=== PATIENT | male | born 1940 | race Caucasian/White ===

== ENCOUNTER 2020-03-23 06:03 | Outpatient (REF) | payer MEDICARE, OTHER, SELFPAY ==
[2020-03-23 07:45] LABS: MANUAL DIFF FLAG NO
[2020-03-23 07:52] LABS: Basophils Percent Auto 0.8 % (0-2); Eosinophils Absolute Auto 0.5 X10*3/uL (0.0-0.4); Eosinophils Percent Auto 9.5 % (0-4); Hematocrit 48.4 % (42-52); Hemoglobin 15.9 g/dl (14.0-18.0); Imm Gran Abs Auto 0.02 X10*3/uL (0.00-0.03); Imm Gran Pct Auto 0.4 % (0.0-0.4); Lymphocytes Absolute Auto 0.8 X10*3/uL (1.2-4.9); Lymphocytes Percent Auto 15.9 % (20-40); Mean Corpuscular HGB Conc 32.9 g/dl (31.0-36.0); Mean Corpuscular Hemoglobin 30.5 pg (27.0-33.0); Mean Corpuscular Volume 92.9 fL (80-98); Mean Platelet Volume 9.8 fL (9.4-12.4); Monocytes Absolute Auto 0.6 X10*3/uL (0.1-1.2); Monocytes Percent Auto 11.4 % (2-11); Platelet Count 207 X10*3/uL (160-400); Red Blood Count 5.21 X10*6/uL (4.60-5.80); White Blood Count 4.8 X10*3/uL (4.8-10.8)
[2020-03-23 08:05] LABS: Estimated Average Glucose 128 mg/dL; Hemoglobin A1c % 6.1 %
[2020-03-23 08:24] LABS: Alanine Aminotransferase 13 U/L (0-40); Albumin Level 4.2 g/dL (3.5-5.0); Alkaline Phosphatase 69 U/L (39-117); Anion Gap 13 (12-20); Aspartate Amino Transferase 16 U/L (5-37); Bilirubin Total 0.7 mg/dL (0.0-1.0); Blood Urea Nitrogen 19 mg/dL (9-16); Calcium 8.7 mg/dL (8.4-10.2); Carbon Dioxide 28 mmol/L (22-29); Chloride 100 mmol/L (96-108); Cholesterol 171 mg/dL; Estimated Glomerular Filt Rate > 60; Glucose Fasting 98 mg/dL (60-99); HDL Cholesterol 53 mg/dL; LDL Cholesterol Calculated 101 mg/dl; Potassium 4.6 mmol/l (3.3-5.1); Sodium 136 mmol/L (135-145); Triglycerides 89 mg/dL
[2020-03-23 10:09] LABS: Creatinine Urine 77.47 mg/dL; Microalbumin Urine < 5.0 mg/L
== END 2020-03-23 06:04 | disposition home or self-care (01) ==
LOC: HO.LAB 06:03
PROVIDERS: Visit Provider Internal Medicine Medical Oncology
DX: E11.22 Type 2 diabetes mellitus with diabetic chronic kidney disease (principal); I12.9 Hypertensive chronic kidney disease with stage 1 through stage 4 chronic kidney disease, or unspecified chronic kidney disease; N18.9 Chronic kidney disease, unspecified; E78.2 Mixed hyperlipidemia
CPT/HCPCS: 36415; 80053; 80061; 82043; 83036; 85025

== ENCOUNTER 2020-06-19 05:59 | Outpatient (REF) | payer MEDICARE, OTHER, SELFPAY ==
[2020-06-19 07:13] LABS: MANUAL DIFF FLAG NO
[2020-06-19 07:19] LABS: Basophils Percent Auto 0.5 % (0-2); Eosinophils Absolute Auto 0.3 X10*3/uL (0.0-0.4); Eosinophils Percent Auto 4.9 % (0-4); Hematocrit 49.3 % (42-52); Hemoglobin 16.6 g/dl (14.0-18.0); Imm Gran Abs Auto 0.02 X10*3/uL (0.00-0.03); Imm Gran Pct Auto 0.3 % (0.0-0.4); Lymphocytes Absolute Auto 0.9 X10*3/uL (1.2-4.9); Lymphocytes Percent Auto 14.9 % (20-40); Mean Corpuscular HGB Conc 33.7 g/dl (31.0-36.0); Mean Corpuscular Hemoglobin 31.4 pg (27.0-33.0); Mean Corpuscular Volume 93.4 fL (80-98); Mean Platelet Volume 9.8 fL (9.4-12.4); Monocytes Absolute Auto 0.6 X10*3/uL (0.1-1.2); Monocytes Percent Auto 10.9 % (2-11); Neutrophils Absolute Auto 3.9 X10*3/uL (2.0-8.3); Neutrophils Percent Auto 68.5 % (45-73); Platelet Count 221 X10*3/uL (160-400); Red Blood Count 5.28 X10*6/uL (4.60-5.80); Red Cell Distribution Width 12.1 % (11.0-16.0); White Blood Count 5.8 X10*3/uL (4.8-10.8)
[2020-06-19 07:24] LABS: Estimated Average Glucose 131 mg/dL; Hemoglobin A1c % 6.2 %
[2020-06-19 07:41] LABS: Alanine Aminotransferase 15 U/L (0-40); Albumin Level 4.4 g/dL (3.5-5.0); Alkaline Phosphatase 68 U/L (39-117); Anion Gap 11 (12-20); Aspartate Amino Transferase 17 U/L (5-37); Bilirubin Total 0.8 mg/dL (0.0-1.0); Blood Urea Nitrogen 19 mg/dL (9-16); Calcium 8.9 mg/dL (8.4-10.2); Carbon Dioxide 31 mmol/L (22-29); Chloride 102 mmol/L (96-108); Cholesterol 179 mg/dL; Estimated Glomerular Filt Rate > 60; Glucose Fasting 116 mg/dL (60-99); HDL Cholesterol 56 mg/dL; LDL Cholesterol Calculated 106 mg/dl; Potassium 4.6 mmol/L (3.3-5.1); Sodium 139 mmol/L (135-145); Total Protein 7.3 g/dL (6.5-8.0); Triglycerides 85 mg/dL
== END 2020-06-19 06:00 | disposition home or self-care (01) ==
LOC: HO.LAB 05:59
PROVIDERS: PCP Internal Medicine Medical Oncology; Visit Provider Internal Medicine Medical Oncology
DX: I12.9 Hypertensive chronic kidney disease with stage 1 through stage 4 chronic kidney disease, or unspecified chronic kidney disease (principal); E11.22 Type 2 diabetes mellitus with diabetic chronic kidney disease; E78.2 Mixed hyperlipidemia; N18.2 Chronic kidney disease, stage 2 (mild)
CPT/HCPCS: 36415; 80053; 80061; 83036; 85025

== ENCOUNTER → 2020-08-06 12:47 | Outpatient (REF) | payer MEDICARE, OTHER, SELFPAY ==
--- NOTE | 2020-08-06 13:00 | CA_ITS ---
Transthoracic Echocardiogram Patient (Last, First, Middle): Kwan Padilla, Gender: Male Date of : 1940 Age: 80 Procedure Date: 08/06/2020 Procedure Type: Transthoracic Echocardiogram Location: OP Height: 180.34 cm Weight: 76.2 kg BSA: 1.96 m2 Heart Rate: bpm BP: 126 / 80 mmHg Police Patrol Officer: ALEX Max MD: Andi Johnson MD Machinist Mate: Sin Cobb MD Symptoms: I48.19 PERSIS AFIB, I35.0 NONRHEUMATIC Study Quality: Fair ECG Rhythm: Sinus Conclusions: - 1. Low normal LV systolic function with LVEF of 50-55% 2. Mildly dilated left atrium 3. Gvat-cu-gyeooseq aortic stenosis 4. Normal calculated RV systolic pressure 5. No pericardial effusion Findings Left Ventricle Normal left ventricular cavity size. There is normal left ventricular wall thickness. The left ventricular systolic function is low normal. The visually estimated ejection fraction is between 50-55%. Diastolic function is indeterminate on the basis of available data. Right Ventricle The right ventricle was not well visualized. Atria The left atrium is mildly dilated. Interatrial shunt cannot be excluded. The right atrium was not well visualized. Aortic Valve There is moderate calcification of the aortic valve. There is moderate thickening of the aortic valve. There is mild to moderate aortic valve stenosis. The mean gradient is 13 mmHg. The aortic valve area is 1.46 cm2. There is no aortic valve regurgitation. Mitral Valve There is mild anterior mitral leaflet thickening. There is moderate mitral annular calcification. There is trace mitral valve regurgitation. There is no mitral valve stenosis. Pulmonic Valve The pulmonic valve was not well visualized. Tricuspid Valve The tricuspid valve was not well visualized. There is trace tricuspid valve regurgitation. The right ventricular systolic pressure is normal. The right ventricular systolic pressure is 28 mmHg. There is no evidence of pulmonary hypertension. Great Vessels All visible segments of the aorta are normal in size. The pulmonary artery was not well visualized. Venous The inferior vena cava is normal in size and collapses greater than 50% with inspiration. Pericardium/Pleural There is no evidence of pericardial effusion. Prior Study Comparison Changes noted compared to prior study dated: 01/22/2019. LV systolic function appears to be low normal in this study Measurements 2D Linear Measurements IVSd: 1.03 0.6-0.9/0.6-1.0 cm LVIDd: 3.80 3.9-5.3/4.2-5.9 cm LVIDd Index: 1.94 2.4-3.2/2.2-3.1 cm/m2 LVIDs: 2.68 2.0-3.6 cm LVPWd: 1.03 0.7-1.1 cm Ao Root: 3.40 2.1-3.5 cm LA Diam: 3.40 2.7-3.8/3.0-4.0 cm LAIDs Index: 1.73 1.5-2.3 cm/m2 LV Mass: 152.21 67-162/88-224 g LV Mass Index: 77.66 43-95/49-115 g/m2 LVOT Diam: 2.00 3.0+(-)1.3 cm 2D Systolic Function EF 4C: 49.40 >55% EF 2C: 55.90 >55% EF BiP: 52.60 >55% Aortic Valve AoV Pk Marco Antonio: 2.40 AoV Mn Marco Antonio: 1.69 AoV VTI: 0.45 AoV Pk Grad: 23.00 Aov Mn Grad: 13.00 EDDIE Cont.VTI: 1.46 LVOT LVOT Pk Marco Antonio: 0.99 LVOT Mn Marco Antonio: 0.64 LVOT VTI: 0.21 LVOT Pk Grad: 4.00 LVOT Mn Grad: 2.00 LVOT Diam: 2.00 LVOT Area: 3.14 Tricuspid Valve TR Pk Marco Antonio: 2.52 TR Pk Grad: 25.00 RA Press: 3.00 RVSP: 28.00 Great Vessels Aorta Ao Root-2D: 3.40 2.0-3.7 cm Ao Asc: 3.30 2.1-3.4 cm Ao Arch: 3.20 Updated in Other Vendor System with Status of Final Sin Cobb MD electronically signed on 08/07/2020 12:12:52 PM with status of Final
== END ==
LOC: HO.CARD 12:47
PROVIDERS: Visit Provider Internal Medicine
DX: I48.19 Other persistent atrial fibrillation (principal); I35.0 Nonrheumatic aortic (valve) stenosis
CPT/HCPCS: 93306

== ENCOUNTER → 2020-08-26 12:57 | Outpatient (BNVA) | payer MEDICARE, OTHER, SELFPAY | PROVIDERS: PCP Internal Medicine Medical Oncology; Visit Provider Internal Medicine | DX: I48.19 Other persistent atrial fibrillation (principal); I35.0 Nonrheumatic aortic (valve) stenosis; I10 Essential (primary) hypertension; E11.8 Type 2 diabetes mellitus with unspecified complications | CPT/HCPCS: Q3014 ==

== ENCOUNTER 2020-09-18 05:56 | Outpatient (REF) | payer MEDICARE, OTHER, SELFPAY ==
[2020-09-18 07:04] LABS: MANUAL DIFF FLAG NO
[2020-09-18 07:07] LABS: Basophils Percent Auto 0.7 % (0-2); Eosinophils Absolute Auto 0.3 X10*3/uL (0.0-0.4); Eosinophils Percent Auto 5.9 % (0-4); Hematocrit 47.8 % (42-52); Hemoglobin 15.9 g/dl (14.0-18.0); Imm Gran Abs Auto 0.02 X10*3/uL (0.00-0.03); Imm Gran Pct Auto 0.5 % (0.0-0.4); Lymphocytes Absolute Auto 0.8 X10*3/uL (1.2-4.9); Lymphocytes Percent Auto 17.6 % (20-40); Mean Corpuscular HGB Conc 33.3 g/dl (31.0-36.0); Mean Corpuscular Hemoglobin 30.9 pg (27.0-33.0); Mean Corpuscular Volume 92.8 fL (80-98); Mean Platelet Volume 9.6 fL (9.4-12.4); Monocytes Absolute Auto 0.5 X10*3/uL (0.1-1.2); Monocytes Percent Auto 10.6 % (2-11); Neutrophils Absolute Auto 2.9 X10*3/uL (2.0-8.3); Neutrophils Percent Auto 64.7 % (45-73); Platelet Count 220 X10*3/uL (160-400); Red Blood Count 5.15 X10*6/uL (4.60-5.80); Red Cell Distribution Width 12.2 % (11.0-16.0); White Blood Count 4.4 X10*3/uL (4.8-10.8)
[2020-09-18 07:16] LABS: Estimated Average Glucose 131 mg/dL; Hemoglobin A1c % 6.2 %
[2020-09-18 07:31] LABS: Alanine Aminotransferase 14 U/L (0-40); Albumin Level 4.2 g/dL (3.5-5.0); Alkaline Phosphatase 70 U/L (39-117); Anion Gap 12 (12-20); Aspartate Amino Transferase 15 U/L (5-37); Bilirubin Total 0.7 mg/dL (0.0-1.0); Blood Urea Nitrogen 18 mg/dL (9-16); Calcium 9.3 mg/dL (8.4-10.2); Carbon Dioxide 30 mmol/L (22-29); Chloride 102 mmol/L (96-108); Cholesterol 183 mg/dL; Estimated Glomerular Filt Rate > 60; Glucose Fasting 105 mg/dL (60-99); HDL Cholesterol 56 mg/dL; LDL Cholesterol Calculated 108 mg/dl; Potassium 4.6 mmol/L (3.3-5.1); Sodium 139 mmol/L (135-145); Triglycerides 96 mg/dL
== END 2020-09-18 05:57 | disposition home or self-care (01) ==
LOC: HO.LAB 05:56
PROVIDERS: PCP Internal Medicine Medical Oncology; Visit Provider Internal Medicine Medical Oncology
DX: I12.9 Hypertensive chronic kidney disease with stage 1 through stage 4 chronic kidney disease, or unspecified chronic kidney disease (principal); E11.22 Type 2 diabetes mellitus with diabetic chronic kidney disease; N18.9 Chronic kidney disease, unspecified; E78.2 Mixed hyperlipidemia
CPT/HCPCS: 36415; 80053; 80061; 83036; 85025

== ENCOUNTER 2021-01-25 05:58 | Outpatient (REF) | payer MEDICARE, OTHER, SELFPAY ==
[2021-01-25 07:10] LABS: MANUAL DIFF FLAG NO
[2021-01-25 07:12] LABS: Basophils Percent Auto 0.4 % (0-2); Eosinophils Absolute Auto 0.3 X10*3/uL (0.0-0.4); Eosinophils Percent Auto 5.4 % (0-4); Hematocrit 46.3 % (42-52); Hemoglobin 15.6 g/dl (14.0-18.0); Imm Gran Abs Auto 0.02 X10*3/uL (0.00-0.03); Imm Gran Pct Auto 0.4 % (0.0-0.4); Lymphocytes Absolute Auto 0.8 X10*3/uL (1.2-4.9); Lymphocytes Percent Auto 15.4 % (20-40); Mean Corpuscular HGB Conc 33.7 g/dl (31.0-36.0); Mean Corpuscular Hemoglobin 31.4 pg (27.0-33.0); Mean Corpuscular Volume 93.2 fL (80-98); Mean Platelet Volume 9.8 fL (9.4-12.4); Monocytes Absolute Auto 0.6 X10*3/uL (0.1-1.2); Monocytes Percent Auto 11.1 % (2-11); Neutrophils Absolute Auto 3.6 X10*3/uL (2.0-8.3); Neutrophils Percent Auto 67.3 % (45-73); Platelet Count 212 X10*3/uL (160-400); Red Blood Count 4.97 X10*6/uL (4.60-5.80); Red Cell Distribution Width 12.7 % (11.0-16.0); White Blood Count 5.3 X10*3/uL (4.8-10.8)
[2021-01-25 07:39] LABS: Estimated Average Glucose 128 mg/dL; Hemoglobin A1c % 6.1 %
[2021-01-25 07:51] LABS: Alanine Aminotransferase 12 U/L (0-40); Albumin Level 4.3 g/dL (3.5-5.0); Alkaline Phosphatase 63 U/L (39-117); Anion Gap 13 (12-20); Aspartate Amino Transferase 17 U/L (5-37); Bilirubin Total 0.9 mg/dL (0.0-1.0); Blood Urea Nitrogen 15 mg/dL (9-16); Calcium 9.4 mg/dL (8.4-10.2); Carbon Dioxide 28 mmol/L (22-29); Chloride 103 mmol/L (96-108); Cholesterol 171 mg/dL; Estimated Glomerular Filt Rate > 60; Glucose Random 108 mg/dL (60-115); HDL Cholesterol 59 mg/dL; LDL Cholesterol Calculated 94 mg/dl; Potassium 4.3 mmol/L (3.3-5.1); Sodium 140 mmol/L (135-145); Total Protein 6.9 g/dL (6.5-8.0); Triglycerides 92 mg/dL
[2021-01-25 08:29] LABS: Prostate Specific Antigen 0.61 ng/mL (<0.05-4.0)
== END 2021-01-25 05:59 | disposition home or self-care (01) ==
LOC: HO.LAB 05:58
PROVIDERS: PCP Internal Medicine Medical Oncology; Visit Provider Internal Medicine Medical Oncology
DX: E78.2 Mixed hyperlipidemia (principal); E11.22 Type 2 diabetes mellitus with diabetic chronic kidney disease; I12.9 Hypertensive chronic kidney disease with stage 1 through stage 4 chronic kidney disease, or unspecified chronic kidney disease; N18.2 Chronic kidney disease, stage 2 (mild); I48.20 Chronic atrial fibrillation, unspecified; N40.0 Benign prostatic hyperplasia without lower urinary tract symptoms; Z12.5 Encounter for screening for malignant neoplasm of prostate
CPT/HCPCS: 36415; 80053; 80061; 83036; 84153; 84550; 85025

== ENCOUNTER → 2021-03-02 14:32 | Outpatient (BNVA) | payer MEDICARE, OTHER, SELFPAY | PROVIDERS: PCP Internal Medicine Medical Oncology; Visit Provider Internal Medicine | DX: I48.19 Other persistent atrial fibrillation (principal); I49.3 Ventricular premature depolarization; I35.0 Nonrheumatic aortic (valve) stenosis; I10 Essential (primary) hypertension; E11.9 Type 2 diabetes mellitus without complications; Z88.0 Allergy status to penicillin; Z88.2 Allergy status to sulfonamides; Z91.02 Food additives allergy status; Z79.4 Long term (current) use of insulin; Z79.899 Other long term (current) drug therapy | CPT/HCPCS: 93005; 99212 ==

== ENCOUNTER 2021-04-23 05:54 | Outpatient (REF) | payer MEDICARE, OTHER, SELFPAY ==
[2021-04-23 06:17] LABS: MANUAL DIFF FLAG NO
[2021-04-23 07:12] LABS: Basophils Percent Auto 0.7 % (0-2); Eosinophils Absolute Auto 0.3 X10*3/uL (0.0-0.4); Eosinophils Percent Auto 7.2 % (0-4); Hematocrit 48.6 % (42.0-52.0); Hemoglobin 16.4 g/dl (14.0-18.0); Imm Gran Abs Auto 0.01 X10*3/uL (0.00-0.03); Imm Gran Pct Auto 0.2 % (0.0-0.4); Lymphocytes Absolute Auto 0.7 X10*3/uL (1.2-4.9); Lymphocytes Percent Auto 15.6 % (20-40); Mean Corpuscular HGB Conc 33.7 g/dl (31.0-36.0); Mean Corpuscular Hemoglobin 31.5 pg (27.0-33.0); Mean Corpuscular Volume 93.3 fL (80.0-98.0); Mean Platelet Volume 9.8 fL (9.4-12.4); Monocytes Absolute Auto 0.5 X10*3/uL (0.1-1.2); Monocytes Percent Auto 10.9 % (2-11); Neutrophils Absolute Auto 2.8 x10*3/uL (2.0-8.3); Neutrophils Percent Auto 65.4 % (45-73); Platelet Count 202 X10*3/uL (160-400); Red Blood Count 5.21 X10*6/uL (4.60-5.80); Red Cell Distribution Width 12.2 % (11.0-16.0); White Blood Count 4.3 X10*3/uL (4.8-10.8)
[2021-04-23 07:33] LABS: Estimated Average Glucose 131 mg/dL; Hemoglobin A1c % 6.2 %
[2021-04-23 07:42] LABS: Alanine Aminotransferase 15 U/L (0-40); Albumin Level 4.2 g/dL (3.5-5.0); Alkaline Phosphatase 61 U/L (39-117); Anion Gap 13 (12-20); Aspartate Amino Transferase 18 U/L (5-37); Bilirubin Total 0.9 mg/dL (0.0-1.0); Blood Urea Nitrogen 15 mg/dL (9-16); Calcium 9.3 mg/dL (8.4-10.2); Carbon Dioxide 28 mmol/L (22-29); Chloride 104 mmol/L (96-108); Cholesterol 173 mg/dL; Estimated Glomerular Filt Rate > 60; Glucose Fasting 107 mg/dL (60-99); HDL Cholesterol 49 mg/dL; LDL Cholesterol Calculated 106 mg/dl; Potassium 4.6 mmol/L (3.3-5.1); Sodium 140 mmol/L (135-145); Total Protein 7.1 g/dL (6.5-8.0); Triglycerides 90 mg/dL
[2021-04-23 08:04] LABS: PSA,Total (Free>4and<10) 0.59 ng/mL (0.00-4.00)
== END 2021-04-23 05:55 | disposition home or self-care (01) ==
LOC: HO.LAB 05:54
PROVIDERS: PCP Internal Medicine Medical Oncology; Visit Provider Internal Medicine Medical Oncology
DX: Z12.5 Encounter for screening for malignant neoplasm of prostate (principal); E78.2 Mixed hyperlipidemia; E11.22 Type 2 diabetes mellitus with diabetic chronic kidney disease; N18.9 Chronic kidney disease, unspecified
CPT/HCPCS: 36415; 80053; 80061; 83036; 84153; 85025

== ENCOUNTER 2021-07-16 06:01 | Outpatient (REF) | payer MEDICARE, OTHER, SELFPAY ==
[2021-07-16 06:15] LABS: MANUAL DIFF FLAG NO
[2021-07-16 07:37] LABS: Basophils Percent Auto 0.6 % (0-2); Eosinophils Absolute Auto 0.3 X10*3/uL (0.0-0.4); Eosinophils Percent Auto 4.9 % (0-4); Hematocrit 49.4 % (42.0-52.0); Imm Gran Abs Auto 0.02 X10*3/uL (0.00-0.03); Imm Gran Pct Auto 0.4 % (0.0-0.4); Lymphocytes Absolute Auto 0.8 X10*3/uL (1.2-4.9); Mean Corpuscular HGB Conc 32.4 g/dl (31.0-36.0); Mean Corpuscular Hemoglobin 30.4 pg (27.0-33.0); Mean Corpuscular Volume 93.9 fL (80.0-98.0); Mean Platelet Volume 9.9 fL (9.4-12.4); Monocytes Absolute Auto 0.6 X10*3/uL (0.1-1.2); Monocytes Percent Auto 11.5 % (2-11); Neutrophils Absolute Auto 3.4 x10*3/uL (2.0-8.3); Neutrophils Percent Auto 66.6 % (45-73); Platelet Count 224 X10*3/uL (160-400); Red Blood Count 5.26 X10*6/uL (4.60-5.80); White Blood Count 5.1 X10*3/uL (4.8-10.8)
[2021-07-16 07:45] LABS: Estimated Average Glucose 131 mg/dL; Hemoglobin A1c % 6.2 %
[2021-07-16 07:53] LABS: Microalbumin Urine < 5.0 mg/L
[2021-07-16 08:03] LABS: Alanine Aminotransferase 14 U/L (0-40); Albumin Level 4.3 g/dL (3.5-5.0); Alkaline Phosphatase 68 U/L (39-117); Anion Gap 12 (12-20); Aspartate Amino Transferase 18 U/L (5-37); Blood Urea Nitrogen 18 mg/dL (9-16); Calcium 9.6 mg/dL (8.4-10.2); Carbon Dioxide 29 mmol/L (22-29); Chloride 101 mmol/L (96-108); Cholesterol 170 mg/dL; Estimated Glomerular Filt Rate > 60; Glucose Fasting 113 mg/dL (60-99); HDL Cholesterol 51 mg/dL; LDL Cholesterol Calculated 100 mg/dl; Potassium 4.9 mmol/L (3.3-5.1); Sodium 137 mmol/L (135-145); Total Protein 7.2 g/dL (6.5-8.0); Triglycerides 96 mg/dL
== END 2021-07-16 06:02 | disposition home or self-care (01) ==
LOC: HO.LAB 06:01
PROVIDERS: PCP Internal Medicine Medical Oncology; Visit Provider Internal Medicine Medical Oncology
DX: E78.2 Mixed hyperlipidemia (principal); E11.22 Type 2 diabetes mellitus with diabetic chronic kidney disease; I12.9 Hypertensive chronic kidney disease with stage 1 through stage 4 chronic kidney disease, or unspecified chronic kidney disease; N18.9 Chronic kidney disease, unspecified
CPT/HCPCS: 36415; 80053; 80061; 82043; 83036; 85025

== ENCOUNTER → 2021-08-25 12:37 | Outpatient (BNVA) | payer MEDICARE, OTHER, SELFPAY | PROVIDERS: PCP Internal Medicine Medical Oncology; Referring Provider Internal Medicine Medical Oncology; Visit Provider Internal Medicine | DX: I48.19 Other persistent atrial fibrillation (principal); I35.0 Nonrheumatic aortic (valve) stenosis; I10 Essential (primary) hypertension; E11.8 Type 2 diabetes mellitus with unspecified complications | CPT/HCPCS: 99212 ==

== ENCOUNTER 2021-11-05 05:57 | Outpatient (REF) | payer MEDICARE, OTHER, SELFPAY ==
[2021-11-05 06:03] LABS: MANUAL DIFF FLAG NO
[2021-11-05 07:41] LABS: Basophils Percent Auto 0.7 % (0-2); Eosinophils Absolute Auto 0.3 X10*3/uL (0.0-0.4); Eosinophils Percent Auto 5.6 % (0-4); Hematocrit 46.8 % (42.0-52.0); Hemoglobin 15.8 g/dl (14.0-18.0); Imm Gran Abs Auto 0.03 X10*3/uL (0.00-0.03); Imm Gran Pct Auto 0.5 % (0.0-0.4); Lymphocytes Absolute Auto 0.9 X10*3/uL (1.2-4.9); Lymphocytes Percent Auto 15.4 % (20-40); Mean Corpuscular HGB Conc 33.8 g/dl (31.0-36.0); Mean Corpuscular Hemoglobin 31.2 pg (27.0-33.0); Mean Corpuscular Volume 92.3 fL (80.0-98.0); Mean Platelet Volume 9.9 fL (9.4-12.4); Monocytes Absolute Auto 0.6 X10*3/uL (0.1-1.2); Monocytes Percent Auto 10.5 % (2-11); Neutrophils Absolute Auto 3.7 x10*3/uL (2.0-8.3); Neutrophils Percent Auto 67.3 % (45-73); Platelet Count 207 X10*3/uL (160-400); Red Blood Count 5.07 X10*6/uL (4.60-5.80); Red Cell Distribution Width 12.4 % (11.0-16.0); White Blood Count 5.5 X10*3/uL (4.8-10.8)
[2021-11-05 07:54] LABS: Alanine Aminotransferase 14 U/L (0-40); Albumin Level 4.3 g/dL (3.5-5.0); Alkaline Phosphatase 64 U/L (39-117); Anion Gap 11 (12-20); Aspartate Amino Transferase 17 U/L (5-37); Bilirubin Total 0.7 mg/dL (0.0-1.0); Blood Urea Nitrogen 17 mg/dL (9-16); Calcium 9.3 mg/dL (8.4-10.2); Carbon Dioxide 28 mmol/L (22-29); Chloride 103 mmol/L (96-108); Estimated Glomerular Filt Rate > 60; Glucose Random 113 mg/dL (60-115); Sodium 137 mmol/L (135-145)
[2021-11-05 08:12] LABS: Estimated Average Glucose 131 mg/dL; Hemoglobin A1c % 6.2 %
[2021-11-05 08:17] LABS: Prostate Specific Antigen 0.55 ng/mL (<0.05-4.0)
== END 2021-11-05 05:58 | disposition home or self-care (01) ==
LOC: HO.LAB 05:57
PROVIDERS: PCP Internal Medicine Medical Oncology; Visit Provider Internal Medicine Medical Oncology
DX: Z12.5 Encounter for screening for malignant neoplasm of prostate (principal); E78.2 Mixed hyperlipidemia; E11.22 Type 2 diabetes mellitus with diabetic chronic kidney disease; N18.9 Chronic kidney disease, unspecified; N40.0 Benign prostatic hyperplasia without lower urinary tract symptoms
CPT/HCPCS: 36415; 80053; 83036; 84153; 85025

== ENCOUNTER 2022-03-11 05:59 | Outpatient (REF) | payer MEDICARE, OTHER, SELFPAY ==
[2022-03-11 06:05] LABS: MANUAL DIFF FLAG NO
[2022-03-11 07:37] LABS: Basophils Percent Auto 0.5 % (0-2); Eosinophils Absolute Auto 0.4 X10*3/uL (0.0-0.4); Eosinophils Percent Auto 6.2 % (0-4); Hematocrit 46.2 % (42.0-52.0); Hemoglobin 15.1 g/dl (14.0-18.0); Imm Gran Abs Auto 0.02 X10*3/uL (0.00-0.03); Imm Gran Pct Auto 0.4 % (0.0-0.4); Lymphocytes Absolute Auto 0.8 X10*3/uL (1.2-4.9); Lymphocytes Percent Auto 13.9 % (20-40); Mean Corpuscular HGB Conc 32.7 g/dl (31.0-36.0); Mean Corpuscular Hemoglobin 30.7 pg (27.0-33.0); Mean Corpuscular Volume 93.9 fL (80.0-98.0); Mean Platelet Volume 9.9 fL (9.4-12.4); Monocytes Absolute Auto 0.6 X10*3/uL (0.1-1.2); Monocytes Percent Auto 10.7 % (2-11); Neutrophils Absolute Auto 3.9 x10*3/uL (2.0-8.3); Neutrophils Percent Auto 68.3 % (45-73); Platelet Count 215 X10*3/uL (160-400); Red Blood Count 4.92 X10*6/uL (4.60-5.80); Red Cell Distribution Width 12.6 % (11.0-16.0); White Blood Count 5.7 X10*3/uL (4.8-10.8)
[2022-03-11 07:50] LABS: Estimated Average Glucose 131 mg/dL; Hemoglobin A1c % 6.2 %
[2022-03-11 08:06] LABS: Alanine Aminotransferase 15 U/L (0-40); Albumin Level 4.2 g/dL (3.5-5.0); Alkaline Phosphatase 65 U/L (39-117); Anion Gap 17 (12-20); Aspartate Amino Transferase 16 U/L (5-37); Bilirubin Total 0.9 mg/dL (0.0-1.0); Blood Urea Nitrogen 17 mg/dL (9-16); Calcium 9.2 mg/dL (8.4-10.2); Carbon Dioxide 26 mmol/L (22-29); Chloride 103 mmol/L (96-108); Cholesterol 161 mg/dL; Estimated Glomerular Filt Rate > 60; Glucose Fasting 113 mg/dL (60-99); HDL Cholesterol 51 mg/dL; LDL Cholesterol Calculated 93 mg/dl; Sodium 141 mmol/L (135-145); Total Protein 6.9 g/dL (6.5-8.0); Triglycerides 85 mg/dL
== END 2022-03-11 06:00 | disposition home or self-care (01) ==
LOC: HO.LAB 05:59
PROVIDERS: PCP Internal Medicine Medical Oncology; Visit Provider Internal Medicine Medical Oncology
DX: E78.2 Mixed hyperlipidemia (principal); E11.22 Type 2 diabetes mellitus with diabetic chronic kidney disease; N18.9 Chronic kidney disease, unspecified
CPT/HCPCS: 36415; 80053; 80061; 83036; 85025

== ENCOUNTER → 2022-03-30 13:26 | Outpatient (BNVA) | payer MEDICARE, OTHER, SELFPAY | PROVIDERS: PCP Internal Medicine Medical Oncology; Referring Provider Internal Medicine Medical Oncology; Visit Provider Internal Medicine | DX: I48.19 Other persistent atrial fibrillation (principal); I35.0 Nonrheumatic aortic (valve) stenosis; I10 Essential (primary) hypertension; E11.8 Type 2 diabetes mellitus with unspecified complications | CPT/HCPCS: 93005; 99212 ==

== ENCOUNTER 2022-07-22 06:03 | Outpatient (REF) | payer MEDICARE, OTHER, SELFPAY ==
[2022-07-22 06:12] LABS: MANUAL DIFF FLAG NO
[2022-07-22 07:42] LABS: Basophils Percent Auto 0.7 % (0-2); Eosinophils Absolute Auto 0.3 X10*3/uL (0.0-0.4); Eosinophils Percent Auto 6.1 % (0-4); Hematocrit 46.3 % (42.0-52.0); Hemoglobin 15.3 g/dl (14.0-18.0); Imm Gran Abs Auto 0.03 X10*3/uL (0.00-0.03); Imm Gran Pct Auto 0.6 % (0.0-0.4); Lymphocytes Absolute Auto 0.9 X10*3/uL (1.2-4.9); Lymphocytes Percent Auto 16.5 % (20-40); Mean Corpuscular Volume 93.7 fL (80.0-98.0); Mean Platelet Volume 9.9 fL (9.4-12.4); Monocytes Absolute Auto 0.6 X10*3/uL (0.1-1.2); Monocytes Percent Auto 11.7 % (2-11); Neutrophils Absolute Auto 3.5 x10*3/uL (2.0-8.3); Neutrophils Percent Auto 64.4 % (45-73); Platelet Count 225 X10*3/uL (160-400); Red Blood Count 4.94 X10*6/uL (4.60-5.80); Red Cell Distribution Width 12.3 % (11.0-16.0); White Blood Count 5.4 X10*3/uL (4.8-10.8)
[2022-07-22 08:21] LABS: Alanine Aminotransferase 13 U/L (0-40); Alkaline Phosphatase 66 U/L (39-117); Anion Gap 16 (12-20); Aspartate Amino Transferase 18 U/L (5-37); Bilirubin Total 1.1 mg/dL (0.0-1.0); Blood Urea Nitrogen 16 mg/dL (9-16); Calcium 9.2 mg/dL (8.4-10.2); Carbon Dioxide 26 mmol/L (22-29); Chloride 103 mmol/L (96-108); Cholesterol 173 mg/dL; Estimated Glomerular Filt Rate > 60; Glucose Fasting 109 mg/dL (60-99); HDL Cholesterol 56 mg/dL; LDL Cholesterol Calculated 98 mg/dl; Potassium 4.5 mmol/L (3.3-5.1); Sodium 140 mmol/L (135-145); Total Protein 6.7 g/dL (6.5-8.0); Triglycerides 97 mg/dL
[2022-07-22 08:28] LABS: Prostate Specific Antigen 0.69 ng/mL (<0.05-4.0)
== END 2022-07-22 06:04 | disposition home or self-care (01) ==
LOC: HO.LAB 06:03
PROVIDERS: PCP Internal Medicine Medical Oncology; Visit Provider Internal Medicine Medical Oncology
DX: Z12.5 Encounter for screening for malignant neoplasm of prostate (principal); E78.2 Mixed hyperlipidemia; E11.22 Type 2 diabetes mellitus with diabetic chronic kidney disease; N18.9 Chronic kidney disease, unspecified; N40.0 Benign prostatic hyperplasia without lower urinary tract symptoms
CPT/HCPCS: 36415; 80053; 80061; 84153; 85025

== ENCOUNTER 2022-11-04 06:00 | Outpatient (REF) | payer MEDICARE, OTHER, SELFPAY ==
[2022-11-04 06:15] LABS: MANUAL DIFF FLAG NO
[2022-11-04 07:32] LABS: Basophils Percent Auto 0.5 % (0-2); Eosinophils Absolute Auto 0.4 X10*3/uL (0.0-0.4); Eosinophils Percent Auto 6.1 % (0-4); Hemoglobin 15.4 g/dl (14.0-18.0); Imm Gran Abs Auto 0.02 X10*3/uL (0.00-0.03); Imm Gran Pct Auto 0.4 % (0.0-0.4); Lymphocytes Absolute Auto 0.8 X10*3/uL (1.2-4.9); Lymphocytes Percent Auto 13.5 % (20-40); Mean Corpuscular HGB Conc 33.5 g/dl (31.0-36.0); Mean Corpuscular Volume 92.7 fL (80.0-98.0); Mean Platelet Volume 9.5 fL (9.4-12.4); Monocytes Absolute Auto 0.6 X10*3/uL (0.1-1.2); Monocytes Percent Auto 10.4 % (2-11); Neutrophils Absolute Auto 3.9 x10*3/uL (2.0-8.3); Neutrophils Percent Auto 69.1 % (45-73); Platelet Count 207 X10*3/uL (160-400); Red Blood Count 4.96 X10*6/uL (4.60-5.80); Red Cell Distribution Width 12.2 % (11.0-16.0); White Blood Count 5.7 X10*3/uL (4.8-10.8)
[2022-11-04 07:41] LABS: Estimated Average Glucose 126 mg/dL
[2022-11-04 09:17] LABS: Alanine Aminotransferase 13 U/L (0-40); Alkaline Phosphatase 62 U/L (39-117); Anion Gap 14 (12-20); Aspartate Amino Transferase 17 U/L (5-37); Bilirubin Total 0.6 mg/dL (0.0-1.0); Blood Urea Nitrogen 15 mg/dL (9-16); Calcium 9.8 mg/dL (8.4-10.2); Carbon Dioxide 26 mmol/L (22-29); Chloride 104 mmol/L (96-108); Estimated Glomerular Filt Rate > 60; Glucose Random 109 mg/dL (60-115); Potassium 5.3 mmol/L (3.3-5.1); Sodium 139 mmol/L (135-145)
[2022-11-04 09:32] LABS: Creatinine Urine 106.65 mg/dL; Microalbumin Urine < 5.0 mg/L
== END 2022-11-04 06:01 | disposition home or self-care (01) ==
LOC: HO.LAB 06:00
PROVIDERS: PCP Internal Medicine Medical Oncology; Visit Provider Internal Medicine Medical Oncology
DX: Z00.00 Encounter for general adult medical examination without abnormal findings (principal); E78.2 Mixed hyperlipidemia; I12.9 Hypertensive chronic kidney disease with stage 1 through stage 4 chronic kidney disease, or unspecified chronic kidney disease; E11.22 Type 2 diabetes mellitus with diabetic chronic kidney disease; N18.9 Chronic kidney disease, unspecified
CPT/HCPCS: 36415; 80053; 82043; 83036; 85025

== ENCOUNTER 2022-11-04 07:30 | Outpatient (REF) | payer MEDICARE, OTHER, SELFPAY | END 2022-11-04 07:31 | disposition home or self-care (01) | LOC: HO.LNP 07:30 | PROVIDERS: Visit Provider Internal Medicine Medical Oncology | DX: Z13.89 Encounter for screening for other disorder (principal) ==

== ENCOUNTER 2023-01-20 05:49 | Outpatient (REF) | payer MEDICARE, OTHER, SELFPAY ==
[2023-01-20 06:13] LABS: MANUAL DIFF FLAG NO
[2023-01-20 08:10] LABS: Basophils Percent Auto 0.8 % (0-2); Eosinophils Absolute Auto 0.3 X10*3/uL (0.0-0.4); Eosinophils Percent Auto 4.9 % (0-4); Hematocrit 46.6 % (42.0-52.0); Hemoglobin 15.6 g/dl (14.0-18.0); Imm Gran Abs Auto 0.02 X10*3/uL (0.00-0.03); Imm Gran Pct Auto 0.4 % (0.0-0.4); Lymphocytes Absolute Auto 0.7 X10*3/uL (1.2-4.9); Mean Corpuscular HGB Conc 33.5 g/dl (31.0-36.0); Mean Corpuscular Hemoglobin 31.1 pg (27.0-33.0); Mean Corpuscular Volume 92.8 fL (80.0-98.0); Mean Platelet Volume 9.9 fL (9.4-12.4); Monocytes Absolute Auto 0.6 X10*3/uL (0.1-1.2); Monocytes Percent Auto 11.1 % (2-11); Neutrophils Absolute Auto 3.5 x10*3/uL (2.0-8.3); Neutrophils Percent Auto 68.8 % (45-73); Platelet Count 206 X10*3/uL (160-400); Red Blood Count 5.02 X10*6/uL (4.60-5.80); Red Cell Distribution Width 12.5 % (11.0-16.0); White Blood Count 5.1 X10*3/uL (4.8-10.8)
[2023-01-20 08:19] LABS: Estimated Average Glucose 126 mg/dL
[2023-01-20 08:39] LABS: Alanine Aminotransferase 12 U/L (0-40); Albumin Level 4.2 g/dL (3.5-5.0); Alkaline Phosphatase 58 U/L (39-117); Anion Gap 15 (12-20); Aspartate Amino Transferase 16 U/L (5-37); Bilirubin Total 0.7 mg/dL (0.0-1.0); Blood Urea Nitrogen 15 mg/dL (9-16); Calcium 9.5 mg/dL (8.4-10.2); Carbon Dioxide 26 mmol/L (22-29); Chloride 104 mmol/L (96-108); Cholesterol 169 mg/dL (<200); Estimated Glomerular Filt Rate > 60; Glucose Fasting 113 mg/dL (60-99); HDL Cholesterol 55 mg/dL (>40); LDL Cholesterol Calculated 98 mg/dL (<100); Potassium 4.6 mmol/L (3.3-5.1); Sodium 140 mmol/L (135-145); Total Protein 7.1 g/dL (6.5-8.0); Triglycerides 84 mg/dL (<150)
[2023-01-20 10:38] LABS: Creatinine Urine 70.88 mg/dL; Microalbumin Urine < 5.0 mg/L
== END 2023-01-20 05:50 | disposition home or self-care (01) ==
LOC: HO.LAB 05:49
PROVIDERS: PCP Internal Medicine Medical Oncology; Visit Provider Internal Medicine Medical Oncology
DX: I12.9 Hypertensive chronic kidney disease with stage 1 through stage 4 chronic kidney disease, or unspecified chronic kidney disease (principal); E11.22 Type 2 diabetes mellitus with diabetic chronic kidney disease; N18.2 Chronic kidney disease, stage 2 (mild); E78.2 Mixed hyperlipidemia
CPT/HCPCS: 36415; 80053; 80061; 82043; 82570; 83036; 85025

== ENCOUNTER → 2023-03-14 12:37 | Outpatient (REF) | payer MEDICARE, OTHER, SELFPAY ==
--- NOTE | 2023-03-14 12:40 | HM_ITS ---
Conclusion: 1. Patient was monitored for total period of 2 days and 21 hours 2. Baseline was atrial fibrillation with average heart rate of 74 beats per minute with good rate control 3. No significant pauses greater than 3 seconds noted 4. Frequent PVCs noted with total burden of 5.25% with 11 3 beat salvos which could represent aberrant conduction 5. No patient reported events MTDD
--- NOTE | 2023-03-14 12:40 | CA_ITS ---
Transthoracic Echocardiogram Patient (Last, First, Middle): Kwan Padilla, Gender: Male Date of : 1940 Age: 82 Procedure Date: 03/14/2023 Procedure Type: Transthoracic Echocardiogram Location: OP Height: 180.34 cm Weight: 78.93 kg BSA: 1.99 m2 Heart Rate: bpm BP: 130 / 82 mmHg Nurse Reviewer: TO Referring MD: Andi Johnson MD Video Production Specialist: Sin Cobb MD Symptoms: I35.0 - Nonrheumatic aortic (valve) stenosis Study Quality: Fair ECG Rhythm: Atrial Fibrillation Conclusions: - 1. Normal LV ejection fraction 55-60% 2. Moderate paradoxical low-flow aortic stenosis 3. Normal RV systolic pressure 4. No gross pericardial effusion Findings Left Ventricle Normal left ventricular size, thickness, and systolic function. The visually estimated ejection fraction is between 55-60%. Diastolic function is indeterminate on the basis of available data. Right Ventricle Normal right ventricular cavity size. There is low normal right ventricular systolic function. Atria The left atrium is likely dilated. There is no evidence of interatrial shunt. The right atrium is likely dilated. Aortic Valve There is moderate calcification of the aortic valve. There is mild thickening of the aortic valve. There is moderate aortic valve stenosis. The peak aortic gradient is 19 mmHg.The mean gradient is 11 mmHg. The aortic valve area is 1.22 cm2. There is no aortic valve regurgitation. paradoxical low-flow aortic stenosis Mitral Valve There is mild anterior and moderate posterior mitral leaflet thickening. There is moderate mitral annular calcification. There is mild mitral valve regurgitation. There is no mitral valve stenosis. Pulmonic Valve The pulmonic valve is likely normal. Tricuspid Valve Normal tricuspid valve structure. There is trace tricuspid valve regurgitation. The right ventricular systolic pressure is normal. The right ventricular systolic pressure is 20 mmHg. Normal right atrial pressure. Great Vessels All visible segments of the aorta are normal in size. The pulmonary artery was not well visualized. Venous The inferior vena cava is normal in size and collapses greater than 50% with inspiration. Pericardium/Pleural There is no evidence of pericardial effusion. Measurements 2D Linear Measurements IVSd: 1.10 0.6-0.9/0.6-1.0 cm LVIDd: 4.10 3.9-5.3/4.2-5.9 cm LVIDd Index: 2.06 2.4-3.2/2.2-3.1 cm/m2 LVIDs: 2.96 2.0-3.6 cm LVPWd: 0.85 0.7-1.1 cm LA Diam: 4.10 2.7-3.8/3.0-4.0 cm LAIDs Index: 2.06 1.5-2.3 cm/m2 LV Mass: 159.08 67-162/88-224 g LV Mass Index: 79.94 43-95/49-115 g/m2 LVOT Diam: 2.20 3.0+(-)1.3 cm Mitral Valve MV Pk E: 0.78 MV Decel Time: 193.00 E'Lateral: 10.00 E'Medial: 7.51 E/E' Med: 10.40 E/E' Lat: 7.80 PHT: 57.00 MVA PHT: 3.86 Decel Mckinley: 4.18 Aortic Valve AoV Pk Marco Antonio: 2.17 AoV Mn Marco Antonio: 1.59 AoV VTI: 0.42 AoV Pk Grad: 19.00 Aov Mn Grad: 11.00 EDDIE Cont.VTI: 1.22 LVOT LVOT Pk Marco Antonio: 0.69 LVOT Mn Marco Antonio: 0.44 LVOT VTI: 0.14 LVOT Pk Grad: 2.00 LVOT Mn Grad: 1.00 LVOT Diam: 2.20 LVOT Area: 3.80 Diastolic Function MV Pk E: 0.78 E'Medial: 7.51 E/E' Med: 10.40 E' Laterial: 10.00 E/E' Lat: 7.80 Right Ventricle TAPSE (mm): 17.50 TVS' Marco Antonio: 9.81 Tricuspid Valve TR Pk Marco Antonio: 2.07 TR Pk Grad: 17.00 RA Press: 3.00 RVSP: 20.00 Great Vessels Aorta Sinus of Valsalva: 3.37 2.0-3.5 cm Ao Asc: 3.30 2.1-3.4 cm Updated in Other Vendor System with Status of Final Sin Cobb MD electronically signed on 03/15/2023 3:36:35 PM with status of Final
== END ==
LOC: HO.CARD 12:37
PROVIDERS: PCP Internal Medicine Medical Oncology; Visit Provider Internal Medicine
DX: I48.19 Other persistent atrial fibrillation (principal); I35.0 Nonrheumatic aortic (valve) stenosis
CPT/HCPCS: 93242; 93306

== ENCOUNTER → 2023-03-14 12:40 | Outpatient (BNV) | payer MEDICARE, OTHER, SELFPAY | PROVIDERS: PCP Internal Medicine Medical Oncology; Visit Provider Internal Medicine Cardiovascular Disease | DX: I48.19 Other persistent atrial fibrillation (principal) | CPT/HCPCS: 93244; 93306 ==

== ENCOUNTER 2023-04-05 13:27 | Outpatient (AMB) | payer MEDICARE, OTHER, SELFPAY ==
--- NOTE | 2023-04-05 13:44 | A.OFFVIS_ITS ---
Intake Vital Signs 04/05/23 13:46 Height 5 ft 11 in Weight 180 lb 12.465 oz BMI 25.2 BP 130/70 Blood Pressure Location Lt brachial Position Sitting Pulse 90 Intake Visit Reasons: 1 year follow up, after testing Intake Note: 1 year follow up after testing [employer] Required: No Accompanied by: Self / Same As Patient Allergies Penicillins [PENICILLINS] Adverse Reaction (Unknown, Verified 04/05/23 13:49) DIARRHEA Sulfa (Sulfonamide Antibiotics) [SULFA (SULFONAMIDE ANTIBIOTICS)] Adverse Reaction (Unknown, Verified 04/05/23 13:49) DIARRHEA FOOD WITH ACID Allergy (Intermediate, Uncoded 04/05/23 13:49) RASH Medication List - Last Reconciled 04/05/23 by Andi Johnson MD apixaban 5 mg PO BID diltiazem HCl ER 120 mg PO DAILY lisinopril 5 mg PO DAILY 90 days metformin 500 mg PO BID HPI HPI Comments History of Present Illness Details Kwan returns for follow-up regarding atrial fibrillation, aortic stenosis and other issues. He is doing fine. Denies any cardiac complaints. [facility] Medical History (Updated 08/26/20 @ 13:17 by Andi Johnson MD) Type 2 diabetes mellitus with unspecified complications Essential hypertension Non-rheumatic aortic stenosis Persistent atrial fibrillation Surgical History No significant past surgical history Family History Father Lung cancer Heart attack Mother No problems noted. Social History Alcohol intake: never Patient Tobacco Use Status: Never used Tobacco Review of Systems Const Denies weakness ENT Denies dizziness Card Denies chest pain, Denies chest pain with activity, Denies syncope, Denies rapid heart rate, Denies pedal edema, Denies edema, Denies leg edema, Denies lightheadedness, Denies palpitations, Denies dyspnea, Denies dyspnea on exertion and Denies orthopnea Resp Denies cough, Denies dyspnea and Denies dyspnea on exertion GI Denies hematochezia and Denies change in stool character Musc Denies abnormal gait, Denies muscle cramps, Denies muscle weakness, Denies numbness, Denies radiating pain into limb and Denies tingling Neuro Denies abnormal gait, Denies dizziness, Denies syncope, Denies numbness, Denies tingling and Denies weakness Endo Denies palpitations Physical Exam Vital Signs: Last Vital Signs Pulse 90 04/05/23 13:46 BP 130/70 04/05/23 13:46 BMI result Body Mass Index 25.2 Const General: comfortable and no acute distress Orientation/consciousness: patient oriented x3 HEENT Other: Unremarkable Head: Yes normal to inspection Neck Neck: Yes normal visual inspection Chest Chest palpation & inspection: normal inspection of the chest Resp Auscultation: clear to auscultation bilaterally Cardio Palpation: normal PMI Heart sounds: S1 normal heart sound present, S2 normal heart sound present, no gallops, Murmur heart sound present systolic II/ and at the right sternal border and no rubs GI Palpation (GI): Soft to palpation Back/Spine/Pelvis Other: unremarkable Skin General skin exam: no rashes or lesions noted Neuro General: patient oriented x3 Extrem General: Yes normal to inspection Psych Mental Status: mental status grossly normal Office Procedures EKG Details: EKG with atrial fibrillation at a rate of 90/Min; leftward axis; nonspecific ST- T changes. [id number], Complete Assessment & Plan Assessment & Plan (1) Persistent atrial fibrillation: Code(s): I48.19 - Other persistent atrial fibrillation Plan: Most recent Holter shows atrial fibrillation with an average rate of 74/Min. Adequate rate control. Continue diltiazem/Eliquis. Myocardial perfusion imaging in the past shows normal perfusion. (2) Non-rheumatic aortic stenosis: Code(s): I35.0 - Nonrheumatic aortic (valve) stenosis Plan: Most recent echocardiogram described to have moderate aortic valve stenosis. Paradoxically low gradients. No specific management at this time. Follow-up another echo in 1 year. Discussed. (3) Essential hypertension: Code(s): I10 - Essential (primary) hypertension Plan: Stable. Home blood pressure diary reviewed. (4) Type 2 diabetes mellitus with unspecified complications: Code(s): E11.8 - Type 2 diabetes mellitus with unspecified complications Plan: On Metformin. Last hemoglobin A1c 6%. Orders: Orders CA echo transthoracic complete 51 Weeks I35.0 - Nonrheumatic aortic (valve) stenosis Coding Level of Care Code Est Pt Level 4 (28405) Diagnoses Persistent atrial fibrillation I48.19 Non-rheumatic aortic stenosis I35.0 Essential hypertension I10 Type 2 diabetes mellitus with unspecified complications E11.8 CPT Codes EKG - CPT: 34257-[id number], Complete ([id number])
[2023-04-05 13:46] VITALS: BP 130/70; PULSE 90; BMI 25.2
== END 2023-04-05 14:11 | disposition home or self-care (01) ==
PROVIDERS: Visit Provider Internal Medicine
DX: I48.19 Other persistent atrial fibrillation (principal); I35.0 Nonrheumatic aortic (valve) stenosis; I10 Essential (primary) hypertension; E11.8 Type 2 diabetes mellitus with unspecified complications
CPT/HCPCS: 93010; 99214

== ENCOUNTER → 2023-04-05 13:27 | Outpatient (BNVA) | payer MEDICARE, OTHER, SELFPAY | PROVIDERS: Visit Provider Internal Medicine | DX: I48.19 Other persistent atrial fibrillation (principal); I35.0 Nonrheumatic aortic (valve) stenosis; I10 Essential (primary) hypertension; E11.8 Type 2 diabetes mellitus with unspecified complications | CPT/HCPCS: 93005; 99212 ==

== ENCOUNTER 2023-06-16 06:49 | Inpatient (IN) | payer MEDICARE, OTHER, SELFPAY ==
[2023-06-16] VITALS (10 sets, daily range): BP systolic 112–154; BP diastolic 67–96; PULSE 71–105; RESP 16–21; TEMP 36.7–37.1; O2SAT 95–99; BMI 24.8
--- NOTE | 2023-06-16 | ECG_ITS ---
Test Reason : CP Blood Pressure : / mmHG Vent. Rate : 112 BPM Atrial Rate : 000 BPM P-R Int : 000 ms QRS Dur : 106 ms QT Int : 340 ms P-R-T Axes : 000 -61 098 degrees QTc Int : 464 ms Atrial fibrillation with rapid ventricular response Left anterior fascicular block ST depression, consider subendocardial injury Abnormal ECG When compared with ECG of 24-OCT-2017 11:06, ST more depressed Lateral leads Referred By: Generic ED Physician Electronically Signed By:COLBY LAUREANO
--- NOTE | ~2023-06-16 | US_ITS ---
EXAMINATION: US ABDOMEN LIMITED CLINICAL INFORMATION: Right upper quadrant pain.. COMPARISON: None available. TECHNIQUE: Real-time imaging of the right upper quadrant with attention to gallbladder and liver was performed.. FINDINGS: LIVER: The liver is normal in size. The liver contour is normal. Parenchymal echogenicity is mildly increased. No focal hepatic lesion. There is no intrahepatic biliary duct dilatation seen. GALLBLADDER: Gallbladder wall thickness is 0.2 cm. The gallbladder is physiologically distended without evidence of stones, sludge, polyps, wall thickening or pericholecystic fluid. COMMON BILE DUCT: Normal in caliber measuring 0.7 cm in diameter. US/US abdomen limited IMPRESSION: 1. Mild increased liver echogenicity. No focal lesion seen. 2. Visualized gallbladder and CBD is unremarkable.
--- NOTE | ~2023-06-16 | XR_ITS ---
EXAMINATION: XR CHEST CLINICAL INFORMATION: Chest pain COMPARISON: None available. TECHNIQUE: Frontal view of the chest was obtained. FINDINGS: No significant abnormality is noted involving the heart, lungs, mediastinum, bony thorax or soft tissues. XR/XR chest 1V IMPRESSION: No active cardiopulmonary disease and no interval change.
--- NOTE | 2023-06-16 07:00 | CA_ITS ---
Transthoracic Echocardiogram Patient (Last, First, Middle): Kwan Padilla, Gender: Male Date of : 1940 Age: 82 Procedure Date: 06/16/2023 Procedure Type: Transthoracic Echocardiogram Location: ER Height: 180.34 cm Weight: 78.02 kg BSA: 1.98 m2 Heart Rate: 96 bpm BP: 142 / 81 mmHg [place] [employer] Crewman: Referring MD: Andi Johnson MD Symptoms: NSTEMI Study Quality: Adequate w contrast ECG Rhythm: Atrial Fibrillation with rapid rate Conclusions: - The left ventricular systolic function is normal. The calculated ejection fraction is 64% by biplane method. - There is moderate aortic valve stenosis. Findings Procedure Information Contrast agent, definity, is being given per protocol without apparent complications. Left Ventricle Normal left ventricular cavity size. There is mildly increased left ventricular wall thickness. The left ventricular systolic function is normal. The calculated ejection fraction is 64% by biplane method. Diastolic function is indeterminate on the basis of available data. No overt wall motion abnormality but somewhat difficult to assess. Right Ventricle Normal right ventricular cavity size and systolic function. Atria The left atrium is mildly dilated. The right atrium is normal in size. Aortic Valve There is moderate calcification of the aortic valve. There is moderate aortic valve stenosis. The peak aortic velocity is 2.27 m/s with a calculated peak gradient of 21 mmHg. The mean gradient is 11 mmHg. The aortic valve area is 1.39 cm2. There is no aortic valve regurgitation. Stroke volume index 28 mL/m2. Dimensionless index 0.36. Mitral Valve The mitral valve appears normal. There is no mitral valve regurgitation. There is no mitral valve stenosis. Pulmonic Valve The pulmonic valve is likely normal. Tricuspid Valve There is trace tricuspid valve regurgitation. There is no evidence of pulmonary hypertension. Great Vessels The asc aorta is normal in size. Venous The inferior vena cava is normal in size and collapses greater than 50% with inspiration. Pericardium/Pleural There is no evidence of pericardial effusion. Prior Study Comparison No significant change compared to prior study dated: 03/14/2023. Measurements 2D Linear Measurements IVSd: 1.25 0.6-0.9/0.6-1.0 cm LVIDd: 3.97 3.9-5.3/4.2-5.9 cm LVIDd Index: 2.01 2.4-3.2/2.2-3.1 cm/m2 LVIDs: 2.29 2.0-3.6 cm LVPWd: 1.25 0.7-1.1 cm LA Diam: 3.00 2.7-3.8/3.0-4.0 cm LAIDs Index: 1.52 1.5-2.3 cm/m2 LV Mass: 216.60 67-162/88-224 g LV Mass Index: 109.39 43-95/49-115 g/m2 LVOT Diam: 2.10 3.0+(-)1.3 cm 2D Systolic Function EF 4C: 67.80 >55% EF 2C: 60.10 >55% EF BiP: 63.90 >55% Mitral Valve MV Pk E: 0.98 MV Decel Time: 142.00 E'Lateral: 13.30 E'Medial: 11.00 E/E' Med: 8.90 E/E' Lat: 7.40 PHT: 42.00 MVA PHT: 5.24 Decel Trimble: 6.92 Aortic Valve AoV Pk Marco Antonio: 2.27 AoV Mn Marco Antonio: 1.52 AoV VTI: 0.40 AoV Pk Grad: 21.00 Aov Mn Grad: 11.00 EDDIE Cont.VTI: 1.39 LVOT LVOT Pk Marco Antonio: 0.82 LVOT Mn Marco Antonio: 0.57 LVOT VTI: 0.16 LVOT Pk Grad: 3.00 LVOT Mn Grad: 2.00 LVOT Diam: 2.10 LVOT Area: 3.46 Diastolic Function MV Pk E: 0.98 E'Medial: 11.00 E/E' Med: 8.90 E' Laterial: 13.30 E/E' Lat: 7.40 Right Ventricle TAPSE (mm): 23.50 TVS' Marco Antonio: 12.40 Tricuspid Valve TR Pk Marco Antonio: 2.28 TR Pk Grad: 21.00 RA Press: 8.00 RVSP: 29.00 Great Vessels Aorta Sinus of Valsalva: 3.10 2.0-3.5 cm Ao Asc: 3.40 2.1-3.4 cm Pulmonary Valve PV Pk Marco Antonio: 1.32 Peak PV Grad: 7.00 Updated in Other Vendor System with Status of Final Andi Johnson MD electronically signed on 06/16/2023 12:00:30 PM with status of Final
--- NOTE | 2023-06-16 07:24 | ED.CHESTPAIN ---
HPI - Chest Pain General Chief Complaint: Chest Pain Stated Complaint: CP Time Seen by Provider: 06/16/23 07:03 Source: patient and old records reviewed Mode of arrival: EMS Limitations: no limitations History of Present Illness HPI narrative: 82 yo male from home with PMH of DM, HTN, aortic stenosis, PAF on diltiazem and eliquis, has no known heart disease, he notes he ate chicken and mashed potatoes/gravy from a restaurant last night sometimes this bothers him. He woke up ususal 515 took all of his medications including eliquis then around 530 he developed chest pain going across sternum into LUQ. No dyspnea or nausea. He tried TUMs no relief. He notes he has had this before with certain foods. He has no fevers, diarrhea. The pain does not spread anywhere. No recent URI, no falls. The pain is described as feeling full like you have something stuck. complaint: chest pain Onset (ago): hour(s) (530am) Timing of current episode: constant Prior episodes: Yes Onset: during rest Pain location: substernal and epigastric Pain radiation: none Severity: moderate Quality: dull Relieving factors: nothing Exacerbating factors: nothing Context: other (hx of similar episodes) Treatment prior to arrival: other (tums) Related Data Home Medications Medication Instructions Recorded Confirmed apixaban 5 mg tablet 5 mg PO BID 08/26/20 04/05/23 diltiazem HCl 120 mg capsule,24 120 mg PO DAILY 08/26/20 04/05/23 hr,extended release metformin 500 mg tablet 500 mg PO BID 08/26/20 04/05/23 Previous Rx's Medication Instructions Recorded lisinopril 5 mg tablet 5 mg PO DAILY #90 tabs 05/22/23 Allergies Allergy/AdvReac Type Severity Reaction Status Date / Time Penicillins [PENICILLINS] AdvReac Unknown DIARRHEA Verified 06/16/23 08:26 Sulfa (Sulfonamide AdvReac Unknown DIARRHEA Verified 06/16/23 08:26 Antibiotics) [SULFA (SULFONAMIDE ANTIBIOTICS)] FOOD WITH ACID Allergy Intermediate RASH Uncoded 04/05/23 13:49 Review of Systems Review of Systems: Constitutional : No Weight loss, No Fever, No Chills ENT/Mouth : No sore throat, No Rhinorrhea Eyes: No Eye Pain, No Swelling Cardiovascular : pos Chest Pain, no SOB, no Dyspnea on Exertion, No Orthopnea, No Edema, No Palpitations Respiratory : No Cough, No Sputum Gastrointestinal : no Nausea, No Vomiting, No Diarrhea, No abdominal Pain, No Hematochezia, No Melena Genitourinary : No Dysuria, No Urinary Frequency Musculoskeletal : No joint pain, No Myalgias, No Joint Swelling Skin : No Skin Lesions, No rash Neuro : No Weakness, No Numbness, No Dizziness, No Headache Psych : No Anxiety/Panic, No Depression All other systems reviewed and are negative [facility] Past Medical History Attestation statement: The following information was validated with the patient. Source: old records reviewed Medical History Type 2 diabetes mellitus with unspecified complications Essential hypertension Non-rheumatic aortic stenosis Persistent atrial fibrillation Surgical History No significant past surgical history Family History Family History Father Lung cancer Heart attack Mother No problems noted. Social History Social History Alcohol intake: never Patient Tobacco Use Status: Never used Tobacco Advance Directives: No Advance Directives Information Provided: No Physical Exam Vital Signs: Vital Signs: Last Vital Signs Temp 98.7 F 06/16/23 07:15 Pulse 104 H 06/16/23 08:15 Resp 21 H 06/16/23 08:15 BP 143/81 H 06/16/23 08:15 Pulse Ox 97 06/16/23 08:15 O2 Del Method Room Air 06/16/23 08:15 BMI result Body Mass Index 24.8 Appearance: Alert. Oriented X3. No acute distress. Eyes: Pupils equal, round and reactive to light. ENT: Pharynx normal. Neck: Normal inspection. Neck supple. CVS: tachycardic irregular heart rate and rhythm. Pulses normal. Respiratory: No respiratory distress. Breath sounds normal. Abdomen: Soft and non-tender. Skin: Skin warm and dry. Normal skin color. Normal skin turgor. Extremities: No lower extremity edema. Neuro: Oriented X 3. No motor deficit. No sensory deficit. Course Course Course Narrative: pain resolved no need for morphine at this time Reevaluation(s) Reevaluation #1: repeat trop bumped call to Cardiology Dr. Johnson 740am. Medications Administered Discontinued Medications Generic Name Dose Route Start Last Admin Trade Name Carroll PRN Reason Stop Dose Admin Diltiazem HCl 5 mg 06/16/23 07:14 06/16/23 08:16 Diltiazem Hcl 50 Mg/10 Ml Vial IVPUSH 06/16/23 07:15 5 mg ONCE ONE Administration Famotidine 20 mg 06/16/23 07:14 06/16/23 08:16 Famotidine/Pf 20 Mg/2 Ml Vial IVPUSH 06/16/23 07:15 20 mg ONCE ONE Administration Morphine Sulfate 2 mg 06/16/23 07:14 06/16/23 08:16 Morphine Sulfate 2 Mg/Ml Cartridge IVPUSH 06/16/23 07:15 Not Given ONCE ONE Protocol Medical Decision Making Medical Decision Making MDM Narrative: 82 yo male from home with PMH of DM, HTN, aortic stenosis, PAF on diltiazem and eliquis, has no known heart disease here with chest fullness and LUQ pain after eating a larger meal last night his EKG does have changes but this could be rate related - will obtain labs, give IV dilt to slow him down he is up to 130s at times, US of gallbladder, troponin x 2 could be ACS, liver, lipase and CXR. Start on low dose morphine and IV pepcid. He notes this is not the first time he has had this eating. He has no known heart disease. Doubt VTE given eliquis use. Differential Diagnosis Differential Diagnoses: The differential diagnosis associated with the presentation includes gastritis, biliary colic, ACS, doubt VTE given eliquis use, hiatal hernia, GERD Admission/Observation Consideration of admission/observation: Escalation of care including admission/observation considered will admit for NSTEMI Consult Healthcare Provider Management of the patient was discussed with: Hospitalist (will admit) and Site Identification Specialist (admit per cardiology patinet already took eliquis this AM held aspirin in setting of bleeding risks) Lab Data [facility] Lab Attestation statement: I reviewed the patient's lab results. 06/16/23 07:35 06/16/23 08:56 Labs: Lab Results 06/16/23 06/16/23 Range/Units 07:35 08:56 WBC 8.2 (4.8-10.8) X10*3/uL RBC 5.06 (4.60-5.80) X10*6/uL Hgb 15.9 (14.0-18.0) g/dl Hct 46.2 (42.0-52.0) % MCV 91.3 (80.0-98.0) fL MCH 31.4 (27.0-33.0) pg MCHC 34.4 (31.0-36.0) g/dl RDW 12.2 (11.0-16.0) % Plt Count 157 L (160-400) X10*3/uL MPV 9.8 (9.4-12.4) fL Immature Gran % (Auto) 0.2 (0.0-0.4) % Neut % (Auto) 84.5 H (45-73) % Lymph % (Auto) 5.2 L (20-40) % [place] % (Auto) 8.0 (2-11) % Eos % (Auto) 1.9 (0-4) % Baso % (Auto) 0.2 (0-2) % Lymph # (Auto) 0.4 L (1.2-4.9) X10*3/uL [place] # (Auto) 0.7 (0.1-1.2) X10*3/uL Eos # (Auto) 0.2 (0.0-0.4) X10*3/uL Baso # (Auto) 0.0 (0.0-0.2) X10*3/uL Abs Immat Gran (auto) 0.02 (0.00-0.03) X10*3/uL Absolute Neuts (auto) 6.9 (2.0-8.3) x10*3/uL Absolute Nucleated RBC 0.000 (0.0-0.012) X10*3/uL Nucleated RBC % (auto) 0.0 (0.0-0.2) /100WBC Sodium 136 (135-145) mmol/L Potassium 4.5 (3.3-5.1) mmol/L Chloride 104 (96-108) mmol/L Carbon Dioxide 23 (22-29) mmol/L Anion Gap 14 (12-20) BUN 17 H (9-16) mg/dL Creatinine 1.01 (0.5-1.4) mg/dL Estim Creat Clear Calc 62.1 Estimated GFR > 60 Random Glucose 112 (60-115) mg/dL Calcium 9.9 (8.4-10.2) mg/dL Magnesium 2.2 (1.6-2.6) mg/dL Total Bilirubin 0.6 (0.0-1.0) mg/dL Direct Bilirubin 0.2 (0.0-0.5) mg/dL AST 16 (5-37) U/L ALT 11 (0-40) U/L Alkaline Phosphatase 71 (39-117) U/L Troponin I High Sens 2.9 100.8 H* D (<3.5-35.0) ng/L Total Protein 7.2 (6.5-8.0) g/dL Albumin 4.1 (3.5-5.0) g/dL Lipase 20 (8-78) U/L COVID-19 ([facility]) Negative (Negative) COVID-19 Clin Com See Note Independent Interpretation I performed an independent interpretation of an: EKG, Plain X-Ray (normal ) and Ultrasound (normal ) Interpretation: Rate: 112 Rhythm: afib [place]: left Normal QRS complex. ST T wave : no ABIGAIL, inverted t waves I and aVL, ST depression V4 - V6. qTC: 464 prior studies: no ST depressions lateral leads The study has been interpreted contemporaneously by me. . EKG #2 Rate: 91 Rhythm: afib [place]: left Normal QRS complex. ST T wave : no ABIGAIL, nonspecific I and aVL, ST depressions improved lateral leads qTC: 442 prior studies: ST depressions improved after better rate control The study has been interpreted contemporaneously by me. . Radiology Impression Discussion of test interpretation with radiology: I have reviewed the radiologist's reading. Independent Historian Clinical information obtained from an independent historian. History obtained from or confirmed by: Friend [facility] EMS External Record Review External record reviewed: Inpatient record Critical Care Time Critical Care Time Critical Care Time: Yes Total Critical Care Time: 40 Attestation: repeat EKG, repeat troponin, IV dilt for rapid afib, NSTEMI admit I attest to this time spent taking care of the patient Discharge Plan Discharge Clinical Impression: Non-ST elevation OR (NSTEMI), Atrial fibrillation with RVR Patient Disposition: Admitted As Inpatient
[2023-06-16 07:40] LABS: MANUAL DIFF FLAG NO
[2023-06-16 07:41] LABS: Basophils Percent Auto 0.2 % (0-2); Eosinophils Absolute Auto 0.2 X10*3/uL (0.0-0.4); Eosinophils Percent Auto 1.9 % (0-4); Hematocrit 46.2 % (42.0-52.0); Hemoglobin 15.9 g/dl (14.0-18.0); Imm Gran Abs Auto 0.02 X10*3/uL (0.00-0.03); Imm Gran Pct Auto 0.2 % (0.0-0.4); Lymphocytes Absolute Auto 0.4 X10*3/uL (1.2-4.9); Lymphocytes Percent Auto 5.2 % (20-40); Mean Corpuscular HGB Conc 34.4 g/dl (31.0-36.0); Mean Corpuscular Hemoglobin 31.4 pg (27.0-33.0); Mean Corpuscular Volume 91.3 fL (80.0-98.0); Mean Platelet Volume 9.8 fL (9.4-12.4); Monocytes Absolute Auto 0.7 X10*3/uL (0.1-1.2); Neutrophils Absolute Auto 6.9 x10*3/uL (2.0-8.3); Neutrophils Percent Auto 84.5 % (45-73); Platelet Count 157 X10*3/uL (160-400); Red Blood Count 5.06 X10*6/uL (4.60-5.80); Red Cell Distribution Width 12.2 % (11.0-16.0); White Blood Count 8.2 X10*3/uL (4.8-10.8)
[2023-06-16 08:03] LABS: Troponin-I High Sensitivity 2.9 ng/L (<3.5-35.0)
--- NOTE | 2023-06-16 08:03 | PC.NURSE ---
US at bedside.
[2023-06-16] MEDS: Famotidine/PF 20 MG/2 ML VIAL IVPUSH (08:16)
[2023-06-16] MEDS: dilTIAZem HCL 50 MG/10 ML VIAL IVPUSH (08:16)
--- NOTE | 2023-06-16 08:29 | ECG_ITS ---
Test Reason : repeat ekg Blood Pressure : / mmHG Vent. Rate : 091 BPM Atrial Rate : 000 BPM P-R Int : 000 ms QRS Dur : 104 ms QT Int : 360 ms P-R-T Axes : 000 -55 068 degrees QTc Int : 442 ms Atrial fibrillation with premature ventricular or aberrantly conducted complexes Left anterior fascicular block Nonspecific ST abnormality Abnormal ECG When compared with ECG of 16-JUN-2023 06:55, ST no longer depressed in Anterior leads Referred By: Valencia Gu Electronically Signed By:COLBY LAUREANO
[2023-06-16 09:21] LABS: Alanine Aminotransferase 11 U/L (0-40); Albumin Level 4.1 g/dL (3.5-5.0); Alkaline Phosphatase 71 U/L (39-117); Anion Gap 14 (12-20); Aspartate Amino Transferase 16 U/L (5-37); Bilirubin Direct 0.2 mg/dL (0.0-0.5); Bilirubin Total 0.6 mg/dL (0.0-1.0); Blood Urea Nitrogen 17 mg/dL (9-16); Calcium 9.9 mg/dL (8.4-10.2); Carbon Dioxide 23 mmol/L (22-29); Chloride 104 mmol/L (96-108); Creatinine Clr Calc Pharmacy 62.1; Estimated Glomerular Filt Rate > 60; Glucose Random 112 mg/dL (60-115); Lipase 20 U/L (8-78); Magnesium 2.2 mg/dL (1.6-2.6); Potassium 4.5 mmol/L (3.3-5.1); Sodium 136 mmol/L (135-145); Total Protein 7.2 g/dL (6.5-8.0)
[2023-06-16 09:23] LABS: COVID-19 Test Negative (Negative); IDNOW Serial# 152EDE1D
[2023-06-16 09:30] LABS: Troponin-I High Sensitivity 100.8 ng/L (<3.5-35.0)
--- NOTE | 2023-06-16 10:06 | PHA.MEDREC ---
Pharmacy Consult ? Medication Reconciliation Pharmacy has completed the medication reconciliation.Confirmed medications with patient.
--- NOTE | 2023-06-16 11:18 | PM.IMHP ---
History of Present Illness Date of Service: 06/16/23 Attending physician on admission: Lizett Mascorro Chief Complaint: Chest pain Pt is an 82-year-old male with a PMH significant for?paroxysmal AFib on Eliquis and diltiazem, HTN, non insulin-dependent diabetes type 2, and aortic stenosis who presents to the ED with?chest pain since this morning. Pt reports waking up per usual at 04:00. Around 530 patient states he began having chest pain that radiated to his lower left quadrant. Is unable to characterize it very well, but denies that it is sharp or stabbing, burning, or like a pressure. Patient keeps stating that it felt like ?gas pain?. Patient says he often gets ?gas pain? if he eats anything spicy or acidic. This morning patient took Tums with no relief and so called EMS to be brought to the ED for further evaluation. Pain was constant and lasted for a few hours, the patient notes he has no longer in any pain or discomfort. 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 Patient denies diaphoresis, nausea, vomiting. No shortness of breath. No palpitations. Patient denies any history of smoking, alcohol use, or illicit substances. In the ED pt was tachycardic up into the 110s, tachypneic up to 21, and hypertensive up to 154/78. Labs were significant for increase in troponin from 2.9 to 100.8. Labs otherwise grossly unremarkable with no electrolyte abnormalities. CXR showed no active cardiopulmonary disease and no interval change. Ultrasound of abdomen found mild increased liver echogenicity but no focal lesions seen otherwise unremarkable. Initial EKG demonstrated AFib with RVR of [address] depressions in lateral leads. Repeat EKG showed AFib with PVCs and ST no longer depressed in lateral leads. Pt was treated with famotidine and diltiazem 5 mg IV push. Pt will be admitted to the hospital under observation for treatment and further evaluation of atypical chest pain and elevated troponins in the setting of AFib with RVR. Review of Systems Review of Systems: Chest pain radiating to lower left quadrant, constant and not alleviated with time Denies chest pressure, palpitations Denies diaphoresis No nausea, vomiting Denies shortness of breath No headache PMFSH Medical History Type 2 diabetes mellitus with unspecified complications Essential hypertension Non-rheumatic aortic stenosis Persistent atrial fibrillation Family History Father Lung cancer Heart attack Mother No problems noted. Surgical History No significant past surgical history Social History Alcohol intake: never Patient Tobacco Use Status: Never used Tobacco Use of substances other than those prescribed or required for medical reasons: No Advance Directives: No Advance Directives Information Provided: No Meds Allergies Allergy/AdvReac Type Severity Reaction Status Date / Time Penicillins [PENICILLINS] AdvReac Unknown DIARRHEA Verified 06/16/23 08:26 Sulfa (Sulfonamide AdvReac Unknown DIARRHEA Verified 06/16/23 08:26 Antibiotics) [SULFA (SULFONAMIDE ANTIBIOTICS)] FOOD WITH ACID Allergy Intermediate RASH Uncoded 04/05/23 13:49 Home Medications Medication Instructions Recorded Confirmed Last Taken Type apixaban 5 mg tablet 5 mg PO BID 08/26/20 06/16/23 06/16/23 History diltiazem HCl 120 mg capsule,24 120 mg PO DAILY 08/26/20 06/16/23 Unknown History hr,extended release metformin 500 mg tablet 500 mg PO BID 08/26/20 06/16/23 06/16/23 History Physical Exam Vital Signs and Narrative: Vital Signs: Last Vital Signs Temp 98.7 F 06/16/23 07:15 Pulse 98 06/16/23 10:32 Resp 16 06/16/23 10:32 BP 134/80 06/16/23 10:32 Pulse Ox 95 06/16/23 10:32 O2 Del Method Room Air 06/16/23 10:32 BMI result Body Mass Index 24.8 Constitutional: Alert, in no acute distress. Mental Status: Oriented to person, place and time. Eyes: Pupils are equal, round, and reactive to light. Ear, Nose, and Throat: Oropharynx clear, mucous membranes moist. Ears and nose without deformities. Trachea midline. Respiratory: Clear to auscultation bilaterally. No wheezing, rales, or rhonchi. Cardiovascular: Irregularly irregular rhythm, fast. 2/6 murmur heard at right sternal border. Gastrointestinal: Abdomen soft, non-tender, non-distended. Normal bowel sounds. Neurologic: Cranial nerves II-XII are grossly intact bilaterally. No focal neurological deficits. Moves all extremities spontaneously. Skin: Warm, dry. Musculoskeletal: No cyanosis or clubbing. Extremities: No edema. Psychiatric: Normal mood and affect. Results Labs 06/16/23 07:35 06/16/23 08:56 Labs: Laboratory Results - last 24 hr 06/16/23 06/16/23 07:35 08:56 MCV 91.3 MCH 31.4 MCHC 34.4 RDW 12.2 Plt Count 157 L MPV 9.8 Immature Gran % (Auto) 0.2 Neut % (Auto) 84.5 H Lymph % (Auto) 5.2 L [place] % (Auto) 8.0 Eos % (Auto) 1.9 Baso % (Auto) 0.2 Lymph # (Auto) 0.4 L [place] # (Auto) 0.7 Eos # (Auto) 0.2 Baso # (Auto) 0.0 Abs Immat Gran (auto) 0.02 Absolute Neuts (auto) 6.9 Absolute Nucleated RBC 0.000 Nucleated RBC % (auto) 0.0 Anion Gap 14 Estim Creat Clear Calc 62.1 Estimated GFR > 60 Random Glucose 112 Calcium 9.9 Magnesium 2.2 Total Bilirubin 0.6 Direct Bilirubin 0.2 AST 16 ALT 11 Alkaline Phosphatase 71 Total Protein 7.2 Albumin 4.1 Lipase 20 COVID-19 ([facility]) Negative COVID-19 Clin Com See Note Imaging Radiologist's Impressions: Impressions Abdomen Ultrasound 06/16/23 08:04 IMPRESSION: 1. Mild increased liver echogenicity. No focal lesion seen. 2. Visualized gallbladder and CBD is unremarkable. Chest X-Ray 06/16/23 08:17 IMPRESSION: No active cardiopulmonary disease and no interval change. Assessment and Plan (1) Atrial fibrillation with RVR: Status: Acute (2) Elevated troponin: Status: Acute Plan Pt is an 82-year-old male with a PMH significant for?paroxysmal AFib on Eliquis and diltiazem, HTN, non insulin-dependent diabetes type 2, and aortic stenosis who presents to the ED with?chest pain since this morning. Pt will be admitted to the hospital under observation for treatment and further evaluation of atypical chest pain and elevated troponins in the setting of AFib with RVR. Atypical chest pain with EKG changes and elevated troponins Pt with chest pain radiating to left lower abdomen since this morning Denies chest pressure Says pain similar to gas pain ; similar episodes in past alleviated with TUMS Pt currently asymptomatic Initial EKG with ST depressions in lateral leads, which resolved and subsequent EKG Initial troponin 2.9 with repeat 100.8 Echocardiogram Will get additional troponin Cardiology consult If chest pain returns will get another health promotion educator on telemetry AFib with RVR Patient with elevated heart rate in the 110s Patient given diltiazem 5 mg IV in ED Continue Eliquis, home diltiazem Monitor on telemetry [id number] diabetes type [address] sliding scale insulin Hold metformin Diabetic diet DNR/DNI Attending:?Dr. Mascorro DVT Prophylaxis: On Eliquis Patient will be admitted to the hospital under observation for treatment and further evaluation of atypical chest pain in the setting of elevated troponins and AFib with RVR. Quality Stroke Does the patient have a stroke diagnosis?: No VTE Prior VTE?: No VTE Risk Level:: Medical - moderate - high VTE Device Contraindication: Treatment Not Indicated VTE Drug Contraindication: N/A - Med Ordered
--- NOTE | 2023-06-16 11:33 | PC.NURSE ---
Admitting team at bedside at this time.
--- NOTE | 2023-06-16 13:36 | PM.CNCAR ---
History of Present Illness History of Present Illness Date of Service: 06/16/23 Chief complaint: elevated troponins Narrative: This is a cardiology consultation regarding NSTEMI. Patient has a history of persistent atrial fibrillation, aortic stenosis, hypertension as well as diabetes. He does not have any documented coronary disease. 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 Then all of a sudden developed a substernal discomfort which was across the front of the chest and he also noticed that somewhat in the upper abdomen. He thought it was from GI distress but not entirely clear. 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 Hence he came to the hospital and it seems that he had some rapid rates from his atrial fibrillation but he also had elevated troponins. Subsequently admitted. Currently, he states he is feeling okay. Review of Systems Review of Systems: Yes all other systems are reviewed and are negative Constitutional: Constitutional: Reports as per HPI and Reports no additional constitutional complaints Eyes: Eyes: Reports as per HPI and Denies no additional eye complaints ENT: Denies system reviewed and no additional complaints, except as documented and Reports as per HPI Cardiovascular: Cardiovascular: Reports as per HPI, Reports no additional cardiovascular complaints, Denies acrocyanosis, Denies cool extremities, Denies chest pain, Denies leg edema, Denies lightheadedness, Denies palpitations and Denies dyspnea Respiratory: Respiratory: Reports as per HPI, Denies no additional respiratory complaints and Denies dyspnea Gastrointestinal: Gastrointestinal: Reports as per HPI and Denies no additional gastrointestinal complaints Genitourinary: Genitourinary: Reports no additional male genitourinary complaints and Reports as per HPI Musculoskeletal: Musculoskeletal: Reports no additional musculoskeletal complaints and Reports as per HPI Integumentary/Breasts: Skin/Breast: Reports system reviewed and no additional complaints, except as docu Neurologic: Reports system reviewed and no additional complaints, except as documented and Reports as per HPI Psychiatric: Psychiatric: Reports no additional psychiatric complaints and Reports as per HPI Endocrine: Endocrine: Reports no additional endocrine complaints, Reports as per HPI and Denies palpitations Hematologic/Lymphatic: Hematologic/Lymphatic: Reports no additional hematologic/lymphatic complaints and Reports as per HPI Allergic/Immunologic: Allergic/Immunologic: Reports no additional allergic/immunologic complaints and Reports as per HPI [facility] Past Medical History Medical History Type 2 diabetes mellitus with unspecified complications Essential hypertension Non-rheumatic aortic stenosis Persistent atrial fibrillation Family History Family History Father Lung cancer Heart attack Mother No problems noted. Surgical History Surgical History No significant past surgical history Social History Social History Alcohol intake: never Patient Tobacco Use Status: Never used Tobacco Use of substances other than those prescribed or required for medical reasons: No Advance Directives: No Advance Directives Information Provided: No Meds Allergies Allergy/AdvReac Type Severity Reaction Status Date / Time Penicillins [PENICILLINS] AdvReac Unknown DIARRHEA Verified 06/16/23 08:26 Sulfa (Sulfonamide AdvReac Unknown DIARRHEA Verified 06/16/23 08:26 Antibiotics) [SULFA (SULFONAMIDE ANTIBIOTICS)] FOOD WITH ACID Allergy Intermediate RASH Uncoded 04/05/23 13:49 Active Medications: Current Medications Acetaminophen (Acetaminophen 325 Mg Tablet) 650 mg PO Q6H PRN PRN Reason: Pain, Mild (Pain Scale 1-3) Apixaban (Apixaban 5 Mg Tablet) 5 mg PO BID SCOTT Benzonatate (Benzonatate 100 Mg Capsule) 100 mg PO TID PRN PRN Reason: Cough Dextrose (Dextrose 50 % 25 Gm/50 Ml Syringe) 25 gm IVPUSH Q15M PRN; Protocol PRN Reason: per Hypoglycemia Standing Ord. Diltiazem HCl (Diltiazem Hcl Cd 120 Mg Cap.Er.Deg) 120 mg PO DAILY SCOTT; Protocol Docusate Sodium (Docusate Sodium 100 Mg Capsule) 100 mg PO DAILY PRN PRN Reason: Constipation Glucose (Glucose Gel 15 Gm Gel..Gram.) 15 gm PO Q15M PRN; Protocol PRN Reason: per Hypoglycemia Standing Ord. Insulin Human Lispro (Insulin Lispro 100 Unit/Ml 3 Ml Vial) 0 unit SUBCUT QIDACHS SCOTT; Protocol Lisinopril (Lisinopril 5 Mg Tablet) 5 mg PO DAILY SCOTT; Protocol Melatonin (Melatonin 3 Mg Tablet) 6 mg PO BEDTIME PRN PRN Reason: Insomnia Ondansetron HCl (Ondansetron Hcl 4 Mg/2 Ml Vial) 4 mg IVPUSH Q8H PRN PRN Reason: Nausea and Vomiting Sodium Chloride (0.9 % Sodium Chloride Flush 3 Ml Syringe) 3 ml IVFLUSH QSHIFT [facility] Home Medications Medication Instructions Recorded Confirmed Last Taken Type apixaban 5 mg tablet 5 mg PO BID 08/26/20 06/16/23 06/16/23 History diltiazem HCl 120 mg capsule,24 120 mg PO DAILY 08/26/20 06/16/23 Unknown History hr,extended release metformin 500 mg tablet 500 mg PO BID 08/26/20 06/16/23 06/16/23 History Physical Exam Vital Signs: Vital Signs: Last Vital Signs Temp 98.7 F 06/16/23 07:15 Pulse 100 06/16/23 13:11 Resp 17 06/16/23 13:11 BP 145/96 H 06/16/23 13:11 Pulse Ox 97 06/16/23 13:11 O2 Del Method Room Air 06/16/23 13:11 BMI result Body Mass Index 24.8 Const: General: comfortable and no acute distress Orientation/consciousness: patient oriented x3 HEENT: Other: Unremarkable Head: Yes normal to inspection Neck: Neck: Yes normal visual inspection Chest: Chest palpation & inspection: normal inspection of the chest Resp: Auscultation: clear to auscultation bilaterally Cardio: Palpation: normal PMI Heart sounds: S1 normal heart sound present, S2 normal heart sound present, no gallops, no murmurs and no rubs GI: Palpation (GI): Soft to palpation Back/Spine/Pelvis: Other: unremarkable Skin: General skin exam: no rashes or lesions noted Neuro: General: patient oriented x3 Extrem: General: Yes normal to inspection Psych: Mental Status: mental status grossly normal Objective Labs and Meds 06/16/23 07:35 06/16/23 08:56 Lab results: Laboratory Results - last 24 hr 06/16/23 06/16/23 07:35 08:56 WBC 8.2 RBC 5.06 Hgb 15.9 Hct 46.2 MCV 91.3 MCH 31.4 MCHC 34.4 RDW 12.2 Plt Count 157 L MPV 9.8 Immature Gran % (Auto) 0.2 Neut % (Auto) 84.5 H Lymph % (Auto) 5.2 L [place] % (Auto) 8.0 Eos % (Auto) 1.9 Baso % (Auto) 0.2 Lymph # (Auto) 0.4 L [place] # (Auto) 0.7 Eos # (Auto) 0.2 Baso # (Auto) 0.0 Abs Immat Gran (auto) 0.02 Absolute Neuts (auto) 6.9 Absolute Nucleated RBC 0.000 Nucleated RBC % (auto) 0.0 Sodium 136 Potassium 4.5 Chloride 104 Carbon Dioxide 23 Anion Gap 14 BUN 17 H Creatinine 1.01 Estim Creat Clear Calc 62.1 Estimated GFR > 60 Random Glucose 112 Calcium 9.9 Magnesium 2.2 Total Bilirubin 0.6 Direct Bilirubin 0.2 AST 16 ALT 11 Alkaline Phosphatase 71 Troponin I High Sens 2.9 100.8 H* D Total Protein 7.2 Albumin 4.1 Lipase 20 COVID-19 ([facility]) Negative COVID-19 Clin Com See Note ECG Interpretation: EKG with atrial fibrillation rate of 112/Min; leftward axis; left anterior fascicular block; anterolateral ST depression. In the repeat EKG, the ST depression looks better. PVCs versus aberrant conduction. Imaging Radiologist's impression: Impressions Abdomen Ultrasound 06/16/23 08:04 IMPRESSION: 1. Mild increased liver echogenicity. No focal lesion seen. 2. Visualized gallbladder and CBD is unremarkable. Chest X-Ray 06/16/23 08:17 IMPRESSION: No active cardiopulmonary disease and no interval change. Assessment and Plan (1) Atrial fibrillation with RVR: Status: Acute We can go up on the dose of diltiazem. He normally takes diltiazem CD 120 mg daily. We can make it 240 mg daily. (2) Non-ST elevation [place] (NSTEMI): Status: Acute Initial troponin was 2.9. Second troponin is 100. Third troponin is pending. His symptoms as well as elevated troponins suggestive of NSTEMI. Difficult to say if it is primary NSTEMI or secondary to rapid atrial fibrillation but he has never had uncontrolled rates in the past. He needs a diagnostic cardiac catheterization. We will also check an echocardiogram for wall motion abnormalities. Plan We can start holding Eliquis from tomorrow night. Switch over to IV heparin. Then we will transfer him to [facility] this weekend. Patient agreeable. Procedures Date of Service Date of Service: 06/16/23
[2023-06-16 14:10] LABS: Troponin-I High Sensitivity 1482.5 ng/L (<3.5-35.0)
[2023-06-16] MEDS: Aspirin Enteric Coated 325 MG TABLET.DR PO (14:41)
[2023-06-16] MEDS: Isosorbide Mononitrate 30 MG TAB.ER.24H PO (14:41)
[2023-06-16] MEDS: Atorvastatin Calcium 80 MG TABLET PO (14:41)
[2023-06-16] MEDS: dilTIAZem HCL CD 120 MG CAP.ER.DEG PO (14:41)
--- NOTE | 2023-06-16 14:56 | PC.NURSE ---
Clarified with Jennifer Caal - heparin to be initiated at 2100 (at his next due eliquis dose).
--- NOTE | 2023-06-16 17:10 | PC.NURSE ---
Addendum entered by Doris Hillman 06/16/23 17:15: not in SR. pt is controlled A fib with PVCs Original Note: resting queitly in bed. skin pwd. denies CP at this time. nephew is present. awaiting admission to [facility]. states he came for abd ominal gas pain . no longer has any pain. Sinus rythm iwth infreuent pVC's onmonitor.
[2023-06-16 19:13] LABS: Glucose, Whole Blood 135 mg/dL (60-115)
--- NOTE | 2023-06-16 19:58 | PC.NURSE ---
pt has been up ambulating to br. no distress. no cp no sob.
[2023-06-16 20:07] LABS: INTERNATIONAL NORM RATIO 1.3 (0.9-1.1); Prothrombin Time 16.4 SEC (11.1-13.3)
[2023-06-16 20:10] LABS: PTT Heparin Drip 34.8 SEC (53-77.9)
[2023-06-16 21:42] LABS: Glucose, Whole Blood 138 mg/dL (60-115)
[2023-06-16] MEDS: Heparin Sodium,Porcine/1/2NS 25,000 UNIT/250 ML IV.SOLN 9.1 UNIT IVCONT (21:44)
[2023-06-17 03:07] VITALS: BP 119/69; PULSE 80; RESP 20; TEMP 36.7; O2SAT 93
[2023-06-17 04:10] LABS: PTT Heparin Drip 63.8 SEC (53-77.9)
[2023-06-17 06:31] LABS: Hematocrit 42.9 % (42.0-52.0); Hemoglobin 14.7 g/dl (14.0-18.0); Mean Corpuscular HGB Conc 34.3 g/dl (31.0-36.0); Mean Corpuscular Hemoglobin 31.6 pg (27.0-33.0); Mean Corpuscular Volume 92.3 fL (80.0-98.0); Mean Platelet Volume 10.1 fL (9.4-12.4); Platelet Count 157 X10*3/uL (160-400); Red Blood Count 4.65 X10*6/uL (4.60-5.80); Red Cell Distribution Width 12.6 % (11.0-16.0); White Blood Count 6.9 X10*3/uL (4.8-10.8)
[2023-06-17 06:45] LABS: Anion Gap 14 (12-20); Blood Urea Nitrogen 18 mg/dL (9-16); Calcium 9.3 mg/dL (8.4-10.2); Carbon Dioxide 23 mmol/L (22-29); Chloride 104 mmol/L (96-108); Creatinine Clr Calc Pharmacy 69.7; Estimated Glomerular Filt Rate > 60; Glucose Random 120 mg/dL (60-115); Potassium 3.9 mmol/L (3.3-5.1); Sodium 137 mmol/L (135-145)
[2023-06-17 06:55] LABS: INTERNATIONAL NORM RATIO 1.2 (0.9-1.1); Prothrombin Time 15.1 SEC (11.1-13.3)
[2023-06-17 07:05] VITALS: BP 127/75; PULSE 65; RESP 20; TEMP 36.9; O2SAT 95
[2023-06-17 07:07] LABS: Troponin-I High Sensitivity 1103.1 ng/L (<3.5-35.0)
[2023-06-17 07:26] LABS: Glucose, Whole Blood 143 mg/dL (60-115)
[2023-06-17] MEDS: 0.9 % Sodium Chloride Flush 3 ML SYRINGE IVFLUSH (08:06)
[2023-06-17] MEDS: Atorvastatin Calcium 80 MG TABLET PO (08:07)
[2023-06-17] MEDS: Isosorbide Mononitrate 30 MG TAB.ER.24H PO (08:07)
[2023-06-17] MEDS: Aspirin Enteric Coated 81 MG TABLET.DR PO (08:07)
[2023-06-17] MEDS: lisinopriL 5 MG TABLET PO (08:07)
[2023-06-17] MEDS: dilTIAZem HCL CD 240 MG CAP.ER.DEG PO (08:07)
[2023-06-17 10:11] LABS: PTT Heparin Drip 44.5 SEC (53-77.9)
[2023-06-17] MEDS: Heparin Sodium,Porcine 5,000 UNIT/ML VIAL 3000 UNIT IVPUSH (10:29)
[2023-06-17 11:11] LABS: Glucose, Whole Blood 139 mg/dL (60-115)
--- NOTE | 2023-06-17 11:36 | P.PNCA_ITS ---
Subjective Subjective Date of Service: 06/17/23 Interval history: Feels fine. No further chest pain. Review of Systems Review of Systems Yes all other systems are reviewed and are negative Constitutional: Reports as per HPI and Reports no additional constitutional complaints Eyes: Reports as per HPI and Denies no additional eye complaints Denies system reviewed and no additional complaints, except as documented and Reports as per HPI Cardiovascular: Reports as per HPI, Reports no additional cardiovascular complaints, Denies acrocyanosis, Denies cool extremities, Denies chest pain, Denies leg edema, Denies lightheadedness, Denies palpitations and Denies dyspnea Respiratory: Reports as per HPI, Denies no additional respiratory complaints and Denies dyspnea Gastrointestinal: Reports as per HPI and Denies no additional gastrointestinal complaints Genitourinary: Reports no additional male genitourinary complaints and Reports as per HPI Musculoskeletal: Reports no additional musculoskeletal complaints and Reports as per HPI Skin/Breast: Reports system reviewed and no additional complaints, except as docu Reports system reviewed and no additional complaints, except as documented and Reports as per HPI Psychiatric: Reports no additional psychiatric complaints and Reports as per HPI Endocrine: Reports no additional endocrine complaints, Reports as per HPI and Denies palpitations Hematologic/Lymphatic: Reports no additional hematologic/lymphatic complaints and Reports as per HPI Allergic/Immunologic: Reports no additional allergic/immunologic complaints and Reports as per HPI Physical Exam Vital Signs: Last Vital Signs Temp 98.4 F 06/17/23 07:05 Pulse 65 06/17/23 07:05 Resp 20 06/17/23 07:05 BP 127/75 06/17/23 07:05 Pulse Ox 95 06/17/23 07:05 O2 Del Method Room Air 06/17/23 07:05 BMI result Body Mass Index 24.8 Const General: comfortable and no acute distress Orientation/consciousness: patient oriented x3 HEENT Other: Unremarkable Head: Yes normal to inspection Neck Neck: Yes normal visual inspection Chest Chest palpation & inspection: normal inspection of the chest Resp Auscultation: clear to auscultation bilaterally Cardio Palpation: normal PMI Heart sounds: S1 normal heart sound present, S2 normal heart sound present, no gallops, no murmurs and no rubs GI Palpation (GI): Soft to palpation Back/Spine/Pelvis Other: unremarkable Skin General skin exam: no rashes or lesions noted Neuro General: patient oriented x3 Extrem General: Yes normal to inspection Psych Mental Status: mental status grossly normal Objective Labs and Meds 06/17/23 05:31 06/17/23 05:31 Lab results: Laboratory Results - last 24 hr 06/16/23 06/16/23 06/16/23 13:20 18:12 19:47 WBC RBC Hgb Hct MCV MCH MCHC RDW Plt Count MPV Absolute Nucleated RBC Nucleated RBC % (auto) PT 16.4 H INR 1.3 H aPTT Heparin Protocol 34.8 L Sodium Potassium Chloride Carbon Dioxide Anion Gap BUN Creatinine Estim Creat Clear Calc Estimated GFR POC Glucose 135 H Random Glucose Calcium Troponin I High Sens 1482.5 H* D 2194.2 H* 06/16/23 06/17/23 06/17/23 21:37 03:55 05:31 WBC 6.9 RBC 4.65 Hgb 14.7 Hct 42.9 MCV 92.3 MCH 31.6 MCHC 34.3 RDW 12.6 Plt Count 157 L MPV 10.1 Absolute Nucleated RBC 0.000 Nucleated RBC % (auto) 0.0 PT 15.1 H INR 1.2 H aPTT Heparin Protocol 63.8 D Sodium 137 Potassium 3.9 Chloride 104 Carbon Dioxide 23 Anion Gap 14 BUN 18 H Creatinine 0.90 Estim Creat Clear Calc 69.7 Estimated GFR > 60 POC Glucose 138 H Random Glucose 120 H Calcium 9.3 D Troponin I High Sens 1103.1 H* 06/17/23 06/17/23 06/17/23 07:06 09:43 11:00 WBC RBC Hgb Hct MCV MCH MCHC RDW Plt Count MPV Absolute Nucleated RBC Nucleated RBC % (auto) PT INR aPTT Heparin Protocol 44.5 L D Sodium Potassium Chloride Carbon Dioxide Anion Gap BUN Creatinine Estim Creat Clear Calc Estimated GFR POC Glucose 143 H 139 H Random Glucose Calcium Troponin I High Sens Progress Note: A&P Assessment and plan (1) Non-ST elevation [place] (NSTEMI): Status: Acute Assessment and Plan: Troponin elevation clearly diagnostic of non ST elevation myocardial infarction. Peak around 2100. Clinically has no chest pain now. Continue IV heparin drip, aspirin, beta-blockers, long-acting nitrates, high- dose statins. Plan for diagnostic catheterization Monday. (2) Atrial fibrillation with RVR: Status: Acute Assessment and Plan: His ventricular rate is still on the faster side. His diltiazem dose has already been increased. We can add metoprolol. Eventually back to home Eliquis. This will be after cardiac catheterization. Plan Discussed with Dr. Mascorro. Time Spent With Patient Time: Total time managing care of this patient today ____ minutes. Progress Note: Quality Stroke Does the patient have a stroke diagnosis?: No Procedures Date of Service Date of Service: 06/17/23
[2023-06-17] MEDS: Metoprolol Tartrate 25 MG TABLET PO (11:42)
--- NOTE | 2023-06-17 12:11 | P.DS_ITS ---
DS: Providers Provider Date of Service: 06/17/23 Date of admission: 06/17/23 09:34 Date of discharge: 06/17/23 Primary care physician: Mitchell Justin MD Consults: 06/16/23 09:38 Consult to Cardiology Stat Consulting Provider: [facility] Reason for consultation: elevated troponin Has provider been notified: Yes Attending physician on discharge: Lizett Mascorro Discharging clinician: Lizett Mascorro DS: Diagnosis Discharge Diagnosis (1) Non-ST elevation AR (NSTEMI): Status: Acute (2) Atrial fibrillation with RVR: Status: Acute DS: Summary Hospital Course Hospital Course: 82-year-old male with a PMH significant for?paroxysmal AFib on Eliquis and diltiazem, HTN, non insulin-dependent diabetes type 2, and aortic stenosis who presents to the ED with?chest pain since this morning. Pt reports waking up per usual at 04:00. Around 530 patient states he began having chest pain that radiated to his lower left quadrant. Is unable to characterize it very well, but denies that it is sharp or stabbing, burning, or like a pressure. Patient keeps stating that it felt like ?gas pain?. Patient says he often gets ?gas pain? if he eats anything spicy or acidic. This morning patient took Tums with no relief and so called EMS to be brought to the ED for further evaluation. Pain was constant and lasted for a few hours, the patient notes he has no longer in any pain or discomfort. 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 Patient denies diaphoresis, nausea, vomiting. No shortness of breath. No palpitations. Patient denies any history of smoking, alcohol use, or illicit substances. In the ED pt was tachycardic up into the 110s, tachypneic up to 21, and hypertensive up to 154/78. Labs were significant for increase in troponin from 2.9 to 100.8. Labs otherwise grossly unremarkable with no electrolyte abnormalities. CXR showed no active cardiopulmonary disease and no interval change. Ultrasound of abdomen found mild increased liver echogenicity but no focal lesions seen otherwise unremarkable. Initial EKG demonstrated AFib with RVR of [address] depressions in lateral leads. Repeat EKG showed AFib with PVCs and ST no longer depressed in lateral leads. Pt was treated with famotidine and diltiazem 5 mg IV push. Pt will be admitted to the hospital under observation for treatment and further evaluation of atypical chest pain and elevated troponins in the setting of AFib with RVR. Hospital course: Patient was admitted to the hospital because of chest tightness: Came to the hospital found to have AFib with RVR, and elevated troponin: Subsequently was seen by Cardiology: Patient was started on aspirin, statin, IV heparin(monitor PT and PTT as per protocol) for possible NSTEMI-patient will be going to [facility] for further cardiac workup and management for that. AFib with RVR: Patient was initially given IV Cardizem and then subsequently put on p.o. Cardizem 240 mg daily, heart rate is still elevated so added p.o. metoprolol 25 mg b.i.d. Eliquis is on hold since patient is on IV heparin for NSTEMI. Hold metformin until cardiac catheterization and then can be started back. Above management discussed with the patient and his son in detail length they both understand and in agreement with the above plan, time spent 50 minute. Time Attestation Discharge coordination time: Greater than 30 minutes Quality: Safe Use of Opioids Does Pt have an Active Cancer Diagnosis on the Problem List?: No Quality: Stroke Does the patient have a stroke diagnosis?: No Physical Exam Vital Signs: Vital Signs: Last Vital Signs Temp 98.4 F 06/17/23 07:05 Pulse 65 06/17/23 07:05 Resp 20 06/17/23 07:05 BP 127/75 06/17/23 07:05 Pulse Ox 95 06/17/23 07:05 O2 Del Method Room Air 06/17/23 07:05 BMI result Body Mass Index 24.8 Appearance: Alert.? Oriented X3.? not in distress.? cvs: rrr, [id number]. res: clear to auscultation ,no rhonchii or wheezing abd: no rebound or guarding ,nt, bs present. ext pulses present , no cyanosis . neuro: axo3 , nonfocal. DS: Data Data Completed and Pending Labs on day of discharge: Laboratory Results - last 24 hr 06/16/23 06/16/23 06/16/23 13:20 18:12 19:47 WBC RBC Hgb Hct MCV MCH MCHC RDW Plt Count MPV Absolute Nucleated RBC Nucleated RBC % (auto) PT 16.4 H INR 1.3 H aPTT Heparin Protocol 34.8 L Sodium Potassium Chloride Carbon Dioxide Anion Gap BUN Creatinine Estim Creat Clear Calc Estimated GFR POC Glucose 135 H Random Glucose Calcium Troponin I High Sens 1482.5 H* D 2194.2 H* 06/16/23 06/17/23 06/17/23 21:37 03:55 05:31 WBC 6.9 RBC 4.65 Hgb 14.7 Hct 42.9 MCV 92.3 MCH 31.6 MCHC 34.3 RDW 12.6 Plt Count 157 L MPV 10.1 Absolute Nucleated RBC 0.000 Nucleated RBC % (auto) 0.0 PT 15.1 H INR 1.2 H aPTT Heparin Protocol 63.8 D Sodium 137 Potassium 3.9 Chloride 104 Carbon Dioxide 23 Anion Gap 14 BUN 18 H Creatinine 0.90 Estim Creat Clear Calc 69.7 Estimated GFR > 60 POC Glucose 138 H Random Glucose 120 H Calcium 9.3 D Troponin I High Sens 1103.1 H* 06/17/23 06/17/23 06/17/23 07:06 09:43 11:00 WBC RBC Hgb Hct MCV MCH MCHC RDW Plt Count MPV Absolute Nucleated RBC Nucleated RBC % (auto) PT INR aPTT Heparin Protocol 44.5 L D Sodium Potassium Chloride Carbon Dioxide Anion Gap BUN Creatinine Estim Creat Clear Calc Estimated GFR POC Glucose 143 H 139 H Random Glucose Calcium Troponin I High Sens Imaging Chest x-ray: Radiologist's impression: ITS Impressions Abdomen Ultrasound 06/16/23 08:04 IMPRESSION: 1. Mild increased liver echogenicity. No focal lesion seen. 2. Visualized gallbladder and CBD is unremarkable. Chest X-Ray 06/16/23 08:17 IMPRESSION: No active cardiopulmonary disease and no interval change. echo: Conclusions: - The left ventricular systolic function is normal. The calculated ejection fraction is 64% by biplane method. - There is moderate aortic valve stenosis. Findings Procedure Information Contrast agent, definity, is being given per protocol without apparent complications. Left Ventricle Normal left ventricular cavity size. There is mildly increased left ventricular wall thickness. The left ventricular systolic function is normal. The calculated ejection fraction is 64% by biplane method. Diastolic function is indeterminate on the basis of available data. No overt wall motion abnormality but somewhat difficult to assess. Right Ventricle Normal right ventricular cavity size and systolic function. Atria The left atrium is mildly dilated. The right atrium is normal in size. Aortic Valve There is moderate calcification of the aortic valve. There is moderate aortic valve stenosis. The peak aortic velocity is 2.27 m/s with a calculated peak gradient of 21 mmHg. The mean gradient is 11 mmHg. The aortic valve area is 1.39 cm2. There is no aortic valve regurgitation. Stroke volume index 28 mL/m2. Dimensionless index 0.36. Mitral Valve The mitral valve appears normal. There is no mitral valve regurgitation. There is no mitral valve stenosis. Pulmonic Valve The pulmonic valve is likely normal. Tricuspid Valve There is trace tricuspid valve regurgitation. There is no evidence of pulmonary hypertension. Great Vessels The asc aorta is normal in size. Venous The inferior vena cava is normal in size and collapses greater than 50% with inspiration. Pericardium/Pleural There is no evidence of pericardial effusion. Prior Study Comparison No significant change compared to prior study dated: 03/14/2023. Discharge Plan Discharge Anticipated Discharge Date/Time: 06/17/23 11:53 Patient Disposition: Home, Self-Care Discharge Diagnosis: nstemi,AFIB RVR Referrals: Mitchell Justin MD [Primary Care Provider] - 1 Week Discharge Medications: New isosorbide mononitrate 30 mg Tablet Extended Release 24 Hr 30 mg PO DAILY Qty: 1 0RF Protocol: Hold for SBP< HOLD for SBP < : 90 docusate sodium 100 mg Capsule 100 mg PO DAILY PRN (Reason: Constipation) Qty: 30 0RF insulin lispro [Admelog U-100 Insulin lispro] 100 unit/mL Solution See Protocol subcut QIDACHS Qty: 1 0RF Protocol: Insulin Correction Scale Less than or equal to 110 ---- Give (units): 0 111 to 150 Give (units): 0 151 to 200 Give (units): 2 201 to 250 Give (units): 4 251 to 300 Give (units): 6 301 to 350 Give (units): 8 Greater than 350 Give (units): 10 Call MD if Blood Glucose > : 350 metoprolol tartrate 25 mg Tablet 25 mg PO BID Qty: 30 0RF Protocol: Hold for SBP/HR < HOLD for SBP < : 90 HOLD for HR < : 60 heparin(porcine) in 0.45% NaCl 25,000 unit/250 mL Parenteral Solution 25,000 unit continuous IV infusion .Q0M Qty: 1 0RF atorvastatin 80 mg Tablet 80 mg PO DAILY Qty: 1 0RF aspirin 81 mg Tablet,Delayed Release (Dr/Ec) 81 mg PO DAILY Qty: 1 0RF Continued lisinopril 5 mg tablet 5 mg PO DAILY Qty: 90 3RF Changed diltiazem HCl 120 mg capsule,extended release 24 hr 240 mg PO DAILY Qty: 1 0RF Held apixaban 5 mg tablet 5 mg PO BID Hold Instructions: Resume on 06/27/23. hold until on heparin metformin 500 mg tablet 500 mg PO BID Hold Instructions: Resume on 06/19/23. Discharge Orders: Discharge Order (Routine); Ordered 06/17/23 Ordered By: Lizett Mascorro Diet: Advance to usual diet Activity on Discharge: As tolerated Stand Alone Forms: Patient Portal Discharge page Care Plan Goals: Patient was admitted to the hospital because of chest tightness: Came to the hospital found to have AFib with RVR, and elevated troponin: Subsequently was seen by Cardiology: Patient was started on aspirin, statin, IV heparin(monitor PT and PTT as per protocol) for possible NSTEMI-patient will be going to [facility] for further cardiac workup and management for that. AFib with RVR: Patient was initially given IV Cardizem and then subsequently put on p.o. Cardizem 240 mg daily, heart rate is still elevated so added p.o. metoprolol 25 mg b.i.d. Eliquis is on hold since patient is on IV heparin for NSTEMI. Hold metformin until cardiac catheterization and then can be started back. Health Concerns: As above. Plan of Treatment: As above. Assessment: As above. Patient Instructions: Heart Attack (DC)
--- NOTE | 2023-06-17 15:09 | MHC.CM.PN ---
IMM 06/17. Pt lives at home alone, self-care. Pts nephew will transport him home at D/C. Pt states he has a HCP, states Dr. Demarco office should have a copy. PCP: Dr. Mitchell Justin
== END 2023-06-17 16:05 | disposition home or self-care (01) | DRG 282 ==
LOC: HO.ED 10:38 → HO.EDOVER 12:43 → HO.IMC 19:48
PROVIDERS: Internal Medicine; Admitting Provider Student in an Organized Health Care Education/Training Program; Emergency Provider Emergency Medicine; PCP Internal Medicine Medical Oncology; Visit Provider Internal Medicine
DX: I21.4 Non-ST elevation (NSTEMI) myocardial infarction (principal); I48.0 Paroxysmal atrial fibrillation; I10 Essential (primary) hypertension; Z66 Do not resuscitate; E11.9 Type 2 diabetes mellitus without complications; I35.0 Nonrheumatic aortic (valve) stenosis; Z20.822 Contact with and (suspected) exposure to COVID-19; Z79.01 Long term (current) use of anticoagulants; Z79.84 Long term (current) use of oral hypoglycemic drugs; Z79.899 Other long term (current) drug therapy
CPT/HCPCS: 36415; 71045; 76705; 80048; 80076; 82947; 83690; 83735; 84484; 85025; 85027; 85610; 85730; 87635; 93005; 93306; 99222; 99285; J1644; Q9957

== ENCOUNTER → 2023-06-16 06:55 | Outpatient (BNV) | payer MEDICARE, OTHER, SELFPAY | PROVIDERS: Emergency Provider Emergency Medicine; PCP Internal Medicine Medical Oncology; Visit Provider Internal Medicine | DX: R94.31 Abnormal electrocardiogram [ECG] [EKG] (principal) | CPT/HCPCS: 93010; 93306 ==

== ENCOUNTER → 2023-06-16 12:11 | Outpatient (BNV) | payer MEDICARE, OTHER, SELFPAY | PROVIDERS: Admitting Provider Student in an Organized Health Care Education/Training Program; Emergency Provider Emergency Medicine; PCP Internal Medicine Medical Oncology; Visit Provider Student in an Organized Health Care Education/Training Program | DX: I21.4 Non-ST elevation (NSTEMI) myocardial infarction (principal); I48.91 Unspecified atrial fibrillation | CPT/HCPCS: 99222; 99239 ==

== ENCOUNTER → 2023-06-16 12:11 | Outpatient (BNV) | payer MEDICARE, OTHER, SELFPAY | PROVIDERS: Admitting Provider Student in an Organized Health Care Education/Training Program; Emergency Provider Emergency Medicine; PCP Internal Medicine Medical Oncology; Visit Provider Internal Medicine | DX: I48.91 Unspecified atrial fibrillation (principal); I21.4 Non-ST elevation (NSTEMI) myocardial infarction | CPT/HCPCS: 99223; 99233 ==

== ENCOUNTER → 2023-06-19 23:59 | Outpatient (BNV) | payer MEDICARE, OTHER, SELFPAY | PROVIDERS: PCP Internal Medicine Medical Oncology; Visit Provider Internal Medicine Cardiovascular Disease | DX: I21.4 Non-ST elevation (NSTEMI) myocardial infarction (principal) | CPT/HCPCS: 93458; 99152 ==

== ENCOUNTER 2023-07-13 13:20 | Outpatient (AMB) | payer MEDICARE, OTHER, SELFPAY ==
--- NOTE | 2023-07-13 13:21 | A.OFFVIS_ITS ---
Intake Vital Signs 07/13/23 13:23 Height 5 ft 11 in Weight 173 lb 11.588 oz BMI 24.2 BP 120/68 Blood Pressure Location Lt brachial Position Sitting Pulse 125 H Intake Visit Reasons: 2 week fu HS Intake Note: 2 week follow up [place] Required: No Accompanied by: Nephew or Niece Allergies Penicillins [PENICILLINS] Adverse Reaction (Unknown, Verified 07/13/23 13:24) DIARRHEA Sulfa (Sulfonamide Antibiotics) [SULFA (SULFONAMIDE ANTIBIOTICS)] Adverse Reaction (Unknown, Verified 07/13/23 13:24) DIARRHEA FOOD WITH ACID Allergy (Intermediate, Uncoded 07/13/23 13:24) RASH Medication List - Last Reconciled 07/13/23 by Andi Johnson MD amiodarone 200 mg PO BID apixaban 5 mg PO BID aspirin 81 mg PO DAILY atorvastatin 80 mg PO DAILY clopidogrel (Plavix) 75 mg PO DAILY docusate sodium 100 mg PO DAILY PRN metformin 500 mg PO BID metoprolol tartrate 25 mg See Protocol PO BID HPI HPI Comments History of Present Illness Details Kwan returns for follow-up regarding atrial fibrillation, aortic stenosis and other issues. He is doing fine. Denies any cardiac complaints. 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 Social History Household Members: None Housing: House Do you presently have visiting nurse or other home services: No Alcohol intake: never Patient Tobacco Use Status: Never used Tobacco service: No Review of Systems Const Denies weakness ENT Denies dizziness Card Denies chest pain, Denies chest pain with activity, Denies syncope, Denies rapid heart rate, Denies pedal edema, Denies edema, Denies leg edema, Denies lightheadedness, Denies palpitations, Denies dyspnea, Denies dyspnea on exertion and Denies orthopnea Resp Denies cough, Denies dyspnea and Denies dyspnea on exertion GI Denies hematochezia and Denies change in stool character Musc Denies abnormal gait, Denies muscle cramps, Denies muscle weakness, Denies numbness, Denies radiating pain into limb and Denies tingling Neuro Denies abnormal gait, Denies dizziness, Denies syncope, Denies numbness, Denies tingling and Denies weakness Endo Denies palpitations Physical Exam Vital Signs: Last Vital Signs Pulse 125 H 07/13/23 13:23 BP 120/68 07/13/23 13:23 BMI result Body Mass Index 24.2 Const General: comfortable and no acute distress Orientation/consciousness: patient oriented x3 HEENT Other: Unremarkable Head: Yes normal to inspection Neck Neck: Yes normal visual inspection Chest Chest palpation & inspection: normal inspection of the chest Resp Auscultation: clear to auscultation bilaterally Cardio Palpation: normal PMI Heart sounds: S1 normal heart sound present, S2 normal heart sound present, no gallops, no murmurs and no rubs GI Palpation (GI): Soft to palpation Back/Spine/Pelvis Other: unremarkable Skin General skin exam: no rashes or lesions noted Neuro General: patient oriented x3 Extrem General: Yes normal to inspection Psych Mental Status: mental status grossly normal Office Procedures EKG Details: EKG with atrial flutter at a rate of 125/Min. Nonspecific intraventricular conduction defect. [id number], Complete Assessment & Plan Assessment & Plan (1) Atherosclerotic cardiovascular disease: Code(s): I25.10 - Atherosclerotic heart disease of [place] coronary artery without angina pectoris Plan: NSTEMI, status post CABGx2; 06/2023. Clinically doing well. Continue aspirin, statins. Stop Plavix. Does not need triple therapy. Cardiac rehabilitation. (2) Status post aortic valve replacement with bioprosthetic valve: Code(s): Z95.3 - Presence of xenogenic heart valve Plan: s/p #25 AVR; he had moderate aortic stenosis preop. Infective endocarditis prophylaxis before any dental procedures. Get echocardiogram. (3) Persistent atrial fibrillation: Code(s): I48.19 - Other persistent atrial fibrillation Plan: s/p LA MAZE; s/p atricip TYLER occluder. In the past, he had well controlled atrial fibrillation on diltiazem ER 120 mg daily. Now postop, he has been put on metoprolol ER 20 mg daily. We can increase the dose to tartrate, 50 mg b.i.d.. Advised him to check vitals at home and let us know. We will also get Holter. Continue anticoagulation. (4) Essential hypertension: Code(s): I10 - Essential (primary) hypertension Plan: Stable. Home blood pressure diary reviewed. Plan Discussed with nephew who came. Orders: Orders ECG 3 day holter monitor Today I48.91 - Unspecified atrial fibrillation Medications: New metoprolol tartrate 50 mg PO BID 180 tabs 3RF 90 days Coding Level of Care Code Est Pt Level 4 (12354) Diagnoses Atherosclerotic cardiovascular disease I25.10 Status post aortic valve replacement with bioprosthetic valve Z95.3 Persistent atrial fibrillation I48.19 Essential hypertension I10 CPT Codes EKG - CPT: [id number], Complete ([id number])
[2023-07-13 13:23] VITALS: BP 120/68; PULSE 125; BMI 24.2
== END 2023-07-13 14:06 | disposition home or self-care (01) ==
PROVIDERS: PCP Internal Medicine Medical Oncology; Visit Provider Internal Medicine
DX: I25.10 Atherosclerotic heart disease of native coronary artery without angina pectoris (principal); Z95.3 Presence of xenogenic heart valve; I48.19 Other persistent atrial fibrillation; I10 Essential (primary) hypertension
CPT/HCPCS: 93010; 99214

== ENCOUNTER → 2023-07-13 13:20 | Outpatient (BNVA) | payer MEDICARE, OTHER, SELFPAY | PROVIDERS: PCP Internal Medicine Medical Oncology; Visit Provider Internal Medicine | DX: I25.10 Atherosclerotic heart disease of native coronary artery without angina pectoris (principal); I48.19 Other persistent atrial fibrillation; I10 Essential (primary) hypertension; Z95.3 Presence of xenogenic heart valve | CPT/HCPCS: 93005; 99212 ==

== ENCOUNTER → 2023-07-19 11:26 | Outpatient (REF) | payer MEDICARE, OTHER, SELFPAY ==
--- NOTE | 2023-07-19 11:29 | HM_ITS ---
Conclusion: 1. Patient was monitored for total period of 2 days and 23 hours 2. Baseline was atrial fibrillation with average heart of 83 beats per minute good rate control 3. No significant pauses noted. 4. Occasional PVCs noted 5. No patient reported events MTDD
== END ==
LOC: HO.CARD 11:26
PROVIDERS: PCP Internal Medicine Medical Oncology; Visit Provider Internal Medicine
DX: I48.91 Unspecified atrial fibrillation (principal)
CPT/HCPCS: 93242

== ENCOUNTER → 2023-07-19 11:29 | Outpatient (BNV) | payer MEDICARE, OTHER, SELFPAY | PROVIDERS: PCP Internal Medicine Medical Oncology; Visit Provider Internal Medicine Cardiovascular Disease | DX: I48.91 Unspecified atrial fibrillation (principal) | CPT/HCPCS: 93244 ==

== ENCOUNTER 2023-07-28 05:57 | Outpatient (REF) | payer MEDICARE, OTHER, SELFPAY ==
[2023-07-28 06:10] LABS: MANUAL DIFF FLAG NO
[2023-07-28 08:15] LABS: Basophils Percent Auto 0.5 % (0-2); Eosinophils Absolute Auto 0.5 X10*3/uL (0.0-0.4); Eosinophils Percent Auto 8.2 % (0-4); Hemoglobin 12.8 g/dl (14.0-18.0); Imm Gran Abs Auto 0.03 X10*3/uL (0.00-0.03); Imm Gran Pct Auto 0.5 % (0.0-0.4); Lymphocytes Absolute Auto 0.5 X10*3/uL (1.2-4.9); Lymphocytes Percent Auto 8.4 % (20-40); Mean Corpuscular Volume 93.9 fL (80.0-98.0); Mean Platelet Volume 9.5 fL (9.4-12.4); Monocytes Absolute Auto 0.7 X10*3/uL (0.1-1.2); Monocytes Percent Auto 11.2 % (2-11); Neutrophils Absolute Auto 4.3 x10*3/uL (2.0-8.3); Neutrophils Percent Auto 71.2 % (45-73); Platelet Count 211 X10*3/uL (160-400); Red Blood Count 4.26 X10*6/uL (4.60-5.80); Red Cell Distribution Width 13.8 % (11.0-16.0); White Blood Count 6.1 X10*3/uL (4.8-10.8)
[2023-07-28 08:45] LABS: Alanine Aminotransferase 33 U/L (0-40); Alkaline Phosphatase 86 U/L (39-117); Anion Gap 13 (12-20); Aspartate Amino Transferase 20 U/L (5-37); Bilirubin Total 0.9 mg/dL (0.0-1.0); Blood Urea Nitrogen 17 mg/dL (9-16); Calcium 9.4 mg/dL (8.4-10.2); Carbon Dioxide 25 mmol/L (22-29); Chloride 105 mmol/L (96-108); Cholesterol 107 mg/dL (<200); Estimated Glomerular Filt Rate > 60; Glucose Fasting 101 mg/dL (60-99); HDL Cholesterol 56 mg/dL (>40); LDL Cholesterol Calculated 37 mg/dL (<100); Potassium 4.1 mmol/L (3.3-5.1); Sodium 139 mmol/L (135-145); Total Protein 7.3 g/dL (6.5-8.0); Triglycerides 71 mg/dL (<150)
[2023-07-28 08:54] LABS: Prostate Specific Antigen 0.67 ng/mL (<0.05-4.0)
== END 2023-07-28 05:58 | disposition home or self-care (01) ==
LOC: HO.LAB 05:57
PROVIDERS: PCP Internal Medicine Medical Oncology; Visit Provider Internal Medicine Medical Oncology
DX: Z12.5 Encounter for screening for malignant neoplasm of prostate (principal); I10 Essential (primary) hypertension; E78.2 Mixed hyperlipidemia; N40.0 Benign prostatic hyperplasia without lower urinary tract symptoms
CPT/HCPCS: 36415; 80053; 80061; 84153; 85025

== ENCOUNTER 2023-09-18 12:19 | Outpatient (AMB) | payer MEDICARE, OTHER, SELFPAY ==
[2023-09-18 12:36] VITALS: BP 148/68; PULSE 78; O2SAT 96; BMI 25.2
--- NOTE | 2023-09-18 12:36 | MHC.OFFVIS ---
Vital Signs 09/18/23 12:36 Height 5 ft 11 in Weight 180 lb 12.465 oz BMI 25.2 BP 148/68 H Blood Pressure Location Lt brachial Position Sitting Pulse 78 Pulse Source Pulse Oximeter Pulse Oximetry (%) 96 Oxygen Delivery Method Room Air Intake Visit Reasons: 2 mth fu echo holter Allergies Penicillins [PENICILLINS] Adverse Reaction (Unknown, Verified 07/13/23 13:24) DIARRHEA Sulfa (Sulfonamide Antibiotics) [SULFA (SULFONAMIDE ANTIBIOTICS)] Adverse Reaction (Unknown, Verified 07/13/23 13:24) DIARRHEA FOOD WITH ACID Allergy (Intermediate, Uncoded 07/13/23 13:24) RASH Medication List - Last Reconciled 09/18/23 by Andi Johnson MD apixaban 5 mg PO BID aspirin 81 mg PO DAILY metformin 500 mg PO BID metoprolol tartrate 50 mg PO BID 90 days HPI Comments Details: Kwan returns for follow-up. He has a history of atrial fibrillation, aortic stenosis, hypertension diabetes. He came for substernal chest discomfort and then diagnosed with NSTEMI. Subsequently, underwent cardiac catheterization followed by bypass surgery as well as AVR. Overall, he states he is feeling quite good. No complaints. He has not been taking statins as he ran out of it. [facility] Medical History (Updated 07/13/23 @ 13:30 by Andi Johnson MD) Atherosclerotic cardiovascular disease Type 2 diabetes mellitus with unspecified complications Essential hypertension Non-rheumatic aortic stenosis Persistent atrial fibrillation Surgical History (Updated 07/13/23 @ 13:30 by Andi Johnson MD) Status post aortic valve replacement with bioprosthetic valve Hx of CABG Family History Father Lung cancer Heart attack Mother No problems noted. Social History Household Members: None Housing: House Do you presently have visiting nurse or other home services: No Alcohol intake: never Patient Tobacco Use Status: Never used Tobacco service: No Review of Systems Const Denies weakness ENT Denies dizziness Card Denies chest pain, Denies chest pain with activity, Denies syncope, Denies rapid heart rate, Denies pedal edema, Denies edema, Denies leg edema, Denies lightheadedness, Denies palpitations, Denies dyspnea, Denies dyspnea on exertion and Denies orthopnea Resp Denies cough, Denies dyspnea and Denies dyspnea on exertion GI Denies hematochezia and Denies change in stool character Musc Denies abnormal gait, Denies muscle cramps, Denies muscle weakness, Denies numbness, Denies radiating pain into limb and Denies tingling Neuro Denies abnormal gait, Denies dizziness, Denies syncope, Denies numbness, Denies tingling and Denies weakness Endo Denies palpitations Physical Exam Vital Signs: Last Vital Signs Pulse 78 09/18/23 12:36 BP 148/68 H 09/18/23 12:36 Pulse Ox 96 09/18/23 12:36 Oxygen Delivery Method Room Air 09/18/23 12:36 BMI result Body Mass Index 25.2 Const General: comfortable and no acute distress Orientation/consciousness: patient oriented x3 HEENT Other: Unremarkable Head: Yes normal to inspection Neck Neck: Yes normal visual inspection Chest Chest palpation & inspection: normal inspection of the chest Resp Auscultation: clear to auscultation bilaterally Cardio Palpation: normal PMI Heart sounds: S1 normal heart sound present, S2 normal heart sound present, no gallops, Murmur heart sound present systolic II/ and at the right sternal border and no rubs GI Palpation (GI): Soft to palpation Back/Spine/Pelvis Other: unremarkable Skin General skin exam: no rashes or lesions noted Neuro General: patient oriented x3 Extrem General: Yes normal to inspection Psych Mental Status: mental status grossly normal Assessment & Plan Assessment & Plan (1) Atherosclerotic cardiovascular disease: Code(s): I25.10 - Atherosclerotic heart disease of [place] coronary artery without angina pectoris Category: Medical Plan: NSTEMI, status post CABGx2; 06/2023. No angina. Continue aspirin. Resume statins. Cardiac rehabilitation. (2) Status post aortic valve replacement with bioprosthetic valve: Code(s): Z95.3 - Presence of xenogenic heart valve Category: Surgical Plan: s/p #25 AVR; he had moderate aortic stenosis preop. Infective endocarditis prophylaxis before any dental procedures. Echocardiogram not completed. May be performed before his follow-up. (3) Persistent atrial fibrillation: Code(s): I48.19 - Other persistent atrial fibrillation Category: Medical Plan: s/p LA MAZE; s/p atricip TYLER occluder. Continue beta-blockers and anticoagulation. (4) Essential hypertension: Code(s): I10 - Essential (primary) hypertension Category: Medical Plan: Blood pressure on the higher side today. Last time, it was normal. Will need to be followed. Orders: Orders CA echo transthoracic complete 6 Months Z95.3 - Presence of xenogenic heart valve Medications: New atorvastatin 80 mg PO QPM 90 tabs 3RF Coding Level of Care Code Est Pt Level 4 (15671) Diagnoses Atherosclerotic cardiovascular disease I25.10 Status post aortic valve replacement with bioprosthetic valve Z95.3 Persistent atrial fibrillation I48.19 Essential hypertension I10
== END 2023-09-18 13:03 | disposition home or self-care (01) ==
PROVIDERS: PCP Internal Medicine Medical Oncology; Visit Provider Internal Medicine
DX: I25.10 Atherosclerotic heart disease of native coronary artery without angina pectoris (principal); Z95.3 Presence of xenogenic heart valve; I48.19 Other persistent atrial fibrillation; I10 Essential (primary) hypertension
CPT/HCPCS: 99214

== ENCOUNTER → 2023-09-18 12:19 | Outpatient (BNVA) | payer MEDICARE, OTHER, SELFPAY | PROVIDERS: PCP Internal Medicine Medical Oncology; Visit Provider Internal Medicine | DX: I25.10 Atherosclerotic heart disease of native coronary artery without angina pectoris (principal); Z95.3 Presence of xenogenic heart valve; I48.19 Other persistent atrial fibrillation; I10 Essential (primary) hypertension | CPT/HCPCS: 99212 ==

== ENCOUNTER 2023-10-13 05:59 | Outpatient (REF) | payer MEDICARE, OTHER, SELFPAY ==
[2023-10-13 06:10] LABS: MANUAL DIFF FLAG NO
[2023-10-13 07:11] LABS: Basophils Percent Auto 0.7 % (0-2); Eosinophils Absolute Auto 0.7 X10*3/uL (0.0-0.4); Eosinophils Percent Auto 11.3 % (0-4); Hemoglobin 13.8 g/dl (14.0-18.0); Imm Gran Abs Auto 0.02 X10*3/uL (0.00-0.03); Imm Gran Pct Auto 0.3 % (0.0-0.4); Lymphocytes Absolute Auto 0.9 X10*3/uL (1.2-4.9); Lymphocytes Percent Auto 14.6 % (20-40); Mean Corpuscular HGB Conc 32.1 g/dl (31.0-36.0); Mean Corpuscular Hemoglobin 29.5 pg (27.0-33.0); Mean Corpuscular Volume 91.9 fL (80.0-98.0); Mean Platelet Volume 9.7 fL (9.4-12.4); Monocytes Absolute Auto 0.7 X10*3/uL (0.1-1.2); Monocytes Percent Auto 11.1 % (2-11); Neutrophils Absolute Auto 3.7 x10*3/uL (2.0-8.3); Platelet Count 207 X10*3/uL (160-400); Red Blood Count 4.68 X10*6/uL (4.60-5.80); Red Cell Distribution Width 13.8 % (11.0-16.0); White Blood Count 5.9 X10*3/uL (4.8-10.8)
[2023-10-13 07:27] LABS: Alanine Aminotransferase 26 U/L (0-40); Albumin Level 4.1 g/dL (3.5-5.0); Alkaline Phosphatase 84 U/L (39-117); Anion Gap 12 (12-20); Aspartate Amino Transferase 23 U/L (5-37); Bilirubin Total 0.6 mg/dL (0.0-1.0); Blood Urea Nitrogen 20 mg/dL (9-16); Calcium 9.7 mg/dL (8.4-10.2); Carbon Dioxide 28 mmol/L (22-29); Chloride 107 mmol/L (96-108); Cholesterol 110 mg/dL (<200); Estimated Glomerular Filt Rate > 60; Glucose Fasting 118 mg/dL (60-99); HDL Cholesterol 54 mg/dL (>40); LDL Cholesterol Calculated 44 mg/dL (<100); Potassium 4.3 mmol/L (3.3-5.1); Sodium 143 mmol/L (135-145); Total Protein 7.3 g/dL (6.5-8.0); Triglycerides 63 mg/dL (<150)
[2023-10-13 07:39] LABS: Prostate Specific Antigen 0.59 ng/mL (<0.05-4.0)
== END 2023-10-13 06:00 | disposition home or self-care (01) ==
LOC: HO.LAB 05:59
PROVIDERS: PCP Internal Medicine Medical Oncology; Visit Provider Internal Medicine Medical Oncology
DX: Z00.00 Encounter for general adult medical examination without abnormal findings (principal); E78.2 Mixed hyperlipidemia; E11.22 Type 2 diabetes mellitus with diabetic chronic kidney disease; N40.0 Benign prostatic hyperplasia without lower urinary tract symptoms; E66.3 Overweight; N18.9 Chronic kidney disease, unspecified; Z12.5 Encounter for screening for malignant neoplasm of prostate
CPT/HCPCS: 36415; 80053; 80061; 84153; 85025

== ENCOUNTER → 2024-03-12 12:32 | Outpatient (REF) | payer MEDICARE, OTHER, SELFPAY ==
--- NOTE | 2024-03-12 12:38 | CA_ITS ---
Transthoracic Echocardiogram Patient (Last, First, Middle): Kwan Padilla, Gender: Male Date of : 1940 Age: 83 Procedure Date: 03/12/2024 Procedure Type: Transthoracic Echocardiogram Location: OP Height: 175.26 cm Weight: 81.65 kg BSA: 1.98 m2 Heart Rate: bpm BP: 120 / 66 mmHg Kinesiotherapist: Referring MD: Andi Johnson MD Culturist: Sin Cobb MD Symptoms: Z95.3 - Presence of xenogenic heart valve Study Quality: Adequate ECG Rhythm: Sinus Conclusions: - 1. Normal LV ejection fraction of 55-60% with grade 1 diastolic dysfunction 2. Normally functioning bioprosthetic aortic valve Findings Left Ventricle Normal left ventricular size, thickness, and systolic function. The visually estimated ejection fraction is between 55-60%. Spectral Doppler is indicative of an impaired relaxation filling pattern. E/E prime ratio is <8, consistent with normal filling pressures. Evidence suggests grade I (mild) diastolic dysfunction. Right Ventricle The right ventricle was not well visualized. There is mildly decreased right ventricular systolic function. Atria The left atrium is mildly dilated. Interatrial shunt cannot be excluded. The right atrium was not well visualized. Aortic Valve A bioprosthetic aortic valve is present. The prosthetic aortic valve appears to be functioning normally. The mean gradient is 4 mmHg. Mitral Valve There is mild anterior mitral leaflet thickening. There is mild mitral annular calcification. There is trace mitral valve regurgitation. There is no mitral valve stenosis. Pulmonic Valve The pulmonic valve was not well visualized. Tricuspid Valve The tricuspid valve was not well visualized. Great Vessels The aorta was not well visualized. The pulmonary artery was not well visualized. Venous The inferior vena cava is normal in size. Pericardium/Pleural The pericardium was not well visualized. Measurements 2D Linear Measurements IVSd: 0.82 0.6-0.9/0.6-1.0 cm LVIDd: 4.23 3.9-5.3/4.2-5.9 cm LVIDd Index: 2.14 2.4-3.2/2.2-3.1 cm/m2 LVIDs: 2.78 2.0-3.6 cm LVPWd: 0.97 0.7-1.1 cm Ao Root: 2.70 2.1-3.5 cm LA Diam: 4.80 2.7-3.8/3.0-4.0 cm LAIDs Index: 2.42 1.5-2.3 cm/m2 LV Mass: 148.07 67-162/88-224 g LV Mass Index: 74.78 43-95/49-115 g/m2 LVOT Diam: 2.00 3.0+(-)1.3 cm Mitral Valve MV Pk E: 0.92 MV PK A: 0.72 MV Decel Time: 190.00 E/A: 1.30 E'Lateral: 13.20 E'Medial: 8.16 E/E' Med: 11.30 E/E' Lat: 7.00 PHT: 56.00 MVA PHT: 3.93 Decel [place]: 4.82 Aortic Valve AoV Pk [place]: 1.44 AoV Mn Marco Antonio: 0.85 AoV VTI: 0.31 AoV Pk Grad: 8.00 Aov Mn Grad: 4.00 EDDIE Cont.VTI: 2.04 LVOT LVOT Pk [place]: 0.94 LVOT Mn Marco Antonio: 0.60 LVOT VTI: 0.20 LVOT Pk Grad: 4.00 LVOT Mn Grad: 2.00 LVOT Diam: 2.00 LVOT Area: 3.14 Diastolic Function MV Pk E: 0.92 MV Pk A: 0.72 E/A: 1.30 E'Medial: 8.16 E/E' Med: 11.30 E' Laterial: 13.20 E/E' Lat: 7.00 Right Ventricle TAPSE (mm): 16.00 TVS' Marco Antonio: 9.00 Tricuspid Valve TR Pk Marco Antonio: 2.40 TR Pk Grad: 23.00 RA Press: 3.00 RVSP: 3.00 Great Vessels Aorta Ao Root-2D: 2.70 2.0-3.7 cm Ao Asc: 3.10 2.1-3.4 cm Pulmonary Valve PV Pk Marco Antonio: 0.75 Peak PV Grad: 2.00 Updated in Other Vendor System with Status of Final Sin Cobb MD electronically signed on 03/13/2024 12:08:50 PM with status of Final
== END ==
LOC: HO.CARD 12:32
PROVIDERS: PCP Internal Medicine Medical Oncology; Visit Provider Internal Medicine
DX: Z95.3 Presence of xenogenic heart valve (principal)
CPT/HCPCS: 93306

== ENCOUNTER → 2024-03-12 12:38 | Outpatient (BNV) | payer MEDICARE, OTHER, SELFPAY | PROVIDERS: PCP Internal Medicine Medical Oncology; Visit Provider Internal Medicine Cardiovascular Disease | DX: I34.81 Nonrheumatic mitral (valve) annulus calcification (principal); Z95.3 Presence of xenogenic heart valve; I51.89 Other ill-defined heart diseases | CPT/HCPCS: 93306 ==

== ENCOUNTER 2024-03-21 12:26 | Outpatient (AMB) | payer MEDICARE, OTHER, SELFPAY ==
[2024-03-21 12:42] VITALS: BP 140/72; PULSE 73; BMI 25.7
--- NOTE | 2024-03-21 12:42 | A.OFFVIS_ITS ---
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 Accompanied by: Self / Same As Patient Allergies Penicillins [PENICILLINS] Adverse Reaction (Unknown, Verified 07/13/23 13:24) DIARRHEA Sulfa (Sulfonamide Antibiotics) [SULFA (SULFONAMIDE ANTIBIOTICS)] Adverse Reaction (Unknown, Verified 07/13/23 13:24) DIARRHEA FOOD WITH ACID Allergy (Intermediate, Uncoded 07/13/23 13:24) RASH Medication List - Last Reconciled 03/21/24 by Andi Johnson MD apixaban 5 mg PO BID aspirin 81 mg PO DAILY atorvastatin 80 mg PO QPM metformin 500 mg PO BID metoprolol tartrate 50 mg PO BID 90 days HPI Comments Details: Kwan returns for follow-up regarding various cardiac issues. He has chronic atrial fibrillation, coronary disease, bypass surgery, diabetes, hypertension. Overall, he states he feels fine. No symptoms from cardiac. [facility] Medical History (Updated 07/13/23 @ 13:30 by Andi Johnson MD) Atherosclerotic cardiovascular disease Type 2 diabetes mellitus with unspecified complications Essential hypertension Non-rheumatic aortic stenosis Persistent atrial fibrillation Surgical History Status post aortic valve replacement with bioprosthetic valve Hx of CABG Family History Father Lung cancer Heart attack Mother No problems noted. Social History Household Members: None Housing: House Do you presently have visiting nurse or other home services: No Alcohol intake: never Patient Tobacco Use Status: Never used Tobacco service: No Review of Systems Const Denies chills, Denies fatigue, Denies fever(s), Denies frequent falls, Denies weakness, Denies weight gain and Denies weight loss ENT Denies dizziness Card Denies chest pain, Denies leg edema, Denies lightheadedness, Denies palpitations, Denies dyspnea and Denies dyspnea on exertion Resp Denies cough, Denies dyspnea and Denies dyspnea on exertion GI Denies hematochezia Musc Denies abnormal gait, Denies muscle weakness, Denies numbness, Denies radiating pain into limb and Denies tingling Neuro Denies abnormal gait, Denies dizziness, Denies frequent falls, Denies numbness, Denies tingling and Denies weakness Endo Denies fatigue and Denies palpitations Physical Exam Vital Signs: Last Vital Signs Pulse 73 03/21/24 12:42 BP 140/72 H 03/21/24 12:42 BMI result Body Mass Index 25.7 Const General: comfortable and no acute distress Orientation/consciousness: patient oriented x3 HEENT Other: Unremarkable Head: Yes normal to inspection Neck Neck: Yes normal visual inspection Chest Chest palpation & inspection: normal inspection of the chest Resp Auscultation: clear to auscultation bilaterally Cardio Palpation: normal PMI Heart sounds: S1 normal heart sound present, S2 normal heart sound present, no gallops, Murmur heart sound present systolic II/ and at the right sternal border and no rubs GI Palpation (GI): Soft to palpation Back/Spine/Pelvis Other: unremarkable Skin General skin exam: no rashes or lesions noted Neuro General: patient oriented x3 Extrem General: Yes normal to inspection Psych Mental Status: mental status grossly normal Assessment & Plan Assessment & Plan (1) Atherosclerotic cardiovascular disease: Code(s): I25.10 - Atherosclerotic heart disease of [place] coronary artery without angina pectoris Category: Medical Plan: NSTEMI, status post CABGx2; 06/2023. Stable. Continue aspirin and statins. (2) Status post aortic valve replacement with bioprosthetic valve: Code(s): Z95.3 - Presence of xenogenic heart valve Category: Surgical Plan: s/p #25 AVR. In the echocardiogram, normally functioning bioprosthetic aortic valve. Infective endocarditis prophylaxis before any dental procedures. (3) Persistent atrial fibrillation: Code(s): I48.19 - Other persistent atrial fibrillation Category: Medical Plan: s/p LA MAZE; s/p atricip TYLER occluder. In the Holter from 07/2023, underlying atrial fibrillation with an average rate of 83/Min. Continue beta-blockers. Continue anticoagulation. (4) Essential hypertension: Code(s): I10 - Essential (primary) hypertension Category: Medical Plan: Clinic blood pressures are slightly high but he states that the home blood pressures are only the 120s. Diary reviewed. No changes required. Coding Level of Care Code Est Pt Level 4 (18572) Diagnoses Atherosclerotic cardiovascular disease I25.10 Status post aortic valve replacement with bioprosthetic valve Z95.3 Persistent atrial fibrillation I48.19 Essential hypertension I10
== END 2024-03-21 12:57 | disposition home or self-care (01) ==
PROVIDERS: PCP Internal Medicine Medical Oncology; Visit Provider Internal Medicine
DX: I25.10 Atherosclerotic heart disease of native coronary artery without angina pectoris (principal); Z95.3 Presence of xenogenic heart valve; I48.19 Other persistent atrial fibrillation; I10 Essential (primary) hypertension
CPT/HCPCS: 99214

== ENCOUNTER → 2024-03-21 12:26 | Outpatient (BNVA) | payer MEDICARE, OTHER, SELFPAY | PROVIDERS: PCP Internal Medicine Medical Oncology; Visit Provider Internal Medicine | DX: I48.19 Other persistent atrial fibrillation (principal); I25.10 Atherosclerotic heart disease of native coronary artery without angina pectoris; I10 Essential (primary) hypertension; I35.0 Nonrheumatic aortic (valve) stenosis; Z95.3 Presence of xenogenic heart valve | CPT/HCPCS: 99212 ==

== ENCOUNTER 2024-03-22 06:00 | Outpatient (REF) | payer MEDICARE, OTHER, SELFPAY ==
[2024-03-22 06:12] LABS: MANUAL DIFF FLAG NO
[2024-03-22 07:26] LABS: Basophils Percent Auto 0.5 % (0-2); Eosinophils Absolute Auto 0.4 X10*3/uL (0.0-0.4); Hemoglobin 14.4 g/dl (14.0-18.0); Imm Gran Abs Auto 0.03 X10*3/uL (0.00-0.03); Imm Gran Pct Auto 0.5 % (0.0-0.4); Lymphocytes Absolute Auto 0.8 X10*3/uL (1.2-4.9); Lymphocytes Percent Auto 13.1 % (20-40); Mean Corpuscular HGB Conc 32.7 g/dl (31.0-36.0); Mean Corpuscular Hemoglobin 30.1 pg (27.0-33.0); Mean Corpuscular Volume 92.1 fL (80.0-98.0); Mean Platelet Volume 9.7 fL (9.4-12.4); Monocytes Absolute Auto 0.7 X10*3/uL (0.1-1.2); Monocytes Percent Auto 11.4 % (2-11); Neutrophils Absolute Auto 4.2 x10*3/uL (2.0-8.3); Neutrophils Percent Auto 67.5 % (45-73); Platelet Count 223 X10*3/uL (160-400); Red Blood Count 4.78 X10*6/uL (4.60-5.80); Red Cell Distribution Width 12.9 % (11.0-16.0); White Blood Count 6.2 X10*3/uL (4.8-10.8)
[2024-03-22 07:56] LABS: Alanine Aminotransferase 39 U/L (0-40); Alkaline Phosphatase 89 U/L (39-117); Anion Gap 10 (12-20); Aspartate Amino Transferase 34 U/L (5-37); Bilirubin Total 0.6 mg/dL (0.0-1.0); Blood Urea Nitrogen 14 mg/dL (9-16); Carbon Dioxide 28 mmol/L (22-29); Chloride 104 mmol/L (96-108); Cholesterol 106 mg/dL (<200); Estimated Glomerular Filt Rate > 60; Glucose Fasting 127 mg/dL (60-99); HDL Cholesterol 49 mg/dL (>40); LDL Cholesterol Calculated 43 mg/dL (<100); Potassium 4.2 mmol/L (3.3-5.1); Sodium 138 mmol/L (135-145); Total Protein 7.1 g/dL (6.5-8.0); Triglycerides 74 mg/dL (<150)
== END 2024-03-22 06:01 | disposition home or self-care (01) ==
LOC: HO.LAB 06:00
PROVIDERS: PCP Internal Medicine Medical Oncology; Visit Provider Internal Medicine Medical Oncology
DX: I10 Essential (primary) hypertension (principal); E78.2 Mixed hyperlipidemia; E66.3 Overweight
CPT/HCPCS: 36415; 80053; 80061; 85025

== ENCOUNTER 2024-08-22 05:59 | Outpatient (REF) | payer MEDICARE, OTHER, SELFPAY ==
--- OUTSIDE RECORDS SUMMARY | 2024-08-22 06:03 | XMS_ITS | Patient Health Record ---
Author Organization Mitchell Justin III, MD Address [address] [place] [address] Care Team Providers Care Environmental Control Administrator Name Role Phone Mitchell Justin Primary Care Provider [phone] Allergies Allergen (clinical drug ingredient) Drug/Non Drug Allergy documented on EMR Reaction Allergy Type Onset Date Status Penicillin Unknown Drug Allergy Active acid content foods (uncoded) Unknown Allergy Active Results Component Value Reference Range Notes URINE DIP STICK Reviewed date:08/23/2023 02:30:01 PM Interpretation: Performing Lab: Notes/Report: SG 1.015 1.005 - 1.025 pH 5.0 5.0 - 9.0 JUAN J neg Negative - NIT neg Negative - PRO trace Negative - Trace GLU neg Negative - KET neg Negative - UBG 0.2 0.1 - 1.8 LETICIA neg 0.2 - 1.3 BLD neg Negative - Menstrating N/A Complete Blood Count Auto Di ff Reviewed date:10/15/2023 07:15:44 PM Interpretation: Performing Lab:[facility], [address] [place] [phone] Notes/Report: White Blood Count 5.9 4.8-10.8 X10*3/uL Red Blood Count 4.68 4.60-5.80 X10*6/uL Hemoglobin 13.8 14.0-18.0 g/dl Hematocrit 43.0 42.0-52.0 % Mean Corpuscular Volume 91.9 80.0-98.0 fL Mean Corpuscular Hemoglobin 29.5 27.0-33.0 pg Mean Corpuscular HGB Conc 32.1 31.0-36.0 g/dl Red Cell Distribution Width 13.8 11.0-16.0 % Platelet Count 207 160-400 X10*3/uL Mean Platelet Volume 9.7 9.4-12.4 fL Neutrophils Percent Auto 62.0 45-73 % Imm Gran Pct Auto 0.3 0.0-0.4 % Lymphocytes Percent Auto 14.6 20-40 % Monocytes Percent Auto 11.1 2-11 % Eosinophils Percent Auto 11.3 0-4 % Basophils Percent Auto 0.7 0-2 % NRBC Pct Auto 0.0 0.0-0.2 /100WBC Neutrophils Absolute Auto 3.7 2.0-8.3 x10*3/u L Imm Gran Abs Auto 0.02 0.00-0.03 X10*3/uL Lymphocytes Absolute Auto 0.9 1.2-4.9 X10*3/u L Monocytes Absolute Auto 0.7 0.1-1.2 X10*3/uL Eosinophils Absolute Auto 0.7 0.0-0.4 X10*3/u L Basophils Absolute Auto 0.0 0.0-0.2 X10*3/uL NRBC Abs Auto 0.000 0.0-0.012 X10*3/uL Comprehensive [place]. Panel Fa st Reviewed date:10/15/2023 07:15:44 PM Interpretation: Performing Lab:[facility], [address] [place] [phone] Notes/Report: Sodium 143 135-145 mmol/L Potassium 4.3 3.3-5.1 mmol/L Chloride 107 96-108 mmol/L Carbon Dioxide 28 22-29 mmol/L Anion Gap 12 12-20 Blood Urea Nitrogen 20 9-16 mg/dL Creatinine 0.97 0.5-1.4 mg/dL Estimated Glomerular Filt Rate > 60 NOTE: For -[place] individuals, multiply the result by 1.210. Chronic Kidney Disease: Estimated GFR < 60 mL/min/1.73m2 Severe Kidney Disease: Estimated GFR < 15 mL/min/1.73m2 Glucose Fasting 118 60-99 mg/dL A fasting glucose from 100-125 mg/dl is considered impaired (pre-diabetes). Calcium 9.7 8.4-10.2 mg/dL Bilirubin Total 0.6 0.0-1.0 mg/dL Aspartate Amino Transferase 23 5-37 U/L Alanine Aminotransferase 26 0-40 U/L Total Protein 7.3 6.5-8.0 g/dL Albumin Level 4.1 3.5-5.0 g/dL Alkaline Phosphatase 84 39-117 U/L Lipid Panel Reviewed date:10/15/2023 07:15:44 PM Interpretation: Performing Lab:[address] [phone] Notes/Report: Triglycerides 63 <150 mg/dL Desirable Triglyceride: less than 150 mg/dL Borderline High Triglyceride 150-199 mg/dL High Triglyceride: 200-499 mg/dL Very High Triglyceride: greater than or equal to 5OO mg/dL Cholesterol 110 <200 mg/dL Desirable Cholesterol: less than 200 mg/dL Borderline High Cholesterol: 200-239 mg/dL High Cholesterol: greater than 239 mg/dL LDL Cholesterol Calculated 44 <100 mg/dL Desirable LDL: less than 100 mg/dL Near Optimal/Above Optimal LDL: 110-129 mg/dL Borderline High LDL: 130-159 mg/dL High LDL: 160-189 mg/dL Very High LDL: greater than or equal to 190 mg/dL HDL Cholesterol 54 >40 mg/dL Desirable HDL: greater than 40 mg/dL Note: This HDL assay may give artificially low results in patients with liver disease. Prostate Specific Antigen Reviewed date:10/15/2023 07:15:44 PM Interpretation: Performing Lab:[address] [phone] Notes/Report: Prostate Specific Antigen 0.59 <0.05-4.0 ng/mL PSA methodology: Rubio Alinity i Chemiluminescent Microparticle Immunoassay (CMIA) Complete Blood Count Auto Di ff Reviewed date:03/22/2024 01:48:14 PM Interpretation: Performing Lab:[address] [phone] Notes/Report: White Blood Count 6.2 4.8-10.8 X10*3/uL Red Blood Count 4.78 4.60-5.80 X10*6/uL Hemoglobin 14.4 14.0-18.0 g/dl Hematocrit 44.0 42.0-52.0 % Mean Corpuscular Volume 92.1 80.0-98.0 fL Mean Corpuscular Hemoglobin 30.1 27.0-33.0 pg Mean Corpuscular HGB Conc 32.7 31.0-36.0 g/dl Red Cell Distribution Width 12.9 11.0-16.0 % Platelet Count 223 160-400 X10*3/uL Mean Platelet Volume 9.7 9.4-12.4 fL Neutrophils Percent Auto 67.5 45-73 % Imm Gran Pct Auto 0.5 0.0-0.4 % Lymphocytes Percent Auto 13.1 20-40 % Monocytes Percent Auto 11.4 2-11 % Eosinophils Percent Auto 7.0 0-4 % Basophils Percent Auto 0.5 0-2 % NRBC Pct Auto 0.0 0.0-0.2 /100WBC Neutrophils Absolute Auto 4.2 2.0-8.3 x10*3/u L Imm Gran Abs Auto 0.03 0.00-0.03 X10*3/uL Lymphocytes Absolute Auto 0.8 1.2-4.9 X10*3/u L Monocytes Absolute Auto 0.7 0.1-1.2 X10*3/uL Eosinophils Absolute Auto 0.4 0.0-0.4 X10*3/u L Basophils Absolute Auto 0.0 0.0-0.2 X10*3/uL NRBC Abs Auto 0.000 0.0-0.012 X10*3/uL Comprehensive [place]. Panel Fa st Reviewed date:03/22/2024 01:48:14 PM Interpretation: Performing Lab:[facility], [address] [place] [phone] Notes/Report: Sodium 138 135-145 mmol/L Potassium 4.2 3.3-5.1 mmol/L Chloride 104 96-108 mmol/L Carbon Dioxide 28 22-29 mmol/L Anion Gap 10 12-20 Blood Urea Nitrogen 14 9-16 mg/dL Creatinine 0.89 0.5-1.4 mg/dL Estimated Glomerular Filt Rate > 60 Chronic Kidney Disease: Estimated GFR < 60 mL/min/1.73m2 Severe Kidney Disease: Estimated GFR < 15 mL/min/1.73m2 Glucose Fasting 127 60-99 mg/dL A fasting glucose of 126 mg/dl or greater on more than one occasion is considered diagnostic of diabetes. Calcium 9.0 8.4-10.2 mg/dL Bilirubin Total 0.6 0.0-1.0 mg/dL Aspartate Amino Transferase 34 5-37 U/L Alanine Aminotransferase 39 0-40 U/L Total Protein 7.1 6.5-8.0 g/dL Albumin Level 4.0 3.5-5.0 g/dL Alkaline Phosphatase 89 39-117 U/L Lipid Panel Reviewed date:03/22/2024 01:48:14 PM Interpretation: Performing Lab:[facility], [address] [place] [phone] Notes/Report: Triglycerides 74 <150 mg/dL Desirable Triglyceride: less than 150 mg/dL Borderline High Triglyceride 150-199 mg/dL High Triglyceride: 200-499 mg/dL Very High Triglyceride: greater than or equal to 5OO mg/dL Cholesterol 106 <200 mg/dL Desirable Cholesterol: less than 200 mg/dL Borderline High Cholesterol: 200-239 mg/dL High Cholesterol: greater than 239 mg/dL LDL Cholesterol Calculated 43 <100 mg/dL Desirable LDL: less than 100 mg/dL Near Optimal/Above Optimal LDL: 110-129 mg/dL Borderline High LDL: 130-159 mg/dL High LDL: 160-189 mg/dL Very High LDL: greater than or equal to 190 mg/dL HDL Cholesterol 49 >40 mg/dL Desirable HDL: greater than 40 mg/dL Note: This HDL assay may give artificially low results in patients with liver disease. Reason For Referral No Information Medications Medication SIG (Take, Route, Frequency, Duration) Notes Start Date End Date Status Lancets 30G - as directed Check bl ood sugar once a day Active Metoprolol Tartrate 50 MG 1 tablet with food Orally Twice a day Active Lisinopril 5 MG 1 tablet Orally Once a day Active Multivitamin Active dilTIAZem HCl ER Coated Beads 120 MG TAKE 1 CAPSULE BY MOUTH EVERY DAY PT DOSENT LIKE BEADS Active One Touch Delica Lancets - once a day for 90 days Active metFORMIN HCl 500 MG 1 tablet with a mickey l Orally twice a day for 90 days Active OneTouch Verio - as directed In Vitro test blood sugar once a day Active Eliquis 5 MG TAKE 1 TABLET BY JOSE M TH EVERY 12 HOURS Active dilTIAZem HCl 120 MG as directed Orally once a day Active Baby Aspirin Active Immunizations Vaccine Route Administration Date Status Comme nts COVID- 19 Vaccine Unknown 08/01/2020 Administered COVID- 19 Vaccine Unknown 08/29/2020 Administered Influenza, quad IM Intramuscular 02/17/2021 Administered Social History Tobacco Use: Social History Observation [...] ast year? No Points 0 Interpretation Negative Problems Problem Type SNOMED Code ICD Code Onset Dates Problem Status W/U Status Risk Notes Problem 297795886 Overweight (E66.3) Active confirmed He has very slightly overweight. I recommended he stabilize his weight at this level and continue to consume a healthy Mediterranean low-sodium diet. Problem 27263235 Type 2 diabetes mellitus with diabetic chronic kidney disease (E11.22) Active confirmed He has been compliant with taking his medication. His fasting glucose is 127. A hemoglobin A1c has been ordered. No changes in his regimen were made. Problem 793419110 Mixed hyperlipidemia (E78.2) Active confirmed The current fasting lipid profile shows good control of his lipids. He is tolerating his medication without side effects. No changes were needed. Problem 779660473 Chronic atrial fibrillation (I48.2) Active confirmed He was in a regular rhythm today. He has had no symptoms of ischemia. He is not short of breath. Problem 204152185 Anticoagulated (Z79.01) Active confirmed No bleeding has occurred. He is compliant with his medication. Problem 73153865 Essential hypertension (I10) Active confirmed His blood pressure today is 131/70. We discussed his sodium intake. We advised aggressive sodium restriction. We advised regular exercise on a routine follow-up in their future. Problem 66209107 Nephrolithiasis (N20.0) Active confirmed He has had no episodes of renal colic or hematuria recently. Problem Benign prostatic hypertrophy without outflow obstruction (476790720) Benign prostatic hyperplasia, unspecified whether lower urinary tract symptoms present (N40.0) Active confirmed He reports rising from sleep twice a night to urinate. We have discussed lifestyle modification as he could make to reduce nocturia. Problem 721325866 Chronic kidney disease, stage II (mild) (N18.2) Active confirmed His renal function is stable. No change in his regimen was Problem 557949934 Aortic stenosis, moderate (I35.0) Active confirmed His aortic valve was successfully replaced during the coronary artery bypass procedure. He is doing well at this time. Problem Chronic atrial fibrillation (649477256) Chronic atrial fibrillation (I48.20) Active confirmed He was in a slow well controlled atrial fibrillation rhythm today which was asymptomatic. He remains anticoagulated without bleeding. No change in his regimen was needed. Problem 26136748 Arteriosclerotic coronary artery disease (I25.10) Active confirmed He underwen t coronary artery bypass surgery in June 2023 with excellent results. He has been free of angina. Vital Signs Heart Rate 80 /min 03/29/2024 Temperature 97.2 degrees Fahrenheit 03/29/2024 Blood pressure diastolic 80 mm Hg 03/29/2024 Height 71 in 03/29/2024 Blood pressure systolic 134 mm Hg 03/29/2024 Weight 185 lbs 03/29/2024 BMI 25.8 kg/m2 03/29/2024 Encounters Encounter Location Date Provider Diagnosis Mitchell Justin III, MD [address] [place] [address] [place] [phone] 08/23/2023 Mitchell Justin Essential hypertensi on I10 ; Mixed hyperlipidemia E78.2 ; Type 2 diabetes mellitus with diabetic chronic kidney disease E11.22 ; Benign prostatic hyperplasia, unspecified whether lower urinary tract symptoms present N40.0 ; Chronic kidney disease, stage II (mild) N18.2 ; Anticoagulated Z79.01 ; Chronic coronary artery disease I25.10 and Aortic stenosis, moderate I35.0 Mitchell Justin III, MD [address] [place] [address] [place] [address] 10/18/2023 Mitchell Justin Essential hypertensi on I10 [...] coronary artery disease I25.10 and Overweight E66.3 Mitchell Justin III, MD [address] [place] [address] [place] [phone] 12/18/2023 Mitchell Justin Essential hypertensi on I10 ; Mixed hyperlipidemia E78.2 ; Overweight E66.3 ; Chronic kidney disease, stage II (mild) N18.2 ; Anticoagulated Z79.01 ; Type 2 diabetes mellitus with diabetic chronic kidney disease E11.22 ; Benign prostatic hyperplasia, unspecified whether lower urinary tract symptoms present N40.0 ; Chronic atrial fibrillation I48.2 and Aortic stenosis, moderate I35.0 Mitchell Justin III, MD [address] [place] [address] DR [place], [place] [phone] 03/29/2024 Mitchell Justin Essential hypertensi on I10 [...] Notes T reatment Notes Treatment Clinical Notes 08/23/2023 Mixed hyperlipidemia (ICD-10 - E78.2) His lipids are in near target range and stable. No change in his regimen was necessary. 08/23/2023 Essential hypertensi on (ICD-10 - I10) His blood pressure today is 138/80.. We discussed his sodium intake. We advised aggressive sodium restriction. We advised regular exercise on a routine follow-up in their future. 10/18/2023 Chronic atrial fibrillation (ICD-10 - I48.2) He was in a regular rhythm today. He has had no symptoms of ischemia. He is not short of breath. 10/18/2023 Essential hypertensi on (ICD-10 - I10) His blood pressure today is 138/74. We discussed his sodium intake. We advised aggressive sodium restriction. We advised regular exercise on a routine follow-up in their future. 12/18/2023 Mixed hyperlipidemia (ICD-10 - E78.2) His lipids are currently in near target range and he has been compliant with his medications 12/18/2023 Essential hypertensi on (ICD-10 - I10) His blood pressure today is 131/70. We discussed his sodium intake. We advised aggressive sodium restriction. We advised regular exercise on a routine follow-up in their future. 03/29/2024 Chronic atrial fibrillation (ICD-10 - I48.2) He was in a regular rhythm today. He has had no symptoms of ischemia. He is not short of breath. 03/29/2024 Essential hypertensi on (ICD-10 - I10) His blood pressure today is 131/70. We discussed his sodium intake. We advised aggressive sodium restriction. We advised regular exercise on a routine follow-up in their future. 08/23/2023 Type 2 diabetes mellitus with diabetic chronic kidney disease (ICD-10 - E11.22) His diabetes will be monitored to keep the A1c 7.0 or lower. He is compliant with all of his medications. 10/18/2023 Anticoagulated (ICD- 10 - Z79.01) No bleeding has occurred. He is compliant with his medication. 12/18/2023 Overweight (ICD-10 - E66.3) He has very slightly overweight. I recommended he stabilize his weight at this level and continue to consume a healthy Mediterranean low-sodium diet. 03/29/2024 Type 2 diabetes mellitus with diabetic chronic kidney disease (ICD-10 - E11.22) He has been compliant with taking his medication. His fasting glucose is 127. A hemoglobin A1c has been ordered. No changes in his regimen were made. 08/23/2023 Benign prostatic hyperplasia, unspecified whether lower urinary tract symptoms present (ICD-10 - N40.0) We have discussed lifestyle modification as a way of reducing nocturia. 10/18/2023 Nephrolithiasis (ICD-10 - N20.0) He has had no episodes of renal colic or hematuria recently. 12/18/2023 Chronic kidney disease, stage II (mild) (ICD-10 - N18.2) His renal function is stable. No change in his regimen was 03/29/2024 Mixed hyperlipidemia (ICD-10 - E78.2) The current fasting lipid profile shows good control of his lipids. He is tolerating his medication without side effects. No changes were needed. 08/23/2023 Chronic kidney disease, stage II (mild) (ICD-10 - N18.2) His renal function is stable. No change in his regimen was 10/18/2023 Mixed hyperlipidemia (ICD-10 - E78.2) His lipids are in near target range and stable. No change in his regimen was necessary. 12/18/2023 Anticoagulated (ICD- 10 - Z79.01) No bleeding has occurred. He is compliant with his medication. 03/29/2024 Benign prostatic hyperplasia, unspecified whether lower urinary tract symptoms present (ICD-10 - N40.0) He reports rising from sleep twice a night to urinate. We have discussed lifestyle modification as he could make to reduce nocturia. 08/23/2023 Anticoagulated (ICD- 10 - Z79.01) No bleeding has occurred. He is compliant with his medication. 10/18/2023 Benign prostatic hyperplasia, unspecified whether lower urinary tract symptoms present (ICD-10 - N40.0) We have discussed lifestyle modification as a way of reducing nocturia. 12/18/2023 Type 2 diabetes mellitus with diabetic chronic kidney disease (ICD-10 - E11.22) His diabetes will be monitored to keep the A1c 7.0 or lower. He is compliant with all of his medications. 03/29/2024 Arteriosclerotic coronary artery disease (ICD-10 - I25.10) He underwent coronary artery bypass surgery in June 2023 with excellent results. He has been free of angina. 08/23/2023 Chronic coronary artery disease (ICD-10 - I25.10) He has been free of exertional angina since the bypass graft surgery done recently at [facility]. 10/18/2023 Chronic kidney disease, stage II (mild) (ICD-10 - N18.2) His renal function is stable. No change in his regimen was 12/18/2023 Benign prostatic hyperplasia, unspecified whether lower urinary tract symptoms present (ICD-10 - N40.0) We have discussed lifestyle modification as a way of reducing nocturia. 03/29/2024 Aortic stenosis, moderate (ICD-10 - I35.0) His aortic valve was successfully replaced during the coronary artery bypass procedure. He is doing well at this time. 08/23/2023 Aortic stenosis, moderate (ICD-10 - I35.0) His valve was recently repaired at [facility]. He denies any dyspnea at this time. He was encouraged to follow-up with cardiology. 10/18/2023 Type 2 diabetes mellitus with diabetic chronic kidney disease (ICD-10 - E11.22) His diabetes will be monitored to keep the A1c 7.0 or lower. He is compliant with all of his medications. 12/18/2023 Chronic atrial fibrillation (ICD-10 - I48.2) He was in a regular rhythm today. He has had no symptoms of ischemia. He is not short of breath. 03/29/2024 Overweight (ICD-10 - E66.3) He has very slightly overweight. I recommended he stabilize his weight at this level and continue to consume a healthy Mediterranean low-sodium diet. 10/18/2023 Aortic stenosis, moderate (ICD-10 - I35.0) His aortic valve was successfully replaced during the coronary artery bypass procedure. He is doing well at this time. 12/18/2023 Aortic stenosis, moderate (ICD-10 - I35.0) His aortic valve was successfully replaced during the coronary artery bypass procedure. He is doing well at this time. 03/29/2024 Chronic atrial fibrillation (ICD-10 - I48.20) He was in a slow well controlled atrial fibrillation rhythm today which was asymptomatic. He remains anticoagulated without bleeding. No change in his regimen was needed. 10/18/2023 Arteriosclerotic coronary artery disease (ICD-10 - I25.10) He underwent coronary artery bypass surgery in June 2023 with excellent results. He has been free of angina. 03/29/2024 Anticoagulated (ICD- 10 - Z79.01) No bleeding has occurred. He is compliant with his medication. 10/18/2023 Overweight (ICD-10 - E66.3) He is slightly overweight with a body mass index of 25.1. We have reviewed his weight loss strategy. Plan Of Treatment Pending Test Test Name Order Date PROFILE, FASTING (COMPREHENSIVE METABOLI C) 12/30/2019 PROFILE, FASTING (COMPREHENSIVE METABOLI C) 11/11/2022 PROFILE, FASTING (COMPREHENSIVE METABOLI C) 11/20/2017 PROFILE, FASTING (COMPREHENSIVE METABOLI C) 12/18/2023 PROFILE, FASTING (COMPREHENSIVE METABOLI C) 03/06/2019 PROFILE, FASTING (COMPREHENSIVE METABOLI C) 05/04/2021 PROFILE, FASTING (COMPREHENSIVE METABOLI C) 08/23/2023 PROFILE, FASTING (COMPREHENSIVE METABOLI C) 02/01/2021 PROFILE, FASTING (COMPREHENSIVE METABOLI C) 03/22/2022 PROFILE, FASTING (COMPREHENSIVE METABOLI C) 12/04/2018 PROFILE, FASTING (COMPREHENSIVE METABOLI C) 08/31/2018 PROFILE, FASTING (COMPREHENSIVE METABOLI C) 07/01/2020 PROFILE, FASTING (COMPREHENSIVE METABOLI C) 04/21/2023 PROFILE, FASTING (COMPREHENSIVE METABOLI C) 03/29/2024 PROFILE, FASTING (COMPREHENSIVE METABOLI C) 04/24/2018 PROFILE, FASTING (COMPREHENSIVE METABOLI C) 01/22/2018 PROFILE, RANDOM (COMPREHENSIVE METABOLIC ) 07/02/2019 PROFILE, RANDOM (COMPREHENSIVE METABOLIC ) 07/29/2022 PROFILE, RANDOM (COMPREHENSIVE METABOLIC ) 07/27/2021 PROFILE, RANDOM (COMPREHENSIVE METABOLIC ) 09/28/2020 PROFILE, RANDOM (COMPREHENSIVE METABOLIC ) 03/31/2020 HEMOGLOBIN A1C (GLYCOHEMOGLOBIN) 018 HEMOGLOBIN A1C (GLYCOHEMOGLOBIN) 018 HEMOGLOBIN A1C (GLYCOHEMOGLOBIN) 020 HEMOGLOBIN A1C (GLYCOHEMOGLOBIN) 022 HEMOGLOBIN A1C (GLYCOHEMOGLOBIN) 020 HEMOGLOBIN A1C (GLYCOHEMOGLOBIN) 023 HEMOGLOBIN A1C (GLYCOHEMOGLOBIN) 020 HEMOGLOBIN A1C (GLYCOHEMOGLOBIN) 023 HEMOGLOBIN A1C (GLYCOHEMOGLOBIN) 019 HEMOGLOBIN A1C (GLYCOHEMOGLOBIN) 022 HEMOGLOBIN A1C (GLYCOHEMOGLOBIN) 021 HEMOGLOBIN A1C (GLYCOHEMOGLOBIN) 021 HEMOGLOBIN A1C (GLYCOHEMOGLOBIN) 021 HEMOGLOBIN A1C (GLYCOHEMOGLOBIN) 019 HEMOGLOBIN A1C (GLYCOHEMOGLOBIN) 019 HEMOGLOBIN A1C (GLYCOHEMOGLOBIN) 021 URIC ACID 09/28/2020 LIPID PANEL 09/28/2020 LIPID PANEL 08/31/2018 LIPID PANEL 07/01/2020 LIPID PANEL 04/24/2018 LIPID PANEL 01/22/2018 LIPID PANEL 03/31/2020 LIPID PANEL 11/20/2017 LIPID PANEL 12/30/2019 LIPID PANEL 11/11/2022 LIPID PANEL 07/02/2019 LIPID PANEL 03/06/2019 LIPID PANEL 03/22/2022 LIPID PANEL 05/04/2021 LIPID PANEL 02/01/2021 LIPID PANEL 12/04/2018 PSA, TOTAL 04/21/2023 PSA, TOTAL 03/29/2024 PSA, TOTAL 09/28/2020 PSA, TOTAL 11/20/2017 PSA, TOTAL 08/23/2023 PSA, TOTAL 07/27/2021 PSA, TOTAL 03/22/2022 PSA, TOTAL+FREE 02/01/2021 MICROALBUMIN, RANDOM 05/04/2021 MICROALBUMIN, RANDOM 08/31/2018 MICROALBUMIN, RANDOM 01/22/2018 MICROALBUMIN, RANDOM 12/30/2019 MICROALBUMIN, RANDOM 11/11/2022 MICROALBUMIN, RANDOM 03/06/2019 CBC w DIFF 07/27/2021 CBC w DIFF 03/06/2019 CBC w DIFF 03/22/2022 CBC w DIFF 12/04/2018 CBC w DIFF 04/21/2023 CBC w DIFF 05/04/2021 CBC w DIFF 07/01/2020 CBC w DIFF 02/01/2021 CBC w DIFF 09/28/2020 CBC w DIFF 11/16/2021 CBC w DIFF 08/31/2018 CBC w DIFF 04/24/2018 CBC w DIFF 03/31/2020 CBC w DIFF 01/22/2018 CBC w DIFF 07/29/2022 CBC w DIFF 11/20/2017 CBC w DIFF 12/30/2019 CBC w DIFF 11/11/2022 CBC w DIFF 07/02/2019 CBC WITH AUTO DIFF 03/29/2024 CBC WITH AUTO DIFF 12/18/2023 CBC WITH AUTO DIFF 08/23/2023 Lipid Panel 08/23/2023 Lipid Panel 04/21/2023 Lipid Panel 03/29/2024 Lipid Panel 12/18/2023 Microalbumin, Random 07/29/2022 Next Appt Details Provider Name:Mitchell Justin, 08/27/2024 03:00:00 PM, [address] [place] [address] DR ABIGAIL Angel, [place], [phone], Insurance Providers Payer Name Payer Address Payer Phone Subscriber Number Group Number Insured Name Patient Relationship to Insured Coverage Start Date Coverage End Date MEDICARE NGS [address] [place] [phone] [id number] Kwan Talavera i Self - patient is the insured [facility] Insurance ([facility]) [address] [place] [address] [phone] [id number] Kwan Talavera i Self - patient is the insured Medical (General) History Medical History History ICD Code Hypertension, unspecified type I10 Hyperlipidemia, unspecified hyperlipidem ia type E78.5 Aortic valve stenosis, etiology of cardi ac valve disease unspecified I35.0 Atrial fibrillation, unspecified type I4 8.91 ureterolithiasis adult-onset diabetes mellitus overweight He declines statin medication repeatedly Bypass two viens and heart valve replace ment 2023 Atrial fibrillation - treated in [facility] Diabetes - under control Surgical History Surgery Date(Month/Year) No history two bypass and heart valve replacement 0 2023 none Hospitalization History Reason Date(Month/Year) No history heart valve replacement and [place] 06[place] [facility] [place], afib with RVR 8
--- OUTSIDE RECORDS SUMMARY | 2024-08-22 06:03 | XMS_ITS ---
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 Role Phone Mitchell Justin Primary Care Provider Allergies Allergen (clinical drug [...] Problem Status W/U Status Risk Notes Problem [id number] Arteriosclerotic coronary artery disease (I25.10) Active confirmed [...] 10/18/2023 Encounters Encounter Location Date Provider Diagnosis Mitchell Justin III, MD [address] [place] [address] [place] [address] 10/18/2023 Mitchell Justin Essential hypertensi on I10 [...] Up: 2 Months, Reason: OV Provider Name:Mitchell Justin, 08/27/2024 03:00:00 PM, [address] [place] [address] [address], [place], [address], Progress Notes * OSCAR StufayhDOB:1940 (83 yo M)Acc No.[id number]:10/18/2023 Progress Notes Patient:?Kwan Padilla Provider:?Mitchell Justin MD :1940???Age:83 Y???Sex:Male Rambo e:10/18/2023 Address:[address] [place] [address] [id number] Subjective: * Chief Complaints: * ???Atrial fibrillationAntico agulatedHypertensionHyperlipidemiaDiabetesChronic kidney diseaseBenign prostatic hypertrophyAortic stenosis * HPI: ???COVID-19 Screening:?Questions?Have you experienced fever, chills, cough, sore throat, shortness of breath, difficulty breathing, muscle aches, loss of taste or smell??No ?Have you been exposed to the virus within the last 10 days??No ?Have you travelled internationally in the last 10 days??No ?Have you been exposed to COVID-19 in the past??No ? He returns for a scheduled visit to manage his numerous medical issues. He recently had an aortic valve replacement during a coronary artery bypass procedure at [facility] 2023. He then recovered at [facility]. He has returned to normal life and feels well. He denies any shortness of breath with exertion or chest pain. He is sleeping well and his appetite is good. He has been compliant with all of his medications. He rises from sleep twice a night to urinate. His blood pressure is well controlled. He was in a regular rhythm today. * ROS:?General/Constitutional:?pain?only normal aches and pains.?Chills?denies.?Fatigue?admits.?Fever?denies.?ENT:?Decreased hearing?in both ears.?Respiratory:?Cough?denies.?Cardiovascular:?Chest pain with exertion?denies.?Dyspnea on exertion?denies.?Shortness of breath?denies.?Gastrointestinal:?Constipation?occasional.?Decreased appetite?denies.?Diarrhea?denies.?Heartburn?denies.?Nausea?denies.?Rectal bleeding?denies.?Vomiting?denies.?Hematology:?bruising?denies.?petechiae?denies.?Swollen glands?none have been noted.?Genitourinary:?Frequent urination?twice a night.?Musculoskeletal:?Muscle aches?denies.?Painful joints?denies.?Sciatica?denies.?Weakness?denies.?Skin:?Itching?denies.?Rash?denies.?Skin lesion(s)?denies.?Neurologic:?Difficulty speaking?denies.?Dizziness?denies.?Headache?denies.?Low back pain?denies.?Psychiatric:?Depressed mood?denies.? * Medical History:? * Surgical History:?none two b ypass and heart valve replacement 2023 * Hospitalization/Major Diagno stic Procedure:?[facility] kidney stone, afib with RVR 10/24/2017heart valve replacement and bypass 2023 * Family History:?Father: dece ased 85 yrs, lung cancer, Heart problems, diagnosed with CVD, Cancer.?Mother: 86 yrs.?Siblings: , Parkinsons.?2 brother(s) - healthy. .? Oldest brother had bone cancer. * Social History:?Tobacco Use:?Tobacco Use/Smoking?Patient is a?nonsmoker ?Additional Findings: Tobacco Non-User?Aggressive non-smoker ???He does not smoke or drink. He is retired. He lives alone and [place], [place]. He is independent cares for himself. * Medications:?TakingdilTIAZem HCl ER Coated Beads 120 MG Capsule [...] reviewed and reconciled with the patient * Allergies:?acid content food sPenicillinno[Allergies Verified] Objective: * Vitals:?Ht: 71, Wt:183, BMI: 25.52, BP:138/74, HR:75, Temp:98.1, Wt-k.01. * ???Past Orders: Lab:Prostate Specific Antige n * Order [...] mg/dL) 55 (Ref Range: >40 mg/dL) * Lab:[facility] * Order Date 10/13/2023 07/28/2023 [...] 15 (Ref Range: 12-20) Blood Urea Nitrogen 20?H (Ref Range: 9-16 mg/dL) 17?H (Ref Range: 9-16 mg/dL) 15 (Ref Range: 9-16 mg/dL) Creatinine 0.97 (Ref Range: 0.5-1.4 mg/dL) 0.87 (Ref Range: 0.5-1.4 mg/dL) 0.99 (Ref Range: 0.5-1.4 mg/dL) Estimated Glomerular Filt Rate > 60 > 60 > 60 Glucose Fasting 118?H (Ref Range: 60-99 mg/dL) 101?H (Ref Range: 60-99 mg/dL) 113?H (Ref Range: 60-99 mg/dL) Calcium 9.7 (Ref Range: 8.4-10.2 mg/dL) 9.4 (Ref Range: 8.4-10.2 mg/dL) 9.5 (Ref Range: 8.4-10.2 mg/dL) * Lab:Complete Blood Count Aut o Diff * Order Date 10/13/2023 07/28/2023 01/20/2023 White Blood Count 5.9 (Ref Range: 4.8-10.8 X10*3/uL) 6.1 (Ref Range: 4.8-10.8 X10*3/uL) 5.1 (Ref Range: 4.8-10.8 X10*3/uL) Red Blood Count 4.68 (Ref Range: 4.60-5.80 X10*6/uL) 4.26?L (Ref Range: 4.60-5.80 X10*6/uL) 5.02 (Ref Range: 4.60-5.80 X10*6/uL) Hemoglobin 13.8?L (Ref Range: 14.0-18.0 g/dl) 12.8?L (Ref Range: 14.0-18.0 g/dl) 15.6 (Ref Range: 14.0-18.0 g/dl) Hematocrit 43.0 (Ref Range: 42.0-52.0 %) 40.0?L (Ref Range: 42.0-52.0 %) 46.6 (Ref Range: [...] Pct Auto 0.3 (Ref Range: 0.0-0.4 %) 0.5?H (Ref Range: 0.0-0.4 %) 0.4 (Ref Range: 0.0-0.4 %) Lymphocytes Percent Auto 14.6?L (Ref Range: 20-40 %) 8.4?L (Ref Range: 20-40 %) 14.0?L (Ref Range: 20-40 %) Monocytes Percent Auto 11.1?H (Ref Range: 2-11 %) 11.2?H (Ref Range: 2-11 %) 11.1?H (Ref Range: 2-11 %) Eosinophils Percent Auto 11.3?H (Ref Range: 0-4 %) 8.2?H (Ref Range: 0-4 %) 4.9?H (Ref Range: 0-4 %) Basophils Percent Auto [...] (Ref Range: 0.00-0.03 X10*3/uL) Lymphocytes Absolute Auto 0.9?L (Ref Range: 1.2-4.9 X10*3/uL) 0.5?L (Ref Range: 1.2-4.9 X10*3/uL) 0.7?L (Ref Range: 1.2-4.9 X10*3/uL) Monocytes Absolute Auto 0.7 (Ref Range: 0.1-1.2 X10*3/uL) 0.7 (Ref Range: 0.1-1.2 X10*3/uL) 0.6 (Ref Range: 0.1-1.2 X10*3/uL) Eosinophils Absolute Auto 0.7?H (Ref Range: 0.0-0.4 X10*3/uL) 0.5?H (Ref Range: 0.0-0.4 X10*3/uL) 0.3 (Ref Range: [...] neg Menstrating N/A N/A n/a * Examination: ???General Examination: ?GENERAL APPEARANCE:?pleasant, well nourished, well developed, in no acute distress, calm and relaxed , overweight , elderly man.?HEAD:?atraumatic, normocephalic.?EYES:?eomi, perrla, anicteric, conjugate.?EARS:?normal.?NOSE:?septum intact.?ORAL CAVITY:?normal, unremarkable.?NECK/THYROID:?no jugular venous distention, no carotid bruit, thyroid normal.?LYMPH NODES:?no enlarged lymph nodes,spleen normal.?SKIN:?no suspicious lesions, anicteric.?HEART:?no clicks, gallops, murmurs, or rubs, regular rhythm, S1, S2 normal, no s3, or vascular bruits, Recent medians sternotomy incision which is well- healed.?LUNGS:?clear to auscultation .?BREASTS:??no masses palpable bilaterally.?ABDOMEN:?bowel sounds normal, no ascites, no organomegaly, no mass , overweight.?RECTAL EXAM:?not examined.?MUSCULOSKELETAL:?extremities unremarkable, no clubbing, cyanosis or edema.?PERIPHERAL PULSES:?normal.?NEUROLOGIC:?alert and oriented, cranial nerves 2-12 grossly intact, deep tendon reflexes 2+ symmetrical, motor strength normal upper and lower extremities, sensory exam intact.?PSYCH:?alert, oriented.? Assessment: * Assessment: 1.?Essential hypertension - I10 (Primary), His blood pressure today is 138/74. We discussed his sodium intake. We advised aggressive sodium restriction. We advised regular exercise on a routine follow-up in their future.?2.?Chronic atrial fibrillation - I48.2, He was in a regular rhythm today. He has had no symptoms of ischemia. He is not short of breath.?3.?Anticoagulated - Z79.01, No bleeding has occurred. He is compliant with his medication.?4.?Nephrolithiasis - N20.0, He has had no episodes of renal colic or hematuria recently.?5.?Mixed hyperlipidemia - E78.2, His lipids are in near target range and stable. 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 He is compliant with all of his medications. 9.?Aortic stenosis, moderate - I35.0, His aortic valve was successfully replaced during the coronary artery bypass procedure. 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 He has been free of angina.?11.?Overweight - E66.3, He is slightly overweight with a body mass index of 25.1. We have reviewed his weight loss strategy.? Plan: * Treatment: 2.?Others? Continue Eliquis Tablet, 5 MG, TAKE 1 TABLET BY MOUTH EVERY 12 HOURS;?Continue metFORMIN HCl Tablet, 500 MG, TAKE 1 TABLET BY MOUTH TWICE A DAY;?Continue dilTIAZem HCl ER Coated Beads Capsule Extended Release 24 Hour, 120 MG, TAKE 1 CAPSULE BY MOUTH EVERY DAY PT DOSENT LIKE BEADS;?Continue OneTouch Verio Strip, -, as directed, In Vitro, Oce a day, Notes: E11.22 Type 2 Diabetes.?? * Procedure Codes:? * Preventive Medicine:? ??Counseling:?Care goal follow-up plan:?Counseling for abnormal BMI given?Yes ?Above Normal BMI Follow-up?Dietary management education, guidance, and counseling, Dietary needs education, Exercise promotion: strength training, Exercise promotion: stretching, Feeding regime, Giving encouragement to exercise, Lifestyle education regarding diet, Nutrition / feeding management, Nutrition therapy, Prescribed activity/exercise education, Prescribed diet education, Prescribed dietary intake, Special diet education, Weight monitoring , Intervention, Order not done: Medical or Other reason not done * Follow Up:?2 Months (Reason: OV) * Images: * Sign off status: Completed true * Provider:?Mitchell Justin MD Date:?10/06 Generated for Savita de la vega/Raimundo/eTransmitting on:?08/22/2024 06:02 AM EDT History and Physical Notes * HPI [...]
--- OUTSIDE RECORDS SUMMARY | 2024-08-22 06:03 | XMS_ITS ---
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 Role Phone Mitchell Justin Primary Care [...] Date Provider Diagnosis Mitchell Justin III, MD [address] [place] [address] [address] [place], [place] [address] 12/18/2023 Mitchell Justin Essential hypertensi on I10 [...] Up: 3 Months, Reason: OV Provider Name:Mitchell Justin, 08/27/2024 03:00:00 PM, [address] [place] [address] [address] [place] [address], [place], [address], Progress Notes * Beverly MOOREhDOB:1940 (83 yo M)Acc No.[id number]:12/18/2023 Progress Notes Patient:?Kwan Moore Provider:?Mitchell Justin MD :1940???Age:83 Y???Sex:Male Rambo e:12/18/2023 Address:[address] [place], [place] [id number] Subjective: * Chief Complaints: * ???DiabetesAtrial fibrillati onCoagulationBenign prostatic hypertrophyHyperlipidemiaHypertensionCoronary artery diseaseRepaired Aortic stenosis * HPI: ???COVID-19 Screening:? In June 2023 he presented to [facility] emergency room with chest pain and rapid atrial fibrillation. He was transferred to [facility] where he underwent aortic valve replacement for [...] was in a regular sinus rhythm today. ?Questions?Have you experienced fever, chills, cough, sore throat, shortness of breath, difficulty breathing, muscle aches, loss of taste or smell??No ?Have you been exposed to the virus within the last 10 days??No ?Have you travelled internationally in the last 10 days??No ?Have you been exposed to COVID-19 in the past??No * ROS:?General/Constitutional:?pain?only normal aches and pains.?Chills?denies.?Fatigue?admits.?Fever?denies.?ENT:?Decreased hearing?mild.?Respiratory:?Cough?denies.?Cardiovascular:?Chest pain with exertion?denies.?Dyspnea on exertion?denies.?Shortness of breath?denies.?Gastrointestinal:?Constipation?occasional.?Decreased appetite?denies.?Diarrhea?denies.?Heartburn?denies.?Nausea?denies.?Rectal bleeding?denies.?Vomiting?denies.?Hematology:?bruising?denies.?petechiae?denies.?Swollen glands?none have been noted.?Genitourinary:?Frequent urination?twice a night.?Musculoskeletal:?Muscle aches?denies.?Painful joints?denies.?Sciatica?denies.?Weakness?denies.?Skin:?Itching?denies.?Rash?denies.?Skin lesion(s)?denies.?Neurologic:?Difficulty speaking?denies.?Dizziness?denies.?Headache?denies.?Low back pain?denies.?Psychiatric:?Depressed mood?denies.? * Medical History:? * Surgical History:?none two b ypass and heart valve replacement 2023 * Hospitalization/Major Diagno stic Procedure:?[facility] [place] kidney stone, afib with RVR 10/24/2017heart valve replacement and bypass 2023 * Family History:?Father: dece ased 85 yrs, lung cancer, Heart problems, diagnosed with Cancer, CVD.?Mother: 86 yrs.?Siblings: , Parkinsons.?2 brother(s) - healthy. .? Oldest brother had bone cancer. * Social History:?Tobacco Use:?Tobacco Use/Smoking?Patient is a?nonsmoker ?Additional Findings: Tobacco Non-User?Aggressive non-smoker ???He does not smoke or drink. He is retired. He lives alone and [place], [place]. He is independent cares for himself. * Medications:?TakingdilTIAZem HCl 120 MG Tablet as directed Orally [...] food sPenicillinno[Allergies Verified] Objective: * Vitals:?Ht: 71, Wt:185, BMI: 25.80, BP:131/70, HR:69, Temp:97.1. * ???Past Orders: Lab:Lipid Panel * Order Date 10/13/2023 [...] 55 (Ref Range: >40 mg/dL) * Lab:[facility] [place]. [place] [facility] Fast * Order Date 10/13/2023 [...] 0.69 (Ref Range: <0.05-4.0 ng/mL) * Examination: ???General Examination: ?GENERAL APPEARANCE:?pleasant, well nourished, well developed, in no acute distress, calm and relaxed , overweight, elderly man.?HEAD:?atraumatic, normocephalic.?EYES:?eomi, perrla, anicteric, conjugate.?EARS:?normal.?NOSE:?septum intact.?ORAL CAVITY:?normal, unremarkable, Edentulous maxilla.?NECK/THYROID:?no jugular venous distention, no carotid bruit, thyroid normal.?LYMPH NODES:?no enlarged lymph nodes,spleen normal.?SKIN:?no suspicious lesions, anicteric.?HEART:?no clicks, gallops, murmurs, or rubs, regular rhythm, S1, S2 normal, no s3, or vascular bruits.?LUNGS:?clear to auscultation .?BREASTS:??no masses palpable bilaterally.?ABDOMEN:?bowel sounds normal, no ascites, no organomegaly, no mass , overweight.?RECTAL EXAM:?not examined.?MUSCULOSKELETAL:?extremities unremarkable, no clubbing, cyanosis or edema.?PERIPHERAL PULSES:?normal.?NEUROLOGIC:?alert and oriented, cranial nerves 2-12 grossly intact, deep tendon reflexes 2+ symmetrical, motor strength normal upper and lower extremities, sensory exam intact.?PSYCH:?alert, oriented , thought process logical, goal directed , speech clear , cognitive function intact.? Assessment: * Assessment: 1.?Essential hypertension - I10 (Primary), His blood pressure today is 131/70. We discussed his sodium intake. We advised aggressive sodium restriction. We advised regular exercise on a routine follow-up in their future.?2.?Mixed hyperlipidemia - E78.2, His lipids are currently in near target range and he has been compliant with his medications?3.?Overweight - E66.3, He has very slightly overweight. I recommended he stabilize his weight at this level and continue to consume a healthy Mediterranean low-sodium diet.?4.?Chronic kidney disease, stage II (mild) - N18.2, His renal function is stable. No change in his regimen was?5.?Anticoagulated - Z79.01, No bleeding has occurred. 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 He is compliant with all of his medications.?7.?Benign prostatic hyperplasia, unspecified whether lower urinary tract symptoms present - N40.0, We have discussed lifestyle modification as a way of reducing nocturia.?8.?Chronic atrial fibrillation - I48.2, He was in a regular rhythm today. He has had no symptoms of ischemia. He is not short of breath.?9.?Aortic stenosis, moderate - I35.0, His aortic valve was successfully replaced during the coronary artery bypass procedure. He is doing well at this time.? Plan: * Treatment: 2.?Mixed hyperlipidemia?LAB: PROFILE, FASTING (COMPREHENSIVE METABOLIC) ?LAB: CBC WITH AUTO DIFF ?LAB: Lipid Panel 3.?Overweight?LAB: PROFILE, FASTING (COMPREHENSIVE METABOLIC) ?LAB: CBC WITH AUTO DIFF ?LAB: Lipid Panel 4.?Others? Continue OneTouch Verio Strip, -, as directed, In Vitro, test blood sugar once a day;?Continue Eliquis Tablet, 5 MG, TAKE 1 TABLET BY MOUTH EVERY 12 HOURS;?Continue metFORMIN HCl Tablet, 500 MG, TAKE 1 TABLET BY MOUTH TWICE A DAY;?Continue dilTIAZem HCl ER Coated Beads Capsule Extended Release 24 Hour, 120 MG, TAKE 1 CAPSULE BY MOUTH EVERY DAY PT DOSENT LIKE BEADS.?? * Procedure Codes:? * Preventive Medicine:? ??Counseling:?Care goal follow-up plan:?Counseling for abnormal BMI given?Yes ?Above Normal BMI Follow-up?Dietary management education, guidance, and counseling ??DM Care Plan:?Patient Lifestyle Goals?Patient wants to be able to manage diabetes without too much effort.?Treatment Goals?Blood Sugars less than < 115, HbA1C < 7.0.?Barriers?no barriers.?Self-Managment Goals?Work on weight loss, with a goal of losing 1 lb per week, Increase exercise to 3 times a week for 30 mins, Stop drinking juice and/or soda, replace with more water.? * Follow Up:?3 Months (Reason: OV) * Images: * Sign off status: Completed true * Provider:?Mitchell Justin MD Date:?12/06 Generated for Savita de la vega/Raimundo/eTransmitting on:?08/22/2024 [...] days?: No Have you travelled internationally [facility] last [facility] days?: No Have [...] EXAM: not examined PSYCH: alert, oriented , th ought process logical, goal directed , speech clear , cognitive function intact ORAL CAVITY: normal, unremarkable , Edentulous maxilla
--- OUTSIDE RECORDS SUMMARY | 2024-08-22 06:03 | XMS_ITS ---
Author Organization Mitchell Justin III, MD Address [address] [place] [address] Care Team Providers Care Merchandise Flow Team Leader Name Role Phone Mitchell Justin Primary Care [...] Date Provider Diagnosis Mitchell Justin III, MD [address] [place] [address] [place] [place] [address] 03/29/2024 Mitchell Justin Essential hypertensi on I10 [...] Appt Details Follow Up: As Scheduled, [facility] visit in August, Reason: OV, Annual Checkup Provider Name:Mitchell Justin, 08/27/2024 03:00:00 PM, [address] [place] [address] DR ABIGAIL Angel, [place], [address], Progress Notes * OSCARBeverlyhDOB:1940 (83 yo M)Acc No.[id number]:03/29/2024 Progress Notes Patient:?Kwan MOORE Provider:?Mitchell Justin MD :1940???Age:83 Y???Sex:Male Rambo e:03/29/2024 Address:[address] [place], [place] [address], [facility] Subjective: * Chief Complaints: * ???Eczema left legChronic at rial fibrillationAnticoagulatedHypertensionDiabetesBenign prostatic hypertrophyChronic kidney disease * HPI: ???COVID-19 Screening:?Questions?Have you experienced fever, chills, cough, sore throat, shortness of breath, difficulty breathing, muscle aches, loss of taste or smell??No ?Have you been exposed to the virus within the last 10 days??No ?Have you travelled internationally in the last 10 days??No ?Have you been exposed to COVID-19 in the past??No ???:? The patient, an 83-year-old male, visited the overlock collar setter on March 21 and underwent a test to check his arteries on March 12. The patient reported that the overlock collar setter said everything was good. The doctor noted that the patient's pulse was regular and he was not in atrial fibrillation. The patient is currently on blood thinners, Eliquis, metformin, diltiazem, lisinopril, and metoprolol. The patient's aspirin was stopped by the overlock collar setter. The patient's diabetes is reportedly under control. The patient reported that his breathing has been good and he has been active, doing yard work. The patient reported getting up two or three times a night to go to the bathroom. The patient has a rash on his leg, which he has been treating with [id number] eczema medication. Blood Sugar Level is 127. * ROS:?General/Constitutional:?pain?only normal aches and pains.?Chills?denies.?Fatigue?admits.?Fever?denies.?ENT:?Decreased hearing?mild.?Respiratory:?Cough?denies.?Cardiovascular:?Chest pain with exertion?denies.?Dyspnea on exertion?denies.?Shortness of breath?denies.?Gastrointestinal:?Constipation?occasional.?Decreased appetite?denies.?Diarrhea?denies.?Heartburn?denies.?Nausea?denies.?Rectal bleeding?denies.?Vomiting?denies.?Hematology:?bruising?denies.?petechiae?denies.?Swollen glands?none have been noted.?Genitourinary:?Frequent urination?twice a night.?Musculoskeletal:?Muscle aches?denies.?Painful joints?denies.?Sciatica?denies.?Weakness?denies.?Skin:?Itching?denies.?Rash?Lateral lower left leg.?Skin lesion(s)?denies.?Neurologic:?Difficulty speaking?denies.?Dizziness?denies.?Headache?denies.?Low back pain?denies.?Psychiatric:?Depressed mood?denies.? * Medical History:? * Surgical History:?none two b ypass and heart valve replacement 2023No history * Hospitalization/Major Diagno stic Procedure:?C kidney stone, afib with RVR 10/24/2017heart valve replacement and bypass 2023No history * Family History:?Father: dece ased 85 yrs, lung cancer, Heart problems, diagnosed with Cancer, CVD.?Mother: 86 yrs.?Siblings: , Parkinsons.?2 brother(s) - healthy. .? Oldest brother had bone cancer. * Social History:?Tobacco Use:?Tobacco Use/Smoking?Patient is a?nonsmoker ?Additional Findings: Tobacco Non-User?Aggressive non-smoker ???Drugs/Alcohol:?Drugs?Have you used drugs other than those for medical reasons in the past 12 months??No ?Alcohol Screen?Did you have a drink containing alcohol in the past year??No ?Points?0 ?Interpretation?Negative ???He does not smoke or drink. He is retired. He lives alone and [place], [place]. He is independent cares for himself. Yard work: I'm working outside doing my yard work now. Spiritism activities: I'm up early and and doing stuff at the [employer] again. * Medications:?TakingOneTouch Verio - Strip as directed In Vitro [...] Verified] Objective: * Vitals:?Ht: 71, Wt:185, BMI: 25.8, BP:134/80, HR:80, Temp:97.2, Wt-k.91. * ???Past Orders: Lab:Complete Blood Count Aut o Diff * Collection Date 03/22/2024 10/13/2023 07/28/2023 Collection Time 06:11 AM 06:08 AM 06:08 AM Order Date 03/22/2024 10/13/2023 07/28/2023 White Blood Count 6.2 (Ref Range: 4.8-10.8 X10*3/uL) 5.9 (Ref Range: 4.8-10.8 X10*3/uL) 6.1 (Ref Range: 4.8-10.8 X10*3/uL) Red Blood Count 4.78 (Ref Range: 4.60-5.80 X10*6/uL) 4.68 (Ref Range: 4.60-5.80 X10*6/uL) 4.26?L (Ref Range: 4.60-5.80 X10*6/uL) Hemoglobin 14.4 (Ref Range: 14.0-18.0 g/dl) 13.8?L (Ref Range: 14.0-18.0 g/dl) 12.8?L (Ref Range: 14.0-18.0 g/dl) Hematocrit 44.0 (Ref Range: 42.0-52.0 %) 43.0 (Ref Range: 42.0-52.0 %) 40.0?L (Ref Range: 42.0-52.0 %) Mean Corpuscular Volume [...] Range: 45-73 %) Imm Gran Pct Auto 0.5?H (Ref Range: 0.0-0.4 %) 0.3 (Ref Range: 0.0-0.4 %) 0.5?H (Ref Range: 0.0-0.4 %) Lymphocytes Percent Auto 13.1?L (Ref Range: 20-40 %) 14.6?L (Ref Range: 20-40 %) 8.4?L (Ref Range: 20-40 %) Monocytes Percent Auto 11.4?H (Ref Range: 2-11 %) 11.1?H (Ref Range: 2-11 %) 11.2?H (Ref Range: 2-11 %) Eosinophils Percent Auto 7.0?H (Ref Range: 0-4 %) 11.3?H (Ref Range: 0-4 %) 8.2?H (Ref Range: 0-4 %) Basophils Percent Auto [...] (Ref Range: 0.00-0.03 X10*3/uL) Lymphocytes Absolute Auto 0.8?L (Ref Range: 1.2-4.9 X10*3/uL) 0.9?L (Ref Range: 1.2-4.9 X10*3/uL) 0.5?L (Ref Range: 1.2-4.9 X10*3/uL) Monocytes Absolute Auto 0.7 (Ref Range: 0.1-1.2 X10*3/uL) 0.7 (Ref Range: 0.1-1.2 X10*3/uL) 0.7 (Ref Range: 0.1-1.2 X10*3/uL) Eosinophils Absolute Auto 0.4 (Ref Range: 0.0-0.4 X10*3/uL) 0.7?H (Ref Range: 0.0-0.4 X10*3/uL) 0.5?H (Ref Range: 0.0-0.4 X10*3/uL) Basophils Absolute Auto 0.0 (Ref Range: 0.0-0.2 X10*3/uL) 0.0 (Ref Range: 0.0-0.2 X10*3/uL) 0.0 (Ref Range: 0.0-0.2 X10*3/uL) NRBC Abs Auto 0.000 (Ref Range: 0.0-0.012 X10*3/uL) 0.000 (Ref Range: 0.0-0.012 X10*3/uL) 0.000 (Ref Range: 0.0-0.012 X10*3/uL) * Lab:Comprehensive Lacy. Brad l Fast * Collection Date 03/22/2024 10/13/2023 [...] 25 (Ref Range: 22-29 mmol/L) Anion Gap 10?L (Ref Range: 12-20) 12 (Ref Range: 12-20) 13 (Ref Range: 12-20) Blood Urea Nitrogen 14 (Ref Range: 9-16 mg/dL) 20?H (Ref Range: 9-16 mg/dL) 17?H (Ref Range: 9-16 mg/dL) Creatinine 0.89 (Ref Range: 0.5-1.4 mg/dL) 0.97 (Ref Range: 0.5-1.4 mg/dL) 0.87 (Ref Range: 0.5-1.4 mg/dL) Estimated Glomerular Filt Rate > 60 > 60 > 60 Glucose Fasting 127?H (Ref Range: 60-99 mg/dL) 118?H (Ref Range: 60-99 mg/dL) 101?H (Ref Range: 60-99 mg/dL) Calcium 9.0 (Ref [...] 56 (Ref Range: >40 mg/dL) * Examination: ???General Examination: ?GENERAL APPEARANCE:?pleasant, well nourished, well developed, in no acute distress, calm and relaxed, overweight, elderly man.?HEAD:?atraumatic, normocephalic.?EYES:?eomi, perrla, anicteric, conjugate.?EARS:?normal.?NOSE:?septum intact.?ORAL CAVITY:?normal, unremarkable.?NECK/THYROID:?no jugular venous distention, no carotid bruit, thyroid normal.?LYMPH NODES:?no enlarged lymph nodes,spleen normal.?SKIN:?no suspicious lesions, anicteric, Occasional purpura.?HEART:?no clicks, gallops, murmurs, or rubs, irregular rhythm, S1, S2 normal, no s3, or vascular bruits.?LUNGS:?clear to auscultation .?BREASTS:??no masses palpable bilaterally.?ABDOMEN:?bowel sounds normal, no ascites, no organomegaly, no mass.?RECTAL EXAM:?not examined.?MUSCULOSKELETAL:?extremities unremarkable, no clubbing, cyanosis or edema.?PERIPHERAL PULSES:?normal.?NEUROLOGIC:?alert and oriented, cranial nerves 2-12 grossly intact, deep tendon reflexes 2+ symmetrical, motor strength normal upper and lower extremities, sensory exam intact.?PSYCH:?alert, oriented.? Assessment: * Assessment: 1.?Chronic atrial fibrillati on - I48.2 (Primary)???Notes :He was in a regular rhythm today. He has had no symptoms of ischemia. He is not short of breath.???2.?Essential hypertension - I10???Notes :His blood pressure today is 131/70. We discussed his sodium intake. We advised aggressive sodium restriction. 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 His fasting glucose is 127.? A hemoglobin A1c has been ordered.? No changes in his regimen were made.???4.?Mixed hyperlipidemia - E78.2???Notes :The current fasting lipid profile shows good control of his lipids.? He is tolerating his medication without side effects.? No changes were needed.???5.?Benign prostatic hyperplasia, unspecified whether lower urinary tract symptoms present - N40.0???Notes :He reports rising from sleep twice a night to urinate.? We have discussed lifestyle modification as he could make to reduce nocturia.???6.?Arteriosclerotic coronary artery disease - I25.10???Notes :He underwent coronary artery bypass surgery in June 2023 with excellent results. He has been free of angina.???7.?Aortic stenosis, moderate - I35.0???Notes :His aortic valve was successfully replaced during the coronary artery bypass procedure. He is doing well at this time.???8.?Overweight - E66.3???Notes :He has very slightly overweight. I recommended he stabilize his weight at this level and continue to consume a healthy Mediterranean low-sodium diet.???9.?Chronic atrial fibrillation - I48.20???Notes :He was in a slow well controlled atrial fibrillation rhythm today which was asymptomatic.? He remains anticoagulated without bleeding.? No change in his regimen was needed.???10.?Anticoagulated - Z79.01???Notes :No bleeding has occurred. He is compliant with his medication.??? Plan: * Treatment: 2.?Type 2 diabetes mellitus with diabetic chronic kidney disease?LAB: PROFILE, FASTING (COMPREHENSIVE METABOLIC) ?LAB: PSA, TOTAL ?LAB: CBC WITH AUTO DIFF ?LAB: Lipid Panel 3.?Mixed hyperlipidemia?LAB: PROFILE, FASTING (COMPREHENSIVE METABOLIC) ?LAB: PSA, TOTAL ?LAB: CBC WITH AUTO DIFF ?LAB: Lipid Panel 4.?Benign prostatic hyperpla long, unspecified whether lower urinary tract symptoms present?LAB: PROFILE, FASTING (COMPREHENSIVE METABOLIC) ?LAB: PSA, TOTAL ?LAB: CBC WITH AUTO DIFF ?LAB: Lipid Panel 5.?Others? Continue OneTouch Verio Strip, -, as directed, [...] a goal of losing 1 lb per week.? * Follow Up:?As Scheduled, [facility] in August (Reason: OV, Annual Checkup) * Images: * Sign off status: Completed true * Provider:?Mitchell Justin MD Date:?03/09 Generated for Savita de la vega/Raimundo/Macho on:?08/22/2024 06:03 AM EDT History and Physical Notes * HPI (History of Present Illness) Category Sub-Category Detail Notes COVID-19 Screening Questions Have you had any new onset fever, chills, cough, congestion, sore throat, shortness of breath, muscle aches?: No Have you been exposed to the virus withi n the last 10 days?: No Have you travelled internationally in [facility] last 10 days?: No Have [...]
[2024-08-22 06:24] LABS: MANUAL DIFF FLAG NO
[2024-08-22 07:56] LABS: Basophils Percent Auto 0.6 % (0-2); Eosinophils Absolute Auto 0.5 X10*3/uL (0.0-0.4); Eosinophils Percent Auto 8.1 % (0-4); Hematocrit 44.3 % (42.0-52.0); Hemoglobin 14.5 g/dl (14.0-18.0); Imm Gran Abs Auto 0.04 X10*3/uL (0.00-0.03); Imm Gran Pct Auto 0.6 % (0.0-0.4); Lymphocytes Absolute Auto 0.8 X10*3/uL (1.2-4.9); Lymphocytes Percent Auto 12.6 % (20-40); Mean Corpuscular HGB Conc 32.7 g/dl (31.0-36.0); Mean Corpuscular Hemoglobin 30.5 pg (27.0-33.0); Mean Corpuscular Volume 93.1 fL (80.0-98.0); Monocytes Absolute Auto 0.7 X10*3/uL (0.1-1.2); Monocytes Percent Auto 10.2 % (2-11); Neutrophils Absolute Auto 4.4 x10*3/uL (2.0-8.3); Neutrophils Percent Auto 67.9 % (45-73); Platelet Count 186 X10*3/uL (160-400); Red Blood Count 4.76 X10*6/uL (4.60-5.80); Red Cell Distribution Width 12.8 % (11.0-16.0); White Blood Count 6.4 X10*3/uL (4.8-10.8)
[2024-08-22 08:28] LABS: Prostate Specific Antigen 0.65 ng/mL (<0.05-4.0)
[2024-08-22 09:08] LABS: Alanine Aminotransferase 35 U/L (0-40); Albumin Level 4.1 g/dL (3.5-5.0); Alkaline Phosphatase 88 U/L (39-117); Anion Gap 12 (12-20); Aspartate Amino Transferase 33 U/L (5-37); Bilirubin Total 0.8 mg/dL (0.0-1.0); Blood Urea Nitrogen 15 mg/dL (9-16); Calcium 9.3 mg/dL (8.4-10.2); Carbon Dioxide 28 mmol/L (22-29); Chloride 106 mmol/L (96-108); Cholesterol 121 mg/dL (<200); Estimated Glomerular Filt Rate > 60; Glucose Fasting 125 mg/dL (60-99); HDL Cholesterol 52 mg/dL (>40); LDL Cholesterol Calculated 48 mg/dL (<100); Potassium 4.8 mmol/L (3.3-5.1); Sodium 141 mmol/L (135-145); Triglycerides 106 mg/dL (<150)
== END 2024-08-22 06:00 | disposition home or self-care (01) ==
LOC: HO.LAB 05:59
PROVIDERS: PCP Internal Medicine Medical Oncology; Visit Provider Internal Medicine Medical Oncology
DX: Z12.5 Encounter for screening for malignant neoplasm of prostate (principal); I12.9 Hypertensive chronic kidney disease with stage 1 through stage 4 chronic kidney disease, or unspecified chronic kidney disease; E11.22 Type 2 diabetes mellitus with diabetic chronic kidney disease; N18.9 Chronic kidney disease, unspecified; E78.2 Mixed hyperlipidemia; N40.0 Benign prostatic hyperplasia without lower urinary tract symptoms
CPT/HCPCS: 36415; 80053; 80061; 84153; 85025

== ENCOUNTER 2024-09-25 12:29 | Outpatient (AMB) | payer MEDICARE, OTHER, SELFPAY ==
--- NOTE | 2024-09-25 12:43 | MHC.OFFVIS ---
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 He has chronic atrial fibrillation, coronary disease, bypass surgery, diabetes, hypertension. He states that he feels quite well. He does not have any chest pain or in fact any cardiac symptoms at all. He states he is quite active and in the lawn including mowing extra without any issues. [facility] Medical History (Updated 07/13/23 @ 13:30 by Andi Johnson MD) Atherosclerotic cardiovascular disease Type 2 diabetes mellitus with unspecified complications Essential hypertension Non-rheumatic aortic stenosis Persistent atrial fibrillation Surgical History Status post aortic valve replacement with bioprosthetic valve Hx of CABG Family History Father Lung cancer Heart attack Mother No problems noted. Social History Household Members: None Housing: House Do you presently have visiting nurse or other home services: No Alcohol intake: never Patient Tobacco Use Status: Never used Tobacco service: No Review of Systems Const Denies chills, Denies fatigue, Denies fever(s), Denies frequent falls, Denies weakness, Denies weight gain and Denies weight loss ENT Denies dizziness Card Denies chest pain, Denies leg edema, Denies lightheadedness, Denies palpitations, Denies dyspnea and Denies dyspnea on exertion Resp Denies cough, Denies dyspnea and Denies dyspnea on exertion GI Denies hematochezia Musc Denies abnormal gait, Denies muscle weakness, Denies numbness, Denies radiating pain into limb and Denies tingling Neuro Denies abnormal gait, Denies dizziness, Denies frequent falls, Denies numbness, Denies tingling and Denies weakness Endo Denies fatigue and Denies palpitations Physical Exam Vital Signs: Last Vital Signs Pulse 67 09/25/24 12:47 BP 120/62 09/25/24 12:47 BMI result Body Mass Index 25.9 Office Procedures EKG Details: EKG with underlying sinus rhythm at 67/Min; rightward axis; inferior T inversions and nonspecific ST-T changes. [id number], Complete Assessment & Plan Assessment & Plan (1) Atherosclerotic cardiovascular disease: Code(s): I25.10 - Atherosclerotic heart disease of [place] coronary artery without angina pectoris Category: Medical Plan: NSTEMI, status post CABGx2; 06/2023. He has got no clinical symptoms but the EKG shows new inferior T inversions. Obtain exercise stress perfusion imaging study. Continue aspirin and statins. (2) Status post aortic valve replacement with bioprosthetic valve: Code(s): Z95.3 - Presence of xenogenic heart valve Category: Surgical Plan: s/p #25 AVR. In the echocardiogram, normally functioning bioprosthetic aortic valve. Infective endocarditis prophylaxis before any dental procedures. (3) Persistent atrial fibrillation: Code(s): I48.19 - Other persistent atrial fibrillation Category: Medical Plan: s/p LA MAZE; s/p atricip TYLER occluder. In the Holter from 07/2023, underlying atrial fibrillation with an average rate of 83/Min. Today, he is back in normal sinus rhythm. Continue beta-blockers. Continue anticoagulation. (4) Essential hypertension: Code(s): I10 - Essential (primary) hypertension Category: Medical Plan: Stable. Orders: Orders NM cardiolite stress test Today I25.10 - Atherosclerotic heart disease of [place] coronary artery without angina pectoris, R07.2 - Precordial pain CA stress test Today I25.10 - Atherosclerotic heart disease of [place] coronary artery without angina pectoris, R07.2 - Precordial pain Coding Level of Care Code Est Pt Level 4 (52841) Complex EM visit Add On G2211 Diagnoses Atherosclerotic cardiovascular disease I25.10 Status post aortic valve replacement with bioprosthetic valve Z95.3 Persistent atrial fibrillation I48.19 Essential hypertension I10 CPT Codes EKG - CPT: 42212-[id number], Complete ([id number])
[2024-09-25 12:47] VITALS: BP 120/62; PULSE 67; BMI 25.9
--- OUTSIDE RECORDS SUMMARY | 2024-09-25 13:18 | XMS_ITS ---
Author Organization Mitchell Justin III, MD Address [address] [place] [address] Care Team Providers Care Towel Weaver Name Role Phone Mitchell Justin Primary Care [...] Date Provider Diagnosis Mitchell Justin III, MD [address] [place] [address] [address] [facility] [place] [address] 03/29/2024 Mitchell Justin Essential hypertensi on I10 [...] Appt Details Follow Up: As Scheduled, [facility] visit in August, Reason: OV, Annual Checkup Provider Name:Mitchell Justin, 11/26/2024 03:30:00 PM, [address] [place] [address] [address], [place], [address], Provider Name:Mitchell Justin, 08/29/2025 03:00:00 PM, [address] [place] [address] [address], [place], [address], Progress Notes * Beverly MOOREhDOB:1940 (83 yo M)Acc No.[id number]:03/29/2024 Progress Notes Patient:?Kwan MOORE Provider:?Mitchell Justin MD :1940???Age:83 Y???Sex:Male Rambo e:03/29/2024 Address:[address] [place], [place] [phone] Subjective: * Chief Complaints: * ???Eczema left [...] The patient, an 83-year-old male, visited the distribution technician on March 21 and underwent a test to check his arteries on March 12. The patient reported that the distribution technician said everything was good. The doctor noted that the patient's pulse was regular and he was not in atrial fibrillation. The patient is currently on blood thinners, Eliquis, metformin, diltiazem, lisinopril, and metoprolol. The patient's aspirin was stopped by the distribution technician. The patient's diabetes is reportedly under control. The patient reported that his breathing has been good and he has been active, doing yard work. The patient reported getting up two or three times a night to go to the bathroom. The patient has a rash on his leg, which he has been treating with [id number] eczema medication. Blood Sugar Level is 127. * ROS:?General/Constitutional:?pain?only normal aches and pains.?Chills?denies.?Fatigue?admits.?Fever?denies.?ENT:?Decreased hearing?mild.?Respiratory:?Cough?denies.?Cardiovascular:?Chest pain with exertion?denies.?Dyspnea on exertion?denies.?Shortness of breath?denies.?Gastrointestinal:?Constipation?occasional.?Decreased appetite?denies.?Diarrhea?denies.?Heartburn?denies.?Nausea?denies.?Rectal bleeding?denies.?Vomiting?denies.?Hematology:?bruising?denies.?petechiae?denies.?Swollen glands?none have been noted.?Genitourinary:?Frequent urination?twice a night.?Musculoskeletal:?Muscle aches?denies.?Painful joints?denies.?Sciatica?denies.?Weakness?denies.?Skin:?Itching?denies.?Rash?Lateral lower left leg.?Skin lesion(s)?denies.?Neurologic:?Difficulty speaking?denies.?Dizziness?denies.?Headache?denies.?Low back pain?denies.?Psychiatric:?Depressed mood?denies.? * Medical History:? * Surgical History:?none two b ypass and heart valve replacement 2023No history * Hospitalization/Major Diagno stic Procedure:?[facility] kidney stone, afib with RVR 10/24/2017heart valve [...] He is retired. He lives alone and [place], [place]. He is independent cares for himself. Yard work: I'm working outside doing my yard work now. Sikh activities: I'm up early and and doing stuff at the [employer] again. * Medications:?TakingOneTouch Verio - Strip as [...] 0.000 (Ref Range: 0.0-0.012 X10*3/uL) * Lab:[facility] Fast * Collection Date 03/22/2024 10/13/2023 07/28/2023 [...] per week.? * Follow Up:?As Scheduled, [facility] visit in August (Reason: OV, Annual Checkup) * Images: * Sign off status: Completed true * Provider:?Mitchell Justin MD Date:?03/09 Generated for Printi ng/Frederickg/eTransmitting on:?09/25/2024 01:18 PM EDT History and Physical Notes * HPI (History of Present Illness) Category Sub-Category Detail Notes COVID-19 Screening Questions Have you had any new onset fever, chills, cough, congestion, sore throat, shortness of breath, muscle aches?: No Have you been exposed to the virus withi n the last 10 days?: No Have you travelled internationally in [facility] last 10 days?: No Have you [...]
--- OUTSIDE RECORDS SUMMARY | 2024-09-25 13:18 | XMS_ITS ---
Author Organization Mitchell Justin III, MD Address [address] [place] [address] Care Team Providers Care Mobile Phlebotomist Name Role Phone Mitchell Justin Primary Care Provider Allergies Allergen (clinical drug ingredient) Drug/Non Drug Allergy documented on EMR Reaction Allergy Type Onset Date Status Penicillin Unknown Drug Allergy Active acid content foods (uncoded) Unknown Allergy Active Results Component Value Reference Range Notes URINE DIP STICK Reviewed date:08/27/2024 03:32:08 PM Interpretation:baakri Performing Lab: Notes/Report: bakari SG 1.000 1.005 [...] Date Provider Diagnosis Mitchell Justin III, MD [address] [place] [address] [place] [address] 08/27/2024 Mitchell Justin Chronic atrial fibrillation I48.2 [...] 3 Months, Reason: OV Provider Name:Mitchell Justin, 11/26/2024 03:30:00 PM, [address] [place] [address] [address], [place], [address], Provider Name:Mitchell Justin, 08/29/2025 03:00:00 PM, [address] [place] [address] [address], [place], [address], Progress Notes * OSCARBeverlyhDOB:1940 (84 yo M)Acc No.[id number]:08/27/2024 Progress Notes Patient:?Kwan MOORE Provider:?Mitchell Justin MD :1940???Age:84 Y???Sex:Male Rambo e:08/27/2024 Address:[address] [place], [place] [phone] Subjective: * Chief Complaints: * ???Annual Exam * HPI: ???Depression Screening:?He reeturns to the office at the age of 84 for his annual physical examination.? He was recently admitted in June of this year [facility] with chest pain and atrial fibrillation with rapid ventricular rate.? This was controlled and he was discharged.? He has been free of chest pain since that time.? He is followed here for atrial fibrillation anticoagulation hypertension hyperlipidemia and diabetes.? He admits to nocturia twice a night.? He is beginning to experience seasonal allergies and pollen season.? He was given the names of several nondrowsy antihistamines 2 years.? He has been to ENT for this problem and was sent by them to an sky line yarder.? He was allergic to multiple substances.? He is relatively asymptomatic at this time. ?PHQ-9?Little interest or pleasure in doing things?Not at all ?Feeling down, depressed, or hopeless?Not at all ?Trouble falling or staying asleep, or sleeping too much?Not at all ?Feeling tired or having little energy?Not at all ?Poor appetite or overeating?Not at all ?Feeling bad about yourself or that you are a failure, or have let yourself or your family down?Not at all ?Trouble concentrating on things, such as reading the newspaper or watching television?Not at all ?Moving or speaking so slowly that other people could have noticed; or the opposite, being so fidgety or restless that you have been moving around a lot more than usual?Not at all ?Thoughts that you would be better off or of hurting yourself in some way?Not at all ?Total Score?0 ???COVID-19 Screening:?Questions?Have you had any new onset fever, chills, cough, congestion, sore throat, shortness of breath, muscle aches??No ???Fall Risk Screening:?Fall History?Have you had any falls with injury in the past year??No ?Have you had two or more falls in the past year??No ?Fall Risk Assessment:?No falls in the past year ???SDOH Questions:?SDOH Questions?In the past year have you been worried about losing your housing??No ?In the past year have you or any family members you live with been unable to get any of the following when it was really needed? Check all that apply:?None * ROS:?General/Constitutional:?pain?only normal aches and pains.?Chills?denies.?Fatigue?admits.?Fever?denies.?ENT:?Decreased hearing?mild.?Respiratory:?Cough?denies.?Cardiovascular:?Chest pain with exertion? Since last June.?Dyspnea on exertion?denies.?Shortness of breath?denies.?Gastrointestinal:?Constipation?occasional.?Decreased appetite?denies.?Diarrhea?denies.?Heartburn?denies.?Nausea?denies.?Rectal bleeding?denies.?Vomiting?denies.?Hematology:?bruising?denies.?petechiae?denies.?Swollen glands?none [...] is a?nonsmoker ?Additional Findings: Tobacco Non-User?Aggressive non-smoker ???Drug/Alcohol:?AUDIT-C (Standard)?Did you have a drink containing alcohol in the past year??No ?Points?0 ?Interpretation?Negative ???He does not smoke or drink. He is retired. He lives alone and [place], [place]. He is independent cares for himself. Yard work: I'm working outside doing my yard work now. Uatsdin activities: I'm up early and and doing stuff at the [employer] again. * Medications:?TakingOneTouch Verio - Strip as [...] food sPenicillinno[Allergies Verified] Objective: * Vitals:?Ht: 71, Wt:182, BMI: 25.38, BP:130/63, HR:64, Temp:99.5, Wt-k.55. * ???Past Orders: Lab:Prostate Specific Antige n * Collection [...] 54 (Ref Range: >40 mg/dL) * Lab:[facility]. [facility] Fast * Collection Date 08/22/2024 03/22/2024 [...] mmol/L) Anion Gap 12 (Ref Range: 12-20) 10?L (Ref Range: 12-20) 12 (Ref Range: 12-20) Blood Urea Nitrogen 15 (Ref Range: 9-16 mg/dL) 14 (Ref Range: 9-16 mg/dL) 20?H (Ref Range: 9-16 mg/dL) Creatinine 0.86 (Ref Range: 0.5-1.4 mg/dL) 0.89 (Ref Range: 0.5-1.4 mg/dL) 0.97 (Ref Range: 0.5-1.4 mg/dL) Estimated Glomerular Filt Rate > 60 > 60 > 60 Glucose Fasting 125?H (Ref Range: 60-99 mg/dL) 127?H (Ref Range: 60-99 mg/dL) 118?H (Ref Range: 60-99 mg/dL) Calcium 9.3 (Ref [...] 14.0-18.0 g/dl) 14.4 (Ref Range: 14.0-18.0 g/dl) 13.8?L (Ref Range: 14.0-18.0 g/dl) Hematocrit 44.3 (Ref [...] Range: 45-73 %) Imm Gran Pct Auto 0.6?H (Ref Range: 0.0-0.4 %) 0.5?H (Ref Range: 0.0-0.4 %) 0.3 (Ref Range: 0.0-0.4 %) Lymphocytes Percent Auto 12.6?L (Ref Range: 20-40 %) 13.1?L (Ref Range: 20-40 %) 14.6?L (Ref Range: 20-40 %) Monocytes Percent Auto 10.2 (Ref Range: 2-11 %) 11.4?H (Ref Range: 2-11 %) 11.1?H (Ref Range: 2-11 %) Eosinophils Percent Auto 8.1?H (Ref Range: 0-4 %) 7.0?H (Ref Range: 0-4 %) 11.3?H (Ref Range: 0-4 %) Basophils Percent Auto 0.6 (Ref Range: 0-2 %) 0.5 (Ref Range: 0-2 %) 0.7 (Ref Range: 0-2 %) NRBC Pct Auto 0.0 (Ref Range: 0.0-0.2 /100WBC) 0.0 (Ref Range: 0.0-0.2 /100WBC) 0.0 (Ref Range: 0.0-0.2 /100WBC) Neutrophils Absolute Auto 4.4 (Ref Range: 2.0-8.3 x10*3/uL) 4.2 (Ref Range: 2.0-8.3 x10*3/uL) 3.7 (Ref Range: 2.0-8.3 x10*3/uL) Imm Gran Abs Auto 0.04?H (Ref Range: 0.00-0.03 X10*3/uL) 0.03 (Ref Range: 0.00-0.03 X10*3/uL) 0.02 (Ref Range: 0.00-0.03 X10*3/uL) Lymphocytes Absolute Auto 0.8?L (Ref Range: 1.2-4.9 X10*3/uL) 0.8?L (Ref Range: 1.2-4.9 X10*3/uL) 0.9?L (Ref Range: 1.2-4.9 X10*3/uL) Monocytes Absolute Auto 0.7 (Ref Range: 0.1-1.2 X10*3/uL) 0.7 (Ref Range: 0.1-1.2 X10*3/uL) 0.7 (Ref Range: 0.1-1.2 X10*3/uL) Eosinophils Absolute Auto 0.5?H (Ref Range: 0.0-0.4 X10*3/uL) 0.4 (Ref Range: 0.0-0.4 X10*3/uL) 0.7?H (Ref Range: 0.0-0.4 X10*3/uL) Basophils Absolute Auto [...] -) Menstrating n/a N/A N/A * Examination: ???General Examination: ?GENERAL APPEARANCE:?pleasant, well nourished, well developed, in no acute distress, calm and relaxed, overweight, man.?HEAD:?atraumatic, normocephalic.?EYES:?eomi, perrla, anicteric, conjugate.?EARS:?normal.?NOSE:?septum intact.?ORAL CAVITY:?normal, unremarkable.?NECK/THYROID:?no jugular venous distention, no carotid bruit, thyroid normal.?LYMPH NODES:?no enlarged lymph nodes,spleen normal.?SKIN:?no suspicious lesions, anicteric.?HEART:?no clicks, gallops, 1/6 systolic?murmur, or rubs, regular rhythm, S1, S2 normal, no s3, or vascular bruits.?LUNGS:?, diminished breath sounds throughout, good air movement.?BREASTS:??no masses palpable bilaterally.?ABDOMEN:?bowel sounds normal, no ascites, no organomegaly, no mass, overweight.?RECTAL EXAM:?not examined.?MUSCULOSKELETAL:?extremities unremarkable, no clubbing, cyanosis or edema.?PERIPHERAL PULSES:?normal.?NEUROLOGIC:?alert and oriented, cranial nerves 2-12 grossly intact, deep tendon reflexes 2+ symmetrical, motor strength normal upper and lower extremities, sensory exam intact.?PSYCH:?alert, oriented.? Assessment: * Assessment: 1.?Chronic atrial fibrillati on - I48.2 (Primary)???Notes :He was in a regular rhythm today. He has had no symptoms of ischemia. He is not short of breath.???2.?Anticoagulated - Z79.01???Notes :No bleeding has occurred. He is compliant with his medication.???3.?Nephrolithiasis - N20.0???Notes :He has had no episodes of renal colic or hematuria recently.???4.?Essential hypertension - I10???Notes :His blood pressure today is 130/63. We discussed his sodium intake. We advised aggressive sodium restriction. We advised regular exercise on a routine follow-up in their future.???5.?Mixed hyperlipidemia - E78.2???Notes :The current fasting lipid profile shows good control of his lipids. He is tolerating his medication without side effects. 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 His fasting glucose is 127. A hemoglobin A1c has been ordered. No changes in his regimen were made.???7.?Benign prostatic hyperplasia, unspecified whether lower urinary tract symptoms present - N40.0???Notes :He reports rising from sleep twice a night to urinate. We have discussed lifestyle modification as he could make to reduce nocturia.???8.?Arteriosclerotic coronary artery disease - I25.10???Notes :He underwent coronary artery bypass surgery in June 2023 with excellent results. He has been free of angina.???9.?Aortic stenosis, moderate - I35.0???Notes :His aortic valve was successfully replaced during the coronary artery bypass procedure. He is doing well at this time.??? Plan: * Treatment: 2.?Mixed hyperlipidemia?LAB: PROFILE, FASTING (COMPREHENSIVE METABOLIC) ?LAB: CBC w DIFF ?LAB: Lipid Panel ?LAB: Microalbumin, Random ?LAB: Hemoglobin A1c 3.?Type 2 diabetes mellitus with diabetic chronic kidney disease?LAB: PROFILE, FASTING (COMPREHENSIVE METABOLIC) ?LAB: CBC w DIFF ?LAB: Lipid Panel ?LAB: Microalbumin, Random ?LAB: Hemoglobin A1c? Referral To:[facility]??Ophthalmology ?Reason:Consult and Treat Diabetic Eye Exam 4.?Others? Continue metFORMIN HCl Tablet, 500 MG, 1 tablet with a meal, Orally, twice a day;?Continue OneTouch Verio Strip, -, as directed, In Vitro, test blood sugar once a day;?Continue Eliquis Tablet, 5 MG, TAKE 1 TABLET BY MOUTH EVERY 12 HOURS;?Continue dilTIAZem HCl ER Coated Beads Capsule Extended Release 24 Hour, 120 MG, TAKE 1 CAPSULE BY MOUTH EVERY DAY PT DOSENT LIKE BEADS.?? * Labs:? * ?Lab: URINE DIP STICK (C ollection Date & Time - 08/27/2024)?bakari ? Value Reference Range ?SG 1.000 1.005 - 1.025 * ?pH 5.0 5.0 - 9.0 * ?JUAN J neg Negative - * ?NIT neg Negative - * ?PRO trace Negative - Trac e * ?GLU 100 Negative - * ?KET neg Negative - * ?UBG 0.2 0.1 - 1.8 * ?LETICIA neg 0.2 - 1.3 * ?BLD neg Negative - * ?Menstrating n/a * Procedure Codes:?98318 URINE -NO MICRO * Preventive Medicine:? ??Counseling:?Care goal follow-up plan:?Counseling [...] done: Medical or Other reason not done ??DM Care Plan:?Patient Lifestyle Goals?Patient wants to be able to manage diabetes without too much effort.?Treatment Goals?Blood Sugars less than < 115, HbA1C < 7.0.?Barriers?no barriers.?Self-Managment Goals?Work on weight loss, with a goal of losing 1 lb per week.? * Follow Up:?3 Months (Reason: OV) * Images: * Sign off status: Completed true * Provider:?Mitchell Justin MD Date:?08/07 Generated for [employer] yolette/Raimundo/eTransmitting on:?09/25/2024 01:17 PM EDT History and Physical Notes * [...] had two or more falls in the st year?: No Fall Risk Assessment:: No falls [...] Referral Date Referring Provider Referred Provider Not es 08/27/2024 [facility] Consu lt and Treat Diabetic Eye Exam
--- OUTSIDE RECORDS SUMMARY | 2024-09-25 13:18 | XMS_ITS ---
Author Organization Mitchell Justin III, MD Address [address] [place] [address] Care Team Providers Care Wood Car Builder Name Role Phone Mitchell Justin Primary Care [...] Date Provider Diagnosis Mitchell Justin III, MD [address] [place] [address] [address] [place], [place] [address] 12/18/2023 Mitchell Justin Essential hypertensi on I10 [...] OV Provider Name:Mitchell Justin, 11/26/2024 03:30:00 PM, [address] [place] [address] [address], [place], [address], Provider Name:Mitchell Justin, 08/29/2025 03:00:00 PM, [address] [place] [address] [address], [place], [address], Progress Notes * Beverly MOOREhDOB:1940 (83 yo M)Acc No.[id number]:12/18/2023 Progress Notes Patient:?Kwan Moore Provider:?Mitchell Justin MD :1940???Age:83 Y???Sex:Male Rambo e:12/18/2023 Address:[address] [place], [place] [id number] Subjective: * Chief Complaints: * ???DiabetesAtrial fibrillati onCoagulationBenign prostatic hypertrophyHyperlipidemiaHypertensionCoronary artery diseaseRepaired Aortic stenosis * HPI: ???COVID-19 Screening:? In June 2023 he presented to [facility] emergency room with chest pain and rapid atrial fibrillation. He was transferred to [facility] where he underwent aortic valve replacement [...] valve replacement 2023 * Hospitalization/Major Diagno stic Procedure:?[facility] [place], afib with RVR 10/24/2017heart valve [...] He is retired. He lives alone and [place], [place]. He is independent cares for himself. [...] 55 (Ref Range: >40 mg/dL) * Lab:[facility] [place]. Pane l Fast * Order Date 10/13/2023 [...] MD Date:?12/06 Generated for Savita de la vega/Raimundo/Macho on:?09/25/2024 01:17 PM EDT History and Physical [...]
--- OUTSIDE RECORDS SUMMARY | 2024-09-25 13:18 | XMS_ITS | Patient Health Record ---
Author Organization Mitchell Justin III, MD Address [address] [place] [address] Care Team Providers Care Geospatial Information Technologist Name Role Phone Mitchell Justin Primary Care [...] 1.3 BLD neg Negative - Menstrating n/a Complete Blood Count Auto Di ff Reviewed date:10/15/2023 07:15:44 PM Interpretation: Performing Lab:[facility], [address] [place] [phone] Notes/Report: White Blood Count 5.9 4.8-10.8 X10*3/uL [...] NRBC Abs Auto 0.000 0.0-0.012 X10*3/uL Comprehensive [place]. Panel Fa st Reviewed date:10/15/2023 07:15:44 PM Interpretation: Performing Lab:[facility], [address] [place] [phone] Notes/Report: Sodium 143 135-145 mmol/L Potassium 4.3 3.3-5.1 mmol/L Chloride 107 96-108 mmol/L Carbon Dioxide 28 22-29 mmol/L Anion Gap 12 12-20 Blood Urea Nitrogen 20 9-16 mg/dL Creatinine 0.97 0.5-1.4 mg/dL Estimated Glomerular Filt Rate > 60 NOTE: For -Citizen Of [place] individuals, multiply the result by 1.210. Chronic [...] Panel Reviewed date:10/15/2023 07:15:44 PM Interpretation: Performing Lab:[address] [address] Notes/Report: Triglycerides 63 <150 mg/dL Desirable Triglyceride: [...] Antigen Reviewed date:10/15/2023 07:15:44 PM Interpretation: Performing Lab:[address] [phone] Notes/Report: Prostate Specific Antigen 0.59 <0.05-4.0 ng/mL PSA methodology: Rubio Alinity i Chemiluminescent Microparticle Immunoassay (CMIA) Complete Blood Count Auto Di ff Reviewed date:03/22/2024 01:48:14 PM Interpretation: Performing Lab:[address] [phone] Notes/Report: White Blood Count 6.2 4.8-10.8 X10*3/uL [...] NRBC Abs Auto 0.000 0.0-0.012 X10*3/uL Comprehensive [place]. Panel Fa st Reviewed date:03/22/2024 01:48:14 PM Interpretation: Performing Lab:[facility], [address] [place] [phone] Notes/Report: Sodium 138 135-145 mmol/L Potassium 4.2 [...] Panel Reviewed date:03/22/2024 01:48:14 PM Interpretation: Performing Lab:[facility], [address] [place] [phone] Notes/Report: Triglycerides 74 <150 mg/dL Desirable Triglyceride: [...] low results in patients with liver disease. Complete Blood Count Auto Di ff Reviewed date:08/24/2024 07:16:52 AM Interpretation: Performing Lab:[facility], [address] [place] [phone] Notes/Report: White Blood Count 6.4 4.8-10.8 X10*3/uL Red Blood Count 4.76 4.60-5.80 X10*6/uL Hemoglobin 14.5 14.0-18.0 g/dl Hematocrit 44.3 42.0-52.0 % Mean Corpuscular Volume 93.1 80.0-98.0 fL Mean Corpuscular Hemoglobin 30.5 27.0-33.0 pg Mean Corpuscular HGB Conc 32.7 31.0-36.0 g/dl Red Cell Distribution Width 12.8 11.0-16.0 % Platelet Count 186 160-400 X10*3/uL Mean Platelet Volume 10.0 9.4-12.4 fL Neutrophils Percent Auto 67.9 45-73 % Imm Gran Pct Auto 0.6 0.0-0.4 % Lymphocytes Percent Auto 12.6 20-40 % Monocytes Percent Auto 10.2 2-11 % Eosinophils Percent Auto 8.1 0-4 % Basophils Percent Auto 0.6 0-2 % NRBC Pct Auto 0.0 0.0-0.2 /100WBC Neutrophils Absolute Auto 4.4 2.0-8.3 x10*3/u L Imm Gran Abs Auto 0.04 0.00-0.03 X10*3/uL Lymphocytes Absolute Auto 0.8 1.2-4.9 X10*3/u L Monocytes Absolute Auto 0.7 0.1-1.2 X10*3/uL Eosinophils Absolute Auto 0.5 0.0-0.4 X10*3/u L Basophils Absolute Auto 0.0 0.0-0.2 X10*3/uL NRBC Abs Auto 0.000 0.0-0.012 X10*3/uL Comprehensive [place]. Panel Fa st Reviewed date:08/24/2024 07:16:52 AM Interpretation: Performing Lab:[facility], [address] [place] [phone] Notes/Report: Sodium 141 135-145 mmol/L Potassium 4.8 3.3-5.1 mmol/L Chloride 106 96-108 mmol/L Carbon Dioxide 28 22-29 mmol/L Anion Gap 12 12-20 Blood Urea Nitrogen 15 9-16 mg/dL Creatinine 0.86 0.5-1.4 mg/dL Estimated Glomerular Filt Rate > 60 Chronic Kidney Disease: Estimated GFR < 60 mL/min/1.73m2 Severe Kidney Disease: Estimated GFR < 15 mL/min/1.73m2 Glucose Fasting 125 60-99 mg/dL A fasting glucose from 100-125 mg/dl is considered impaired (pre-diabetes). Calcium 9.3 8.4-10.2 mg/dL Bilirubin Total 0.8 0.0-1.0 mg/dL Aspartate Amino Transferase 33 5-37 U/L Alanine Aminotransferase 35 0-40 U/L Total Protein 7.0 6.5-8.0 g/dL Albumin Level 4.1 3.5-5.0 g/dL Alkaline Phosphatase 88 39-117 U/L Lipid Panel Reviewed date:08/24/2024 07:16:52 AM Interpretation: Performing Lab:[facility], [address] [place] [phone] Notes/Report: Triglycerides 106 <150 mg/dL Desirable Triglyceride: less than 150 mg/dL Borderline High Triglyceride 150-199 mg/dL High Triglyceride: 200-499 mg/dL Very High Triglyceride: greater than or equal to 5OO mg/dL Cholesterol 121 <200 mg/dL Desirable Cholesterol: less than 200 mg/dL Borderline High Cholesterol: 200-239 mg/dL High Cholesterol: greater than 239 mg/dL LDL Cholesterol Calculated 48 <100 mg/dL Desirable LDL: less than 100 mg/dL Near Optimal/Above Optimal LDL: 110-129 mg/dL Borderline High LDL: 130-159 mg/dL High LDL: 160-189 mg/dL Very High LDL: greater than or equal to 190 mg/dL HDL Cholesterol 52 >40 mg/dL Desirable HDL: greater than 40 mg/dL Note: This HDL assay may give artificially low results in patients with liver disease. Prostate Specific Antigen Reviewed date:08/24/2024 07:16:52 AM Interpretation: Performing Lab:[facility], [address] [place] [phone] Notes/Report: Prostate Specific Antigen 0.65 <0.05-4.0 ng/mL PSA methodology: Rubio Alinity i Chemiluminescent Microparticle Immunoassay (CMIA) Diabetic Eye Exam Reviewed date:09/17/2024 03:31:41 PM Interpretation:undefined Performing Lab: Notes/Report: undefined Reason For Referral Reason Consult and Treat [...] 11:11:25 AM > Referral faxed with Progress noteMarcie Iglesias Amber 09/02/2024 04:36:01 PM > Patient is scheduled for 09/12/2024 @ 1:00pm Referral Priority Routine Referral Appointment Date 09/12/2024 Medications Medication SIG (Take, Route, Frequency, Duration) Notes Start Date End Date Status metFORMIN HCl 500 MG 1 tablet with a mickey l Orally twice a day Active OneTouch Verio - as directed In Vitro test blood sugar once a day Active One Touch Delica Lancets - once a day Active Multivitamin Active Lisinopril 5 MG 1 tablet Orally Once a day Active dilTIAZem HCl ER Coated Beads 120 MG TAKE 1 CAPSULE BY MOUTH EVERY DAY PT DOSENT LIKE BEADS Active Eliquis 5 MG TAKE 1 TABLET BY JOSE M TH EVERY 12 HOURS Active Baby Aspirin Active dilTIAZem HCl 120 MG as directed Orally once a day Active Metoprolol Tartrate 50 MG 1 tablet with food Orally Twice a day Active Lancets 30G - as directed Check bl ood sugar once a day Active Immunizations Vaccine Route Administration Date Status Comme nts COVID- 19 Vaccine Unknown 08/01/2020 Administered COVID- 19 Vaccine Unknown 08/29/2020 Administered Influenza, quad IM Intramuscular 02/17/2021 Administered Fluzone High-Dose (HD-IIV3) Unknown 02/23/2018 Administered Fluzone High-Dose (HD-IIV3) Unknown 02/05/2019 Administered Social History Tobacco Use: Social History [...] ast year? No Points 0 Interpretation Negative AUDIT-C (Standard) Question Answer Notes Did you have a drink containing alcohol in the p ast year? No Points 0 Interpretation Negative Problems Problem Type SNOMED Code ICD Code Onset Dates Problem Status W/U Status Risk Notes Problem 626563044 Overweight (E66.3) Active confirmed He has very slightly overweight. I recommended he stabilize his weight at this level and continue to consume a healthy Mediterranean low-sodium diet. Problem 76609350 Type 2 diabetes mellitus with diabetic chronic kidney disease (E11.22) Active confirmed He has been compliant with taking his medication. His fasting glucose is 127. A hemoglobin A1c has been ordered. No changes in his regimen were made. Problem 823524063 Mixed hyperlipidemia (E78.2) Active confirmed The current fasting lipid profile shows good control of his lipids. He is tolerating his medication without side effects. No changes were needed. Problem 400277391 Chronic atrial fibrillation (I48.2) Active confirmed He was in a regular rhythm today. He has had no symptoms of ischemia. He is not short of breath. Problem 509656995 Anticoagulated (Z79.01) Active confirmed No bleeding has occurred. He is compliant with his medication. Problem 10349564 Essential hypertension (I10) Active confirmed His blood pressure today is 130/63. We discussed his sodium intake. We advised aggressive sodium restriction. We advised regular exercise on a routine follow-up in their future. Problem 51633245 Nephrolithiasis (N20.0) Active confirmed He has had no episodes of renal colic or hematuria recently. Problem Benign prostatic hypertrophy without outflow obstruction (643221204) Benign prostatic hyperplasia, unspecified whether lower urinary tract symptoms present (N40.0) Active confirmed He reports rising from sleep twice a night to urinate. We have discussed lifestyle modification as he could make to reduce nocturia. Problem 033838518 Chronic kidney disease, stage II (mild) (N18.2) Active confirmed His renal function is stable. No change in his regimen was Problem 584929038 Aortic stenosis, moderate (I35.0) Active confirmed His aortic valve was successfully replaced during the coronary artery bypass procedure. He is doing well at this time. Problem Chronic atrial fibrillation (204723772) Chronic atrial fibrillation (I48.20) Active confirmed He was in a slow well controlled atrial fibrillation rhythm today which was asymptomatic. He remains anticoagulated without bleeding. No change in his regimen was needed. Problem 18572369 Arteriosclerotic coronary artery disease (I25.10) Active confirmed He underwen t coronary artery bypass surgery in June 2023 with excellent results. He has been free of angina. Vital Signs Heart Rate 64 /min 08/27/2024 Temperature 99.5 degrees Fahrenheit 08/27/2024 Blood pressure diastolic 63 mm Hg 08/27/2024 Height 71 in 08/27/2024 Blood pressure systolic 130 mm Hg 08/27/2024 Weight 182 lbs 08/27/2024 BMI 25.38 kg/m2 08/27/2024 Encounters Encounter Location Date Provider Diagnosis Mitchell Justin III, MD [address] [place] [address] [address] [place], [place] [phone] 10/18/2023 Mitchell Justin Essential hypertensi on I10 [...] and Overweight E66.3 Mitchell Justin III, MD [address] [place] [address] [place] [phone] 12/18/2023 Mitchell Justin Essential hypertensi on I10 ; Mixed hyperlipidemia E78.2 ; Overweight E66.3 ; Chronic kidney disease, stage II (mild) N18.2 ; Anticoagulated Z79.01 ; Type 2 diabetes mellitus with diabetic chronic kidney disease E11.22 ; Benign prostatic hyperplasia, unspecified whether lower urinary tract symptoms present N40.0 ; Chronic atrial fibrillation I48.2 and Aortic stenosis, moderate I35.0 Mitchell Justin III, MD [address] [place] [address] [address] [place] [address] 03/29/2024 Mitchell Justin Essential hypertensi on I10 ; Chronic atrial fibrillation I48.2 ; Type 2 diabetes mellitus with diabetic chronic kidney disease E11.22 ; Mixed hyperlipidemia E78.2 ; Benign prostatic hyperplasia, unspecified whether lower urinary tract symptoms present N40.0 ; Arteriosclerotic coronary artery disease I25.10 ; Aortic stenosis, moderate I35.0 ; Overweight E66.3 ; Chronic atrial fibrillation I48.20 and Anticoagulated Z79.01 Mitchell Justin III, MD [address] [place] [address] [place] [address] 08/27/2024 Mitchell Justin Chronic atrial fibrillation I48.2 [...] Notes T reatment Notes Treatment Clinical Notes 10/18/2023 Chronic atrial fibrillation (ICD-10 - I48.2) [...] a routine follow-up in their future. 08/27/2024 Chronic atrial fibrillation (ICD-10 - I48.2) He was in a regular rhythm today. He has had no symptoms of ischemia. He is not short of breath. 08/27/2024 Anticoagulated (ICD- 10 - Z79.01) No bleeding has occurred. He is compliant with his medication. 10/18/2023 Anticoagulated (ICD- 10 - Z79.01) No [...] changes in his regimen were made. 08/27/2024 Nephrolithiasis (ICD-10 - N20.0) He has had no episodes of renal colic or hematuria recently. 10/18/2023 Nephrolithiasis (ICD-10 - N20.0) He has [...] side effects. No changes were needed. 08/27/2024 Essential hypertensi on (ICD-10 - I10) His blood pressure today is 130/63. We discussed his sodium intake. We advised aggressive sodium restriction. We advised regular exercise on a routine follow-up in their future. 10/18/2023 Mixed hyperlipidemia (ICD-10 - E78.2) His [...] he could make to reduce nocturia. 08/27/2024 Mixed hyperlipidemia (ICD-10 - E78.2) The current fasting lipid profile shows good control of his lipids. He is tolerating his medication without side effects. No changes were needed. 10/18/2023 Benign prostatic hyperplasia, unspecified whether lower [...] He has been free of angina. 08/27/2024 Type 2 diabetes mellitus with diabetic chronic kidney disease (ICD-10 - E11.22) He has been compliant with taking his medication. His fasting glucose is 127. A hemoglobin A1c has been ordered. No changes in his regimen were made. 10/18/2023 Chronic kidney disease, stage II (mild) [...] He is doing well at this time. 08/27/2024 Benign prostatic hyperplasia, unspecified whether lower urinary tract symptoms present (ICD-10 - N40.0) He reports rising from sleep twice a night to urinate. We have discussed lifestyle modification as he could make to reduce nocturia. 10/18/2023 Type 2 diabetes mellitus with diabetic [...] to consume a healthy Mediterranean low-sodium diet. 08/27/2024 Arteriosclerotic coronary artery disease (ICD-10 - I25.10) He underwent coronary artery bypass surgery in June 2023 with excellent results. He has been free of angina. 10/18/2023 Aortic stenosis, moderate (ICD-10 - I35.0) [...] No change in his regimen was needed. 08/27/2024 Aortic stenosis, moderate (ICD-10 - I35.0) [...] Order Date PROFILE, FASTING (COMPREHENSIVE METABOLI C) 01/22/2018 PROFILE, FASTING (COMPREHENSIVE METABOLI C) 12/30/2019 PROFILE, FASTING (COMPREHENSIVE METABOLI C) 08/23/2023 PROFILE, FASTING (COMPREHENSIVE METABOLI C) 08/27/2024 PROFILE, FASTING (COMPREHENSIVE METABOLI C) 11/11/2022 PROFILE, FASTING (COMPREHENSIVE METABOLI C) 11/20/2017 PROFILE, FASTING (COMPREHENSIVE METABOLI C) 04/21/2023 PROFILE, FASTING (COMPREHENSIVE METABOLI C) 03/29/2024 PROFILE, FASTING (COMPREHENSIVE METABOLI C) 03/06/2019 PROFILE, FASTING (COMPREHENSIVE METABOLI C) 05/04/2021 PROFILE, FASTING (COMPREHENSIVE METABOLI C) 02/01/2021 PROFILE, FASTING (COMPREHENSIVE METABOLI C) 03/22/2022 PROFILE, FASTING (COMPREHENSIVE METABOLI C) 12/04/2018 PROFILE, FASTING (COMPREHENSIVE METABOLI C) 08/31/2018 PROFILE, FASTING (COMPREHENSIVE METABOLI C) 07/01/2020 PROFILE, FASTING (COMPREHENSIVE METABOLI C) 12/18/2023 PROFILE, FASTING (COMPREHENSIVE METABOLI C) 04/24/2018 PROFILE, RANDOM (COMPREHENSIVE METABOLIC ) 03/31/2020 PROFILE, RANDOM (COMPREHENSIVE METABOLIC ) 07/02/2019 PROFILE, RANDOM (COMPREHENSIVE METABOLIC ) 07/29/2022 PROFILE, RANDOM (COMPREHENSIVE METABOLIC ) 09/28/2020 PROFILE, RANDOM (COMPREHENSIVE METABOLIC ) 07/27/2021 HEMOGLOBIN A1C (GLYCOHEMOGLOBIN) 018 HEMOGLOBIN A1C (GLYCOHEMOGLOBIN) 020 HEMOGLOBIN A1C (GLYCOHEMOGLOBIN) 018 HEMOGLOBIN A1C (GLYCOHEMOGLOBIN) 020 HEMOGLOBIN A1C (GLYCOHEMOGLOBIN) 022 HEMOGLOBIN A1C (GLYCOHEMOGLOBIN) 023 HEMOGLOBIN A1C (GLYCOHEMOGLOBIN) 020 HEMOGLOBIN A1C (GLYCOHEMOGLOBIN) 023 HEMOGLOBIN A1C (GLYCOHEMOGLOBIN) 019 HEMOGLOBIN A1C (GLYCOHEMOGLOBIN) 021 HEMOGLOBIN A1C (GLYCOHEMOGLOBIN) 022 HEMOGLOBIN A1C (GLYCOHEMOGLOBIN) 021 HEMOGLOBIN A1C (GLYCOHEMOGLOBIN) 021 HEMOGLOBIN A1C (GLYCOHEMOGLOBIN) 019 HEMOGLOBIN A1C (GLYCOHEMOGLOBIN) 019 HEMOGLOBIN A1C (GLYCOHEMOGLOBIN) 021 URIC ACID 09/28/2020 LIPID PANEL 02/01/2021 LIPID PANEL 12/04/2018 LIPID PANEL 09/28/2020 LIPID PANEL 08/31/2018 LIPID PANEL 07/01/2020 LIPID PANEL 04/24/2018 LIPID PANEL 03/31/2020 LIPID PANEL 01/22/2018 LIPID PANEL 12/30/2019 LIPID PANEL 11/20/2017 LIPID PANEL 11/11/2022 LIPID PANEL 07/02/2019 LIPID PANEL 03/06/2019 LIPID PANEL 03/22/2022 LIPID PANEL 05/04/2021 PSA, TOTAL 03/22/2022 PSA, TOTAL 09/28/2020 PSA, TOTAL 08/23/2023 PSA, TOTAL 04/21/2023 PSA, TOTAL 03/29/2024 PSA, TOTAL 11/20/2017 PSA, TOTAL 07/27/2021 PSA, TOTAL+FREE 02/01/2021 MICROALBUMIN, RANDOM 05/04/2021 MICROALBUMIN, RANDOM 08/31/2018 MICROALBUMIN, RANDOM 01/22/2018 MICROALBUMIN, RANDOM 12/30/2019 MICROALBUMIN, RANDOM 11/11/2022 MICROALBUMIN, RANDOM 03/06/2019 CBC w DIFF 07/27/2021 CBC w DIFF 03/06/2019 CBC w DIFF 03/22/2022 CBC w DIFF 12/04/2018 CBC w DIFF 07/01/2020 CBC w DIFF 05/04/2021 CBC w DIFF 08/27/2024 CBC w DIFF 02/01/2021 CBC w DIFF 09/28/2020 CBC w DIFF 11/16/2021 CBC w DIFF 08/31/2018 CBC w DIFF 04/24/2018 CBC w DIFF 03/31/2020 CBC w DIFF 04/21/2023 CBC w DIFF 01/22/2018 CBC w DIFF 07/29/2022 CBC w DIFF 12/30/2019 CBC w DIFF 11/20/2017 CBC w DIFF 11/11/2022 CBC w DIFF 07/02/2019 CBC WITH AUTO DIFF 12/18/2023 CBC WITH AUTO DIFF 08/23/2023 CBC WITH AUTO DIFF 03/29/2024 Lipid Panel 12/18/2023 Lipid Panel 08/27/2024 Lipid Panel 08/23/2023 Lipid Panel 04/21/2023 Lipid Panel 03/29/2024 Microalbumin, Random 08/27/2024 Microalbumin, Random 07/29/2022 Hemoglobin A1c 08/27/2024 Next Appt Details Provider Name:Mitchell Margoth, 11/26/2024 03:30:00 PM, [address] [place] [address] [address], [place], [phone], Provider Name:Mitchell Margoth, 08/29/2025 03:00:00 PM, [address] [place] [address] [address], [place], [address], Insurance Providers Payer Name Payer Address Payer Phone Subscriber Number Group Number Insured Name Patient Relationship to Insured Coverage Start Date Coverage End Date MEDICARE NGS [address] [place] [phone] [id number] Kwan Talavera i Self - patient is the insured [employer] ([employer]) [address] [place] [id number] [id number] Kwan Talavera i Self - patient is [...] ment 2023 Atrial fibrillation - [facility] Diabetes - under control Surgical History Surgery Date(Month/Year) No history two bypass and heart valve replacement 0 2023 none Hospitalization History Reason Date(Month/Year) No history heart valve replacement and bypass 06/26 C kidney stone, afib with RVR 8
== END 2024-09-25 13:08 | disposition home or self-care (01) ==
LOC: HO.HCS 12:29
PROVIDERS: PCP Internal Medicine Medical Oncology; Visit Provider Internal Medicine
DX: I25.10 Atherosclerotic heart disease of native coronary artery without angina pectoris (principal); Z95.3 Presence of xenogenic heart valve; I48.19 Other persistent atrial fibrillation; I10 Essential (primary) hypertension
CPT/HCPCS: 93010; 99214; G2211

== ENCOUNTER → 2024-09-25 12:29 | Outpatient (BNVA) | payer MEDICARE, OTHER, SELFPAY | PROVIDERS: PCP Internal Medicine Medical Oncology; Visit Provider Internal Medicine | DX: I25.10 Atherosclerotic heart disease of native coronary artery without angina pectoris (principal); I10 Essential (primary) hypertension; I48.19 Other persistent atrial fibrillation; Z95.3 Presence of xenogenic heart valve | CPT/HCPCS: 93005; 99212 ==

== ENCOUNTER → 2024-10-09 09:43 | Outpatient (REF) | payer MEDICARE, OTHER, SELFPAY ==
--- NOTE | ~2024-10-09 | NM_ITS ---
Lexiscan Myocardial perfusion study Indication: Coronary artery disease Technique: The patient was brought in for a Lexiscan perfusion study on 10/09/2024 and was injected 0.4 mg of Lexiscan intravenously. Within a minute of this injection 30 mCi of sestamibi was given intravenously. Images were obtained using the SPECT gamma camera interlaced with the gating device. Images were obtained in supine position. Resting perfusion study was performed on 10/10/2024. Patient was administered 30 mCi of sestamibi intravenously at rest. Images were then obtained in supine position. Total DLP 123 mGy-cm. Images were processed with the software and compared side to side in short axis, horizontal long axis and vertical long axis views. Findings: Raw aquisition reviewed. Arms by the patient's side. The stress perfusion study showed no significant perfusion modality. Both uncorrected as well as CT attenuation corrected images were reviewed. The gated study shows normal LV systolic function with calculated LVEF of 68%. LV cavity is normal in size. The gated study shows normal wall thickening and contraction of segments. Resting study shows no significant perfusion abnormality. Gating at rest reveals normal wall motion with ejection fraction at 59%. The findings are consistent with no clear reversible or fixed perfusion normality. NM/NM cardiolite stress test Impression: 1. Myocardial perfusion imaging study shows likely normal myocardial perfusion. 2. Gated LVEF is 68% during stress and 59% during rest. 3. Transient ischemic dilatation not present. EKG component of the test reported separately. Electronically signed by: Andi Johnson MD 10/13/2024 01:15 PM EDT
--- NOTE | 2024-10-09 09:46 | CA_ITS ---
Acquisition Time: 2024-10-09 10:00:00 Total Exercise Time: 00:05:01 Test Indications: AFIB Medications: SEE H&P Protocol: RAFITA Max HR: 104 BPM 75% of Pred: 138 BPM Max BP: 144/70 mmHG Max Work Load: 4.6 METS Exercise stress test with exercise 5 mins 1sec of Rafita Protocol, reduced speed to 1.5mph and incline at 12%, achieving 70% MPHR. No chest pain. Test switched to Lexiscan. Pharmacological stress test with Lexiscan while pt continued to walk slow on treadmill, with reports of mild SOB, no chest pain, with frequent PACs and PVCs, with normotensive response to injection. Nondiagnostic EKG for ischemia. In recovery, pt's breathing returned to basleine. Nuclear images pending. Test reviewed with dr. Wick. Referred By: Andi Johnson Electronically Signed By: Nader Jacobson
--- OUTSIDE RECORDS SUMMARY | 2024-10-09 10:13 | XMS_ITS ---
Author Organization Mitchell Justin III, MD Address [address] [place] [address] Care Team Providers Care Pole Incisor Operator Name Role Phone Mitchell Justin Primary [...] Date Provider Diagnosis Mitchell Justin III, MD [address] [place] [address] [address] [place], [place] [phone] 12/18/2023 Mitchell Justin Essential hypertensi on I10 [...] OV Provider Name:Mitchell Justin, 11/26/2024 03:30:00 PM, [address] [place] [address] [address], [place], [address], Provider Name:Mitchell Justin, 08/29/2025 03:00:00 PM, [address] [place] [address] [address], [place], [phone], Progress Notes * Beverly MOOREhDOB:1940 (83 yo M)Acc No.[id number]:12/18/2023 Progress Notes Patient:?Kwan Moore Provider:?Mitchell Justin MD :1940???Age:83 Y???Sex:Male Rambo e:12/18/2023 Address:[address] [place], [place] [id number] Subjective: * Chief Complaints: * ???DiabetesAtrial fibrillati onCoagulationBenign prostatic hypertrophyHyperlipidemiaHypertensionCoronary artery diseaseRepaired Aortic stenosis * HPI: ???COVID-19 Screening:? In June 2023 he presented to [facility] emergency room with chest pain and rapid atrial fibrillation. He was transferred to [facility] where he underwent aortic valve replacement [...] valve replacement 2023 * Hospitalization/Major Diagno stic Procedure:[place] [place] afib with RVR 10/24/2017heart valve [...] He is retired. He lives alone and [place], [place]. He is independent cares for himself. [...] 55 (Ref Range: >40 mg/dL) * Lab:[facility] [place]. Pane l Fast * Order Date 10/13/2023 [...] Date:?12/06 Generated for Savita de la vega/Raimundo/Macho on:?10/09/2024 10:12 AM EDT History and Physical Notes * [...]
== END ==
LOC: HO.CARD 09:43
PROVIDERS: PCP Internal Medicine Medical Oncology; Visit Provider Internal Medicine
DX: R07.2 Precordial pain (principal); I25.10 Atherosclerotic heart disease of native coronary artery without angina pectoris
CPT/HCPCS: 78452; 93017; A9500; J0280; J2785

== ENCOUNTER → 2024-10-09 09:46 | Outpatient (BNV) | payer MEDICARE, OTHER, SELFPAY | PROVIDERS: PCP Internal Medicine Medical Oncology | DX: R06.02 Shortness of breath (principal); I49.1 Atrial premature depolarization; I49.3 Ventricular premature depolarization | CPT/HCPCS: 78452; 93016; 93018 ==

== ENCOUNTER 2024-11-19 06:10 | Outpatient (REF) | payer MEDICARE, OTHER, SELFPAY ==
[2024-11-19 06:28] LABS: MANUAL DIFF FLAG NO
[2024-11-19 07:46] LABS: Hematocrit 42.2 % (42.0-52.0); Hemoglobin 14.4 g/dl (14.0-18.0); Imm Gran Abs Auto 0.02 X10*3/uL (0.00-0.03); Imm Gran Pct Auto 0.3 % (0.0-0.4); Lymphocytes Absolute Auto 0.9 X10*3/uL (1.2-4.9); Mean Corpuscular HGB Conc 34.1 g/dl (31.0-36.0); Mean Corpuscular Hemoglobin 31.2 pg (27.0-33.0); Mean Corpuscular Volume 91.5 fL (80.0-98.0); NRBC Abs Auto 0.000 X10*3/uL (0.0-0.012); NRBC Pct Auto 0.0 /100WBC (0.0-0.2); Platelet Count 183 X10*3/uL (160-400); Red Blood Count 4.61 X10*6/uL (4.60-5.80); White Blood Count 6.2 X10*3/uL (4.8-10.8)
[2024-11-19 07:56] LABS: Hemoglobin A1C 185.7484 umol/L; Total Hemoglobin (HGBA1C) 3799.9688 umol/L
[2024-11-19 08:42] LABS: Alanine Aminotransferase 27 U/L (0-40); Albumin Level 4.3 g/dL (3.5-5.0); Alkaline Phosphatase 75 U/L (39-117); Anion Gap 12 (12-20); Aspartate Amino Transferase 29 U/L (5-37); Blood Urea Nitrogen 22 mg/dL (9-16); Calcium 9.3 mg/dL (8.4-10.2); Carbon Dioxide 26 mmol/L (22-29); Chloride 107 mmol/L (96-108); Cholesterol 114 mg/dL (<200); Estimated Glomerular Filt Rate > 60; HDL Cholesterol 49 mg/dL (>40); Potassium 4.1 mmol/L (3.3-5.1); Sodium 141 mmol/L (135-145); Total Protein 7.3 g/dL (6.5-8.0); Triglycerides 73 mg/dL (<150)
[2024-11-19 09:21] LABS: Microalbum/Creatinine Ratio Ur 3.6 ug/mg cr (<30)
== END 2024-11-19 06:11 | disposition home or self-care (01) ==
LOC: HO.LAB 06:10
PROVIDERS: PCP Internal Medicine Medical Oncology; Visit Provider Internal Medicine Medical Oncology
DX: E11.22 Type 2 diabetes mellitus with diabetic chronic kidney disease (principal); I12.9 Hypertensive chronic kidney disease with stage 1 through stage 4 chronic kidney disease, or unspecified chronic kidney disease; N18.9 Chronic kidney disease, unspecified; E78.2 Mixed hyperlipidemia; E66.3 Overweight
CPT/HCPCS: 36415; 80053; 80061; 82043; 82570; 83036; 85025

== ENCOUNTER 2024-12-31 12:09 | Outpatient (AMB) | payer MEDICARE, OTHER, SELFPAY ==
--- OUTSIDE RECORDS SUMMARY | 2024-03-29 10:15 | XMS_ITS ---
Author Organization Mitchell Justin III, MD Address [address] [place] [address] Care Team Providers Care Heating Repair Technician Name Role Phone Mitchell Justin Primary Care Provider [phone] Allergies Allergen (clinical drug ingredient) Drug/Non Drug [...] Date Provider Diagnosis Mitchell Justin III, MD [address] [place] [address] [place] [address] 03/29/2024 Mitchell Justin Essential hypertensi on I10 [...] Appt Details Follow Up: As Scheduled, [facility], Reason: OV, Annual Checkup Provider Name:Mitchell Justin, 02/19/2025 03:00:00 PM, [address] [place] [address] [address], [place], [address], Provider Name:Mitchell Justin, 08/29/2025 03:00:00 PM, [address] [place] [address] [address], [place], [address], Progress Notes * Beverly MOOREhDOB:1940 (83 yo M)Acc No.[id number]:03/29/2024 Progress Notes Patient: Kwan STUART Provider: Kelly Justin MD :1940 A ge:83 Y S ex:Male Date:03/29/2024 Address:[address] [place] [address] aletha, [id number] Subjective: * Chief Complaints: * E czema [...] The patient, an 83-year-old male, visited the energy 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 The patient reported that the energy crop farmer said everything was good. The doctor noted that the patient's pulse was regular and he was not in atrial fibrillation. The patient is currently on blood thinners, Eliquis, metformin, diltiazem, lisinopril, and metoprolol. The patient's aspirin was stopped by the energy crop farmer. The patient's diabetes is reportedly under control. The patient reported that his breathing has been good and he has been active, doing yard work. The patient reported getting up two or three times a night to go to the bathroom. The patient has a rash on his leg, which he has been treating with bblu-gwo-afdriub eczema medication. Blood Sugar Level is 127. [...] history * Hospitalization/Major Diagno stic Procedure: H [facility] [...] He is retired. He lives alone and [place], [place]. He is independent cares for himself. Yard work: I'm working outside doing my yard work now. Evangelical activities: I'm up early and and doing stuff at the [employer] again. * Medications: T akingOneTouch Verio - [...] Kelly Justin MD Date: 05/29/2023 Generated for Savita de la vega/Raimundo/Audreyitting on: 0 12/31/2024 01:03 PM EDT History and Physical Notes * HPI (History of Present Illness) Category Sub-Category Detail Notes COVID-19 Screening Questions Have you had any new onset fever, chills, cough, congestion, sore throat, shortness of breath, muscle aches?: No Have you been exposed to the virus withi n the last 10 days?: No Have you travelled internationally in last 10 days?: No Have you been [...]
--- OUTSIDE RECORDS SUMMARY | 2024-08-27 11:00 | XMS_ITS ---
Author Organization Mitchell Justin III, MD Address [address] [place] [address] Care Team Providers Care [employer] Industrial [employer] Teacher Name Role Phone Mitchell Justin Primary Care Provider [phone] Allergies Allergen (clinical drug ingredient) Drug/Non Drug [...] 08/27/2024 Encounters Encounter Location Date Provider Diagnosis Mitchell Justin III, MD [address] [place] [address] [place] [address] 08/27/2024 Mitchell Justin Chronic atrial fibrillation I48.2 [...] 3 Months, Reason: OV Provider Name:Mitchell Justin, 02/19/2025 03:00:00 PM, [address] [place] [address] [address], [place], [address], Provider Name:Mitchell Justin, 08/29/2025 03:00:00 PM, [address] [place] [address] [address], [place], [address], Progress Notes * ANYABHIJEET BeverlyhDOB:1940 (84 yo M)Acc No.[id number]:08/27/2024 Progress Notes Patient: Hailey WALTONMEGANKwan Abdi Provider: Kelly Justin MD :1940 A ge:84 Y S ex:Male Date:08/27/2024 Address:[address] [place], [place] [id number] Subjective: * Chief Complaints: * A nnual Exam * HPI: D epression Screening: Mi mariano reeturns to the office at the age of 84 for his annual physical examination. He was recently admitted in June of this year [facility] with chest pain and atrial fibrillation with [...] and was sent by them to an importer exporter. He was allergic to multiple substances. He [...] He is retired. He lives alone and [place], [place]. He is independent cares for himself. Yard work: I'm working outside doing my yard work now. Baptism activities: I'm up early and and doing stuff at the [employer] again. * Medications: T akingOneTouch Verio - [...] mg/dL) 54 (Ref Range: >40 mg/dL) * Lab:[facility] * Collection Date 08/22/2024 03/22/2024 [...] Microalbumin, Random L AB: Hemoglobin A1c Referral To:[facility] Reason:Consult and Treat [...] Justin MD Date: 0 08/27/2024 Generated for Savita de la vega/Raimundo/Omaransmitting on: 0 12/31/2024 01:03 PM EDT History [...] Fall Risk Assessment:: No falls in the p year COVID-19 Screening Questions Have you had [...] Referral Date Referring Provider Referred Provider Not 08/27/2024 [facility] Consu [facility] and Treat Diabetic Eye Exam
--- OUTSIDE RECORDS SUMMARY | 2024-11-26 11:30 | XMS_ITS ---
Author Organization Mitchell Justin III, MD Address [address] [place] [address] [place] [address] Care Team Providers Care Director Emergency Name Role Phone Mitchell Justin Primary Care [...] Date Provider Diagnosis Mitchell Justin III, MD [address] [place] [address] [place] [address] 11/26/2024 Mitchell Justin Essential hypertensi on I10 [...] Up: 6 Weeks, Reason: ov Provider Name:Mitchell Justin, 02/19/2025 03:00:00 PM, [address] [place] [address] [address], [place], [address], Provider Name:Mitchell Justin, 08/29/2025 03:00:00 PM, [address] [place] [address] [address], [place], [address], Progress Notes * Beverly MOOREhDOB:1940 (84 yo M)Acc No.[id number]:11/26/2024 Patient: Hailey MILTON Kwan Provider: Kelly Justin MD :1940 A ge:84 Y S ex:Male Date:11/26/2024 Address:[address] [place] [address] [id number] Subjective: * Chief Complaints: * C hronic [...] nauseous. He has been to cardiology recently [facility] [place]. An EKG September 25, 2024 normal sinus [...] of provider rendering services: { ...} [address] [facility] [address] L ocation of patient: nu delmy listed [...] He is retired. He lives alone and [place], [place]. He is independent cares for himself. Yard work: I'm working outside doing my yard work now. Jew activities: I'm up early and and doing stuff at the [employer] again. * Medications: T akingmetFORMIN HCl 500 [...] 49 (Ref Range: >40 mg/dL) * Lab:Comprehensive [place]. Pane l Fast * Collection Date 11/19/2024 [...] Category Sub-Category Detail Notes Telehealth Location of [facility] rendering services:: {...} [address] [facility] [address] Location of patient:: address listed in demographics [...]
[2024-12-31 12:33] VITALS: BP 124/68; PULSE 76; BMI 25.2
--- NOTE | 2024-12-31 12:33 | MHC.OFFVIS ---
Vital Signs 12/31/24 12:33 Height 5 ft 11 in Weight 180 lb 12.465 oz BMI 25.2 BP 124/68 Blood Pressure Location Lt brachial Position Sitting Pulse 76 Pulse Source Pulse Oximeter Intake Visit Reasons: 3 mth f/up mirian Allergies Penicillins (PENICILLINS) Adverse Reaction (Unknown, Verified 07/13/23 13:24) DIARRHEA Sulfa (Sulfonamide Antibiotics) (SULFA (SULFONAMIDE ANTIBIOTICS)) Adverse Reaction (Unknown, Verified 07/13/23 13:24) DIARRHEA FOOD WITH ACID Allergy (Intermediate, Uncoded 07/13/23 13:24) RASH Medication List - Last Reconciled 12/31/24 by Andi Johnson MD apixaban 5 mg PO BID Held on 06/17/23. Instructions: Resume on 06/27/23. hold until on heparin atenolol 50 mg PO DAILY atorvastatin 80 mg PO QPM metformin 500 mg PO BID Held on 06/17/23. Instructions: Resume on 06/19/23. HPI Comments Details: Kwan returns for follow-up regarding various cardiac issues. He has chronic atrial fibrillation, coronary disease, bypass surgery, diabetes, hypertension. Overall, he is doing quite well. No clear-cut cardiac symptoms. He has some motorized like exercise equipment at home and he is using it regularly. He states he is quite happy with the. [facility] Medical History (Updated 07/13/23 @ 13:30 by Andi Johnson MD) Atherosclerotic cardiovascular disease Type 2 diabetes mellitus with unspecified complications Essential hypertension Non-rheumatic aortic stenosis Persistent atrial fibrillation Surgical History Status post aortic valve replacement with bioprosthetic valve Hx of CABG Family History Father Lung cancer Heart attack Mother No problems noted. Social History Household Members: None Housing: House Do you presently have visiting nurse or other home services: No Alcohol intake: never Patient Tobacco Use Status: Never used Tobacco service: No Review of Systems Const Denies weakness ENT Denies dizziness Card Denies chest pain, Denies chest pain with activity, Denies syncope, Denies rapid heart rate, Denies pedal edema, Denies edema, Denies leg edema, Denies lightheadedness, Denies palpitations, Denies dyspnea, Denies dyspnea on exertion and Denies orthopnea Resp Denies cough, Denies dyspnea and Denies dyspnea on exertion GI Denies hematochezia and Denies change in stool character Musc Denies abnormal gait, Denies muscle cramps, Denies muscle weakness, Denies numbness, Denies radiating pain into limb and Denies tingling Neuro Denies abnormal gait, Denies dizziness, Denies syncope, Denies numbness, Denies tingling and Denies weakness Endo Denies palpitations Physical Exam Vital Signs: Last Vital Signs Pulse 76 12/31/24 12:33 BP 124/68 12/31/24 12:33 BMI result Body Mass Index 25.2 Const General: comfortable and no acute distress Orientation/consciousness: patient oriented x3 HEENT Other: Unremarkable Head: Yes normal to inspection Neck Neck: Yes normal visual inspection Chest Chest palpation & inspection: normal inspection of the chest Resp Auscultation: clear to auscultation bilaterally Cardio Palpation: normal PMI Heart sounds: S1 normal heart sound present, S2 normal heart sound present, no gallops, no murmurs and no rubs GI Palpation (GI): Soft to palpation Back/Spine/Pelvis Other: unremarkable Skin General skin exam: no rashes or lesions noted Neuro General: patient oriented x3 Extrem General: Yes normal to inspection Psych Mental Status: mental status grossly normal Assessment & Plan Assessment & Plan (1) Atherosclerotic cardiovascular disease: Code(s): I25.10 - Atherosclerotic heart disease of [place] coronary artery without angina pectoris Category: Medical Plan: NSTEMI, status post CABGx2; 06/2023. Due to T-wave inversions on a recent EKG, underwent myocardial perfusion imaging which was unremarkable. Clinically, he has got no angina. Continue medical therapy including aspirin and statins. (2) Status post aortic valve replacement with bioprosthetic valve: Code(s): Z95.3 - Presence of xenogenic heart valve Category: Surgical Plan: s/p #25 AVR. In the echocardiogram, normally functioning bioprosthetic aortic valve. Infective endocarditis prophylaxis before any dental procedures. (3) Persistent atrial fibrillation: Code(s): I48.19 - Other persistent atrial fibrillation Category: Medical Plan: s/p LA MAZE; s/p atriclip TYLER occluder. In the Holter from 07/2023, underlying atrial fibrillation with an average rate of 83/Min. Recently, back in normal sinus rhythm. Continue beta-blockers. Continue anticoagulation. (4) Essential hypertension: Code(s): I10 - Essential (primary) hypertension Category: Medical Plan: Stable. Plan Discussion Notes During the visit, I discussed with the patient the results of his recent stress test, which were normal, indicating stable cardiovascular health. We agreed to maintain the current management plan without any changes and scheduled a follow-up in one year. Patient was informed and verbally consented to the use of an ambient scribe for clinic note documentation during this visit. Patient Instructions: - Continue regular physical activity as tolerated. - Monitor blood pressure regularly and report any significant changes. - Follow up in one year for routine evaluation. Coding Level of Care Code Est Pt Level 4 (50758) Complex EM visit Add On G2211 Diagnoses Atherosclerotic cardiovascular disease I25.10 Status post aortic valve replacement with bioprosthetic valve Z95.3 Persistent atrial fibrillation I48.19 Essential hypertension I10
--- OUTSIDE RECORDS SUMMARY | 2024-12-31 13:04 | XMS_ITS | Patient Health Record ---
Author Organization Mitchell Justin III, MD Address [address] [facility] [address] [facility] [place] [address] Care Team Providers Care Director Software Development Name Role Phone Mitchell Justin Primary Care [...] ff Reviewed date:03/22/2024 01:48:14 PM Interpretation: Performing Lab:[facility], [address] [place] [phone] Notes/Report: White Blood Count 6.2 4.8-10.8 X10*3/uL [...] NRBC Abs Auto 0.000 0.0-0.012 X10*3/uL Comprehensive [place]. Panel Fa st Reviewed date:03/22/2024 01:48:14 PM Interpretation: Performing Lab:[facility], [address] [place] [phone] Notes/Report: Sodium 138 135-145 mmol/L Potassium 4.2 [...] Panel Reviewed date:03/22/2024 01:48:14 PM Interpretation: Performing Lab:[facility], [address] [place] [phone] Notes/Report: Triglycerides 74 <150 mg/dL Desirable Triglyceride: [...] ff Reviewed date:08/24/2024 07:16:52 AM Interpretation: Performing Lab:[facility], [address] [place] [phone] Notes/Report: White Blood Count 6.4 4.8-10.8 X10*3/uL [...] NRBC Abs Auto 0.000 0.0-0.012 X10*3/uL Comprehensive [place]. Panel Fa Reviewed date:08/24/2024 07:16:52 AM Interpretation: Performing Lab:[address] [address] Notes/Report: Sodium 141 135-145 mmol/L Potassium 4.8 [...] Panel Reviewed date:08/24/2024 07:16:52 AM Interpretation: Performing Lab:[address] [address] Notes/Report: Triglycerides 106 <150 mg/dL Desirable Triglyceride: [...] Antigen Reviewed date:08/24/2024 07:16:52 AM Interpretation: Performing Lab:[facility], [address] [place] [phone] Notes/Report: Prostate Specific Antigen 0.65 <0.05-4.0 ng/mL PSA methodology: Rubio Alinity i Chemiluminescent Microparticle Immunoassay (CMIA) Diabetic Eye Exam Reviewed date:09/17/2024 03:31:41 PM Interpretation:undefined Performing Lab: Notes/Report: undefined NM cardiolite stress test Reviewed date:11/19/2024 08:12:02 PM Interpretation: Performing Lab: Notes/Report: [address] [address] Nuclear Medicine Report Signed Patient: Kwan Padilla MR#: [id number] : 1940 Acct:[id number] Age/Sex: 84 / M ADM Date: 10/09/24 Loc: HO.CARD Attending Dr: Andi Johnson MD Ordering Physician: Andi Johnson MD Date of Service: 10/09/24 Procedure(s): NM cardiolite stress test Accession Number(s): [id number] cc: Mitchell Justin MD; Andi Johnson MD Lexiscan Myocardial perfusion study Indication: Coronary artery disease Technique: The patient was brought in for a Lexiscan perfusion study on 10/09/2024 and was injected 0.4 mg of Lexiscan intravenously. Within a minute of this injection 30 mCi of sestamibi was given intravenously. Images were obtained using the SPECT gamma camera interlaced with the gating device. Images were obtained in supine position. Resting perfusion study was performed on 10/10/2024. Patient was administered 30 mCi of sestamibi intravenously at rest. Images were then obtained in supine position. Total DLP 123 mGy-cm. Images were processed with the software and compared side to side in short axis, horizontal long axis and vertical long axis views. Findings: Raw aquisition reviewed. Arms by the patient's side. The stress perfusion study showed no significant perfusion modality. Both uncorrected as well as CT attenuation corrected images were reviewed. The gated study shows normal LV systolic function with calculated LVEF of 68%. LV cavity is normal in size. The gated study shows normal wall thickening and contraction of segments. Resting study shows no significant perfusion abnormality. Gating at rest reveals normal wall motion with ejection fraction at 59%. The findings are consistent with no clear reversible or fixed perfusion normality. NM/NM cardiolite stress test Impression: 1. Myocardial perfusion imaging study shows likely normal myocardial perfusion. 2. Gated LVEF is 68% during stress and 59% during rest. 3. Transient ischemic dilatation not present. EKG component of the test reported separately. Electronically signed by: Andi Johnson MD 10/13/2024 01:15 PM EDT Dictated By: Andi Johnson MD Signed By: <Electronically signed by Andi Johnson MD in OV> 10/13/24 1315 DD/ 0955 TD/TT: 10/10/24 1200 Sharepoint Architect: [address] [address] Nuclear Medicine Report Signed Patient: Kwan Padilla MR#: [id number] : 1940 Acct:[id number] Age/Sex: 84 / M ADM Date: 10/09/24 Loc: HO.CARD Attending Dr: Andi Johnson MD Ordering Physician: Andi Johnson MD Date of Service: 10/09/24 Procedure(s): NM cardiolite stress test Accession Number(s): [id number] cc: Mitchell Justin MD; Andi Johnson MD Lexiscan Myocardial perfusion study Indication: Coronary artery disease Technique: The patient was brought in for a Lexiscan perfusion study on 10/09/2024 and was injected 0.4 mg of Lexiscan intravenously. Within a minute of this injection 30 mC i of sestamibi was given intravenously. Images were obtained using the SPECT gamma camera interlaced with the gating device. Images were obtained in supine position. Resting perfusion study was performed on 10/10/2024. Patient was administered 30 mCi of sestamibi intravenously at rest. Images were then obtained in supine position. Total DLP 123 mGy-cm. Images were processe d with the software and compared side to side in short axis, horizont al long axis and vertical long axis views. Findings: Raw aquisition reviewed. Arms by the patient's side. The stress perfusion study showed no significant perfusion modality. Both uncorrected as well as CT attenuation corrected images were reviewed. The gated study shows normal LV systolic function with calculated LVEF of 68%. LV cavity is normal in size. The gated study shows normal wall thickening and contraction of segments. Resting study shows no significant perfusion abnormality. Gating at rest reveals normal wall motion with ejection fraction at 59%. The findings are consistent with no clear reversible or fixed perfusion normality. NM/NM cardiolite stress test Impression: 1. Myocardial perfusion imaging study shows likely normal myocardial perfusion. 2. Gated LVEF is 68% during stress and 59% during rest. 3. Transient ischemi c dilatation not present. EKG component of the test reported separately. Electronically ace d by: Andi Johnson MD 10/13/2024 01:15 PM EDT RP Workstatio n: [id number] Dictated By: Andi Johnson MD Signed By: <Electronically signed by Andi Johnson MD in OV> 10/13/24 1315 DD/ 0955 TD/TT: 10/10/24 1200 Sharepoint Architect: Complete Blood Count Auto Di ff Reviewed date:11/19/2024 08:12:02 PM Interpretation: Performing Lab:[facility], [address] [place] [phone] Notes/Report: White Blood Count 6.2 4.8-10.8 X10*3/uL Red Blood Count 4.61 4.60-5.80 X10*6/uL Hemoglobin 14.4 14.0-18.0 g/dl Hematocrit 42.2 42.0-52.0 % Mean Corpuscular Volume 91.5 80.0-98.0 fL Mean Corpuscular Hemoglobin 31.2 27.0-33.0 pg Mean Corpuscular HGB Conc 34.1 31.0-36.0 g/dl Red Cell Distribution Width 12.8 11.0-16.0 % Platelet Count 183 160-400 X10*3/uL Mean Platelet Volume 9.8 9.4-12.4 fL Neutrophils Percent Auto 67.1 45-73 % Imm Gran Pct Auto 0.3 0.0-0.4 % Lymphocytes Percent Auto 14.4 20-40 % Monocytes Percent Auto 11.3 2-11 % Eosinophils Percent Auto 6.3 0-4 % Basophils Percent Auto 0.6 0-2 % NRBC Pct Auto 0.0 0.0-0.2 /100WBC Neutrophils Absolute Auto 4.1 2.0-8.3 x10*3/u L Imm Gran Abs Auto 0.02 0.00-0.03 X10*3/uL Lymphocytes Absolute Auto 0.9 1.2-4.9 X10*3/u L Monocytes Absolute Auto 0.7 0.1-1.2 X10*3/uL Eosinophils Absolute Auto 0.4 0.0-0.4 X10*3/u L Basophils Absolute Auto 0.0 0.0-0.2 X10*3/uL NRBC Abs Auto 0.000 0.0-0.012 X10*3/uL Comprehensive [place]. Panel Fa st Reviewed date:11/19/2024 08:12:02 PM Interpretation: Performing Lab:[facility], [address] [place] [phone] Notes/Report: Sodium 141 135-145 mmol/L Potassium 4.1 3.3-5.1 mmol/L Chloride 107 96-108 mmol/L Carbon Dioxide 26 22-29 mmol/L Anion Gap 12 12-20 Blood Urea Nitrogen 22 9-16 mg/dL Creatinine 1.01 0.5-1.4 mg/dL Estimated Glomerular Filt Rate > 60 Chronic Kidney Disease: Estimated GFR < 60 mL/min/1.73m2 Severe Kidney Disease: Estimated GFR < 15 mL/min/1.73m2 Glucose Fasting 120 60-99 mg/dL A fasting glucose from 100-125 mg/dl is considered impaired (pre-diabetes). Calcium 9.3 8.4-10.2 mg/dL Bilirubin Total 1.0 0.0-1.0 mg/dL Aspartate Amino Transferase 29 5-37 U/L Alanine Aminotransferase 27 0-40 U/L Total Protein 7.3 6.5-8.0 g/dL Albumin Level 4.3 3.5-5.0 g/dL Alkaline Phosphatase 75 39-117 U/L Lipid Panel Reviewed date:11/19/2024 08:12:02 PM Interpretation: Performing Lab:[address] [address] Notes/Report: Triglycerides 73 <150 mg/dL Desirable Triglyceride: less than 150 mg/dL Borderline High Triglyceride 150-199 mg/dL High Triglyceride: 200-499 mg/dL Very High Triglyceride: greater than or equal to 5OO mg/dL Cholesterol 114 <200 mg/dL Desirable Cholesterol: less than 200 mg/dL Borderline High Cholesterol: 200-239 mg/dL High Cholesterol: greater than 239 mg/dL LDL Cholesterol Calculated 51 <100 mg/dL Desirable LDL: less than 100 mg/dL Near Optimal/Above Optimal LDL: 110-129 mg/dL Borderline High LDL: 130-159 mg/dL High LDL: 160-189 mg/dL Very High LDL: greater than or equal to 190 mg/dL HDL Cholesterol 49 >40 mg/dL Desirable HDL: greater than 40 mg/dL Note: This HDL assay may give artificially low results in patients with liver disease. Microalbumin, Random Reviewed date:11/19/2024 08:12:02 PM Interpretation: Performing Lab:[address] [address] Notes/Report: Creatinine Urine 138.41 Microalbumin Urine 5.0 Microalbum/Creatinine Ratio Ur 3.6 <30 ug/mg cr Albumin/Creatinine Ratio Reference Ranges: Normal: < 30 ug/mg creatinine Microalbuminuria: 30 - 300 ug/mg creatinine Clinical Albuminuria: > 300 ug/mg creatinine Hemoglobin A1c Reviewed date:11/19/2024 08:12:02 PM Interpretation: Performing Lab:[facility], [address] [place] [address], [place] [address] Notes/Report: Hemoglobin A1c % 6.6 <6.0 % Hemoglobin A1C Reference Range Adults: 4.8 - 6.0 % Non diabetic: < 6.0 % Goal: < 7.0 % Additional Action Suggested: > 8.0 % Note: Hemoglobin A1c results are invalid for patients with abnormal amounts of HbF. Blood transfusions may impact the HbA1c concentration in the patient sample. Estimated Average Glucose 143 eAG = Estimated average glucose which is %A1C expressed as average glucose, using the formula of the [id number] Average Glucose study (ADAG), Diabetes Care, Vol.31,#8, Dec. 2007 Reason For Referral Reason Consult and Treat [...] with food Orally Twice a day Active Eliquis 5 MG TAKE 1 TABLET BY JOSE M TH EVERY 12 HOURS Active Baby Aspirin Active One Touch Delica [...] 1 tablet Orally Once a day Active Immunizations Vaccine Route Administration [...] Problem Status W/U Status Risk Notes Problem 303552297 Overweight (E66.3) Active confirmed He has very slightly overweight. I recommended he stabilize his weight at this level and continue to consume a healthy Mediterranean low-sodium diet. Problem 45182490 Type 2 diabetes mellitus with diabetic chronic kidney disease (E11.22) Active confirmed He has been compliant with taking his medication. His fasting glucose is 127. A hemoglobin A1c has been ordered. No changes in his regimen were made. Problem 538648930 Mixed hyperlipidemia (E78.2) Active confirmed The current fasting lipid profile shows good control of his lipids. He is tolerating his medication without side effects. No changes were needed. Problem 793169572 Chronic atrial fibrillation (I48.2) Active confirmed He was in a regular rhythm today. He has had no symptoms of ischemia. He is not short of breath. Problem 655472531 Anticoagulated (Z79.01) Active confirmed No bleeding has occurred. He is compliant with his medication. Problem 71415535 Essential hypertension (I10) Active confirmed His blood pressure has been well controlled. We discussed his sodium intake. We advised aggressive sodium restriction. We advised regular exercise on a routine follow-up in their future. Problem 84130146 Nephrolithiasis (N20.0) Active confirmed He has had no episodes of renal colic or hematuria recently. Problem Benign prostatic hyperplasia, unspecified whether lower urinary tract symptoms present (N40.0) Active confirmed He reports rising from sleep twice a night to urinate. We have discussed lifestyle modification as he could make to reduce nocturia. 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 No change in his regimen was Problem 236975062 Aortic stenosis, moderate (I35.0) Active confirmed His aortic valve was successfully replaced during the coronary artery bypass procedure. He is doing well at this time. 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) Active confirmed [...] Date Provider Diagnosis Mitchell Justin III, MD [address] [place] [address] [place] [address] 03/29/2024 Mitchell Justin Essential hypertensi on I10 [...] and Anticoagulated Z79.01 Mitchell Justin III, MD [address] [place] [address] [place] [address] 08/27/2024 Mitchell Justin Chronic atrial fibrillation I48.2 ; Anticoagulated Z79.01 ; Nephrolithiasis N20.0 ; Essential hypertension I10 ; Mixed hyperlipidemia E78.2 ; Type 2 diabetes mellitus with diabetic chronic kidney disease E11.22 ; Benign prostatic hyperplasia, unspecified whether lower urinary tract symptoms present N40.0 ; Arteriosclerotic coronary artery disease I25.10 and Aortic stenosis, moderate I35.0 Mitchell Justin III, MD [address] [place] [address] [place] [address] 11/26/2024 Mitchell Gonsalezrne Essential hypertensi on I10 ; Arteriosclerotic coronary [...] T reatment Notes Treatment Clinical Notes 03/29/2024 Chronic atrial fibrillation (ICD-10 - I48.2) [...] He is compliant with his medication. 11/26/2024 Essential hypertensi on (ICD-10 - I10) His blood pressure has been well controlled. We discussed his sodium intake. We advised aggressive sodium restriction. We advised regular exercise on a routine follow-up in their future. 11/26/2024 Arteriosclerotic coronary artery disease (ICD-10 - I25.10) He underwent coronary artery bypass surgery in June 2023 with excellent results. He has been free of angina. 03/29/2024 Type 2 diabetes mellitus with diabetic chronic kidney disease (ICD-10 - E11.22) He has been compliant with taking his medication. His fasting glucose is 127. A hemoglobin A1c has been ordered. No changes in his regimen were made. 08/27/2024 Nephrolithiasis (ICD-10 - N20.0) He has had no episodes of renal colic or hematuria recently. 11/26/2024 Overweight (ICD-10 - E66.3) He has very slightly overweight. I recommended he stabilize his weight at this level and continue to consume a healthy Mediterranean low-sodium diet. 03/29/2024 Mixed hyperlipidemia (ICD-10 - E78.2) The [...] a routine follow-up in their future. 11/26/2024 Chronic atrial fibrillation (ICD-10 - I48.2) He was in a regular rhythm today. He has had no symptoms of ischemia. He is not short of breath. 03/29/2024 Benign prostatic hyperplasia, unspecified whether lower [...] side effects. No changes were needed. 11/26/2024 Anticoagulated (ICD- 10 - Z79.01) No bleeding has occurred. He is compliant with his medication. 03/29/2024 Arteriosclerotic coronary artery disease (ICD-10 - [...] No changes in his regimen were made. 11/26/2024 Nephrolithiasis (ICD-10 - N20.0) He has had no episodes of renal colic or hematuria recently. 03/29/2024 Aortic stenosis, moderate (ICD-10 - I35.0) His aortic valve was successfully replaced during the coronary artery bypass procedure. He is doing well at this time. 08/27/2024 Benign prostatic hyperplasia, unspecified whether lower urinary tract symptoms present (ICD-10 - N40.0) He reports rising from sleep twice a night to urinate. We have discussed lifestyle modification as he could make to reduce nocturia. 11/26/2024 Mixed hyperlipidemia (ICD-10 - E78.2) The current fasting lipid profile shows good control of his lipids. He is tolerating his medication without side effects. No changes were needed. 03/29/2024 Overweight (ICD-10 - E66.3) He has very slightly overweight. I recommended he stabilize his weight at this level and continue to consume a healthy Mediterranean low-sodium diet. 08/27/2024 Arteriosclerotic coronary artery disease (ICD-10 - I25.10) He underwent coronary artery bypass surgery in June 2023 with excellent results. He has been free of angina. 11/26/2024 Chronic kidney disease, stage II (mild) (ICD-10 - N18.2) His renal function is stable. No change in his regimen was 03/29/2024 Chronic atrial fibrillation (ICD-10 - I48.20) He was in a slow well controlled atrial fibrillation rhythm today which was asymptomatic. He remains anticoagulated without bleeding. No change in his regimen was needed. 08/27/2024 Aortic stenosis, moderate (ICD-10 - I35.0) His aortic valve was successfully replaced during the coronary artery bypass procedure. He is doing well at this time. 11/26/2024 Benign prostatic hyperplasia, unspecified whether lower urinary tract symptoms present (ICD-10 - N40.0) He reports rising from sleep twice a night to urinate. We have discussed lifestyle modification as he could make to reduce nocturia. 03/29/2024 Anticoagulated (ICD- 10 - Z79.01) No bleeding has occurred. He is compliant with his medication. 11/26/2024 Aortic stenosis, moderate (ICD-10 - I35.0) His aortic valve was successfully replaced during the coronary artery bypass procedure. He is doing well at this time. Plan Of Treatment Pending Test Test Name Order Date PROFILE, FASTING (COMPREHENSIVE METABOLI C) 04/24/2018 PROFILE, FASTING (COMPREHENSIVE METABOLI C) 08/27/2024 PROFILE, FASTING (COMPREHENSIVE METABOLI C) 01/22/2018 PROFILE, FASTING (COMPREHENSIVE METABOLI C) 12/30/2019 PROFILE, FASTING (COMPREHENSIVE METABOLI C) 04/21/2023 PROFILE, FASTING (COMPREHENSIVE METABOLI C) 11/11/2022 PROFILE, FASTING (COMPREHENSIVE METABOLI C) 03/29/2024 PROFILE, FASTING (COMPREHENSIVE METABOLI C) 11/20/2017 PROFILE, FASTING (COMPREHENSIVE METABOLI C) 03/06/2019 PROFILE, FASTING (COMPREHENSIVE METABOLI C) 05/04/2021 PROFILE, FASTING (COMPREHENSIVE METABOLI C) 02/01/2021 PROFILE, FASTING (COMPREHENSIVE METABOLI C) 12/18/2023 PROFILE, FASTING (COMPREHENSIVE METABOLI C) 03/22/2022 PROFILE, FASTING (COMPREHENSIVE METABOLI C) 12/04/2018 PROFILE, FASTING (COMPREHENSIVE METABOLI C) 08/31/2018 PROFILE, FASTING (COMPREHENSIVE METABOLI C) 07/01/2020 PROFILE, FASTING (COMPREHENSIVE METABOLI C) 08/23/2023 PROFILE, RANDOM (COMPREHENSIVE METABOLIC ) 03/31/2020 PROFILE, RANDOM (COMPREHENSIVE METABOLIC ) 07/02/2019 PROFILE, RANDOM (COMPREHENSIVE METABOLIC ) 07/29/2022 PROFILE, RANDOM (COMPREHENSIVE METABOLIC ) 09/28/2020 PROFILE, RANDOM (COMPREHENSIVE METABOLIC ) 07/27/2021 HEMOGLOBIN A1C (GLYCOHEMOGLOBIN) 021 HEMOGLOBIN A1C (GLYCOHEMOGLOBIN) 018 HEMOGLOBIN A1C (GLYCOHEMOGLOBIN) 020 HEMOGLOBIN A1C (GLYCOHEMOGLOBIN) 018 HEMOGLOBIN A1C (GLYCOHEMOGLOBIN) 022 HEMOGLOBIN A1C (GLYCOHEMOGLOBIN) 020 HEMOGLOBIN A1C (GLYCOHEMOGLOBIN) 023 HEMOGLOBIN A1C (GLYCOHEMOGLOBIN) 020 HEMOGLOBIN A1C (GLYCOHEMOGLOBIN) 023 HEMOGLOBIN A1C (GLYCOHEMOGLOBIN) 019 HEMOGLOBIN A1C (GLYCOHEMOGLOBIN) 021 HEMOGLOBIN A1C (GLYCOHEMOGLOBIN) 022 HEMOGLOBIN A1C (GLYCOHEMOGLOBIN) 021 HEMOGLOBIN A1C (GLYCOHEMOGLOBIN) 021 HEMOGLOBIN A1C (GLYCOHEMOGLOBIN) 019 HEMOGLOBIN A1C (GLYCOHEMOGLOBIN) 019 URIC ACID 09/28/2020 LIPID PANEL 05/04/2021 LIPID PANEL 02/01/2021 LIPID PANEL 12/04/2018 LIPID PANEL 09/28/2020 LIPID PANEL 08/31/2018 LIPID PANEL 07/01/2020 LIPID PANEL 04/24/2018 LIPID PANEL 03/31/2020 LIPID PANEL 01/22/2018 LIPID PANEL 11/20/2017 LIPID PANEL 12/30/2019 LIPID PANEL 11/11/2022 LIPID PANEL 07/02/2019 LIPID PANEL 03/06/2019 LIPID PANEL 03/22/2022 PSA, TOTAL 03/22/2022 PSA, TOTAL 08/23/2023 PSA, TOTAL 09/28/2020 PSA, TOTAL 04/21/2023 PSA, TOTAL 03/29/2024 PSA, TOTAL 11/20/2017 PSA, TOTAL 07/27/2021 PSA, TOTAL+FREE 02/01/2021 MICROALBUMIN, RANDOM 03/06/2019 MICROALBUMIN, RANDOM 05/04/2021 MICROALBUMIN, RANDOM 08/31/2018 MICROALBUMIN, RANDOM 01/22/2018 MICROALBUMIN, RANDOM 12/30/2019 MICROALBUMIN, RANDOM 11/11/2022 CBC w DIFF 07/27/2021 CBC w DIFF 08/27/2024 CBC w DIFF 03/06/2019 CBC w DIFF 03/22/2022 CBC w DIFF 12/04/2018 CBC w DIFF 07/01/2020 CBC w DIFF 05/04/2021 CBC w DIFF 02/01/2021 CBC w DIFF 09/28/2020 CBC w DIFF 11/16/2021 CBC w DIFF 08/31/2018 CBC w DIFF 04/21/2023 CBC w DIFF 04/24/2018 CBC w DIFF 03/31/2020 CBC w DIFF 01/22/2018 CBC w DIFF 07/29/2022 CBC w DIFF 12/30/2019 CBC w DIFF 11/20/2017 CBC w DIFF 11/11/2022 CBC w DIFF 07/02/2019 CBC WITH AUTO DIFF 08/23/2023 CBC WITH AUTO DIFF 03/29/2024 CBC WITH AUTO DIFF 12/18/2023 Lipid Panel 12/18/2023 Lipid Panel 08/27/2024 Lipid Panel 08/23/2023 Lipid Panel 04/21/2023 Lipid Panel 03/29/2024 Microalbumin, Random 07/29/2022 Microalbumin, Random 08/27/2024 Hemoglobin A1c 08/27/2024 Next Appt Details Provider Name:Mitchell Justin, 02/19/2025 03:00:00 PM, [address] [place] [address] , [address]IG[address] Ortiz, [place], [address], Provider Name:Mitchell Justin, 08/29/2025 03:00:00 PM, [address] [place] [address] [address], [place], [phone], Insurance Providers Payer Name Payer Address Payer Phone Subscriber Number Group Number Insured Name Patient Relationship to Insured Coverage Start Date Coverage End Date MEDICARE NGS [address] [place] [phone] [id number] Kwan Talavera i Self - patient is the insured [employer] ([employer]) [address] [place] [id number] [phone] [id number] Kwan Talavera i Self - patient is [...] ment 2023 Atrial fibrillation - treated in [place] Diabetes - under control Surgical History Surgery Date(Month/Year) No history two bypass and heart valve replacement 0 2023 none Hospitalization History Reason Date(Month/Year) No history heart valve replacement and bypass 06/26 [facility] kidney stone, afib with RVR 8
== END 2024-12-31 12:50 | disposition home or self-care (01) ==
LOC: HO.HCS 12:10
PROVIDERS: PCP Internal Medicine Medical Oncology; Visit Provider Internal Medicine
DX: I25.10 Atherosclerotic heart disease of native coronary artery without angina pectoris (principal); Z95.3 Presence of xenogenic heart valve; I48.19 Other persistent atrial fibrillation; I10 Essential (primary) hypertension
CPT/HCPCS: 99214; G2211

== ENCOUNTER → 2024-12-31 12:09 | Outpatient (BNVA) | payer MEDICARE, OTHER, SELFPAY | PROVIDERS: PCP Internal Medicine Medical Oncology; Visit Provider Internal Medicine | DX: I10 Essential (primary) hypertension (principal); I48.19 Other persistent atrial fibrillation; Z95.3 Presence of xenogenic heart valve; I25.10 Atherosclerotic heart disease of native coronary artery without angina pectoris | CPT/HCPCS: 99212 ==

== ENCOUNTER 2025-03-29 07:45 | Observation (INO) | payer MEDICARE, OTHER, SELFPAY ==
--- OUTSIDE RECORDS SUMMARY | 2023-10-18 09:30 | XMS_ITS ---
Author Organization Mitchell Justin III, MD Address [address] [place] [address] [address] [place] [id number] Care Team Providers Care Sales Order Administrator Name Role Phone Dr. Mitchell Justin III Primary Care Provider Allergies Allergen (clinical drug ingredient) Drug/Non Drug Allergy documented on EMR Reaction Allergy Type Onset Date Status Penicillin Unknown Drug Allergy Active acid content foods (uncoded) Unknown Allergy Active REASON FOR VISIT Atrial fibrillation, Anticoagulated, Hypertension, Hyperlipidemia, Diabetes, Chronic kidney disease, Benign prostatic hypertrophy, Aortic stenosis Medications Medication SIG (Take, Route, Frequency, Duration) Notes Start Date End Date Status Multivitamin Active Lisinopril 5 MG 1 tablet Orally Once a day Active OneTouch Verio - as directed In Vitro Oce a day E11.22 Type 2 Diabetes Active Metoprolol Tartrate 50 MG 1 tablet with food Orally Twice a day Active Lancets 30G - as directed Check blood sugar once a day Active One Touch Delica Lancets as directed - once a day 01/04/2021 Active dilTIAZem HCl ER Coated Beads 120 MG TAKE 1 CAPSULE BY MOUTH EVERY DAY PT DOSENT LIKE BEADS Active metFORMIN HCl 500 MG TAKE 1 TABLET BY MOUTH TWICE A DAY Active Eliquis 5 MG TAKE 1 TABLET BY MOUTH EVERY 12 HOURS Active Social History Tobacco Use: Social History Observation Description Date Details (start date - stop date) Never Smoker NA - NA Sex Assigned At : Social History Observation Description Sex Assigned At Male Tobacco Use/Smoking Question Answer Notes Patient is a nonsmoker Additional Findings: Tobacco Non-User Aggressive non-smoker Problems Problem Type SNOMED Code ICD Code Onset Dates Problem Status W/U Status Risk Notes Problem [id number] 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 He has been free of angina. Vital Signs Temperature 98.1 degrees Fahrenheit 10/18/19 24 Blood pressure systolic 138 mm Hg 10/18/19 24 Blood pressure diastolic 74 mm Hg 024 Heart Rate 75 /min 10/18/2023 Height 71 in 10/18/2023 Weight 183 lbs 10/18/2023 BMI 25.52 kg/m2 10/18/2023 Encounters Encounter Location Date Provider Diagnosis Mitchlel Justin III, MD [address] [place] [address] [place] [id number] 10/18/2023 Mitchell Justin Essential hypertensi on I10 ; Chronic atrial fibrillation I48.2 ; Anticoagulated Z79.01 ; Nephrolithiasis N20.0 ; Mixed hyperlipidemia E78.2 ; Benign prostatic hyperplasia, unspecified whether lower urinary tract symptoms present N40.0 ; Chronic kidney disease, stage II (mild) N18.2 ; Type 2 diabetes mellitus with diabetic chronic kidney disease E11.22 ; Aortic stenosis, moderate I35.0 ; Arteriosclerotic coronary artery disease I25.10 and Overweight E66.3 Assessments Encounter Date Diagnosis (ICD Code) Assessment Notes Treat ment Notes Treatment Clinical Notes 10/18/2023 Essential hypertensi on (ICD-10 - I10) His blood pressure today is 138/74. We discussed his sodium intake. We advised aggressive sodium restriction. We advised regular exercise on a routine follow-up in their future. 10/18/2023 Chronic atrial fibrillation (ICD-10 - I48.2) He was in a regular rhythm today. He has had no symptoms of ischemia. He is not short of breath. 10/18/2023 Anticoagulated (ICD- 10 - Z79.01) No bleeding has occurred. He is compliant with his medication. 10/18/2023 Nephrolithiasis (ICD-10 - N20.0) He has had no episodes of renal colic or hematuria recently. 10/18/2023 Mixed hyperlipidemia (ICD-10 - E78.2) His lipids are in near target range and stable. No change in his regimen was necessary. 10/18/2023 Benign prostatic hyperplasia, unspecified whether lower urinary tract symptoms present (ICD-10 - N40.0) We have discussed lifestyle modification as a way of reducing nocturia. 10/18/2023 Chronic kidney disease, stage II (mild) (ICD-10 - N18.2) His renal function is stable. No change in his regimen was 10/18/2023 Type 2 diabetes mellitus with diabetic chronic kidney disease (ICD-10 - E11.22) His diabetes will be monitored to keep the A1c 7.0 or lower. He is compliant with all of his medications. 10/18/2023 Aortic stenosis, moderate (ICD-10 - I35.0) His aortic valve was successfully replaced during the coronary artery bypass procedure. He is doing well at this time. 10/18/2023 Arteriosclerotic coronary artery disease (ICD-10 - I25.10) He underwent coronary artery bypass surgery in June 2023 with excellent results. He has been free of angina. 10/18/2023 Overweight (ICD-10 - E66.3) He is slightly overweight with a body mass index of 25.1. We have reviewed his weight loss strategy. Plan Of Treatment Medication Medication Name Sig Start Date Stop Date Notes Multivitamin Lisinopril 5 MG 1 tablet Orally Once a day OneTouch Verio - as directed In Vitro Oce a day E11.22 Type 2 Diabetes Metoprolol Tartrate 50 MG 1 tablet with food Orally Twice a day Lancets 30G - as directed Check blood sugar once a day One Touch Delica Lancets as directed - o nce a day 01/04/2021 dilTIAZem HCl ER Coated Beads 120 MG TAKE 1 CAPSULE BY MOUTH EVERY DAY PT DOSENT LIKE BEADS metFORMIN HCl 500 MG TAKE 1 TABLET BY MOUTH TWICE A DAY Eliquis 5 MG TAKE 1 TABLET BY MOUTH EVERY 12 HOURS Next Appt Details Follow Up: 2 Months, Reason: OV Provider Name:Mitchell Justin , 08/29/2025 03:00:00 PM, [address] [place] [address] DR [facility], [place], [id number], Progress Notes * MARKUSRYAN BeverlyhDOB:1940 (83 yo M)Acc No.[id number]:10/18/2023 Progress Notes Patient: Kwan Longoria Provider: Kelly Justin MD :1940 A ge:83 Y S ex:Male Date:10/18/2023 Address:[address] [place], [place] [address], [id number] Subjective: * Chief Complaints: * A trial fibrillationAnticoagulatedHypertensionHyperlipidemiaDiabetesChronic kidney diseaseBenign prostatic hypertrophyAortic stenosis * HPI: C OVID-19 Screening: Questions H ave you experienced fever, chills, cough, sore throat, shortness of breath, difficulty breathing, muscle aches, loss of taste or smell? N o H ave you been exposed to the virus within the last 10 days? N o H ave you travelled internationally in the last 10 days? N o H ave you been exposed to COVID-19 in the past? N o He returns for a scheduled visit to manage his numerous medical issues. He recently had an aortic valve replacement during a coronary artery bypass procedure at [facility] 2023. He then recovered at [facility]. He has returned to normal life and feels well. He denies any shortness of breath with exertion or chest pain. He is sleeping well and his appetite is good. He has been compliant with all of his medications. He rises from sleep twice a night to urinate. His blood pressure is well controlled. He was in a regular rhythm today. * ROS: G eneral/Constitutional: pain o nly normal aches and pains. C hills d enies.?Fatigue a dmits. F ever d enies. E NT: Decreased hearing i n both ears. R espiratory: Cough d enies. C ardiovascular: Chest pain with exertion d enies. D yspnea on exertion?denies. S hortness of breath d enies. G astrointestinal: Constipation o ccasional. D ecreased appetite d enies. D iarrhea d enies. H eartburn d enies. N ausea d enies. R ectal bleeding d enies. V omiting d enies. H ematology: bruising d enies. p etechiae d enies. S wollen glands n one have been noted. G enitourinary: Frequent urination t wice a night. M usculoskeletal: Muscle aches d enies. P ainful joints d enies. S ciatica d enies. W eakness d enies. S kin: Itching d enies. R johanne d enies. S kin lesion(s)?denies. N eurologic: Difficulty speaking d enies. D izziness d enies.?Headache d enies. L ow back pain d enies. P sychiatric: Depressed mood d enies. * Medical History: * Surgical History: n one two bypass and heart valve replacement 2023 * Hospitalization/Major Diagno stic Procedure: [facility] kidney stone, afib with RVR 10/24/2017heart valve replacement and bypass 2023 * Family History: F ather: 85 yrs, lung cancer, Heart problems, diagnosed with CVD, Cancer. M other: 86 yrs. S iblings: , Parkinsons. 2 brother(s) - healthy. . Oldest brother had bone cancer. * Social History: T obacco Use: T obacco Use/Smoking P atient is a n onsmoker A dditional Findings: Tobacco Non-User A ggressive non-smoker H e does not smoke or drink. He is retired. He lives alone and [place], [place]. He is independent cares for himself. * Medications: T akingdilTIAZem HCl ER Coated Beads 120 MG Capsule Extended Release 24 Hour TAKE 1 CAPSULE BY MOUTH EVERY DAY PT DOSENT LIKE BEADS One Touch Delica Lancets as directed - once a dayOneTouch Verio - Strip as directed In Vitro Oce a day, Notes: E11.22 Type 2 DiabetesLisinopril 5 MG Tablet 1 tablet Orally Once a dayMultivitamin Lancets 30G - Miscellaneous as directed Check blood sugar once a dayMetoprolol Tartrate 50 MG Tablet 1 tablet with food Orally Twice a daymetFORMIN HCl 500 MG Tablet TAKE 1 TABLET BY MOUTH TWICE A DAY Eliquis 5 MG Tablet TAKE 1 TABLET BY MOUTH EVERY 12 HOURS Taking dilTIAZem HCl ER Coated Beads 120 MG Capsule Extended Release 24 Hour TAKE 1 CAPSULE BY MOUTH EVERY DAY PT DOSENT LIKE BEADS Taking One Touch Delica Lancets as directed - once a dayTaking OneTouch Verio - Strip as directed In Vitro Oce a day, Notes: E11.22 Type 2 DiabetesTaking Lisinopril 5 MG Tablet 1 tablet Orally Once a dayTaking Multivitamin Taking Lancets 30G - Miscellaneous as directed Check blood sugar once a dayTaking Metoprolol Tartrate 50 MG Tablet 1 tablet with food Orally Twice a dayTaking metFORMIN HCl 500 MG Tablet TAKE 1 TABLET BY MOUTH TWICE A DAY Taking Eliquis 5 MG Tablet TAKE 1 TABLET BY MOUTH EVERY 12 HOURS DiscontinuedCiprofloxacin HCl 0.3 % Solution as directed Ophthalmic Medication List reviewed and reconciled with the patientDiscontinued Ciprofloxacin HCl 0.3 % Solution as directed Ophthalmic Medication List reviewed and reconciled with the patient * Allergies: a vinicius content foodsPenicillinno[Allergies Verified] Objective: * Vitals: H t: 71, Wt:183, BMI:25.52, BP:138/74, HR:75, Temp:98.1, Wt-k.01. * P ast Orders: Lab:Prostate Specific Antige n * Order Date 10/13/2023 07/28/2023 07/22/2022 Prostate Specific Antigen 0.59 (Ref Range: <0.05-4.0 ng/mL) 0.67 (Ref Range: <0.05-4.0 ng/mL) 0.69 (Ref Range: <0.05-4.0 ng/mL) * Lab:Lipid Panel * Order Date 10/13/2023 07/28/2023 01/20/2023 Triglycerides 63 (Ref Range: <150 mg/dL) 71 (Ref Range: <150 mg/dL) 84 (Ref Range: <150 mg/dL) Cholesterol 110 (Ref Range: <200 mg/dL) 107 (Ref Range: <200 mg/dL) 169 (Ref Range: <200 mg/dL) LDL Cholesterol Calculated 44 (Ref Range: <100 mg/dL) 37 (Ref Range: <100 mg/dL) 98 (Ref Range: <100 mg/dL) HDL Cholesterol 54 (Ref Range: >40 mg/dL) 56 (Ref Range: >40 mg/dL) 55 (Ref Range: >40 mg/dL) * Lab:Comprehensive [place]. Pane l Fast * Order Date 10/13/2023 07/28/2023 01/20/2023 Sodium 143 (Ref Range: 135-145 mmol/L) 139 (Ref Range: 135-145 mmol/L) 140 (Ref Range: 135-145 mmol/L) Bilirubin Total 0.6 (Ref Range: 0.0-1.0 mg/dL) 0.9 (Ref Range: 0.0-1.0 mg/dL) 0.7 (Ref Range: 0.0-1.0 mg/dL) Aspartate Amino Transferase 23 (Ref Range: 5-37 U/L) 20 (Ref Range: 5-37 U/L) 16 (Ref Range: 5-37 U/L) Alanine Aminotransferase 26 (Ref Range: 0-40 U/L) 33 (Ref Range: 0-40 U/L) 12 (Ref Range: 0-40 U/L) Total Protein 7.3 (Ref Range: 6.5-8.0 g/dL) 7.3 (Ref Range: 6.5-8.0 g/dL) 7.1 (Ref Range: 6.5-8.0 g/dL) Albumin Level 4.1 (Ref Range: 3.5-5.0 g/dL) 4.0 (Ref Range: 3.5-5.0 g/dL) 4.2 (Ref Range: 3.5-5.0 g/dL) Alkaline Phosphatase 84 (Ref Range: 39-117 U/L) 86 (Ref Range: 39-117 U/L) 58 (Ref Range: 39-117 U/L) Potassium 4.3 (Ref Range: 3.3-5.1 mmol/L) 4.1 (Ref Range: 3.3-5.1 mmol/L) 4.6 (Ref Range: 3.3-5.1 mmol/L) Chloride 107 (Ref Range: 96-108 mmol/L) 105 (Ref Range: 96-108 mmol/L) 104 (Ref Range: 96-108 mmol/L) Carbon Dioxide 28 (Ref Range: 22-29 mmol/L) 25 (Ref Range: 22-29 mmol/L) 26 (Ref Range: 22-29 mmol/L) Anion Gap 12 (Ref Range: 12-20) 13 (Ref Range: 12-20) 15 (Ref Range: 12-20) Blood Urea Nitrogen 20 H (Ref Range: 9-16 mg/dL) 17 H (Ref Range: 9-16 mg/dL) 15 (Ref Range: 9-16 mg/dL) Creatinine 0.97 (Ref Range: 0.5-1.4 mg/dL) 0.87 (Ref Range: 0.5-1.4 mg/dL) 0.99 (Ref Range: 0.5-1.4 mg/dL) Estimated Glomerular Filt Rate > 60 > 60 > 60 Glucose Fasting 118 H (Ref Range: 60-99 mg/dL) 101 H (Ref Range: 60-99 mg/dL) 113 H (Ref Range: 60-99 mg/dL) Calcium 9.7 (Ref Range: 8.4-10.2 mg/dL) 9.4 (Ref Range: 8.4-10.2 mg/dL) 9.5 (Ref Range: 8.4-10.2 mg/dL) * Lab:Complete Blood Count Aut o Diff * Order Date 10/13/2023 07/28/2023 01/20/2023 White Blood Count 5.9 (Ref Range: 4.8-10.8 X10*3/uL) 6.1 (Ref Range: 4.8-10.8 X10*3/uL) 5.1 (Ref Range: 4.8-10.8 X10*3/uL) Red Blood Count 4.68 (Ref Range: 4.60-5.80 X10*6/uL) 4.26 L (Ref Range: 4.60-5.80 X10*6/uL) 5.02 (Ref Range: 4.60-5.80 X10*6/uL) Hemoglobin 13.8 L (Ref Range: 14.0-18.0 g/dl) 12.8 L (Ref Range: 14.0-18.0 g/dl) 15.6 (Ref Range: 14.0-18.0 g/dl) Hematocrit 43.0 (Ref Range: 42.0-52.0 %) 40.0 L (Ref Range: 42.0-52.0 %) 46.6 (Ref Range: 42.0-52.0 %) Mean Corpuscular Volume 91.9 (Ref Range: 80.0-98.0 fL) 93.9 (Ref Range: 80.0-98.0 fL) 92.8 (Ref Range: 80.0-98.0 fL) Mean Corpuscular Hemoglobin 29.5 (Ref Range: 27.0-33.0 pg) 30.0 (Ref Range: 27.0-33.0 pg) 31.1 (Ref Range: 27.0-33.0 pg) Mean Corpuscular HGB Conc 32.1 (Ref Range: 31.0-36.0 g/dl) 32.0 (Ref Range: 31.0-36.0 g/dl) 33.5 (Ref Range: 31.0-36.0 g/dl) Red Cell Distribution Width 13.8 (Ref Range: 11.0-16.0 %) 13.8 (Ref Range: 11.0-16.0 %) 12.5 (Ref Range: 11.0-16.0 %) Platelet Count 207 (Ref Range: 160-400 X10*3/uL) 211 (Ref Range: 160-400 X10*3/uL) 206 (Ref Range: 160-400 X10*3/uL) Mean Platelet Volume 9.7 (Ref Range: 9.4-12.4 fL) 9.5 (Ref Range: 9.4-12.4 fL) 9.9 (Ref Range: 9.4-12.4 fL) Neutrophils Percent Auto 62.0 (Ref Range: 45-73 %) 71.2 (Ref Range: 45-73 %) 68.8 (Ref Range: 45-73 %) Imm Gran Pct Auto 0.3 (Ref Range: 0.0-0.4 %) 0.5 H (Ref Range: 0.0-0.4 %) 0.4 (Ref Range: 0.0-0.4 %) Lymphocytes Percent Auto 14.6 L (Ref Range: 20-40 %) 8.4 L (Ref Range: 20-40 %) 14.0 L (Ref Range: 20-40 %) Monocytes Percent Auto 11.1 H (Ref Range: 2-11 %) 11.2 H (Ref Range: 2-11 %) 11.1 H (Ref Range: 2-11 %) Eosinophils Percent Auto 11.3 H (Ref Range: 0-4 %) 8.2 H (Ref Range: 0-4 %) 4.9 H (Ref Range: 0-4 %) Basophils Percent Auto 0.7 (Ref Range: 0-2 %) 0.5 (Ref Range: 0-2 %) 0.8 (Ref Range: 0-2 %) NRBC Pct Auto 0.0 (Ref Range: 0.0-0.2 /100WBC) 0.0 (Ref Range: 0.0-0.2 /100WBC) 0.0 (Ref Range: 0.0-0.2 /100WBC) Neutrophils Absolute Auto 3.7 (Ref Range: 2.0-8.3 x10*3/uL) 4.3 (Ref Range: 2.0-8.3 x10*3/uL) 3.5 (Ref Range: 2.0-8.3 x10*3/uL) Imm Gran Abs Auto 0.02 (Ref Range: 0.00-0.03 X10*3/uL) 0.03 (Ref Range: 0.00-0.03 X10*3/uL) 0.02 (Ref Range: 0.00-0.03 X10*3/uL) Lymphocytes Absolute Auto 0.9 L (Ref Range: 1.2-4.9 X10*3/uL) 0.5 L (Ref Range: 1.2-4.9 X10*3/uL) 0.7 L (Ref Range: 1.2-4.9 X10*3/uL) Monocytes Absolute Auto 0.7 (Ref Range: 0.1-1.2 X10*3/uL) 0.7 (Ref Range: 0.1-1.2 X10*3/uL) 0.6 (Ref Range: 0.1-1.2 X10*3/uL) Eosinophils Absolute Auto 0.7 H (Ref Range: 0.0-0.4 X10*3/uL) 0.5 H (Ref Range: 0.0-0.4 X10*3/uL) 0.3 (Ref Range: 0.0-0.4 X10*3/uL) Basophils Absolute Auto 0.0 (Ref Range: 0.0-0.2 X10*3/uL) 0.0 (Ref Range: 0.0-0.2 X10*3/uL) 0.0 (Ref Range: 0.0-0.2 X10*3/uL) NRBC Abs Auto 0.000 (Ref Range: 0.0-0.012 X10*3/uL) 0.000 (Ref Range: 0.0-0.012 X10*3/uL) 0.000 (Ref Range: 0.0-0.012 X10*3/uL) * Lab:URINE DIP STICK * Order Date 08/23/2023 07/29/2022 01/22/2018 SG 1.015 (Ref Range: 1.005 - 1.025) 1.020 (Ref Range: 1.005 - 1.025) 1.030 pH 5.0 (Ref Range: 5.0 - 9.0) 5.0 (Ref Range: 5.0 - 9.0) 5 JUAN J neg (Ref Range: Negative -) Neg (Ref Range: Negative -) neg NIT neg (Ref Range: Negative -) Neg (Ref Range: Negative -) neg PRO trace (Ref Range: Negative - Trace) Neg (Ref Range: Negative - Trace) neg GLU neg (Ref Range: Negative -) Neg (Ref Range: Negative -) 100 KET neg (Ref Range: Negative -) Neg (Ref Range: Negative -) neg UBG 0.2 (Ref Range: 0.1 - 1.8) 0.2 (Ref Range: 0.1 - 1.8) neg LETICIA neg (Ref Range: 0.2 - 1.3) Neg (Ref Range: 0.2 - 1.3) neg BLD neg (Ref Range: Negative -) Neg (Ref Range: Negative -) neg Menstrating N/A N/A n/a * Examination: G eneral Examination: GENERAL APPEARANCE: p leasant, well nourished, well developed, in no acute distress, calm and relaxed , overweight , elderly man. HEAD: a traumatic, normocephalic. EYES: e bridger, perrla, anicteric, conjugate. EARS: n ormal. NOSE: s eptum intact. ORAL CAVITY: n ormal, unremarkable. NECK/THYROID: n o jugular venous distention, no carotid bruit, thyroid normal. LYMPH NODES: n o enlarged lymph nodes,spleen normal. SKIN: n o suspicious lesions, anicteric. HEART: n o clicks, gallops, murmurs, or rubs, regular rhythm, S1, S2 normal, no s3, or vascular bruits, Recent medians sternotomy incision which is well-healed. LUNGS: c lear to auscultation . BREASTS: no masses palpable bilaterally. ABDOMEN: b owel sounds normal, no ascites, no organomegaly, no mass , overweight. RECTAL EXAM: n ot examined. MUSCULOSKELETAL: e xtremities unremarkable, no clubbing, cyanosis or edema. PERIPHERAL PULSES: n ormal. NEUROLOGIC: a lert and oriented, cranial nerves 2-12 grossly intact, deep tendon reflexes 2+ symmetrical, motor strength normal upper and lower extremities, sensory exam intact. PSYCH: a lert, oriented. Assessment: * Assessment: 1. E ssential hypertension - I10 (Primary), His blood pressure today is 138/74. We discussed his sodium intake. We advised aggressive sodium restriction. We advised regular exercise on a routine follow-up in their future. 2 . C hronic atrial fibrillation - I48.2, He was in a regular rhythm today. He has had no symptoms of ischemia. He is not short of breath. 3 . A nticoagulated - Z79.01, No bleeding has occurred. He is compliant with his medication. 4 . N ephrolithiasis - N20.0, He has had no episodes of renal colic or hematuria recently. 5 . M ixed hyperlipidemia - E78.2, His lipids are in near target range and stable. No change in his regimen was necessary. 6 . B enign prostatic hyperplasia, unspecified whether lower urinary tract symptoms present - N40.0, We have discussed lifestyle modification as a way of reducing nocturia. 7 . C hronic kidney disease, stage II (mild) - N18.2, His renal function is stable. No change in his regimen was 8 . 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 He is compliant with all of his medications. 9. A ortic stenosis, moderate - I35.0, His aortic valve was successfully replaced during the coronary artery bypass procedure. He is doing well at this time. 1 0. A rteriosclerotic coronary artery disease - I25.10, He underwent coronary artery bypass surgery in June 2023 with excellent results. He has been free of angina. 1 1. O verweight - E66.3, He is slightly overweight with a body mass index of 25.1. We have reviewed his weight loss strategy. Plan: * Treatment: 2. O thers Continue Eliquis Tablet, 5 MG, TAKE 1 TABLET BY MOUTH EVERY 12 HOURS; C ontinue metFORMIN HCl Tablet, 500 MG, TAKE 1 TABLET BY MOUTH TWICE A DAY; C ontinue dilTIAZem HCl ER Coated Beads Capsule Extended Release 24 Hour, 120 MG, TAKE 1 CAPSULE BY MOUTH EVERY DAY PT DOSENT LIKE BEADS; C ontinue OneTouch Verio Strip, -, as directed, In Vitro, Oce a day, Notes: E11.22 Type 2 Diabetes.? * Procedure Codes: * Preventive Medicine: Counseling: C are goal follow-up plan: Counseling for abnormal BMI given Y es Above Normal BMI Follow-up D ietary management education, guidance, and counseling, Dietary needs education, Exercise promotion: strength training, Exercise promotion: stretching, Feeding regime, Giving encouragement to exercise, Lifestyle education regarding diet, Nutrition / feeding management, Nutrition therapy, Prescribed activity/exercise education, Prescribed diet education, Prescribed dietary intake, Special diet education, Weight monitoring , Intervention, Order not done: Medical or Other reason not done * Follow Up: 2 Months (Reason: OV) * Images: * Sign off status: Completed true * Provider: Kelly Justin MD Date: 0 10/18/2023 Generated for Savita de la vega/Raimundo/eTransmitting on: 1 05/29/2024 08:36 AM EST History and Physical Notes * HPI (History of Present Illness) Category Sub-Category Detail Notes COVID-19 Screening Questions Have you had any new onset fever, chills, cough, congestion, sore throat, shortness of breath, muscle aches?: No Have you been exposed to the virus withi n the last 10 days?: No Have you travelled internationally in e last 10 days?: No Have you been exposed to COVID-19 in the past?: No Examination Category Sub-Category Detail Notes General Examination GENERAL APPEARANCE: pleasant , well nourished, well developed, in no acute distress, calm and relaxed , overweight , elderly man HEAD: atraumatic, normocep halic EYES: eomi, perrla, anicte lillian, conjugate EARS: normal NOSE: septum intact NECK/THYROID: no jugular venous di stention, no carotid bruit, thyroid normal HEART: no clicks, gallops, murmurs, or rubs, regular rhythm, S1, S2 normal, no s3, or vascular bruits, Recent medians sternotomy incision which is well-healed LUNGS: clear to auscultatio n ABDOMEN: bowel sounds normal, no ascites, no organomegaly, no mass , overweight NEUROLOGIC: alert and oriented, cranial nerves 2-12 grossly intact, deep tendon reflexes 2+ symmetrical, motor strength normal upper and lower extremities, sensory exam intact SKIN: no suspicious lesion s, anicteric PERIPHERAL PULSES: normal BREASTS: no masses palpable b ilaterally MUSCULOSKELETAL: extremities unremark able, no clubbing, cyanosis or edema LYMPH NODES: no enlarged lymph no aman,spleen normal RECTAL EXAM: not examined PSYCH: alert, oriented ORAL CAVITY: normal, unremarkable
--- OUTSIDE RECORDS SUMMARY | 2023-12-18 09:00 | XMS_ITS ---
Author Organization Mitchell Justin III, MD Address [address] [place] [address] Care Team Providers [facility] Name Role Phone Dr. Mitchell Justin III Primary Care Provider Allergies Allergen (clinical drug ingredient) Drug/Non Drug Allergy documented on EMR Reaction Allergy Type Onset Date Status Penicillin Unknown Drug Allergy Active acid content foods (uncoded) Unknown Allergy Active REASON FOR VISIT Diabetes, Atrial fibrillation, Coagulation, Benign prostatic hypertrophy, Hyperlipidemia, Hypertension, Coronary artery disease, Repaired Aortic stenosis Medications Medication SIG (Take, Route, Frequency, Duration) Notes Start Date End Date Status Lancets 30G - as directed Check bl ood sugar once a day Active Metoprolol Tartrate 50 MG 1 tablet with food Orally Twice a day Active dilTIAZem HCl 120 MG as directed Orally once a day Active Baby Aspirin Active One Touch Delica Lancets as directed - once a day 01/04/2021 Active Lisinopril 5 MG 1 tablet Orally Once a day Active Multivitamin Active metFORMIN HCl 500 MG TAKE 1 TABLET BY MO UTH TWICE A DAY Active dilTIAZem HCl ER Coated Beads 120 MG TAKE 1 CAPSULE BY MOUTH EVERY DAY PT DOSENT LIKE BEADS Active OneTouch Verio - as directed In Vitro test blood sugar once a day Active Eliquis 5 MG TAKE 1 TABLET BY JOSE M TH EVERY 12 HOURS Active Social History Tobacco Use: Social History Observation Description Date Details (start date - stop date) Never Smoker NA - NA Sex Assigned At : Social History Observation Description Sex Assigned At Male Tobacco Use/Smoking Question Answer Notes Patient is a nonsmoker Additional Findings: Tobacco Non-User Aggressive non-smoker Vital Signs Temperature 97.1 degrees Fahrenheit 12/18/19 24 Blood pressure systolic 131 mm Hg 12/18/19 24 Blood pressure diastolic 70 mm Hg 024 Heart Rate 69 /min 12/18/2023 Height 71 in 12/18/2023 Weight 185 lbs 12/18/2023 BMI 25.80 kg/m2 12/18/2023 Encounters Encounter Location Date Provider Diagnosis Mitchell Justin III, MD [address] [place] [address] [place] [address] 12/18/2023 Mitchell Justin Essential hypertensi on I10 ; Mixed hyperlipidemia E78.2 ; Overweight E66.3 ; Chronic kidney disease, stage II (mild) N18.2 ; Anticoagulated Z79.01 ; Type 2 diabetes mellitus with diabetic chronic kidney disease E11.22 ; Benign prostatic hyperplasia, unspecified whether lower urinary tract symptoms present N40.0 ; Chronic atrial fibrillation I48.2 and Aortic stenosis, moderate I35.0 Assessments Encounter Date Diagnosis (ICD Code) Assessment Notes Treat ment Notes Treatment Clinical Notes 12/18/2023 Essential hypertension (ICD-10 - I10) His blood pressure today is 131/70. We discussed his sodium intake. We advised aggressive sodium restriction. We advised regular exercise on a routine follow-up in their future. 12/18/2023 Mixed hyperlipidemia (ICD-10 - E78.2) His lipids are currently in near target range and he has been compliant with his medications 12/18/2023 Overweight (ICD-10 - E66.3) He has very slightly overweight. I recommended he stabilize his weight at this level and continue to consume a healthy Mediterranean low-sodium diet. 12/18/2023 Chronic kidney disease, stage II (mild) (ICD-10 - N18.2) His renal function is stable. No change in his regimen was 12/18/2023 Anticoagulated (ICD-10 - Z79.01) No bleeding has occurred. He is compliant with his medication. 12/18/2023 Type 2 diabetes mellitus with diabetic chronic kidney disease (ICD-10 - E11.22) His diabetes will be monitored to keep the A1c 7.0 or lower. He is compliant with all of his medications. 12/18/2023 Benign prostatic hyperplasia, unspecified whether lower urinary tract symptoms present (ICD-10 - N40.0) We have discussed lifestyle modification as a way of reducing nocturia. 12/18/2023 Chronic atrial fibrillation (ICD-10 - I48.2) He was in a regular rhythm today. He has had no symptoms of ischemia. He is not short of breath. 12/18/2023 Aortic stenosis, moderate (ICD-10 - I35.0) His aortic valve was successfully replaced during the coronary artery bypass procedure. He is doing well at this time. Plan Of Treatment Medication Medication Name Sig Start Date Stop Date Notes Lancets 30G - as directed Check bl ood sugar once a day Metoprolol Tartrate 50 MG 1 tablet with food Orally Twice a day dilTIAZem HCl 120 MG as directed Orally once a day Baby Aspirin One Touch Delica Lancets as directed - once a day 01/05/20 21 Lisinopril 5 MG 1 tablet Orally Once a day Multivitamin metFORMIN HCl 500 MG TAKE 1 TABLET BY MO UTH TWICE A DAY dilTIAZem HCl ER Coated Bead s 120 MG TAKE 1 CAPSULE BY MOUTH EVERY DAY PT DOSENT LIKE BEADS OneTouch Verio - as directed In Vitro test blood sugar once a day Eliquis 5 MG TAKE 1 TABLET BY JOSE M TH EVERY 12 HOURS Pending Test Test Name Order Date PROFILE, FASTING (COMPREHENSIVE METABOLI C) 12/18/2023 CBC WITH AUTO DIFF 12/18/2023 Lipid Panel 12/18/2023 Next Appt Details Follow Up: 3 Months, Reason: OV Provider Name:Mitchell Justin , 08/29/2025 03:00:00 PM, [address] [place] [address], [address], Progress Notes * Bevrely MOOREhDOB:1940 (83 yo M)Acc No.[id number]:12/18/2023 Progress Notes Patient: Kwan Longoria Provider: Kelly Justin MD :1940 A ge:83 Y S ex:Male Date:12/18/2023 Address:[address] [place] [address] [id number] Subjective: * Chief Complaints: * D iabetesAtrial fibrillationCoagulationBenign prostatic hypertrophyHyperlipidemiaHypertensionCoronary artery diseaseRepaired Aortic stenosis * HPI: C OVID-19 Screening: In June 2023 he presented to [facility] emergency room with chest pain and rapid atrial fibrillation. He was transferred to [facility] where he underwent aortic valve replacement for aortic stenosis and coronary artery bypass surgery. He has been free of chest pain ever since. Since his last visit he has had no kidney stone. The pain in his ears has resolved. He rises from sleep once or twice a night to urinate. We have discussed lifestyle modifications he could make to reduce the nocturia. He was in a regular sinus rhythm today. Questions H ave you experienced fever, chills, cough, sore throat, shortness of breath, difficulty breathing, muscle aches, loss of taste or smell? N o H ave you been exposed to the virus within the last 10 days? N o H ave you travelled internationally in the last 10 days? N o H ave you been exposed to COVID-19 in the past? N o * ROS: G eneral/Constitutional: pain o nly normal aches and pains. C hills d enies.?Fatigue a dmits. F ever d enies. E NT: Decreased hearing m ild. R espiratory: Cough d enies. C ardiovascular: [...] yrs, lung cancer, Heart problems, diagnosed with Cancer, CVD. M other: 86 yrs. S iblings: , Parkinsons. 2 brother(s) - healthy. . Oldest brother had bone cancer. * Social History: T obacco Use: T obacco Use/Smoking P atient is a n onsmoker A dditional Findings: Tobacco Non-User A ggressive non-smoker H e does not smoke or drink. He is retired. He lives alone and [place], [place]. He is independent cares for himself. * Medications: T akingdilTIAZem HCl 120 MG Tablet as directed Orally once a dayBaby Aspirin Eliquis 5 MG Tablet TAKE 1 TABLET BY MOUTH EVERY 12 HOURS metFORMIN HCl 500 MG Tablet TAKE 1 TABLET BY MOUTH TWICE A DAY One Touch Delica Lancets as directed - once a dayLisinopril 5 MG Tablet 1 tablet Orally Once a dayMultivitamin Lancets 30G - Miscellaneous as directed Check blood sugar once a dayMetoprolol Tartrate 50 MG Tablet 1 tablet with food Orally Twice a dayOneTouch Verio - Strip as directed In Vitro test blood sugar once a dayTaking dilTIAZem HCl 120 MG Tablet as directed Orally once a dayTaking Baby Aspirin Taking Eliquis 5 MG Tablet TAKE 1 TABLET BY MOUTH EVERY 12 HOURS Taking metFORMIN HCl 500 MG Tablet TAKE 1 TABLET BY MOUTH TWICE A DAY Taking One Touch Delica Lancets as directed - once a dayTaking Lisinopril 5 MG Tablet 1 tablet Orally Once a dayTaking Multivitamin Taking Lancets 30G - Miscellaneous as directed Check blood sugar once a dayTaking Metoprolol Tartrate 50 MG Tablet 1 tablet with food Orally Twice a dayTaking OneTouch Verio - Strip as directed In Vitro test blood sugar once a dayDiscontinueddilTIAZem HCl ER Coated Beads 120 MG Capsule Extended Release 24 Hour TAKE 1 CAPSULE BY MOUTH EVERY DAY PT DOSENT LIKE BEADS Medication List reviewed and reconciled with the patientDiscontinued dilTIAZem HCl ER Coated Beads 120 MG Capsule Extended Release 24 Hour TAKE 1 CAPSULE BY MOUTH EVERY DAY PT DOSENT LIKE BEADS Medication List reviewed and reconciled with the patient * Allergies: a vinicius content foodsPenicillinno[Allergies Verified] Objective: * Vitals: H t: 71, Wt:185, BMI:25.80, BP:131/70, HR:69, Temp:97.1. * P ast Orders: Lab:Lipid Panel * Order Date 10/13/2023 07/28/2023 [...] 55 (Ref Range: >40 mg/dL) * Lab:Comprehensive [place]. Pane l Fast * Order Date 10/13/2023 [...] X10*3/uL) 0.000 (Ref Range: 0.0-0.012 X10*3/uL) * Lab:Prostate Specific Antige n * Order Date 10/13/2023 07/28/2023 07/22/2022 Prostate Specific Antigen 0.59 (Ref Range: <0.05-4.0 ng/mL) 0.67 (Ref Range: <0.05-4.0 ng/mL) 0.69 (Ref Range: <0.05-4.0 ng/mL) * Examination: G eneral Examination: GENERAL APPEARANCE: p leasant, well nourished, well developed, in no acute distress, calm and relaxed , overweight, elderly man. HEAD: a traumatic, normocephalic. EYES: e bridger, perrla, anicteric, conjugate. EARS: n ormal. NOSE: s eptum intact. ORAL CAVITY: n ormal, unremarkable, Edentulous maxilla.? NECK/THYROID: n o jugular venous distention, no carotid bruit, thyroid normal. LYMPH NODES: n o enlarged lymph nodes,spleen normal. SKIN: n o suspicious lesions, anicteric. HEART: n o clicks, gallops, murmurs, or rubs, regular rhythm, S1, S2 normal, no s3, or vascular bruits. LUNGS: c lear to auscultation . BREASTS: [...] extremities, sensory exam intact. PSYCH: a lert, oriented , thought process logical, goal directed , speech clear , cognitive function intact. Assessment: * Assessment: 1. E ssential hypertension - I10 (Primary), His blood pressure today is 131/70. We discussed his sodium intake. We advised aggressive sodium restriction. We advised regular exercise on a routine follow-up in their future. 2 . M ixed hyperlipidemia - E78.2, His lipids are currently in near target range and he has been compliant with his medications 3 . O verweight - E66.3, He has very slightly overweight. I recommended he stabilize his weight at this level and continue to consume a healthy Mediterranean low-sodium diet. 4 . C hronic kidney disease, stage II (mild) - N18.2, His renal function is stable. No change in his regimen was 5 . A nticoagulated - Z79.01, No bleeding has occurred. He is compliant with his medication. 6 . 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 He is compliant with all of his medications. 7 . B enign prostatic hyperplasia, unspecified whether lower urinary tract symptoms present - N40.0, We have discussed lifestyle modification as a way of reducing nocturia. 8 . C hronic atrial fibrillation - I48.2, He was in a regular rhythm today. He has had no symptoms of ischemia. He is not short of breath. 9 . A ortic stenosis, moderate - I35.0, His aortic valve was successfully replaced during the coronary artery bypass procedure. He is doing well at this time. Plan: * Treatment: 2. M ixed hyperlipidemia L AB: PROFILE, FASTING (COMPREHENSIVE METABOLIC) L AB: CBC WITH AUTO DIFF L AB: Lipid Panel 3. O verweight L AB: PROFILE, FASTING (COMPREHENSIVE METABOLIC) L AB: CBC WITH AUTO DIFF L AB: Lipid Panel 4. O thers Continue OneTouch Verio Strip, -, as directed, In Vitro, test blood sugar once a day; C ontinue Eliquis Tablet, 5 MG, TAKE 1 TABLET BY MOUTH EVERY 12 HOURS; C ontinue metFORMIN HCl Tablet, 500 MG, TAKE 1 TABLET BY MOUTH TWICE A DAY; C ontinue dilTIAZem HCl ER Coated Beads Capsule Extended Release 24 Hour, 120 MG, TAKE 1 CAPSULE BY MOUTH EVERY DAY PT DOSENT LIKE BEADS. * Procedure Codes: * Preventive Medicine: Counseling: C are goal follow-up plan: Counseling for abnormal BMI given Y es Above Normal BMI Follow-up D ietary management education, guidance, and counseling DM Care Plan: P atient Lifestyle Goals P atient wants to be able to manage diabetes without too much effort. T reatment Goals B lood Sugars less than < 115, HbA1C < 7.0. B arriers n o barriers. S elf-Managment Goals W ork on weight loss, with a goal of losing 1 lb per week, Increase exercise to 3 times a week for 30 mins, Stop drinking juice and/or soda, replace with more water. * Follow Up: 3 Months (Reason: OV) * Images: * Sign off status: Completed true * Provider: Kelly Justin MD Date: 0 12/18/2023 Generated for Savita de la vega/Raimundo/Audreyitting on: 05/29/2024 08:37 AM EST History and Physical Notes * [...] no acute distress, calm and relaxed , overweight, elderly man HEAD: atraumatic, normocep halic EYES: eomi, perrla, anicte lillian, conjugate EARS: normal NOSE: septum intact NECK/THYROID: no jugular venous di stention, no carotid bruit, thyroid normal HEART: no clicks, gallops, murmurs, or rubs, regular rhythm, S1, S2 normal, no s3, or vascular bruits LUNGS: clear to auscultatio n ABDOMEN: bowel [...] RECTAL EXAM: not examined PSYCH: alert, oriented , ought process logical, goal directed , speech clear , cognitive function intact ORAL CAVITY: normal, unremarkable , Edentulous maxilla
--- OUTSIDE RECORDS SUMMARY | 2024-03-29 09:15 | XMS_ITS ---
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 Mitchell Justin III Primary Care Provider Allergies Allergen (clinical drug ingredient) Drug/Non Drug Allergy documented on EMR Reaction Allergy Type Onset Date Status Penicillin Unknown Drug Allergy Active acid content foods (uncoded) Unknown Allergy Active REASON FOR VISIT eczema left leg, Chronic atrial fibrillation, Anticoagulated, Hypertension, Diabetes, Benign prostatic hypertrophy, Chronic kidney disease Medications Medication SIG (Take, Route, Frequency, Duration) Notes Start Date End Date Status Lancets 30G - as directed Check bl ood sugar once a day Active Metoprolol Tartrate 50 MG 1 tablet with food Orally Twice a day Active Multivitamin Active dilTIAZem HCl 120 MG as directed Orally once a day Active Baby Aspirin Active Lisinopril 5 MG 1 tablet Orally Once a day Active dilTIAZem HCl ER Coated Beads 120 MG TAKE 1 CAPSULE BY MOUTH EVERY DAY PT DOSENT LIKE BEADS Active One Touch Delica Lancets as directed - once a day 01/04/2021 Active metFORMIN HCl 500 MG TAKE 1 TABLET BY MO UTH TWICE A DAY Active Eliquis 5 MG TAKE 1 TABLET BY JOSE M TH EVERY 12 HOURS Active OneTouch Verio - as directed In Vitro test blood sugar once a day Active Social History Tobacco Use: Social History Observation Description Date Details (start date - stop date) Never Smoker NA - NA Sex Assigned At : Social History Observation Description Sex Assigned At Male Tobacco Use/Smoking Question Answer Notes Patient is a nonsmoker Additional Findings: Tobacco Non-User Aggressive non-smoker Alcohol Screen Question Answer Notes Did you have a drink containing alcohol in the p ast year? No Points 0 Interpretation Negative Vital Signs Temperature 97.2 degrees Fahrenheit 03/29/20 24 Blood pressure systolic 134 mm Hg 03/29/20 24 Blood pressure diastolic 80 mm Hg 024 Heart Rate 80 /min 03/29/2024 Height 71 in 03/29/2024 Weight 185 lbs 03/29/2024 BMI 25.8 kg/m2 03/29/2024 Encounters Encounter Location Date Provider Diagnosis Mitchell Justin III, MD [address] [place] [address] [place] [address] 03/29/2024 Mitchell Justin Essential hypertensi on I10 ; Chronic atrial fibrillation I48.2 ; Type 2 diabetes mellitus with diabetic chronic kidney disease E11.22 ; Mixed hyperlipidemia E78.2 ; Benign prostatic hyperplasia, unspecified whether lower urinary tract symptoms present N40.0 ; Arteriosclerotic coronary artery disease I25.10 ; Aortic stenosis, moderate I35.0 ; Overweight E66.3 ; Chronic atrial fibrillation I48.20 and Anticoagulated Z79.01 Assessments Encounter Date Diagnosis (ICD Code) Assessment Notes T reatment Notes Treatment Clinical Notes 03/29/2024 Essential hypertensi on (ICD-10 - I10) His blood pressure today is 131/70. We discussed his sodium intake. We advised aggressive sodium restriction. We advised regular exercise on a routine follow-up in their future. 03/29/2024 Chronic atrial fibrillation (ICD-10 - I48.2) He was in a regular rhythm today. He has had no symptoms of ischemia. He is not short of breath. 03/29/2024 Type 2 diabetes mellitus with diabetic chronic kidney disease (ICD-10 - E11.22) He has been compliant with taking his medication. His fasting glucose is 127. A hemoglobin A1c has been ordered. No changes in his regimen were made. 03/29/2024 Mixed hyperlipidemia (ICD-10 - E78.2) The current fasting lipid profile shows good control of his lipids. He is tolerating his medication without side effects. No changes were needed. 03/29/2024 Benign prostatic hyperplasia, unspecified whether lower urinary tract symptoms present (ICD-10 - N40.0) He reports rising from sleep twice a night to urinate. We have discussed lifestyle modification as he could make to reduce nocturia. 03/29/2024 Arteriosclerotic coronary artery disease (ICD-10 - I25.10) He underwent coronary artery bypass surgery in June 2023 with excellent results. He has been free of angina. 03/29/2024 Aortic stenosis, moderate (ICD-10 - I35.0) His aortic valve was successfully replaced during the coronary artery bypass procedure. He is doing well at this time. 03/29/2024 Overweight (ICD-10 - E66.3) He has very slightly overweight. I recommended he stabilize his weight at this level and continue to consume a healthy Mediterranean low-sodium diet. 03/29/2024 Chronic atrial fibrillation (ICD-10 - I48.20) He was in a slow well controlled atrial fibrillation rhythm today which was asymptomatic. He remains anticoagulated without bleeding. No change in his regimen was needed. 03/29/2024 Anticoagulated (ICD- 10 - Z79.01) No bleeding has occurred. He is compliant with his medication. Plan Of Treatment Medication Medication Name Sig Start Date Stop Date Notes Lancets 30G - as directed Check bl ood sugar once a day Metoprolol Tartrate 50 MG 1 tablet with food Orally Twice a day Multivitamin dilTIAZem HCl 120 MG as directed Orally once a day Baby Aspirin Lisinopril 5 MG 1 tablet Orally Once a day dilTIAZem HCl ER Coated Bead s 120 MG TAKE 1 CAPSULE BY MOUTH EVERY DAY PT DOSENT LIKE BEADS One Touch Delica Lancets as directed - once a day 01/05/20 21 metFORMIN HCl 500 MG TAKE 1 TABLET BY MO UTH TWICE A DAY Eliquis 5 MG TAKE 1 TABLET BY JOSE M TH EVERY 12 HOURS OneTouch Verio - as directed In Vitro test blood sugar once a day Pending Test Test Name Order Date PROFILE, FASTING (COMPREHENSIVE METABOLI C) 03/29/2024 PSA, TOTAL 03/29/2024 CBC WITH AUTO DIFF 03/29/2024 Lipid Panel 03/29/2024 Next Appt Details Follow Up: As Scheduled, [facility] visit in August, Reason: OV, Annual Checkup Provider Name:Mitchell Justin , 08/29/2025 03:00:00 PM, [address] [place] [address] [facility] [place], [place], [address], Progress Notes * Courtney MOOREOB:1940 (83 yo M)Acc No.[id number]:03/29/2024 Progress Notes Patient: Kwan STUART Provider: Kelly Justin MD :1940 A ge:83 Y S ex:Male Date:03/29/2024 Address:[address] [place] [address] Pepe Bo, [id number] Subjective: * Chief Complaints: * E czema left legChronic atrial fibrillationAnticoagulatedHypertensionDiabetesBenign prostatic hypertrophyChronic kidney disease * HPI: C OVID-19 Screening: Questions H [...] COVID-19 in the past? N o * : The patient, an 83-year-old male, visited the [employer] on March 21 and underwent a test to check his arteries on March 12. The patient reported that the [employer] said everything was good. The doctor noted that the patient's pulse was regular and he was not in atrial fibrillation. The patient is currently on blood thinners, Eliquis, metformin, diltiazem, lisinopril, and metoprolol. The patient's aspirin was stopped by the [employer]. The patient's diabetes is reportedly under control. The patient reported that his breathing has been good and he has been active, doing yard work. The patient reported getting up two or three times a night to go to the bathroom. The patient has a rash on his leg, which he has been treating with bwfb-kzy-hundsiv eczema medication. Blood Sugar Level is 127. * ROS: G eneral/Constitutional: pain o nly [...] S kin: Itching d enies. R johanne L ateral lower left leg.?Skin lesion(s) d enies. N eurologic: Difficulty speaking d enies. D izziness d enies.?Headache d enies. L ow back pain d enies. P sychiatric: Depressed mood d enies. * Medical History: * Surgical History: n one two bypass and heart valve replacement 2023No history * Hospitalization/Major Diagno stic Procedure: H kidney stone, afib with RVR 10/24/2017heart valve replacement and bypass 2023No history * Family History: F ather: 85 yrs, lung cancer, Heart problems, diagnosed with Cancer, CVD. M other: 86 yrs. S iblings: , Parkinsons. 2 brother(s) - healthy. . Oldest brother had bone cancer. * Social History: T obacco Use: T obacco Use/Smoking P atient is a n onsmoker A dditional Findings: Tobacco Non-User A ggressive non-smoker D rugs/Alcohol: D rugs H ave you used drugs other than those for medical reasons in the past 12 months? N o Alcohol Screen D id you have a drink containing alcohol in the past year? N o P oints 0 I nterpretation N egative H e does not smoke or drink. He is retired. He lives alone and [place], [place]. He is independent cares for himself. Yard work: I'm working outside doing my yard work now. Sikh activities: I'm up early and and doing stuff at the [employer] again. * Medications: T akingOneTouch Verio - Strip as directed In Vitro test blood sugar once a day Eliquis 5 MG Tablet TAKE 1 TABLET BY MOUTH EVERY 12 HOURS metFORMIN HCl 500 MG Tablet TAKE 1 TABLET BY MOUTH TWICE A DAY dilTIAZem HCl ER Coated Beads 120 MG Capsule Extended Release 24 Hour TAKE 1 CAPSULE BY MOUTH EVERY DAY PT DOSENT LIKE BEADS One Touch Delica Lancets as directed - once a day Lisinopril 5 MG Tablet 1 tablet Orally Once a day Multivitamin Lancets 30G - Miscellaneous as directed Check blood sugar once a day Metoprolol Tartrate 50 MG Tablet 1 tablet with food Orally Twice a day dilTIAZem HCl 120 MG Tablet as directed Orally once a day Taking OneTouch Verio - Strip as directed In Vitro test blood sugar once a day Taking Eliquis 5 MG Tablet TAKE 1 TABLET BY MOUTH EVERY 12 HOURS Taking metFORMIN HCl 500 MG Tablet TAKE 1 TABLET BY MOUTH TWICE A DAY Taking dilTIAZem HCl ER Coated Beads 120 MG Capsule Extended Release 24 Hour TAKE 1 CAPSULE BY MOUTH EVERY DAY PT DOSENT LIKE BEADS Taking One Touch Delica Lancets as directed - once a day Taking Lisinopril 5 MG Tablet 1 tablet Orally Once a day Taking Multivitamin Taking Lancets 30G - Miscellaneous as directed Check blood sugar once a day Taking Metoprolol Tartrate 50 MG Tablet 1 tablet with food Orally Twice a day Taking dilTIAZem HCl 120 MG Tablet as directed Orally once a day DiscontinuedBaby Aspirin Medication List reviewed and reconciled with the patientDiscontinued Baby Aspirin Medication List reviewed and reconciled with the patient * Allergies: a vinicius content foodsPenicillinno[Allergies Verified] Objective: * Vitals: H t: 71, Wt:185, BMI:25.8, BP:134/80, HR:80, Temp:97.2, Wt-k.91. * P ast Orders: Lab:Complete Blood Count Aut o Diff * Collection Date 03/22/2024 10/13/2023 07/28/2023 Collection Time 06:11 AM 06:08 AM 06:08 AM Order Date 03/22/2024 10/13/2023 07/28/2023 White Blood Count 6.2 (Ref Range: 4.8-10.8 X10*3/uL) 5.9 (Ref Range: 4.8-10.8 X10*3/uL) 6.1 (Ref Range: 4.8-10.8 X10*3/uL) Red Blood Count 4.78 (Ref Range: 4.60-5.80 X10*6/uL) 4.68 (Ref Range: 4.60-5.80 X10*6/uL) 4.26 L (Ref Range: 4.60-5.80 X10*6/uL) Hemoglobin 14.4 (Ref Range: 14.0-18.0 g/dl) 13.8 L (Ref Range: 14.0-18.0 g/dl) 12.8 L (Ref Range: 14.0-18.0 g/dl) Hematocrit 44.0 (Ref Range: 42.0-52.0 %) 43.0 (Ref Range: 42.0-52.0 %) 40.0 L (Ref Range: 42.0-52.0 %) Mean Corpuscular Volume 92.1 (Ref Range: 80.0-98.0 fL) 91.9 (Ref Range: 80.0-98.0 fL) 93.9 (Ref Range: 80.0-98.0 fL) Mean Corpuscular Hemoglobin 30.1 (Ref Range: 27.0-33.0 pg) 29.5 (Ref Range: 27.0-33.0 pg) 30.0 (Ref Range: 27.0-33.0 pg) Mean Corpuscular HGB Conc 32.7 (Ref Range: 31.0-36.0 g/dl) 32.1 (Ref Range: 31.0-36.0 g/dl) 32.0 (Ref Range: 31.0-36.0 g/dl) Red Cell Distribution Width 12.9 (Ref Range: 11.0-16.0 %) 13.8 (Ref Range: 11.0-16.0 %) 13.8 (Ref Range: 11.0-16.0 %) Platelet Count 223 (Ref Range: 160-400 X10*3/uL) 207 (Ref Range: 160-400 X10*3/uL) 211 (Ref Range: 160-400 X10*3/uL) Mean Platelet Volume 9.7 (Ref Range: 9.4-12.4 fL) 9.7 (Ref Range: 9.4-12.4 fL) 9.5 (Ref Range: 9.4-12.4 fL) Neutrophils Percent Auto 67.5 (Ref Range: 45-73 %) 62.0 (Ref Range: 45-73 %) 71.2 (Ref Range: 45-73 %) Imm Gran Pct Auto 0.5 H (Ref Range: 0.0-0.4 %) 0.3 (Ref Range: 0.0-0.4 %) 0.5 H (Ref Range: 0.0-0.4 %) Lymphocytes Percent Auto 13.1 L (Ref Range: 20-40 %) 14.6 L (Ref Range: 20-40 %) 8.4 L (Ref Range: 20-40 %) Monocytes Percent Auto 11.4 H (Ref Range: 2-11 %) 11.1 H (Ref Range: 2-11 %) 11.2 H (Ref Range: 2-11 %) Eosinophils Percent Auto 7.0 H (Ref Range: 0-4 %) 11.3 H (Ref Range: 0-4 %) 8.2 H (Ref Range: 0-4 %) Basophils Percent Auto 0.5 (Ref Range: 0-2 %) 0.7 (Ref Range: 0-2 %) 0.5 (Ref Range: 0-2 %) NRBC Pct Auto 0.0 (Ref Range: 0.0-0.2 /100WBC) 0.0 (Ref Range: 0.0-0.2 /100WBC) 0.0 (Ref Range: 0.0-0.2 /100WBC) Neutrophils Absolute Auto 4.2 (Ref Range: 2.0-8.3 x10*3/uL) 3.7 (Ref Range: 2.0-8.3 x10*3/uL) 4.3 (Ref Range: 2.0-8.3 x10*3/uL) Imm Gran Abs Auto 0.03 (Ref Range: 0.00-0.03 X10*3/uL) 0.02 (Ref Range: 0.00-0.03 X10*3/uL) 0.03 (Ref Range: 0.00-0.03 X10*3/uL) Lymphocytes Absolute Auto 0.8 L (Ref Range: 1.2-4.9 X10*3/uL) 0.9 L (Ref Range: 1.2-4.9 X10*3/uL) 0.5 L (Ref Range: 1.2-4.9 X10*3/uL) Monocytes Absolute Auto 0.7 (Ref Range: 0.1-1.2 X10*3/uL) 0.7 (Ref Range: 0.1-1.2 X10*3/uL) 0.7 (Ref Range: 0.1-1.2 X10*3/uL) Eosinophils Absolute Auto 0.4 (Ref Range: 0.0-0.4 X10*3/uL) 0.7 H (Ref Range: 0.0-0.4 X10*3/uL) 0.5 H (Ref Range: 0.0-0.4 X10*3/uL) Basophils Absolute Auto 0.0 (Ref Range: 0.0-0.2 X10*3/uL) 0.0 (Ref Range: 0.0-0.2 X10*3/uL) 0.0 (Ref Range: 0.0-0.2 X10*3/uL) NRBC Abs Auto 0.000 (Ref Range: 0.0-0.012 X10*3/uL) 0.000 (Ref Range: 0.0-0.012 X10*3/uL) 0.000 (Ref Range: 0.0-0.012 X10*3/uL) * Lab:[facility] l Fast * Collection Date 03/22/2024 10/13/2023 07/28/2023 Collection Time 06:11 AM 06:08 AM 06:08 AM Order Date 03/22/2024 10/13/2023 07/28/2023 Sodium 138 (Ref Range: 135-145 mmol/L) 143 (Ref Range: 135-145 mmol/L) 139 (Ref Range: 135-145 mmol/L) Bilirubin Total 0.6 (Ref Range: 0.0-1.0 mg/dL) 0.6 (Ref Range: 0.0-1.0 mg/dL) 0.9 (Ref Range: 0.0-1.0 mg/dL) Aspartate Amino Transferase 34 (Ref Range: 5-37 U/L) 23 (Ref Range: 5-37 U/L) 20 (Ref Range: 5-37 U/L) Alanine Aminotransferase 39 (Ref Range: 0-40 U/L) 26 (Ref Range: 0-40 U/L) 33 (Ref Range: 0-40 U/L) Total Protein 7.1 (Ref Range: 6.5-8.0 g/dL) 7.3 (Ref Range: 6.5-8.0 g/dL) 7.3 (Ref Range: 6.5-8.0 g/dL) Albumin Level 4.0 (Ref Range: 3.5-5.0 g/dL) 4.1 (Ref Range: 3.5-5.0 g/dL) 4.0 (Ref Range: 3.5-5.0 g/dL) Alkaline Phosphatase 89 (Ref Range: 39-117 U/L) 84 (Ref Range: 39-117 U/L) 86 (Ref Range: 39-117 U/L) Potassium 4.2 (Ref Range: 3.3-5.1 mmol/L) 4.3 (Ref Range: 3.3-5.1 mmol/L) 4.1 (Ref Range: 3.3-5.1 mmol/L) Chloride 104 (Ref Range: 96-108 mmol/L) 107 (Ref Range: 96-108 mmol/L) 105 (Ref Range: 96-108 mmol/L) Carbon Dioxide 28 (Ref Range: 22-29 mmol/L) 28 (Ref Range: 22-29 mmol/L) 25 (Ref Range: 22-29 mmol/L) Anion Gap 10 L (Ref Range: 12-20) 12 (Ref Range: 12-20) 13 (Ref Range: 12-20) Blood Urea Nitrogen 14 (Ref Range: 9-16 mg/dL) 20 H (Ref Range: 9-16 mg/dL) 17 H (Ref Range: 9-16 mg/dL) Creatinine 0.89 (Ref Range: 0.5-1.4 mg/dL) 0.97 (Ref Range: 0.5-1.4 mg/dL) 0.87 (Ref Range: 0.5-1.4 mg/dL) Estimated Glomerular Filt Rate > 60 > 60 > 60 Glucose Fasting 127 H (Ref Range: 60-99 mg/dL) 118 H (Ref Range: 60-99 mg/dL) 101 H (Ref Range: 60-99 mg/dL) Calcium 9.0 (Ref Range: 8.4-10.2 mg/dL) 9.7 (Ref Range: 8.4-10.2 mg/dL) 9.4 (Ref Range: 8.4-10.2 mg/dL) * Lab:Lipid Panel * Collection Date 03/22/2024 10/13/2023 07/28/2023 Collection Time 06:11 AM 06:08 AM 06:08 AM Order Date 03/22/2024 10/13/2023 07/28/2023 Triglycerides 74 (Ref Range: <150 mg/dL) 63 (Ref Range: <150 mg/dL) 71 (Ref Range: <150 mg/dL) Cholesterol 106 (Ref Range: <200 mg/dL) 110 (Ref Range: <200 mg/dL) 107 (Ref Range: <200 mg/dL) LDL Cholesterol Calculated 43 (Ref Range: <100 mg/dL) 44 (Ref Range: <100 mg/dL) 37 (Ref Range: <100 mg/dL) HDL Cholesterol 49 (Ref Range: >40 mg/dL) 54 (Ref Range: >40 mg/dL) 56 (Ref Range: >40 mg/dL) * Examination: G eneral Examination: GENERAL APPEARANCE: p leasant, well nourished, well developed, in no acute distress, calm and relaxed, overweight, elderly man. HEAD: a traumatic, normocephalic. EYES: e bridger, perrla, anicteric, conjugate. EARS: n ormal. NOSE: s eptum intact. ORAL CAVITY: n ormal, unremarkable. NECK/THYROID: n o jugular venous distention, no carotid bruit, thyroid normal. LYMPH NODES: n o enlarged lymph nodes,spleen normal. SKIN: n o suspicious lesions, anicteric, Occasional purpura. HEART: n o clicks, gallops, murmurs, or rubs, irregular rhythm, S1, S2 normal, no s3, or vascular bruits. LUNGS: c lear to auscultation . BREASTS: no masses palpable bilaterally. ABDOMEN: b owel sounds normal, no ascites, no organomegaly, no mass. RECTAL EXAM: n ot examined. MUSCULOSKELETAL: e xtremities unremarkable, no clubbing, cyanosis or edema. PERIPHERAL PULSES: n ormal. NEUROLOGIC: a lert and oriented, cranial nerves 2-12 grossly intact, deep tendon reflexes 2+ symmetrical, motor strength normal upper and lower extremities, sensory exam intact. PSYCH: a lert, oriented. Assessment: * Assessment: 1. C hronic atrial fibrillation - I48.2 (Primary) N otes :He was in a regular rhythm today. He has had no symptoms of ischemia. He is not short of breath. 2 . E ssential hypertension - I10 N otes :His blood pressure today is 131/70. We discussed his sodium intake. We advised aggressive sodium restriction. We advised regular exercise on a routine follow- up in their future. 3 . 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 Notes :He has been compliant with taking his medication. His fasting glucose is 127. A hemoglobin A1c has been ordered. No changes in his regimen were made. 4 . M ixed hyperlipidemia - E78.2 N otes :The current fasting lipid profile shows good control of his lipids. He is tolerating his medication without side effects. No changes were needed. 5 . B enign prostatic hyperplasia, unspecified whether lower urinary tract symptoms present - N40.0 N otes :He reports rising from sleep twice a night to urinate. We have discussed lifestyle modification as he could make to reduce nocturia. 6 . A rteriosclerotic coronary artery disease - I25.10 N otes :He underwent coronary artery bypass surgery in June 2023 with excellent results. He has been free of angina. 7 . 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 He is doing well at this time. 8 . O verweight - E66.3 N otes :He has very slightly overweight. I recommended he stabilize his weight at this level and continue to consume a healthy Mediterranean low-sodium diet. 9 . C hronic atrial fibrillation - I48.20 N otes :He was in a slow well controlled atrial fibrillation rhythm today which was asymptomatic. He remains anticoagulated without bleeding. No change in his regimen was needed. 1 0. A nticoagulated - Z79.01 N otes :No bleeding has occurred. He is compliant with his medication. Plan: * Treatment: 2. T ype 2 diabetes mellitus with diabetic chronic kidney disease L AB: PROFILE, FASTING (COMPREHENSIVE METABOLIC) L AB: PSA, TOTAL L AB: CBC WITH AUTO DIFF L AB: Lipid Panel 3. M ixed hyperlipidemia L AB: PROFILE, FASTING (COMPREHENSIVE METABOLIC) L AB: PSA, TOTAL L AB: CBC WITH AUTO DIFF L AB: Lipid Panel 4. B enign prostatic hyperplasia, unspecified whether lower urinary tract symptoms present L AB: PROFILE, FASTING (COMPREHENSIVE METABOLIC) L AB: PSA, TOTAL L AB: CBC WITH AUTO DIFF L AB: Lipid Panel 5. O thers Continue OneTouch Verio Strip, -, [...] a goal of losing 1 lb per week. * Follow Up: A s Scheduled, Annual visit in August (Reason: OV, Annual Checkup) * Images: * Sign off status: Completed true * Provider: Kelly Justin MD Date: 05/29/2023 Generated for Tarai ng/Raimundo/eTransmitting on: 05/29/2024 08:37 AM EST History and Physical Notes * HPI (History of Present Illness) Category Sub-Category Detail Notes COVID-19 Screening Questions Have you had any new onset fever, chills, cough, congestion, sore throat, shortness of breath, muscle aches?: No Have you been exposed to the virus withi n the last 10 days?: No Have you travelled internationally in [facility] last 10 days?: No Have you been exposed to COVID-19 in the past?: No Examination Category Sub-Category Detail Notes General Examination GENERAL APPEARANCE: pleasant , well nourished, well developed, in no acute distress, calm and relaxed, overweight, elderly man HEAD: atraumatic, normocep halic EYES: eomi, perrla, anicte lillian, conjugate EARS: normal NOSE: septum intact NECK/THYROID: no jugular venous di stention, no carotid bruit, thyroid normal HEART: no clicks, gallops, murmurs, or rubs, irregular rhythm, S1, S2 normal, no s3, or vascular bruits LUNGS: clear to auscultatio n ABDOMEN: bowel sounds normal, no ascites, no organomegaly, no mass NEUROLOGIC: alert and oriented, cranial nerves 2-12 grossly intact, deep tendon reflexes 2+ symmetrical, motor strength normal upper and lower extremities, sensory exam intact SKIN: no suspicious lesion s, anicteric, Occasional purpura PERIPHERAL PULSES: normal BREASTS: no masses palpable b ilaterally MUSCULOSKELETAL: extremities unremark able, no clubbing, cyanosis or edema LYMPH NODES: no enlarged lymph no aman,spleen normal RECTAL EXAM: not examined PSYCH: alert, oriented ORAL CAVITY: normal, unremarkable
--- OUTSIDE RECORDS SUMMARY | 2024-08-27 10:00 | XMS_ITS ---
Author Organization Mitchell Justin III, MD Address [address] [place] [address] Care Team Providers Care Artist Scientific Name Role Phone Dr. Mitchell Justin III Primary Care Provider [phone] Allergies Allergen (clinical drug ingredient) Drug/Non Drug Allergy documented on EMR Reaction Allergy Type Onset Date Status Penicillin Unknown Drug Allergy Active acid content foods (uncoded) Unknown Allergy Active Results Component Value Reference Range Notes URINE DIP STICK Reviewed date:08/27/2024 03:32:08 PM Interpretation:bakari Performing Lab: Notes/Report: bakari SG 1.000 1.005 - 1.025 pH 5.0 5.0 - 9.0 JUAN J neg Negative - NIT neg Negative - PRO trace Negative - Trace GLU 100 Negative - KET neg Negative - UBG 0.2 0.1 - 1.8 LETICIA neg 0.2 - 1.3 BLD neg Negative - Menstrating n/a Reason For Referral Reason Consult and Treat Diabetic Eye Exam Diagnosis 1 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) Referral Organization Mitchell Justin III, MD Referring Provider First Name Mitchell Referring Provider Last Name Margoth Referring Provider Speciality Internal M edicine Referred Provider Eye and Daylin Jorgensen Referred Provider Specialty Ophthalmolog y General Notes Carina Jack 09/02/2024 11:11:25 AM > Referral faxed with Progress note.Marcie Amber 09/02/2024 04:36:01 PM > Patient is scheduled for 09/12/2024 @ 1:00pm Referral Priority Routine Referral Appointment Date 09/12/2024 REASON FOR VISIT Annual Exam Medications Medication SIG (Take, Route, Frequency, Duration) Notes Start Date End Date Status Multivitamin Active Lisinopril 5 MG 1 tablet Orally Once a day Active dilTIAZem HCl 120 MG as directed Orally once a day Active Metoprolol Tartrate 50 MG 1 tablet with food Orally Twice a day Active Lancets 30G - as directed Check bl ood sugar once a day Active metFORMIN HCl 500 MG 1 tablet with a mickey l Orally twice a day Active OneTouch Verio - as directed In Vitro test blood sugar once a day Active One Touch Delica Lancets - once a day Active dilTIAZem HCl ER Coated Beads 120 MG TAKE 1 CAPSULE BY MOUTH EVERY DAY PT DOSENT LIKE BEADS Active Eliquis 5 MG TAKE 1 TABLET BY JOSE M TH EVERY 12 HOURS Active Baby Aspirin Active Social History Tobacco Use: Social History Observation Description Date Details (start date - stop date) Never Smoker NA - NA Sex Assigned At : Social History Observation Description Sex Assigned At Male Tobacco Use/Smoking Question Answer Notes Patient is a nonsmoker Additional Findings: Tobacco Non-User Aggressive non-smoker AUDIT-C (Standard) Question Answer Notes Did you have a drink containing alcohol in the p ast year? No Points 0 Interpretation Negative Vital Signs Temperature 99.5 degrees Fahrenheit 08/28/19 25 Blood pressure systolic 130 mm Hg 08/28/19 25 Blood pressure diastolic 63 mm Hg 025 Heart Rate 64 /min 08/27/2024 Height 71 in 08/27/2024 Weight 182 lbs 08/27/2024 BMI 25.38 kg/m2 08/27/2024 Encounters Encounter Location Date Provider Diagnosis Mithcell Justin III, MD [address] [place] [address] [place] [address] 08/27/2024 Mitchell Justin Chronic atrial fibrillation I48.2 ; Anticoagulated Z79.01 ; Nephrolithiasis N20.0 ; Essential hypertension I10 ; Mixed hyperlipidemia E78.2 ; Type 2 diabetes mellitus with diabetic chronic kidney disease E11.22 ; Benign prostatic hyperplasia, unspecified whether lower urinary tract symptoms present N40.0 ; Arteriosclerotic coronary artery disease I25.10 and Aortic stenosis, moderate I35.0 Assessments Encounter Date Diagnosis (ICD Code) Assessment Notes Treat ment Notes Treatment Clinical Notes 08/27/2024 Chronic atrial fibrillation (ICD-10 - I48.2) He was in a regular rhythm today. He has had no symptoms of ischemia. He is not short of breath. 08/27/2024 Anticoagulated (ICD- 10 - Z79.01) No bleeding has occurred. He is compliant with his medication. 08/27/2024 Nephrolithiasis (ICD-10 - N20.0) He has had no episodes of renal colic or hematuria recently. 08/27/2024 Essential hypertensi on (ICD-10 - I10) His blood pressure today is 130/63. We discussed his sodium intake. We advised aggressive sodium restriction. We advised regular exercise on a routine follow-up in their future. 08/27/2024 Mixed hyperlipidemia (ICD-10 - E78.2) The current fasting lipid profile shows good control of his lipids. He is tolerating his medication without side effects. No changes were needed. 08/27/2024 Type 2 diabetes mellitus with diabetic chronic kidney disease (ICD-10 - E11.22) He has been compliant with taking his medication. His fasting glucose is 127. A hemoglobin A1c has been ordered. No changes in his regimen were made. 08/27/2024 Benign prostatic hyperplasia, unspecified whether lower urinary tract symptoms present (ICD-10 - N40.0) He reports rising from sleep twice a night to urinate. We have discussed lifestyle modification as he could make to reduce nocturia. 08/27/2024 Arteriosclerotic coronary artery disease (ICD-10 - I25.10) He underwent coronary artery bypass surgery in June 2023 with excellent results. He has been free of angina. 08/27/2024 Aortic stenosis, moderate (ICD-10 - I35.0) His aortic valve was successfully replaced during the coronary artery bypass procedure. He is doing well at this time. Plan Of Treatment Medication Medication Name Sig Start Date Stop Date Notes Multivitamin Lisinopril 5 MG 1 tablet Orally Once a day dilTIAZem HCl 120 MG as directed Orally once a day Metoprolol Tartrate 50 MG 1 tablet with food Orally Twice a day Lancets 30G - as directed Check bl ood sugar once a day metFORMIN HCl 500 MG 1 tablet with a mickey l Orally twice a day OneTouch Verio - as directed In Vitro test blood sugar once a day One Touch Delica Lancets - once a day dilTIAZem HCl ER Coated Bead s 120 MG TAKE 1 CAPSULE BY MOUTH EVERY DAY PT DOSENT LIKE BEADS Eliquis 5 MG TAKE 1 TABLET BY JOSE M TH EVERY 12 HOURS Baby Aspirin Pending Test Test Name Order Date PROFILE, FASTING (COMPREHENSIVE METABOLI C) 08/27/2024 CBC w DIFF 08/27/2024 Lipid Panel 08/27/2024 Microalbumin, Random 08/27/2024 Hemoglobin A1c 08/27/2024 Referrals Referral Date Details 08/27/2024 08/27/2024, Consult and Treat Diabetic Eye Exam, [facility] Next Appt Details Follow Up: 3 Months, Reason: OV Provider Name:Mitchell Justin , 08/29/2025 03:00:00 PM, [address] [place] [address] [facility] [facility], [place], [address], Progress Notes * Beverly MOOREhDOB:1940 (84 yo M)Acc No.[id number]:08/27/2024 Progress Notes Patient: Kwan STUART Provider: Kelly Justin MD :1940 A ge:84 Y S ex:Male Date:08/27/2024 Address:[address] [place], [place] [id number] Subjective: * Chief Complaints: * A nnual Exam * HPI: D epression Screening: Mi mariano reeturns to the office at the age of 84 for his annual physical examination. He was recently admitted in June of this year [facility] with chest pain and atrial fibrillation with rapid ventricular rate. This was controlled and he was discharged. He has been free of chest pain since that time. He is followed here for atrial fibrillation anticoagulation hypertension hyperlipidemia and diabetes. He admits to nocturia twice a night. He is beginning to experience seasonal allergies and pollen season. He was given the names of several nondrowsy antihistamines 2 years. He has been to ENT for this problem and was sent by them to an manager neonatal. He was allergic to multiple substances. He is relatively asymptomatic at this time. PHQ-9 L ittle interest or pleasure in doing things?Not at all F eeling down, depressed, or hopeless N ot at all T rouble falling or staying asleep, or sleeping too much N ot at all F eeling tired or having little energy N ot at all P oor appetite or overeating N ot at all F eeling bad about yourself or that you are a failure, or have let yourself or your family down N ot at all T rouble concentrating on things, such as reading the newspaper or watching television N ot at all M oving or speaking so slowly that other people could have noticed; or the opposite, being so fidgety or restless that you have been moving around a lot more than usual N ot at all T houghts that you would be better off or of hurting yourself in some way N ot at all T otal Score 0 C OVID-19 Screening: Questions H ave you had any new onset fever, chills, cough, congestion, sore throat, shortness of breath, muscle aches? N o F all Risk Screening: Fall History H ave you had any falls with injury in the past year? N o H ave you had two or more falls in the past year? N o F all Risk Assessment: N o falls in the past year S MARIA G Questions: SDOH Questions I n the past year have you been worried about losing your housing? N o I n the past year have you or any family members you live with been unable to get any of the following when it was really needed? Check all that apply: N one * ROS: G eneral/Constitutional: pain o nly normal aches and pains. C hills d enies.?Fatigue a dmits. F ever d enies. E NT: Decreased hearing m ild. R espiratory: Cough d enies. C ardiovascular: Chest pain with exertion Since last June. D yspnea on exertion d enies. S hortness of breath d enies.? G astrointestinal: Constipation o ccasional. D ecreased [...] Findings: Tobacco Non-User A ggressive non-smoker D rug/Alcohol: A AILEEN-C (Standard) D id you have a drink containing alcohol in the past year? N o P oints 0 I nterpretation N egative H e does not smoke or drink. He is retired. He lives alone and [place], [place]. He is independent cares for himself. Yard work: I'm working outside doing my yard work now. Synagogue activities: I'm up early and and doing stuff at the sikh again. * Medications: T akingOneTouch Verio - Strip as directed In Vitro test blood sugar once a day Eliquis 5 MG Tablet TAKE 1 TABLET BY MOUTH EVERY 12 HOURS Lisinopril 5 MG Tablet 1 tablet Orally Once a day Multivitamin Lancets 30G - Miscellaneous as directed Check blood sugar once a day Metoprolol Tartrate 50 MG Tablet 1 tablet with food Orally Twice a day dilTIAZem HCl 120 MG Tablet as directed Orally once a day One Touch Delica Lancets - once a day metFORMIN HCl 500 MG Tablet 1 tablet with a meal Orally twice a day Taking OneTouch Verio - Strip as directed In Vitro test blood sugar once a day Taking Eliquis 5 MG Tablet TAKE 1 TABLET BY MOUTH EVERY 12 HOURS Taking Lisinopril 5 MG Tablet 1 tablet Orally Once a day Taking Multivitamin Taking Lancets 30G - Miscellaneous as directed Check blood sugar once a day Taking Metoprolol Tartrate 50 MG Tablet 1 tablet with food Orally Twice a day Taking dilTIAZem HCl 120 MG Tablet as directed Orally once a day Taking One Touch Delica Lancets - once a day Taking metFORMIN HCl 500 MG Tablet 1 tablet with a meal Orally twice a day DiscontinuedBaby Aspirin Medication List reviewed and reconciled with the patientDiscontinued Baby Aspirin Medication List reviewed and reconciled with the patient * Allergies: a vinicius content foodsPenicillinno[Allergies Verified] Objective: * Vitals: H t: 71, Wt:182, BMI:25.38, BP:130/63, HR:64, Temp:99.5, Wt-k.55. * P ast Orders: Lab:Prostate Specific Antige n * Collection Date 08/22/2024 10/13/2023 07/28/2023 Collection Time 06:20 AM 06:08 AM 06:08 AM Order Date 08/22/2024 10/13/2023 07/28/2023 Prostate Specific Antigen 0.65 (Ref Range: <0.05-4.0 ng/mL) 0.59 (Ref Range: <0.05-4.0 ng/mL) 0.67 (Ref Range: <0.05-4.0 ng/mL) * Lab:Lipid Panel * Collection Date 08/22/2024 03/22/2024 10/13/2023 Collection Time 06:20 AM 06:11 AM 06:08 AM Order Date 08/22/2024 03/22/2024 10/13/2023 Triglycerides 106 (Ref Range: <150 mg/dL) 74 (Ref Range: <150 mg/dL) 63 (Ref Range: <150 mg/dL) Cholesterol 121 (Ref Range: <200 mg/dL) 106 (Ref Range: <200 mg/dL) 110 (Ref Range: <200 mg/dL) LDL Cholesterol Calculated 48 (Ref Range: <100 mg/dL) 43 (Ref Range: <100 mg/dL) 44 (Ref Range: <100 mg/dL) HDL Cholesterol 52 (Ref Range: >40 mg/dL) 49 (Ref Range: >40 mg/dL) 54 (Ref Range: >40 mg/dL) * Lab:Comprehensive [place]. Ebere l Fast * Collection Date 08/22/2024 03/22/2024 10/13/2023 Collection Time 06:20 AM 06:11 AM 06:08 AM Order Date 08/22/2024 03/22/2024 10/13/2023 Sodium 141 (Ref Range: 135-145 mmol/L) 138 (Ref Range: 135-145 mmol/L) 143 (Ref Range: 135-145 mmol/L) Bilirubin Total 0.8 (Ref Range: 0.0-1.0 mg/dL) 0.6 (Ref Range: 0.0-1.0 mg/dL) 0.6 (Ref Range: 0.0-1.0 mg/dL) Aspartate Amino Transferase 33 (Ref Range: 5-37 U/L) 34 (Ref Range: 5-37 U/L) 23 (Ref Range: 5-37 U/L) Alanine Aminotransferase 35 (Ref Range: 0-40 U/L) 39 (Ref Range: 0-40 U/L) 26 (Ref Range: 0-40 U/L) Total Protein 7.0 (Ref Range: 6.5-8.0 g/dL) 7.1 (Ref Range: 6.5-8.0 g/dL) 7.3 (Ref Range: 6.5-8.0 g/dL) Albumin Level 4.1 (Ref Range: 3.5-5.0 g/dL) 4.0 (Ref Range: 3.5-5.0 g/dL) 4.1 (Ref Range: 3.5-5.0 g/dL) Alkaline Phosphatase 88 (Ref Range: 39-117 U/L) 89 (Ref Range: 39-117 U/L) 84 (Ref Range: 39-117 U/L) Potassium 4.8 (Ref Range: 3.3-5.1 mmol/L) 4.2 (Ref Range: 3.3-5.1 mmol/L) 4.3 (Ref Range: 3.3-5.1 mmol/L) Chloride 106 (Ref Range: 96-108 mmol/L) 104 (Ref Range: 96-108 mmol/L) 107 (Ref Range: 96-108 mmol/L) Carbon Dioxide 28 (Ref Range: 22-29 mmol/L) 28 (Ref Range: 22-29 mmol/L) 28 (Ref Range: 22-29 mmol/L) Anion Gap 12 (Ref Range: 12-20) 10 L (Ref Range: 12-20) 12 (Ref Range: 12-20) Blood Urea Nitrogen 15 (Ref Range: 9-16 mg/dL) 14 (Ref Range: 9-16 mg/dL) 20 H (Ref Range: 9-16 mg/dL) Creatinine 0.86 (Ref Range: 0.5-1.4 mg/dL) 0.89 (Ref Range: 0.5-1.4 mg/dL) 0.97 (Ref Range: 0.5-1.4 mg/dL) Estimated Glomerular Filt Rate > 60 > 60 > 60 Glucose Fasting 125 H (Ref Range: 60-99 mg/dL) 127 H (Ref Range: 60-99 mg/dL) 118 H (Ref Range: 60-99 mg/dL) Calcium 9.3 (Ref Range: 8.4-10.2 mg/dL) 9.0 (Ref Range: 8.4-10.2 mg/dL) 9.7 (Ref Range: 8.4-10.2 mg/dL) * Lab:Complete Blood Count Aut o Diff * Collection Date 08/22/2024 03/22/2024 10/13/2023 Collection Time 06:20 AM 06:11 AM 06:08 AM Order Date 08/22/2024 03/22/2024 10/13/2023 White Blood Count 6.4 (Ref Range: 4.8-10.8 X10*3/uL) 6.2 (Ref Range: 4.8-10.8 X10*3/uL) 5.9 (Ref Range: 4.8-10.8 X10*3/uL) Red Blood Count 4.76 (Ref Range: 4.60-5.80 X10*6/uL) 4.78 (Ref Range: 4.60-5.80 X10*6/uL) 4.68 (Ref Range: 4.60-5.80 X10*6/uL) Hemoglobin 14.5 (Ref Range: 14.0-18.0 g/dl) 14.4 (Ref Range: 14.0-18.0 g/dl) 13.8 L (Ref Range: 14.0-18.0 g/dl) Hematocrit 44.3 (Ref Range: 42.0-52.0 %) 44.0 (Ref Range: 42.0-52.0 %) 43.0 (Ref Range: 42.0-52.0 %) Mean Corpuscular Volume 93.1 (Ref Range: 80.0-98.0 fL) 92.1 (Ref Range: 80.0-98.0 fL) 91.9 (Ref Range: 80.0-98.0 fL) Mean Corpuscular Hemoglobin 30.5 (Ref Range: 27.0-33.0 pg) 30.1 (Ref Range: 27.0-33.0 pg) 29.5 (Ref Range: 27.0-33.0 pg) Mean Corpuscular HGB Conc 32.7 (Ref Range: 31.0-36.0 g/dl) 32.7 (Ref Range: 31.0-36.0 g/dl) 32.1 (Ref Range: 31.0-36.0 g/dl) Red Cell Distribution Width 12.8 (Ref Range: 11.0-16.0 %) 12.9 (Ref Range: 11.0-16.0 %) 13.8 (Ref Range: 11.0-16.0 %) Platelet Count 186 (Ref Range: 160-400 X10*3/uL) 223 (Ref Range: 160-400 X10*3/uL) 207 (Ref Range: 160-400 X10*3/uL) Mean Platelet Volume 10.0 (Ref Range: 9.4-12.4 fL) 9.7 (Ref Range: 9.4-12.4 fL) 9.7 (Ref Range: 9.4-12.4 fL) Neutrophils Percent Auto 67.9 (Ref Range: 45-73 %) 67.5 (Ref Range: 45-73 %) 62.0 (Ref Range: 45-73 %) Imm Gran Pct Auto 0.6 H (Ref Range: 0.0-0.4 %) 0.5 H (Ref Range: 0.0-0.4 %) 0.3 (Ref Range: 0.0-0.4 %) Lymphocytes Percent Auto 12.6 L (Ref Range: 20-40 %) 13.1 L (Ref Range: 20-40 %) 14.6 L (Ref Range: 20-40 %) Monocytes Percent Auto 10.2 (Ref Range: 2-11 %) 11.4 H (Ref Range: 2-11 %) 11.1 H (Ref Range: 2-11 %) Eosinophils Percent Auto 8.1 H (Ref Range: 0-4 %) 7.0 H (Ref Range: 0-4 %) 11.3 H (Ref Range: 0-4 %) Basophils Percent Auto 0.6 (Ref Range: 0-2 %) 0.5 (Ref Range: 0-2 %) 0.7 (Ref Range: 0-2 %) NRBC Pct Auto 0.0 (Ref Range: 0.0-0.2 /100WBC) 0.0 (Ref Range: 0.0-0.2 /100WBC) 0.0 (Ref Range: 0.0-0.2 /100WBC) Neutrophils Absolute Auto 4.4 (Ref Range: 2.0-8.3 x10*3/uL) 4.2 (Ref Range: 2.0-8.3 x10*3/uL) 3.7 (Ref Range: 2.0-8.3 x10*3/uL) Imm Gran Abs Auto 0.04 H (Ref Range: 0.00-0.03 X10*3/uL) 0.03 (Ref Range: 0.00-0.03 X10*3/uL) 0.02 (Ref Range: 0.00-0.03 X10*3/uL) Lymphocytes Absolute Auto 0.8 L (Ref Range: 1.2-4.9 X10*3/uL) 0.8 L (Ref Range: 1.2-4.9 X10*3/uL) 0.9 L (Ref Range: 1.2-4.9 X10*3/uL) Monocytes Absolute Auto 0.7 (Ref Range: 0.1-1.2 X10*3/uL) 0.7 (Ref Range: 0.1-1.2 X10*3/uL) 0.7 (Ref Range: 0.1-1.2 X10*3/uL) Eosinophils Absolute Auto 0.5 H (Ref Range: 0.0-0.4 X10*3/uL) 0.4 (Ref Range: 0.0-0.4 X10*3/uL) 0.7 H (Ref Range: 0.0-0.4 X10*3/uL) Basophils Absolute Auto 0.0 (Ref Range: 0.0-0.2 X10*3/uL) 0.0 (Ref Range: 0.0-0.2 X10*3/uL) 0.0 (Ref Range: 0.0-0.2 X10*3/uL) NRBC Abs Auto 0.000 (Ref Range: 0.0-0.012 X10*3/uL) 0.000 (Ref Range: 0.0-0.012 X10*3/uL) 0.000 (Ref Range: 0.0-0.012 X10*3/uL) * Lab:URINE DIP STICK * Collection Date 08/27/2024 08/23/2023 07/29/2022 Collection Time 02:28 PM Order Date 08/27/2024 08/23/2023 07/29/2022 Result: bakari SG 1.000 (Ref Range: 1.005 - 1.025) 1.015 (Ref Range: 1.005 - 1.025) 1.020 (Ref Range: 1.005 - 1.025) pH 5.0 (Ref Range: 5.0 - 9.0) 5.0 (Ref Range: 5.0 - 9.0) 5.0 (Ref Range: 5.0 - 9.0) JUAN J neg (Ref Range: Negative -) neg (Ref Range: Negative -) Neg (Ref Range: Negative -) NIT neg (Ref Range: Negative -) neg (Ref Range: Negative -) Neg (Ref Range: Negative -) PRO trace (Ref Range: Negative - Trace) trace (Ref Range: Negative - Trace) Neg (Ref Range: Negative - Trace) GLU 100 (Ref Range: Negative -) neg (Ref Range: Negative -) Neg (Ref Range: Negative -) KET neg (Ref Range: Negative -) neg (Ref Range: Negative -) Neg (Ref Range: Negative -) UBG 0.2 (Ref Range: 0.1 - 1.8) 0.2 (Ref Range: 0.1 - 1.8) 0.2 (Ref Range: 0.1 - 1.8) LETICIA neg (Ref Range: 0.2 - 1.3) neg (Ref Range: 0.2 - 1.3) Neg (Ref Range: 0.2 - 1.3) BLD neg (Ref Range: Negative -) neg (Ref Range: Negative -) Neg (Ref Range: Negative -) Menstrating n/a N/A N/A * Examination: G eneral Examination: GENERAL APPEARANCE: p [place], well nourished, well developed, in no acute distress, calm and relaxed, overweight, man. HEAD: a traumatic, normocephalic. EYES: e bridger, perrla, anicteric, conjugate. EARS: n ormal. NOSE: s eptum intact. ORAL CAVITY: n ormal, unremarkable. NECK/THYROID: n o jugular venous distention, no carotid bruit, thyroid normal. LYMPH NODES: n o enlarged lymph nodes,spleen normal. SKIN: n o suspicious lesions, anicteric. HEART: n o clicks, gallops, 1/6 systolic m urmur, or rubs, regular rhythm, S1, S2 normal, no s3, or vascular bruits. LUNGS: , diminished breath sounds throughout, good air movement. BREASTS: no masses palpable bilaterally. ABDOMEN: b owel sounds normal, no ascites, no organomegaly, no mass, overweight. RECTAL EXAM: n ot examined. MUSCULOSKELETAL: [...] is not short of breath. 2 . A nticoagulated - Z79.01 N otes :No bleeding has occurred. He is compliant with his medication. 3 . N ephrolithiasis - N20.0 N otes :He has had no episodes of renal colic or hematuria recently. 4 . E ssential hypertension - I10 N otes :His blood pressure today is 130/63. We discussed his sodium intake. We advised aggressive sodium restriction. We advised regular exercise on a routine follow- up in their future. 5 . M ixed hyperlipidemia - E78.2 N otes :The current fasting lipid profile shows good control of his lipids. He is tolerating his medication without side effects. No changes were needed. 6 . 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 Notes :He has been compliant with taking his medication. His fasting glucose is 127. A hemoglobin A1c has been ordered. No changes in his regimen were made. 7 . B enign prostatic hyperplasia, unspecified whether lower urinary tract symptoms present - N40.0 N otes :He reports rising from sleep twice a night to urinate. We have discussed lifestyle modification as he could make to reduce nocturia. 8 . A rteriosclerotic coronary artery disease - I25.10 N otes :He underwent coronary artery bypass surgery in June 2023 with excellent results. He has been free of angina. 9 . 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 He is doing well at this time. Plan: * Treatment: 2. M ixed hyperlipidemia L AB: PROFILE, FASTING (COMPREHENSIVE METABOLIC) L AB: CBC w DIFF L AB: Lipid Panel L AB: Microalbumin, Random L AB: Hemoglobin A1c 3. T ype 2 diabetes mellitus with diabetic chronic kidney disease L AB: PROFILE, FASTING (COMPREHENSIVE METABOLIC) L AB: CBC w DIFF L AB: Lipid Panel L AB: Microalbumin, Random L AB: Hemoglobin A1c Referral To:[facility] Reason:Consult and Treat Diabetic Eye Exam 4. O thers Continue metFORMIN HCl Tablet, 500 MG, 1 tablet with a meal, Orally, twice a day; C ontinue OneTouch Verio Strip, -, as directed, In Vitro, test blood sugar once a day; C ontinue Eliquis Tablet, 5 MG, TAKE 1 TABLET BY MOUTH EVERY 12 HOURS; C ontinue dilTIAZem HCl ER Coated Beads Capsule Extended Release 24 Hour, 120 MG, TAKE 1 CAPSULE BY MOUTH EVERY DAY PT DOSENT LIKE BEADS. ? * Labs: * L ab: URINE DIP STICK (Collection Date & Time - 08/27/2024) n orma Value Reference Range S G 1.000 1.005 - 1.025 * p H 5.0 5.0 - 9.0 * L EU neg Negative - * N IT neg Negative - * P RO trace Negative - Trace * G TAYLOR 100 Negative - * K ET neg Negative - * U BG 0.2 0.1 - 1.8 * B IL neg 0.2 - 1.3 * B LD neg Negative - * M enstrating n/a * Procedure Codes: 8 1002 URINE-NO MICRO * Preventive Medicine: Counseling: C are goal [...] done: Medical or Other reason not done DM Care Plan: P atient Lifestyle Goals P atient wants to be able to manage diabetes without too much effort. T reatment Goals B lood Sugars less than < 115, HbA1C < 7.0. B arriers n o barriers. S elf-Managment Goals W ork on weight loss, with a goal of losing 1 lb per week. * Follow Up: 3 Months (Reason: OV) * Images: * Sign off status: Completed true * Provider: Kelly Justin MD Date: 0 08/27/2024 Generated for Tarai yolette/Raimundo/eTransmitting on: 05/29/2024 08:37 AM EST History and Physical Notes * HPI (History of Present Illness) Category Sub-Category Detail Notes Depression Screening PHQ-9 Little inte rest or pleasure in doing things: Not at all Feeling down, depressed, or hopeless: No t at all Trouble falling or staying asleep, or sl eeping too much: Not at all Feeling tired or having little energy: N ot at all Poor appetite or overeating: Not at all Feeling bad about yourself o r that you are a failure, or have let yourself or your family down: Not at all Trouble concentrating on thi ngs, such as reading the newspaper or watching television: Not at all Moving or speaking so slowly that other people could have noticed; or the opposite, being so fidgety or restless that you have been moving around a lot more than usual: Not at all Thoughts that you would be b pascual off or of hurting yourself in some way: Not at all Total Score: 0 Fall Risk Screening Fall History Have you had any falls with injury in the past year?: No Have you had two or more falls in the year?: No Fall Risk Assessment:: No falls in the year COVID-19 Screening Questions Have you had any new onset fever, chills, cough, congestion, sore throat, shortness of breath, muscle aches?: No SDOH Questions SDOH Questions In the past year have you been worried about losing your housing?: No In the past year have you or any family members you live with been unable to get any of the following when it was really needed? Check all that apply:: None Examination Category Sub-Category Detail Notes General Examination GENERAL APPEARANCE: pleasant , well nourished, well developed, in no acute distress, calm and relaxed, overweight, man HEAD: atraumatic, normocep halic EYES: eomi, perrla, anicte lillian, conjugate EARS: normal NOSE: septum intact NECK/THYROID: no jugular venous di stention, no carotid bruit, thyroid normal HEART: no clicks, gallops, 1/6 systolic murmur, or rubs, regular rhythm, S1, S2 normal, no s3, or vascular bruits LUNGS: , diminished breath sounds throughout, good air movement ABDOMEN: bowel sounds normal, no ascites, no organomegaly, no mass, overweight NEUROLOGIC: alert and oriented, cranial nerves [...] PSYCH: alert, oriented ORAL CAVITY: normal, unremarkable Consultation Request Notes Referral Date Referring Provider Referred Provider Not alyssa 08/27/2024 Mitchell [facility] [place] Consu lt and Treat Diabetic Eye Exam
--- OUTSIDE RECORDS SUMMARY | 2024-11-26 10:30 | XMS_ITS ---
Author Organization Mitchell Justin III, MD Address [address] [place] [address] [place] [address] Care Team Providers Care Remnant Sorter Name Role Phone Dr. Mitchell Justin III Primary Care Provider Allergies Allergen (clinical drug ingredient) Drug/Non Drug Allergy documented on EMR Reaction Allergy Type Onset Date Status Penicillin Unknown Drug Allergy Active acid content foods (uncoded) Unknown Allergy Active REASON FOR VISIT Chronic atrial fibrillation, Anticoagulated, Hypertension, Hyperlipidemia, Diabetes, Benign prostatic hypertrophy, Chronic kidney disease, Repaired aortic stenosis, Coronary artery disease Medications Medication SIG (Take, Route, Frequency, Duration) Notes Start Date End Date Status Lancets 30G - as directed Check bl ood sugar once a day Active Multivitamin Active dilTIAZem HCl 120 MG as directed Orally once a day Active Metoprolol Tartrate 50 MG 1 tablet with food Orally Twice a day Active Baby Aspirin Active One Touch Delica Lancets - once a day Active metFORMIN HCl 500 MG 1 tablet with a mickey l Orally twice a day Active dilTIAZem HCl ER Coated Beads 120 MG TAKE 1 CAPSULE BY MOUTH EVERY DAY PT DOSENT LIKE BEADS Active OneTouch Verio - as directed In Vitro test blood sugar once a day Active Lisinopril 5 MG 1 tablet Orally Once a day Active Eliquis 5 MG TAKE [...] nonsmoker Additional Findings: Tobacco Non-User Aggressive non-smoker Encounters Encounter Location Date Provider Diagnosis Mitchell Justin III, MD [address] [place] [address] [place] [address] 11/26/2024 Mitchell Justin Essential hypertensi on I10 ; Arteriosclerotic coronary artery disease I25.10 ; Overweight E66.3 ; Chronic atrial fibrillation I48.2 ; Anticoagulated Z79.01 ; Nephrolithiasis N20.0 ; Mixed hyperlipidemia E78.2 ; Chronic kidney disease, stage II (mild) N18.2 ; Benign prostatic hyperplasia, unspecified whether lower urinary tract symptoms present N40.0 and Aortic stenosis, moderate I35.0 Assessments Encounter Date Diagnosis (ICD Code) Assessment Notes Treat ment Notes Treatment Clinical Notes 11/26/2024 Essential hypertensi on (ICD-10 - I10) His blood pressure has been well controlled. We discussed his sodium intake. We advised aggressive sodium restriction. We advised regular exercise on a routine follow-up in their future. 11/26/2024 Arteriosclerotic coronary artery disease (ICD-10 - I25.10) He underwent coronary artery bypass surgery in June 2023 with excellent results. He has been free of angina. 11/26/2024 Overweight (ICD-10 - E66.3) He has very slightly overweight. I recommended he stabilize his weight at this level and continue to consume a healthy Mediterranean low-sodium diet. 11/26/2024 Chronic atrial fibrillation (ICD-10 - I48.2) He was in a regular rhythm today. He has had no symptoms of ischemia. He is not short of breath. 11/26/2024 Anticoagulated (ICD- 10 - Z79.01) No bleeding has occurred. He is compliant with his medication. 11/26/2024 Nephrolithiasis (ICD-10 - N20.0) He has had no episodes of renal colic or hematuria recently. 11/26/2024 Mixed hyperlipidemia (ICD-10 - E78.2) The current fasting lipid profile shows good control of his lipids. He is tolerating his medication without side effects. No changes were needed. 11/26/2024 Chronic kidney disease, stage II (mild) (ICD-10 - N18.2) His renal function is stable. No change in his regimen was 11/26/2024 Benign prostatic hyperplasia, unspecified whether lower urinary tract symptoms present (ICD-10 - N40.0) He reports rising from sleep twice a night to urinate. We have discussed lifestyle modification as he could make to reduce nocturia. 11/26/2024 Aortic stenosis, moderate (ICD-10 - I35.0) His aortic valve was successfully replaced during the coronary artery bypass procedure. He is doing well at this time. Plan Of Treatment Medication Medication Name Sig Start Date Stop Date Notes Lancets 30G - as directed Check bl ood sugar once a day Multivitamin dilTIAZem HCl 120 MG as directed Orally once a day Metoprolol Tartrate 50 MG 1 tablet with food Orally Twice a day Baby Aspirin One Touch Delica Lancets - once a day metFORMIN HCl 500 MG 1 tablet with a mickey l Orally twice a day dilTIAZem HCl ER Coated Bead s 120 MG TAKE 1 CAPSULE BY MOUTH EVERY DAY PT DOSENT LIKE BEADS OneTouch Verio - as directed In Vitro test blood sugar once a day Lisinopril 5 MG 1 tablet Orally Once a day Eliquis 5 MG TAKE 1 TABLET BY JOSE M TH EVERY 12 HOURS Next Appt Details Follow Up: 6 Weeks, Reason: ov Provider Name:Mitchell Justin , 08/29/2025 03:00:00 PM, [address] [place] [address], [address], Progress Notes * Beverly OMOREhDOB:1940 (84 yo M)Acc No.[id number]:11/26/2024 Patient: Kwan STUART Provider: Kelly Justin MD :1940 A ge:84 Y S ex:Male Date:11/26/2024 Address:[address] [place], [place] [id number] Subjective: * Chief Complaints: * C hronic atrial fibrillationAnticoagulatedHypertensionHyperlipidemiaDiabetesBenign prostatic hypertrophyChronic kidney diseaseRepaired aortic stenosisCoronary artery disease * HPI: C OVID-19 Screening: T his telehealth visit took place over 22 minutes with the patient at home and me in my office. He gave consent for billing. This visit was for medical management of numerous issues. He reports that the recent extreme hot weather has made him feel weak and nauseous. He has been to cardiology recently [facility]. An EKG September 25, 2024 normal sinus rhythm and a possible old anterior myocardial infarction with T-wave inversions in the inferior leads consistent with ischemia. On October 09, 2024 a Lexiscan perfusion stress test was within normal limits.He says his fasting a.m. glucose levels have been good about 130. He rises from sleep twice a night to urinate. His new aortic valve is functioning well. He was unable to make it to the office today because of transportation issues.An office appointment was arranged. Questions H ave you had any new onset fever, chills, cough, congestion, sore throat, shortness of breath, muscle aches? N o * : Telehealth L ocation of provider rendering services: { ...} [address] [facility] [address] L ocation of patient: nu delmy listed in demographics for today's visit P atient identification confirmed using: RUCHI Ulrich ame T elehealth method: T elephone only. Patient not visible to care provider. C onsent: P atient verbally consented to treatment, Patient verbally consented to billing insurance company, Patient informed of any privacy concerns related to method of visit T otal time spent with patient (mins) 2 2 * ROS: G eneral/Constitutional: pain o nly normal aches and pains, only normal aches and pains. C hills d enies, denies. F atigue P rominent in hot weather, admits. F ever?denies, denies. E NT: Decreased hearing d enies, denies. R espiratory: Cough d enies, denies. C ardiovascular: Chest pain with exertion d enies, denies. D yspnea on exertion w ith prolonged activity, denies. S hortness of breath w ith exertion, denies.? G astrointestinal: Constipation o ccasional, denies. D ecreased appetite?denies, denies. D iarrhea d enies, denies. H eartburn d enies, denies. N ausea d enies, denies. R ectal bleeding d enies, denies. V omiting d enies, denies.? H ematology: bruising d enies, denies. p etechiae d enies, denies. S wollen glands n one have been noted, none have been noted. G enitourinary: Frequent urination t wice a night, denies. M usculoskeletal: Muscle aches d enies, denies. P ainful joints d enies, denies. S ciatica d enies, denies. W eakness d enies, denies. S kin: Itching d enies, denies. R johanne d enies, denies.?Skin lesion(s) d enies, denies. N eurologic: Difficulty speaking d enies, denies. D izziness d enies, denies. H eadache d enies, denies. L ow back pain d enies, denies. ? P sychiatric: Depressed mood d enies, denies. * Medical History: * Surgical History: n [...] He is retired. He lives alone and [place], [place]. He is independent cares for himself. Yard work: I'm working outside doing my yard work now. Voodoo activities: I'm up early and and doing stuff at the [employer] again. * Medications: T akingmetFORMIN HCl 500 MG Tablet 1 tablet with a meal Orally twice a day One Touch Delica Lancets - once a day OneTouch Verio - Strip as directed In Vitro test blood sugar once a day dilTIAZem HCl ER Coated Beads 120 MG Capsule Extended Release 24 Hour TAKE 1 CAPSULE BY MOUTH EVERY DAY PT DOSENT LIKE BEADS Lisinopril 5 MG Tablet 1 tablet Orally Once a day Multivitamin Lancets 30G - Miscellaneous as directed Check blood sugar once a day Metoprolol Tartrate 50 MG Tablet 1 tablet with food Orally Twice a day dilTIAZem HCl 120 MG Tablet as directed Orally once a day Baby Aspirin Eliquis 5 MG Tablet TAKE 1 TABLET BY MOUTH EVERY 12 HOURS Medication List reviewed and reconciled with the patientTaking metFORMIN HCl 500 MG Tablet 1 tablet with a meal Orally twice a day Taking One Touch Delica Lancets - once a day Taking OneTouch Verio - Strip as directed In Vitro test blood sugar once a day Taking dilTIAZem HCl ER Coated Beads 120 MG Capsule Extended Release 24 Hour TAKE 1 CAPSULE BY MOUTH EVERY DAY PT DOSENT LIKE BEADS Taking Lisinopril 5 MG Tablet 1 tablet Orally Once a day Taking Multivitamin Taking Lancets 30G - Miscellaneous as directed Check blood sugar once a day Taking Metoprolol Tartrate 50 MG Tablet 1 tablet with food Orally Twice a day Taking dilTIAZem HCl 120 MG Tablet as directed Orally once a day Taking Baby Aspirin Taking Eliquis 5 MG Tablet TAKE 1 TABLET BY MOUTH EVERY 12 HOURS Medication List reviewed and reconciled with the patient * Allergies: a vinicius content foodsPenicillinno[Allergies Verified] Objective: * Vitals: * P ast Orders: I maging:Diabetic Eye Exam (Order Date - 09/12/2024) (Performed Date - 09/12/2024) Result: undefined I maging:NM cardiolite stress test (Order Date - 10/09/2024) (Performed Date - 10/09/2024) Lab:Complete Blood Count Aut o Diff * Collection Date 11/19/2024 08/22/2024 03/22/2024 Collection Time 06:20 AM 06:20 AM 06:11 AM Order Date 11/19/2024 08/22/2024 03/22/2024 White Blood Count 6.2 (Ref Range: 4.8-10.8 X10*3/uL) 6.4 (Ref Range: 4.8-10.8 X10*3/uL) 6.2 (Ref Range: 4.8-10.8 X10*3/uL) Red Blood Count 4.61 (Ref Range: 4.60-5.80 X10*6/uL) 4.76 (Ref Range: 4.60-5.80 X10*6/uL) 4.78 (Ref Range: 4.60-5.80 X10*6/uL) Hemoglobin 14.4 (Ref Range: 14.0-18.0 g/dl) 14.5 (Ref Range: 14.0-18.0 g/dl) 14.4 (Ref Range: 14.0-18.0 g/dl) Hematocrit 42.2 (Ref Range: 42.0-52.0 %) 44.3 (Ref Range: 42.0-52.0 %) 44.0 (Ref Range: 42.0-52.0 %) Mean Corpuscular Volume 91.5 (Ref Range: 80.0-98.0 fL) 93.1 (Ref Range: 80.0-98.0 fL) 92.1 (Ref Range: 80.0-98.0 fL) Mean Corpuscular Hemoglobin 31.2 (Ref Range: 27.0-33.0 pg) 30.5 (Ref Range: 27.0-33.0 pg) 30.1 (Ref Range: 27.0-33.0 pg) Mean Corpuscular HGB Conc 34.1 (Ref Range: 31.0-36.0 g/dl) 32.7 (Ref Range: 31.0-36.0 g/dl) 32.7 (Ref Range: 31.0-36.0 g/dl) Red Cell Distribution Width 12.8 (Ref Range: 11.0-16.0 %) 12.8 (Ref Range: 11.0-16.0 %) 12.9 (Ref Range: 11.0-16.0 %) Platelet Count 183 (Ref Range: 160-400 X10*3/uL) 186 (Ref Range: 160-400 X10*3/uL) 223 (Ref Range: 160-400 X10*3/uL) Mean Platelet Volume 9.8 (Ref Range: 9.4-12.4 fL) 10.0 (Ref Range: 9.4-12.4 fL) 9.7 (Ref Range: 9.4-12.4 fL) Neutrophils Percent Auto 67.1 (Ref Range: 45-73 %) 67.9 (Ref Range: 45-73 %) 67.5 (Ref Range: 45-73 %) Imm Gran Pct Auto 0.3 (Ref Range: 0.0-0.4 %) 0.6 H (Ref Range: 0.0-0.4 %) 0.5 H (Ref Range: 0.0-0.4 %) Lymphocytes Percent Auto 14.4 L (Ref Range: 20-40 %) 12.6 L (Ref Range: 20-40 %) 13.1 L (Ref Range: 20-40 %) Monocytes Percent Auto 11.3 H (Ref Range: 2-11 %) 10.2 (Ref Range: 2-11 %) 11.4 H (Ref Range: 2-11 %) Eosinophils Percent Auto 6.3 H (Ref Range: 0-4 %) 8.1 H (Ref Range: 0-4 %) 7.0 H (Ref Range: 0-4 %) Basophils Percent Auto 0.6 (Ref Range: 0-2 %) 0.6 (Ref Range: 0-2 %) 0.5 (Ref Range: 0-2 %) NRBC Pct Auto 0.0 (Ref Range: 0.0-0.2 /100WBC) 0.0 (Ref Range: 0.0-0.2 /100WBC) 0.0 (Ref Range: 0.0-0.2 /100WBC) Neutrophils Absolute Auto 4.1 (Ref Range: 2.0-8.3 x10*3/uL) 4.4 (Ref Range: 2.0-8.3 x10*3/uL) 4.2 (Ref Range: 2.0-8.3 x10*3/uL) Imm Gran Abs Auto 0.02 (Ref Range: 0.00-0.03 X10*3/uL) 0.04 H (Ref Range: 0.00-0.03 X10*3/uL) 0.03 (Ref Range: 0.00-0.03 X10*3/uL) Lymphocytes Absolute Auto 0.9 L (Ref Range: 1.2-4.9 X10*3/uL) 0.8 L (Ref Range: 1.2-4.9 X10*3/uL) 0.8 L (Ref Range: 1.2-4.9 X10*3/uL) Monocytes Absolute Auto 0.7 (Ref Range: 0.1-1.2 X10*3/uL) 0.7 (Ref Range: 0.1-1.2 X10*3/uL) 0.7 (Ref Range: 0.1-1.2 X10*3/uL) Eosinophils Absolute Auto 0.4 (Ref Range: 0.0-0.4 X10*3/uL) 0.5 H (Ref Range: 0.0-0.4 X10*3/uL) 0.4 (Ref Range: 0.0-0.4 X10*3/uL) Basophils Absolute Auto 0.0 (Ref Range: 0.0-0.2 X10*3/uL) 0.0 (Ref Range: 0.0-0.2 X10*3/uL) 0.0 (Ref Range: 0.0-0.2 X10*3/uL) NRBC Abs Auto 0.000 (Ref Range: 0.0-0.012 X10*3/uL) 0.000 (Ref Range: 0.0-0.012 X10*3/uL) 0.000 (Ref Range: 0.0-0.012 X10*3/uL) * Lab:Hemoglobin A1c * Collection Date 11/19/2024 01/20/2023 11/04/2022 Collection Time 06:20 AM 06:12 AM 06:14 AM Order Date 11/19/2024 01/20/2023 11/04/2022 Hemoglobin A1c % 6.6 H (Ref Range: <6.0 %) 6.0 (Ref Range: <6.0 %) 6.0 (Ref Range: %) Estimated Average Glucose 143 (Ref Range: mg/dL) 126 (Ref Range: mg/dL) 126 (Ref Range: mg/dL) * Lab:Microalbumin, Random * Collection Date 11/19/2024 01/20/2023 11/04/2022 Collection Time 06:00 AM 05:45 AM 06:30 AM Order Date 11/19/2024 01/20/2023 11/04/2022 Creatinine Urine 138.41 (Ref Range: mg/dL) 70.88 (Ref Range: mg/dL) 106.65 (Ref Range: mg/dL) Microalbumin Urine 5.0 (Ref Range: mg/L) < 5.0 (Ref Range: mg/L) < 5.0 (Ref Range: mg/L) Microalbum Creatinine Ratio Ur 3.6 (Ref Range: <30 ug/mg cr) TNP (Ref Range: <30 ug/mg cr) TNP (Ref Range: ug/mg cr) * Lab:Lipid Panel * Collection Date 11/19/2024 08/22/2024 03/22/2024 Collection Time 06:20 AM 06:20 AM 06:11 AM Order Date 11/19/2024 08/22/2024 03/22/2024 Triglycerides 73 (Ref Range: <150 mg/dL) 106 (Ref Range: <150 mg/dL) 74 (Ref Range: <150 mg/dL) Cholesterol 114 (Ref Range: <200 mg/dL) 121 (Ref Range: <200 mg/dL) 106 (Ref Range: <200 mg/dL) LDL Cholesterol Calculated 51 (Ref Range: <100 mg/dL) 48 (Ref Range: <100 mg/dL) 43 (Ref Range: <100 mg/dL) HDL Cholesterol 49 (Ref Range: >40 mg/dL) 52 (Ref Range: >40 mg/dL) 49 (Ref Range: >40 mg/dL) * Lab:Comprehensive [place]. Pane l Fast * Collection Date 11/19/2024 08/22/2024 03/22/2024 Collection Time 06:20 AM 06:20 AM 06:11 AM Order Date 11/19/2024 08/22/2024 03/22/2024 Sodium 141 (Ref Range: 135-145 mmol/L) 141 (Ref Range: 135-145 mmol/L) 138 (Ref Range: 135-145 mmol/L) Bilirubin Total 1.0 (Ref Range: 0.0-1.0 mg/dL) 0.8 (Ref Range: 0.0-1.0 mg/dL) 0.6 (Ref Range: 0.0-1.0 mg/dL) Aspartate Amino Transferase 29 (Ref Range: 5-37 U/L) 33 (Ref Range: 5-37 U/L) 34 (Ref Range: 5-37 U/L) Alanine Aminotransferase 27 (Ref Range: 0-40 U/L) 35 (Ref Range: 0-40 U/L) 39 (Ref Range: 0-40 U/L) Total Protein 7.3 (Ref Range: 6.5-8.0 g/dL) 7.0 (Ref Range: 6.5-8.0 g/dL) 7.1 (Ref Range: 6.5-8.0 g/dL) Albumin Level 4.3 (Ref Range: 3.5-5.0 g/dL) 4.1 (Ref Range: 3.5-5.0 g/dL) 4.0 (Ref Range: 3.5-5.0 g/dL) Alkaline Phosphatase 75 (Ref Range: 39-117 U/L) 88 (Ref Range: 39-117 U/L) 89 (Ref Range: 39-117 U/L) Potassium 4.1 (Ref Range: 3.3-5.1 mmol/L) 4.8 (Ref Range: 3.3-5.1 mmol/L) 4.2 (Ref Range: 3.3-5.1 mmol/L) Chloride 107 (Ref Range: 96-108 mmol/L) 106 (Ref Range: 96-108 mmol/L) 104 (Ref Range: 96-108 mmol/L) Carbon Dioxide 26 (Ref Range: 22-29 mmol/L) 28 (Ref Range: 22-29 mmol/L) 28 (Ref Range: 22-29 mmol/L) Anion Gap 12 (Ref Range: 12-20) 12 (Ref Range: 12-20) 10 L (Ref Range: 12-20) Blood Urea Nitrogen 22 H (Ref Range: 9-16 mg/dL) 15 (Ref Range: 9-16 mg/dL) 14 (Ref Range: 9-16 mg/dL) Creatinine 1.01 (Ref Range: 0.5-1.4 mg/dL) 0.86 (Ref Range: 0.5-1.4 mg/dL) 0.89 (Ref Range: 0.5-1.4 mg/dL) Estimated Glomerular Filt Rate > 60 > 60 > 60 Glucose Fasting 120 H (Ref Range: 60-99 mg/dL) 125 H (Ref Range: 60-99 mg/dL) 127 H (Ref Range: 60-99 mg/dL) Calcium 9.3 (Ref Range: 8.4-10.2 mg/dL) 9.3 (Ref Range: 8.4-10.2 mg/dL) 9.0 (Ref Range: 8.4-10.2 mg/dL) * Lab:URINE DIP STICK * Collection Date [...] Range: Negative -) Menstrating n/a N/A N/A Assessment: * Assessment: 1. A rteriosclerotic coronary artery disease - I25.10 (Primary) N otes :He underwent coronary artery bypass surgery in June 2023 with excellent results. He has been free of angina. 2 . E ssential hypertension - I10 N otes :His blood pressure has been well controlled. We discussed his sodium intake. We advised aggressive sodium restriction. We advised regular exercise on a routine follow-up in their future. 3 . O verweight - E66.3 N otes :He has very slightly overweight. I recommended he stabilize his weight at this level and continue to consume a healthy Mediterranean low-sodium diet. 4 . C hronic atrial fibrillation - I48.2 N otes :He was in a regular rhythm today. He has had no symptoms of ischemia. He is not short of breath. 5 . A nticoagulated - Z79.01 N otes :No bleeding has occurred. He is compliant with his medication. 6 . N ephrolithiasis - N20.0 N otes :He has had no episodes of renal colic or hematuria recently. 7 . M ixed hyperlipidemia - E78.2 N otes :The current fasting lipid profile shows good control of his lipids. He is tolerating his medication without side effects. No changes were needed. 8 . C hronic kidney disease, stage II (mild) - N18.2 N otes :His renal function is stable. No change in his regimen was 9 . B enign prostatic hyperplasia, unspecified whether lower urinary tract symptoms present - N40.0 N otes :He reports rising from sleep twice a night to urinate. We have discussed lifestyle modification as he could make to reduce nocturia. 1 0. 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 He is doing well at this time. Plan: * Treatment: 2. O thers Continue Eliquis Tablet, 5 MG, TAKE 1 TABLET BY MOUTH EVERY 12 HOURS; C ontinue metFORMIN HCl Tablet, 500 MG, 1 tablet with a meal, Orally, twice a day; C ontinue OneTouch Verio Strip, -, as directed, In Vitro, test blood sugar once a day; C ontinue dilTIAZem HCl ER Coated Beads Capsule Extended Release 24 Hour, 120 MG, TAKE 1 CAPSULE BY MOUTH EVERY DAY PT DOSENT LIKE BEADS. ? * Procedure Codes: 9 8012 SYNCH AUDIO-ONLY EST SF 10 * Preventive Medicine: Counseling: C are goal follow-up plan: Counseling for abnormal BMI given Y es Above Normal BMI Follow-up D ietary management education, guidance, and counseling, Dietary needs education * Follow Up: 6 Weeks (Reason: ov) * Images: * Sign off status: Completed true * Provider: Kelly Justin MD Date: 0 11/26/2024 Generated for Savita de la vega/Raimundo/Audreyitting on: 1 05/29/2024 08:36 AM EST History and Physical Notes * HPI (History of Present Illness) Category Sub-Category Detail Notes Telehealth Location of [facility] rendering services:: {...} [address] [place] [address] Location of patient:: address listed in demographics for today's visit Patient identification confirmed using:: Name, Telehealth method:: Telephone only. Maricruz ent not visible to care provider. Consent:: Patient verbally c onsented to treatment, Patient verbally consented to billing insurance company, Patient informed of any privacy concerns related to method of visit Total time spent with patient (mins): 22 COVID-19 Screening Questions Have you had any new onset fever, chills, cough, congestion, sore throat, shortness of breath, muscle aches?: No
--- OUTSIDE RECORDS SUMMARY | 2025-01-27 08:27 | XMS_ITS ---
Author Organization Mitchell Justin III, MD Address [address] [place] [address] [place] [address] Care Team Providers Care Cable Dispatcher Name Role Phone Dr. Mitchell Justin III Primary Care Provider [phone] Medications Medication SIG (Take, Route, Frequency, Duration) Notes Start Date End Date Status OneTouch Verio - to check blood sugar once a day for 90 days DX: Diabetes E 11.9 Activ e Social History Sex Assigned At : Social History Observation Description Sex Assigned At Male Encounters Encounter Location Date Provider Diagnosis Mitchell Justin III, MD [address] [place] [address] [place] [address] 01/27/2025 Mitchell Justin Plan Of Treatment Medication Medication Name Sig Start Date Stop Date Notes OneTouch Verio - to check blood sugar once a day for 90 days DX: Diabetes E 11.9 Next Appt Details Provider Name:Mitchell Justin , 08/29/2025 03:00:00 PM, [address] [place] [address] [place], [address], Progress Notes * OSCAR StufayhDOB:1940 (84 yo M)Acc No.[id number]:01/27/2025 Patient: Hailey WALTONABHIJEETKwan :1940 A ge:84 Y S ex:Male Address:[address] [place] [address], [address] * Refills Refill OneTouch Verio Strip, -, 100 Strip, to check blood sugar once a day, 90 days, Refills=11 * true * Date: Generated for Printi ng/Raimundo/Macho on: 05/29/2024 08:37 AM EST
--- OUTSIDE RECORDS SUMMARY | 2025-02-19 10:00 | XMS_ITS ---
Author Organization Mitchell Justin III, MD Address [address] [place] [address] Care Team Providers Care Boardmarker Name Role Phone Dr. Mitchell Justin III Primary Care Provider Allergies Allergen (clinical drug ingredient) Drug/Non Drug Allergy documented on EMR Reaction Allergy Type Onset Date Status Penicillin Unknown Drug Allergy Active acid content foods (uncoded) Unknown Allergy Active REASON FOR VISIT Atrial fibrillation, Anticoagulation, Hypertension, Hyperlipidemia, Diabetes, Stage II chronic renal disease, Benign prostatic hypertrophy, Aortic stenosis, Coronary artery disease Medications Medication SIG (Take, Route, Frequency, Duration) Notes Start Date End Date Status OneTouch Verio - to check blood sugar once a day DX: Diabetes E 11.9 Active Eliquis 5 MG TAKE 1 TABLET BY MOUTH EVERY 12 HOURS Active dilTIAZem HCl ER Coated Beads 120 MG TAKE 1 CAPSULE BY MOUTH EVERY DAY PT DOSENT LIKE BEADS Active metFORMIN HCl 500 MG 1 tablet with a meal Orally twice a day Active One Touch Delica Lancets - once a day Active dilTIAZem HCl 120 MG as directed Orally once a day Active Baby Aspirin Active Lancets 30G - as directed Check blood sugar once a day Active Metoprolol Tartrate 50 MG 1 tablet with food Orally Twice a day Active Multivitamin Active Lisinopril 5 MG 1 tablet Orally Once a day Active Social History Tobacco Use: Social History Observation Description Date Details (start date - stop date) Never Smoker NA - NA Sex Assigned At : Social History Observation Description Sex Assigned At Male Tobacco Use/Smoking Question Answer Notes Patient is a nonsmoker Additional Findings: Tobacco Non-User Aggressive non-smoker Vital Signs Temperature 97.0 degrees Fahrenheit 02/20/20 25 Blood pressure systolic 122 mm Hg 02/20/20 25 Blood pressure diastolic 64 mm Hg 025 Heart Rate 64 /min 02/19/2025 Respiratory Rate 16 /min 02/19/2025 Height 71 in 02/19/2025 Weight 183 lbs 02/19/2025 BMI 25.52 kg/m2 02/19/2025 Oximetry 98 % 02/19/2025 Encounters Encounter Location Date Provider Diagnosis Mitchell Justin III, MD [address] [place] [address] [place] [address] 02/19/2025 Mitchell Justin Essential hypertensi on I10 ; Type 2 diabetes mellitus with diabetic chronic kidney disease E11.22 ; Mixed hyperlipidemia E78.2 ; Overweight E66.3 ; Benign prostatic hyperplasia, unspecified whether lower urinary tract symptoms present N40.0 ; Chronic kidney disease, stage II (mild) N18.2 ; Anticoagulated Z79.01 ; Chronic atrial fibrillation I48.2 and Aortic stenosis, moderate I35.0 Assessments Encounter Date Diagnosis (ICD Code) Assessment Notes Treat ment Notes Treatment Clinical Notes 02/19/2025 Essential hypertension (ICD-10 - I10) His blood pressure has been well controlled. We discussed his sodium intake. We advised aggressive sodium restriction. We advised regular exercise on a routine follow-up in their future. 02/19/2025 Type 2 diabetes mellitus with diabetic chronic kidney disease (ICD-10 - E11.22) His diabetes is well controlled with a fasting glucose of 120. His hemoglobin A1c has increased from 6.0-6.6. We discussed weight loss and a diabetic diet today. He is doing well. 02/19/2025 Mixed hyperlipidemia (ICD-10 - E78.2) His total cholesterol is 114 and he is tolerating his medication well. 02/19/2025 Overweight (ICD-10 - E66.3) He is a few pounds overweight at the age of 89. I recommended stabilizing plate at this level and gradually reducing his BMI until it is in the normal range. 02/19/2025 Benign prostatic hyperplasia, unspecified whether lower urinary tract symptoms present (ICD-10 - N40.0) He rises from sleep twice a night to urinate. We have discussed lifestyle modifications he could make to reduce nocturia. The nocturia does not seem to be from hyperglycemia. 02/19/2025 Chronic kidney disease, stage II (mild) (ICD-10 - N18.2) His renal function is stable. No change in his regimen was 02/19/2025 Anticoagulated (ICD-10 - Z79.01) No bleeding has occurred. He is compliant with his medication. 02/19/2025 Chronic atrial fibrillation (ICD-10 - I48.2) He was in an irregular rhythm today. He has had no symptoms of ischemia. He is not short of breath. 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 He is doing well at this time. Plan Of Treatment Medication Medication Name Sig Start Date Stop Date Notes OneTouch Verio - to check blood sugar once a day DX: Diabetes E 11.9 Eliquis 5 MG TAKE 1 TABLET BY MOUTH EVERY 12 HOURS dilTIAZem HCl ER Coated Beads 120 MG TAKE 1 CAPSULE BY MOUTH EVERY DAY PT DOSENT LIKE BEADS metFORMIN HCl 500 MG 1 tablet with a mickey l Orally twice a day One Touch Delica Lancets - once a day dilTIAZem HCl 120 MG as directed Orally once a day Baby Aspirin Lancets 30G - as directed Check blood sugar once a day Metoprolol Tartrate 50 MG 1 tablet with food Orally Twice a day Multivitamin Lisinopril 5 MG 1 tablet Orally Once a day Pending Test Test Name Order Date PROFILE, FASTING (COMPREHENSIVE METABOLI C) 02/19/2025 PSA, TOTAL 02/19/2025 CBC w DIFF 02/19/2025 Lipid Panel 02/19/2025 Microalbumin, Random 02/19/2025 Hemoglobin A1c 02/19/2025 Next Appt Details Follow Up: As Scheduled, Patricia son: Annual Exam Provider Name:Mitchell Justin , 08/29/2025 03:00:00 PM, [address] [place] [address] , [facility] [address], [place], [address], Progress Notes * OSCAR BeverlyhDOB:1940 (84 yo M)Acc No.[id number]:02/19/2025 Progress Notes Patient: Kwan STUART Provider: Kelly Justin MD :1940 A ge:84 Y S ex:Male Date:02/19/2025 Address:[address] [place] [address] [place], [id number] Subjective: * Chief Complaints: * A trial fibrillationAnticoagulationHypertensionHyperlipidemiaDiabetesStage II chronic renal diseaseBenign prostatic hypertrophyAortic stenosisCoronary artery disease * HPI: C OVID-19 Screening: Mi mariano returns for ongoing scheduled medical management. He recently saw his intake nurse, Dr. Paula crow, at [facility] who said he was doing well. He has had no chest pain or palpitations recently. He is breathing comfortably without dyspnea on exertion. He has been feeling well. He mowed the grass yesterday without difficulty. The machine is self-propelled. He has had no bleeding. He rises from sleep twice a night to urinate.? He has not had any episodes of Rapid heart rate. Questions H ave you had any new onset fever, chills, cough, congestion, sore throat, shortness of breath, muscle aches? N o * ROS: G eneral/Constitutional: pain o nly normal aches and pains. C hills d enies.?Fatigue a dmits. F ever d enies. E NT: Decreased hearing m ild. R espiratory: Cough d enies. C ardiovascular: Chest pain with exertion d enies. D yspnea on exertion?with prolonged activity. S hortness of breath t hat is mild. G astrointestinal: Constipation o ccasional. D ecreased [...] He is retired. He lives alone and [place], [place]. He is independent cares for himself. Yard work: I'm working outside doing my yard work now. Religious activities: I'm up early and and doing stuff at the [employer] again. * Medications: T akingEliquis 5 MG Tablet TAKE 1 TABLET BY MOUTH EVERY 12 HOURS metFORMIN HCl 500 MG Tablet 1 tablet [...] directed Orally once a day Baby Aspirin OneTouch Verio - Strip to check blood sugar once a day , Notes to Pharmacist: DX: Diabetes E 11.9, Notes: DX: Diabetes E 11.0Medication List reviewed and reconciled with the patientTaking Eliquis 5 MG Tablet TAKE 1 TABLET BY MOUTH EVERY 12 HOURS Taking metFORMIN HCl 500 MG Tablet 1 tablet with a meal Orally twice a day Taking One Touch Delica Lancets - once a day Taking dilTIAZem HCl ER [...] once a day Taking Baby Aspirin Taking OneTouch Verio - Strip to check blood sugar once a day , Notes to Pharmacist: DX: Diabetes E 11.9, Notes: DX: Diabetes E 11.0Medication List reviewed and reconciled with the patient * Allergies: a vinicius content foodsPenicillinno[Allergies Verified] Objective: * Vitals: H t: 71, Wt:183, BMI:25.52, BP:122/64, HR:64, RR:16, Temp:97.0, Oxygen sat %:98, Wt-k.01. * P ast Orders: Lab:Hemoglobin A1c * Collection Date 11/19/2024 01/20/2023 11/04/2022 Collection Time 06:20 AM 06:12 AM 06:14 AM Order Date 11/19/2024 01/20/2023 11/04/2022 Hemoglobin A1c % 6.6 H (Ref Range: <6.0 %) 6.0 (Ref Range: <6.0 %) 6.0 (Ref Range: %) Estimated Average Glucose 143 (Ref Range: mg/dL) 126 (Ref Range: mg/dL) 126 (Ref Range: mg/dL) * Lab:Comprehensive [place]. Pane l Fast * Collection Date 11/19/2024 [...] mg/dL) 9.0 (Ref Range: 8.4-10.2 mg/dL) * Lab:Lipid Panel * Collection Date 11/19/2024 [...] mg/dL) 49 (Ref Range: >40 mg/dL) * Lab:Microalbumin, Random * Collection Date [...] cr) TNP (Ref Range: ug/mg cr) * Lab:Complete Blood Count Aut o Diff [...] X10*3/uL) 0.000 (Ref Range: 0.0-0.012 X10*3/uL) * Examination: G eneral Examination: GENERAL APPEARANCE: p leasant, well nourished, well developed, in no acute distress, calm and relaxed: overweight: elderly woman. HEAD: a traumatic, normocephalic. EYES: e bridger, [...] normal, no s3, or vascular bruits. LUNGS: : diminished breath sounds throughout: no wheezes, rales, rhonchi: good air movement. BREASTS: no masses palpable bilaterally. ABDOMEN: b owel sounds normal, no ascites, no organomegaly, no mass: overweight. RECTAL EXAM: n ot examined. MUSCULOSKELETAL: e xtremities unremarkable, no clubbing, cyanosis or edema. PERIPHERAL PULSES: n ormal. NEUROLOGIC: a lert and oriented, cranial nerves 2-12 grossly intact, deep tendon reflexes 2+ symmetrical, motor strength normal upper and lower extremities, sensory exam intact. PSYCH: a lert, oriented: cognitive function intact: thought process logical, goal directed: speech clear. Assessment: * Assessment: 1. T ype 2 diabetes mellitus with diabetic chronic kidney disease - E11.22 (Primary) N otes :His diabetes is well controlled with a fasting glucose of 120. His hemoglobin A1c has increased from 6.0-6.6. We discussed weight loss and a diabetic diet today. He is doing well. 2 . E ssential hypertension - I10 N otes :His blood pressure has been well controlled. We discussed his sodium intake. We advised aggressive sodium restriction. We advised regular exercise on a routine follow-up in their future. 3 . M ixed hyperlipidemia - E78.2 N otes :His total cholesterol is 114 and he is tolerating his medication well. 4 . O verweight - E66.3 N otes :He is a few pounds overweight at the age of 89. I recommended stabilizing plate at this level and gradually reducing his BMI until it is in the normal range. 5 . B enign prostatic hyperplasia, unspecified whether lower urinary tract symptoms present - N40.0 N otes :He rises from sleep twice a night to urinate. We have discussed lifestyle modifications he could make to reduce nocturia. The nocturia does not seem to be from hyperglycemia. 6 . C hronic kidney disease, stage II (mild) - N18.2 N otes :His renal function is stable. No change in his regimen was 7 . A nticoagulated - Z79.01 N otes :No bleeding has occurred. He is compliant with his medication. 8 . C hronic atrial fibrillation - I48.2 N otes :He was in an irregular rhythm today. He has had no symptoms of ischemia. He is not short of breath. 9 . 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 He is doing well at this time. Plan: * Treatment: 2. E ssential hypertension Continue One Touch Delica Lancets, - once a day; C ontinue Lisinopril Tablet, 5 MG, 1 tablet, Orally, Once a day; C ontinue Multivitamin; C ontinue Lancets 30G Miscellaneous, -, as directed, Check blood sugar once a day; C ontinue Metoprolol Tartrate Tablet, 50 MG, 1 tablet with food, Orally, Twice a day; C ontinue dilTIAZem HCl Tablet, 120 MG, as directed, Orally, once a day;?Continue Baby Aspirin. L AB: PROFILE, FASTING (COMPREHENSIVE METABOLIC) L AB: PSA, TOTAL L AB: CBC w DIFF L AB: Lipid Panel L AB: Microalbumin, Random L AB: Hemoglobin A1c 3. M ixed hyperlipidemia L AB: PROFILE, FASTING (COMPREHENSIVE METABOLIC) L AB: PSA, TOTAL L AB: CBC w DIFF L AB: Lipid Panel L AB: Microalbumin, Random L AB: Hemoglobin A1c 4. O verweight L AB: PROFILE, FASTING (COMPREHENSIVE METABOLIC) L AB: PSA, TOTAL L AB: CBC w DIFF L AB: Lipid Panel L AB: Microalbumin, Random L AB: Hemoglobin A1c 5. B enign prostatic hyperplasia, unspecified whether lower urinary tract symptoms present L AB: PROFILE, FASTING (COMPREHENSIVE METABOLIC) L AB: PSA, TOTAL L AB: CBC w DIFF L AB: Lipid Panel L AB: Microalbumin, Random L AB: Hemoglobin A1c 6. O thers Continue OneTouch Verio Strip, -, to check blood sugar once a day, Notes to Pharmacist: DX: Diabetes E 11.9, Notes: DX: Diabetes E 11.0; C ontinue Eliquis Tablet, 5 MG, TAKE 1 TABLET BY MOUTH EVERY 12 HOURS; C ontinue metFORMIN HCl Tablet, 500 MG, 1 tablet with a meal, Orally, twice a day;?Continue dilTIAZem HCl ER Coated Beads Capsule Extended Release 24 Hour, 120 MG, TAKE 1 CAPSULE BY MOUTH EVERY DAY PT DOSENT LIKE BEADS. * Procedure Codes: 9 4760 MEASURE BLOOD OXYGEN LEVEL * Preventive Medicine: Counseling: C are goal follow-up plan: Counseling for abnormal BMI given Y es Above Normal BMI Follow-up D ietary management education, guidance, and counseling DM Care Plan: P atient Lifestyle Goals P atient wants to be able to manage diabetes without too much effort. T reatment Goals H bA1C < 7.0, Blood Sugars less than < 115. B arriers n o barriers. S elf-Managment Goals W ork on weight loss, with a goal of losing 1 lb per week. * Follow Up: A s Scheduled (Reason: Annual Exam) * Images: * Sign off status: Completed true * Provider: Kelly Justin MD Date: Generated for Savita de la vega/Raimundo/Audreyitting on: 05/29/2024 08:37 AM EST History and Physical Notes * HPI (History of Present Illness) Category Sub-Category Detail Notes COVID-19 Screening Questions Have you had any new onset fever, chills, cough, congestion, sore throat, shortness of breath, muscle aches?: No Examination Category Sub-Category Detail Notes General Examination GENERAL APPEARANCE: pleasant , well nourished, well developed, in no acute distress, calm and relaxed: overweight: elderly woman HEAD: atraumatic, normocep halic EYES: eomi, perrla, anicte lillian, conjugate EARS: normal NOSE: septum intact NECK/THYROID: no jugular venous di stention, no carotid bruit, thyroid normal HEART: no clicks, gallops, murmurs, or rubs, irregular rhythm, S1, S2 normal, no s3, or vascular bruits LUNGS: : diminished breath sounds throughout: no wheezes, rales, rhonchi: good air movement ABDOMEN: bowel sounds normal, no ascites, no organomegaly, no mass: overweight NEUROLOGIC: alert and oriented, cranial nerves 2-12 grossly intact, deep tendon reflexes 2+ symmetrical, motor strength normal upper and lower extremities, sensory exam intact SKIN: no suspicious lesion s, anicteric PERIPHERAL PULSES: normal BREASTS: no masses palpable b ilaterally MUSCULOSKELETAL: extremities unremark able, no clubbing, cyanosis or edema LYMPH NODES: no enlarged lymph no aman,spleen normal RECTAL EXAM: not examined PSYCH: alert, oriented: cog nitive function intact: thought process logical, goal directed: speech clear ORAL CAVITY: normal, unremarkable
[2025-03-29] VITALS (8 sets, daily range): BP systolic 120–182; BP diastolic 58–78; PULSE 66–79; RESP 12–18; TEMP 36.4–36.8; O2SAT 94–99; BMI 25.8; BMI 26.8
--- NOTE | ~2025-03-29 | XR_ITS ---
CLINICAL HISTORY: Rule out foreign body, Pre MRI. Recent heart procedure. 2 view chest x-ray Comparison: CR/SR - XR CHEST 2 VIEWS - 06/16/23 08:09 EST Findings: Pulmonary vascular congestion with mild cardiomegaly. Trace fluid tracks along the left lung fissure. No consolidations. Median sternotomy wires, valvular hardware, and mitral clip in position. No acute osseous findings. IMPRESSION: Cardiomegaly with pulmonary vascular congestion and trace fluid tracking along the left lung fissure. No focal consolidations. This document has been electronically signed by: Glenn Carlos MD on 03/29/2025 16:50:33
--- NOTE | ~2025-03-29 | CT_ITS ---
CLINICAL HISTORY: dizziness CT head without contrast Comparison: None Findings: No evidence of acute territorial infarct. There is patchy low density in the periventricular and subcortical white matter. Diffuse volume loss is noted. No hydrocephalus. No hemorrhage, mass effect, mass lesion or midline shift. No abnormal extra-axial fluid. No calvarial fracture. Paranasal sinuses are clear. Partial opacification of the inferior left mastoid air cells Impression: No acute intracranial process. Chronic changes as detailed. This document has been electronically signed by: Huey Ribeiro MD on 03/29/2025 09:26:37
--- NOTE | ~2025-03-29 | CT_ITS ---
CLINICAL HISTORY: vertical vertigo CT angiography head and neck with contrast. 3D Post-processing. Comparison: None Findings: CTA head: No intracranial large vessel occlusion. No dissection or aneurysm. The intracranial segments of the internal carotid arteries exhibit heavy atherosclerotic disease but are patent bilaterally. Intradural vertebral arteries demonstrate moderate atherosclerotic disease but are patent. Anterior and posterior circulation are patent. No abnormal postcontrast enhancement. CTA neck: There is a normal branching pattern of the aortic arch. The right common, internal and external carotid arteries are patent with atherosclerotic disease but no significant stenosis. The left common, internal and external carotid arteries are patent with atherosclerotic disease but no significant stenosis. The vertebral arteries are patent. Impression: There is no intracranial large vessel occlusion detected. No significant stenosis of the neck vasculature. Incidental findings as detailed. This document has been electronically signed by: Huey Ribeiro MD on 03/29/2025 11:20:38
--- NOTE | ~2025-03-29 | MR_ITS ---
CLINICAL HISTORY: r o TIA MR Brain without gadolinium Comparison: CT/REG/SR - CT ANGIO HEAD NECK STROKE - 03/29/25 10:35 EST Findings: No restricted diffusion. No intra-axial mass or hemorrhage. No midline shift. No hydrocephalus. Vascular flow voids are intact. Mild volume loss. Minimal scattered T2 signal prolongation in the periventricular white matter. Calcification/ossification noted along the falx, chronic. Orbital contents are unremarkable. The sinuses and mastoid air cells are clear. No focal bone lesion. IMPRESSION: No acute ischemia. Mild chronic changes This document has been electronically signed by: Huey Ribeiro MD on 03/30/2025 10:54:45
--- NOTE | 2025-03-29 07:56 | ECG_ITS ---
Test Reason : DIZZY Blood Pressure : */* mmHG Vent. Rate : 71 BPM Atrial Rate : 71 BPM P-R Int : 192 ms QRS Dur : 126 ms QT Int : 412 ms P-R-T Axes : 66 -52 47 degrees QTcB Int : 447 ms Sinus rhythm with Premature atrial complexes Left axis deviation Non-specific intra-ventricular conduction block Minimal voltage criteria for LVH, may be normal variant ( Hank product ) Abnormal ECG When compared with ECG of 16-Jun-2023 08:42, Sinus rhythm has replaced Atrial fibrillation Referred By: Generic ED Physician Electronically Signed By: COLBY LAUREANO
--- NOTE | 2025-03-29 08:00 | ED.GENADULT ---
HPI - General Adult General Chief complaint: Dizziness Stated complaint: DIZZY Time Seen by Provider: 03/29/25 07:58 Source: patient, EMS, RN notes reviewed and old records reviewed Mode of arrival: EMS Limitations: no limitations History of Present Illness ED Provider: Chucky HPI narrative: Patient is an 84-year-old male with history of AFib on apixaban, HTN, T2 dm, NSTEMI, status post aortic valve replacement with bioprosthetic valve presenting to the emergency department with complaint of vertigo/dizziness since last night. Reports history of similar symptoms in the past which he relates to issues with his right ear. States he feels as though his ear is blocked, has had cerumen impaction in the past. He reports that he nearly fell twice due to the dizziness. Denies any chest pain, palpitations, dyspnea. Denies headache or vision changes. Describes the dizziness as the room moving up and down, not spinning. MD complaint: dizziness Onset (ago): hour(s) Related Data Home Medications ?Medication ?Instructions ?Recorded ?Confirmed apixaban 5 mg tablet 5 mg PO BID 08/26/20 12/31/24 Held on 06/17/23. Instructions: Resume on 06/27/23. hold until on heparin metformin 500 mg tablet 500 mg PO BID 08/26/20 12/31/24 Held on 06/17/23. Instructions: Resume on 06/19/23. Previous Rx's ?Medication ?Instructions ?Recorded atorvastatin 80 mg tablet 80 mg PO QPM #90 tabs 08/13/24 atenolol 50 mg tablet 50 mg PO DAILY #90 tabs 03/27/25 Allergies Allergy/AdvReac Type Severity Reaction Status Date / Time Penicillins (PENICILLINS) AdvReac Unknown DIARRHEA Verified 03/29/25 07:54 Sulfa (Sulfonamide AdvReac Unknown DIARRHEA Verified 03/29/25 07:54 Antibiotics) (SULFA (SULFONAMIDE ANTIBIOTICS)) FOOD WITH ACID Allergy Intermediate RASH Uncoded 07/13/23 13:24 Review of Systems Review of Systems: As per HPI Yes all other systems are reviewed and are negative Constitutional: Constitutional: Reports as per HPI [facility] Past Medical History Medical History (Updated 03/29/25 @ 11:47 by Lyric Locke NP) Atherosclerotic cardiovascular disease Type 2 diabetes mellitus with unspecified complications Essential hypertension Non-rheumatic aortic stenosis Persistent atrial fibrillation Surgical History Status post aortic valve replacement with bioprosthetic valve Hx of CABG Family History Family History Father Lung cancer Heart attack Mother No problems noted. Social History Social History Household Members: None Housing: House Do you presently have visiting nurse or other home services: No Alcohol intake: never Patient Tobacco Use Status: Never used Tobacco Smoked in Last 30 Days: No Use of substances other than those prescribed or required for medical reasons: No Advance Directives: Yes Advance Directives on File: Yes Advance Directives Date on File: 03/29/25 service: No Physical Exam ED Vital Signs: Vital Signs - 24 hr 03/29/25 07:49 03/29/25 08:08 03/29/25 09:04 Temperature 97.5 F 97.8 F Pulse Rate 79 69 71 Respiratory Rate 16 14 18 Blood Pressure 155/71 H 142/60 H Pulse Oximetry 97 98 Oxygen Delivery Method Room Air Room Air 03/29/25 10:21 Temperature Pulse Rate 66 Respiratory Rate 16 Blood Pressure 147/66 H Pulse Oximetry 99 Oxygen Delivery Method Room Air BMI result Body Mass Index 25.8 Vital signs have been reviewed and appear to be correct. Blood pressure normal. Heart rate normal. Respiratory rate normal. Temperature normal. Oxygen saturation normal. Const General: cooperative, healthy appearing and no acute distress Orientation/consciousness: oriented to person, oriented to place, oriented to time and patient oriented x3 Limitations: no limitations HENMT Head: Yes normocephalic and Yes atraumatic Ears: external ears normal, TM normal on the left and Abnormal EAC present cerumen impaction on the right General nose exam: Normal external nose present Face and sinus: Yes face symmetric Mouth: oropharynx normal and moist mucous membranes Throat: Yes uvula midline Eyes General: appearance normal, both eyes and all related structures Visual Amin: normal visual amin by confrontation Alignment and Position: alignment normal and position normal Pupils: Equal, round and reactive pupils present EOM: EOMs intact bilaterally and No Nystagmus present Neck Neck: Yes normal visual inspection and Yes supple Resp Effort & Inspection: normal respiratory effort and able to speak in complete sentences Auscultation: clear to auscultation bilaterally Cardio Rate: regular rate Rhythm: regular rhythm Heart sounds: S1 normal heart sound present and S2 normal heart sound present GI Palpation (GI): Soft to palpation and nontender Auscultation: normoactive bowel sounds General: Yes no CVA tenderness Back/Spine/Pelvis Back: no CVA tenderness Skin General skin exam: elasticity normal and turgor normal Neuro General: oriented to person, oriented to place, oriented to time, patient oriented x3, tone normal, moves all extremities, Normal light touch and pain sensation, no focal motor deficits, CN's II-XI intact bilaterally and deep tendon reflexes 2+ bilaterally Cranial nerves: Yes Equal, round and reactive pupils present and No Nystagmus present Cognition (Neuro): normal cognition Motor exam (neuro): 5/5 motor strength present throughout, Normal motor muscle tone present throughout and Motor abnormalities not present Extrem General: Yes full ROM, Yes no pedal edema and Yes no calf tenderness Psych Mental Status: mental status grossly normal Affect: normal affect Thought process: Normal thought process present NIH Stroke Scale Internal: Initial- Upon Arrival Time: 08:00 Level of Consciousness: Alert Level of Consciousness Questions: Answers both questions correctly Level of Consciousness Commands: Performs both tasks correctly Best Gaze: Normal Visual: No visual loss Facial Palsy: Normal Motor Arm (Right): No drift Motor Arm (Left): No drift Motor Leg (Right): No drift Motor Leg (Left): No drift Limb Ataxia: Absent Sensory: Normal Best Language: No aphasia Dysarthia: Normal Extinction and Inattention: No abnormality Score: 0 Medications Administered Discontinued Medications Generic Name Dose Route Start Last Admin Trade Name Abdielq PRN Reason Stop Dose Admin Docusate Sodium 100 mg 03/29/25 08:10 03/29/25 09:06 Docusate Sodium 100 Mg/10 Ml Liquid PO 03/29/25 08:11 100 mg ONCE ONE Administration Iohexol 100 ml 03/29/25 10:41 03/29/25 10:41 Iohexol 350 Mg/Ml 100 Ml Infus..Btl IV 03/29/25 10:42 70 ml ONCE ONE Administration Meclizine HCl 25 mg 03/29/25 09:30 03/29/25 09:48 Meclizine Hcl 25 Mg Tablet PO 03/29/25 09:31 25 mg ONCE ONE Administration Ondansetron HCl 4 mg 03/29/25 09:07 03/29/25 09:11 Ondansetron Hcl 4 Mg/2 Ml Vial IVPUSH 03/29/25 09:08 4 mg ONCE ONE Administration Procedures Ear Wax Removal Right Ear: Cerumenolytic Used: Colace Results: Re-examined: some cerumen remains Ear Canal Exam: atraumatic Patient Tolerated Procedure: well Complications: vertigo/dizziness Technique: ear canal irrigated and ear canal curetted Medical Decision Making Medical Decision Making [facility] Narrative: Patient is an 84-year-old male with history of AFib on apixaban, HTN, T2 dm, NSTEMI, status post aortic valve replacement with bioprosthetic valve presenting to the emergency department with complaint of vertigo/dizziness since last night. On exam patient is awake, A+Ox3, VS WNL, afebrile, normal neurological exam without focal deficits, physical exam findings as above. Given reported symptoms and physical exam findings, initial differential includes but is not limited to cardiac arrhythmia, electrolyte abnormality, ICH/CVA, UTI, viral illness. Labs grossly within normal limits, mildly elevated BNP. EKG shows sinus rhythm with PACs. CT head and CTA head/neck notable for no evidence of ICH, LVO. My interpretation is in agreement with the radiologist's interpretation. Patient complains of ongoing dizziness despite meclizine. Attempted to remove cerumen from right ear unsuccessfully. Differential Diagnosis Differential Diagnoses: The differential diagnosis associated with the presentation includes as per [facility] Admission/Observation Consideration of admission/observation: Escalation of care including admission/observation considered Consult Healthcare Provider Management of the patient was discussed with: Hospitalist Lab Data [facility] Lab Attestation statement: I reviewed the patient's lab results. as per [facility] 03/29/25 08:40 03/29/25 08:40 Labs: Lab Results 03/29/25 Range/Units 08:40 WBC 6.5 (4.8-10.8) X10*3/uL RBC 4.82 (4.60-5.80) X10*6/uL Hgb 14.8 (14.0-18.0) g/dl Hct 43.4 (42.0-52.0) % MCV 90.0 (80.0-98.0) fL MCH 30.7 (27.0-33.0) pg MCHC 34.1 (31.0-36.0) g/dl RDW 12.6 (11.0-16.0) % Plt Count 175 (160-400) X10*3/uL MPV 9.3 L (9.4-12.4) fL Immature Gran % (Auto) 0.5 H (0.0-0.4) % Neut % (Auto) 86.7 H (45-73) % Lymph % (Auto) 5.7 L (20-40) % Cobb % (Auto) 5.4 (2-11) % Eos % (Auto) 1.4 (0-4) % Baso % (Auto) 0.3 (0-2) % Lymph # (Auto) 0.4 L (1.2-4.9) X10*3/uL Cobb # (Auto) 0.4 (0.1-1.2) X10*3/uL Eos # (Auto) 0.1 (0.0-0.4) X10*3/uL Baso # (Auto) 0.0 (0.0-0.2) X10*3/uL Abs Immat Gran (auto) 0.03 (0.00-0.03) X10*3/uL Absolute Neuts (auto) 5.6 (2.0-8.3) x10*3/uL Absolute Nucleated RBC 0.000 (0.0-0.012) X10*3/uL Nucleated RBC % (auto) 0.0 (0.0-0.2) /100WBC PT 14.9 H (11.2-13.5) SEC INR 1.2 H (0.9-1.1) Sodium 140 (135-145) mmol/L Potassium 4.8 (3.3-5.1) mmol/L Chloride 106 (96-108) mmol/L Carbon Dioxide 23 (22-29) mmol/L Anion Gap 16 (12-20) BUN 14 (9-16) mg/dL Creatinine 0.89 (0.5-1.4) mg/dL Estim Creat Clear Calc 66.0 Estimated GFR > 60 Random Glucose 174 H (60-115) mg/dL Calcium 9.1 (8.4-10.2) mg/dL Magnesium 2.2 (1.6-2.6) mg/dL Total Bilirubin 0.9 (0.0-1.0) mg/dL AST 28 (5-37) U/L ALT 26 (0-40) U/L Alkaline Phosphatase 81 (39-117) U/L Troponin I High Sens 3.2 D (<3.5-35.0) ng/L NT-Pro-B Natriuret Pep 670.4 H (<300) pg/mL Total Protein 7.1 (6.5-8.0) g/dL Albumin 4.3 (3.5-5.0) g/dL Influenza Type A (PCR) NEGATIVE (Negative) Influenza Type B (PCR) NEGATIVE (Negative) RSV RNA Qual (PCR) NEGATIVE (Negative) SARS-CoV-2 RNA (RT-PCR) NEGATIVE (Negative) Independent Interpretation I performed an independent interpretation of an: CT Scan Interpretation: CT head and CTA head/neck notable for no evidence of ICH, LVO. Radiology Impression Discussion of test interpretation with radiology: I have reviewed the radiologist's reading. Radiologist Impression: CT head without contrast Comparison: None Findings: No evidence of acute territorial infarct. There is patchy low density in the periventricular and subcortical white matter. Diffuse volume loss is noted. No hydrocephalus. No hemorrhage, mass effect, mass lesion or midline shift. No abnormal extra-axial fluid. No calvarial fracture. Paranasal sinuses are clear. Partial opacification of the inferior left mastoid air cells Impression: No acute intracranial process. Chronic changes as detailed. CT angiography head and neck with contrast. 3D Post-processing. Comparison: None Findings: CTA head: No intracranial large vessel occlusion. No dissection or aneurysm. The intracranial segments of the internal carotid arteries exhibit heavy atherosclerotic disease but are patent bilaterally. Intradural vertebral arteries demonstrate moderate atherosclerotic disease but are patent. Anterior and posterior circulation are patent. No abnormal postcontrast enhancement. CTA neck: There is a normal branching pattern of the aortic arch. The right common, internal and external carotid arteries are patent with atherosclerotic disease but no significant stenosis. The left common, internal and external carotid arteries are patent with atherosclerotic disease but no significant stenosis. The vertebral arteries are patent. Impression: There is no intracranial large vessel occlusion detected. No significant stenosis of the neck vasculature. Incidental findings as detailed. External Record Review External record reviewed: Inpatient record, Office record and Outpatient record Critical Care Time Critical Care Time Critical Care Time: Yes Total Critical Care Time: 43 Attestation: I have personally provided critical care time exclusive of time spent on separately billable procedures. Time includes review of lab data, radiology results, discussion with consultants, and monitoring for potential decompensation. Intervention performed as documented. Discharge Plan Discharge Print Language: Telugu
--- OUTSIDE RECORDS SUMMARY | 2025-03-29 08:38 | XMS_ITS | Patient Health Record ---
Author Organization Mitchell Justin III, MD Address [address] [place] [address] [place] [address] Care Team Providers Care [place] Name Role Phone Dr. Mitchell Justin III Primary Care Provider [phone] Allergies Allergen (clinical drug ingredient) Drug/Non Drug [...] ff Reviewed date:08/24/2024 07:16:52 AM Interpretation: Performing Lab:[facility], [address] [place] [phone] Notes/Report: White Blood Count 6.4 4.8-10.8 X10*3/uL [...] NRBC Abs Auto 0.000 0.0-0.012 X10*3/uL Comprehensive Rice. Panel Fa st Reviewed date:08/24/2024 07:16:52 AM Interpretation: Performing Lab:[facility], [address] [place] [phone] Notes/Report: Sodium 141 135-145 mmol/L Potassium 4.8 [...] Panel Reviewed date:08/24/2024 07:16:52 AM Interpretation: Performing Lab:[facility], [address] [place] [phone] Notes/Report: Triglycerides 106 <150 mg/dL Desirable Triglyceride: [...] Antigen Reviewed date:08/24/2024 07:16:52 AM Interpretation: Performing Lab:[facility], [address] [place] [phone] Notes/Report: Prostate Specific Antigen 0.65 <0.05-4.0 ng/mL PSA methodology: Rubio Alinity i Chemiluminescent Microparticle Immunoassay (CMIA) Diabetic Eye Exam Reviewed date:09/17/2024 03:31:41 PM Interpretation:undefined Performing Lab: Notes/Report: undefined NM cardiolite stress test Reviewed date:11/19/2024 08:12:02 PM Interpretation: Performing Lab: Notes/Report: [address] [address] Nuclear Medicine Report Signed Patient: Kwan Padilla MR#: [id number] : 1940 Acct:[id number] Age/Sex: 84 / M ADM Date: 10/09/24 Loc: HO.CARD Attending Dr: Andi Johnson MD Ordering Physician: Andi Johnson MD Date of Service: 10/09/24 Procedure(s): NM cardiolite stress test Accession Number(s): [id number] cc: Mitchell Justin MD; Andi Johnson MD [...] no clear reversible or fixed perfusion normality. NM/TX cardiolite stress test Impression: 1. Myocardial perfusion [...] 10/13/24 1315 DD/ 0955 TD/TT: 10/10/24 1200 Tire Inspector: [place] [id number] Nuclear Medicine Report Signed Patient: Kwan Padilla MR#: [id number] : 1940 Acct:[id number] Age/Sex: 84 / M ADM Date: 10/09/24 Loc: [facility] Attending Dr: Andi Johnson MD Ordering Physician: Andi Johnson MD Date of Service: 10/09/24 Procedure(s): NM cardiolite stress test Accession Number(s): [id number] cc: Mitchell Justin MD; Andi Johnson MD [...] 10/13/2024 01:15 PM EDT RP Workstatio n: [id number] Dictated By: Andi Johnson MD Signed By: <Electronically signed by Andi Johnson MD in OV> 10/13/24 1315 DD/ 0955 TD/TT: 10/10/24 1200 Tire Inspector: Complete Blood Count Auto Di ff Reviewed date:11/19/2024 08:12:02 PM Interpretation: Performing Lab:[facility], [address] [place] [phone] Notes/Report: White Blood Count 6.2 4.8-10.8 X10*3/uL [...] NRBC Abs Auto 0.000 0.0-0.012 X10*3/uL Comprehensive Rice. Panel Fa st Reviewed date:11/19/2024 08:12:02 PM Interpretation: Performing Lab:[facility], [address] [place] [phone] Notes/Report: Sodium 141 135-145 mmol/L Potassium 4.1 [...] Panel Reviewed date:11/19/2024 08:12:02 PM Interpretation: Performing Lab:[facility], [address] [place] [phone] Notes/Report: Triglycerides 73 <150 mg/dL Desirable Triglyceride: [...] Random Reviewed date:11/19/2024 08:12:02 PM Interpretation: Performing Lab:[facility], [address] [place] [phone] Notes/Report: Creatinine Urine 138.41 Microalbumin Urine 5.0 Microalbum/Creatinine Ratio Ur 3.6 <30 ug/mg cr Albumin/Creatinine Ratio Reference Ranges: Normal: < 30 ug/mg creatinine Microalbuminuria: 30 - 300 ug/mg creatinine Clinical Albuminuria: > 300 ug/mg creatinine Hemoglobin A1c Reviewed date:11/19/2024 08:12:02 PM Interpretation: Performing Lab:[facility], [address] [place] [phone] Notes/Report: Hemoglobin A1c % 6.6 <6.0 % [...] average glucose, using the formula of the P2E-Sjctais Average Glucose study (ADAG), Diabetes Care, Vol.31,#8, [...] MOUTH EVERY 12 HOURS Active dilTIAZem HCl 120 [...] Delica Lancets - once a day Active Immunizations Vaccine Route [...] Problem Status W/U Status Risk Notes Problem 374898885 Overweight (E66.3) Active confirmed He is a few pounds overweight at the age of 89. I recommended stabilizing plate at this level and gradually reducing his BMI until it is in the normal range. Problem 74803262 Type 2 diabetes mellitus with diabetic chronic kidney disease (E11.22) Active confirmed His diabetes is well controlled with a fasting glucose of 120. His hemoglobin A1c has increased from 6.0-6.6. We discussed weight loss and a diabetic diet today. He is doing well. Problem 318026150 Mixed hyperlipidemia (E78.2) Active confirmed His total cholesterol is 114 and he is tolerating his medication well. Problem 502139863 Chronic atrial fibrillation (I48.2) Active confirmed He was in an irregular rhythm today. He has had no symptoms of ischemia. He is not short of breath. Problem 609122530 Anticoagulated (Z79.01) Active confirmed No bleeding has occurred. He is compliant with his medication. Problem 79403930 Essential hypertension (I10) Active confirmed His blood pressure has been well controlled. We discussed his sodium intake. We advised aggressive sodium restriction. We advised regular exercise on a routine follow-up in their future. Problem 98180400 Nephrolithiasis (N20.0) Active confirmed He has had no episodes of renal colic or hematuria recently. Problem Benign prostatic hypertrophy without outflow obstruction (383600605) Benign prostatic hyperplasia, unspecified whether lower urinary tract symptoms present (N40.0) Active confirmed He rises from sleep twice a night to urinate. We have discussed lifestyle modifications he could make to reduce nocturia. The nocturia does not seem to be from hyperglycemia. Problem 694337883 Chronic kidney disease, stage II (mild) (N18.2) Active confirmed His renal function is stable. No change in his regimen was Problem 138299007 Aortic stenosis, moderate (I35.0) Active confirmed His aortic valve was successfully replaced during the coronary artery bypass procedure. He is doing well at this time. Problem 68136906 Arteriosclerotic coronary artery disease (I25.10) Active confirmed He underwen t coronary artery bypass surgery in June 2023 with excellent results. He has been free of angina. Vital Signs Heart Rate 64 /min 02/19/2025 Temperature 97.0 degrees Fahrenheit 02/19/2025 Respiratory Rate 16 /min 02/19/2025 Oximetry 98 % 02/19/2025 Blood pressure diastolic 64 mm Hg 02/19/2025 Height 71 in 02/19/2025 Blood pressure systolic 122 mm Hg 02/19/2025 Weight 183 lbs 02/19/2025 BMI 25.52 kg/m2 02/19/2025 Encounters Encounter Location Date Provider Diagnosis Mitchell Justin III, MD [address] [place] [address] [place] [phone] 03/29/2024 Mitchell Justin Essential hypertensi on I10 [...] and Anticoagulated Z79.01 Mitchell Justin III, MD [address] [place] [address] [place] [phone] 08/27/2024 Mitchell Justin Chronic atrial fibrillation I48.2 ; Anticoagulated Z79.01 ; Nephrolithiasis N20.0 ; Essential hypertension I10 ; Mixed hyperlipidemia E78.2 ; Type 2 diabetes mellitus with diabetic chronic kidney disease E11.22 ; Benign prostatic hyperplasia, unspecified whether lower urinary tract symptoms present N40.0 ; Arteriosclerotic coronary artery disease I25.10 and Aortic stenosis, moderate I35.0 Mitchell Justin III, MD [address] [place] [address] [place] [id number] 11/26/2024 Mitchell Justin Essential hypertensi on I10 ; Arteriosclerotic coronary artery disease I25.10 ; Overweight E66.3 ; Chronic atrial fibrillation I48.2 ; Anticoagulated Z79.01 ; Nephrolithiasis N20.0 ; Mixed hyperlipidemia E78.2 ; Chronic kidney disease, stage II (mild) N18.2 ; Benign prostatic hyperplasia, unspecified whether lower urinary tract symptoms present N40.0 and Aortic stenosis, moderate I35.0 Mitchell Justin III, MD [address] [place] [address] [place] [id number] 02/19/2025 Mitchell Justin Essential hypertensi on I10 ; Type 2 diabetes mellitus with diabetic chronic kidney disease E11.22 ; Mixed hyperlipidemia E78.2 ; Overweight E66.3 ; Benign prostatic hyperplasia, unspecified whether lower urinary tract symptoms present N40.0 ; Chronic kidney disease, stage II (mild) N18.2 ; Anticoagulated Z79.01 ; Chronic atrial fibrillation I48.2 and Aortic stenosis, moderate I35.0 Mitchell Justin III, MD [address] [place] [address] [place] [id number] 01/27/2025 Mitchell Justin Assessments Encounter Date Diagnosis (ICD Code) Assessment [...] results. He has been free of angina. 02/19/2025 Type 2 diabetes mellitus with diabetic chronic kidney disease (ICD-10 - E11.22) His diabetes is well controlled with a fasting glucose of 120. His hemoglobin A1c has increased from 6.0-6.6. We discussed weight loss and a diabetic diet today. He is doing well. 02/19/2025 Essential hypertensi on (ICD-10 - I10) His blood pressure has been well controlled. We discussed his sodium intake. We advised aggressive sodium restriction. We advised regular exercise on a routine follow-up in their future. 03/29/2024 Type 2 diabetes mellitus with diabetic [...] to consume a healthy Mediterranean low-sodium diet. 02/19/2025 Mixed hyperlipidemia (ICD-10 - E78.2) His total cholesterol is 114 and he is tolerating his medication well. 03/29/2024 Mixed hyperlipidemia (ICD-10 - E78.2) The [...] He is not short of breath. 02/19/2025 Overweight (ICD-10 - E66.3) He is a few pounds overweight at the age of 89. I recommended stabilizing plate at this level and gradually reducing his BMI until it is in the normal range. 03/29/2024 Benign prostatic hyperplasia, unspecified whether lower [...] He is compliant with his medication. 02/19/2025 Benign prostatic hyperplasia, unspecified whether lower urinary tract symptoms present (ICD-10 - N40.0) He rises from sleep twice a night to urinate. We have discussed lifestyle modifications he could make to reduce nocturia. The nocturia does not seem to be from hyperglycemia. 03/29/2024 Arteriosclerotic coronary artery disease (ICD-10 - [...] episodes of renal colic or hematuria recently. 02/19/2025 Chronic kidney disease, stage II (mild) (ICD-10 - N18.2) His renal function is stable. No change in his regimen was 03/29/2024 Aortic stenosis, moderate (ICD-10 - I35.0) [...] without side effects. No changes were needed. 02/19/2025 Anticoagulated (ICD- 10 - Z79.01) No bleeding has occurred. He is compliant with his medication. 03/29/2024 Overweight (ICD-10 - E66.3) He has [...] No change in his regimen was 02/19/2025 Chronic atrial fibrillation (ICD-10 - I48.2) He was in an irregular rhythm today. He has had no symptoms of ischemia. He is not short of breath. 03/29/2024 Chronic atrial fibrillation (ICD-10 - I48.20) [...] as he could make to reduce nocturia. 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 He is doing well at this time. 03/29/2024 Anticoagulated (ICD- 10 - Z79.01) No [...] C) 08/23/2023 PROFILE, FASTING (COMPREHENSIVE METABOLI C) 02/19/2025 PROFILE, FASTING (COMPREHENSIVE METABOLI C) 11/11/2022 PROFILE, FASTING (COMPREHENSIVE METABOLI C) 08/27/2024 PROFILE, FASTING (COMPREHENSIVE METABOLI C) 11/20/2017 PROFILE, [...] 09/28/2020 PROFILE, RANDOM (COMPREHENSIVE METABOLIC ) 07/27/2021 PROFILE, RANDOM (COMPREHENSIVE METABOLIC ) 03/31/2020 HEMOGLOBIN [...] PANEL 02/01/2021 LIPID PANEL 12/04/2018 PSA, TOTAL 02/19/2025 PSA, TOTAL 09/28/2020 PSA, TOTAL 08/23/2023 PSA, TOTAL 04/21/2023 PSA, TOTAL 03/29/2024 PSA, TOTAL 11/20/2017 PSA, TOTAL 07/27/2021 PSA, TOTAL 03/22/2022 PSA, TOTAL+FREE 02/01/2021 MICROALBUMIN, RANDOM 05/04/2021 MICROALBUMIN, RANDOM 08/31/2018 MICROALBUMIN, RANDOM 01/22/2018 MICROALBUMIN, RANDOM 12/30/2019 MICROALBUMIN, RANDOM 11/11/2022 MICROALBUMIN, RANDOM 03/06/2019 CBC w DIFF 07/27/2021 CBC w DIFF 03/06/2019 CBC w DIFF 03/22/2022 CBC w DIFF 12/04/2018 CBC w DIFF 07/01/2020 CBC w DIFF 05/04/2021 CBC w DIFF 08/27/2024 CBC w DIFF 02/01/2021 CBC w DIFF 02/19/2025 CBC w DIFF 09/28/2020 CBC w DIFF [...] Panel 12/18/2023 Lipid Panel 08/27/2024 Lipid Panel 02/19/2025 Lipid Panel 08/23/2023 Lipid Panel 04/21/2023 Lipid Panel 03/29/2024 Microalbumin, Random 08/27/2024 Microalbumin, Random 02/19/2025 Microalbumin, Random 07/29/2022 Hemoglobin A1c 08/27/2024 Hemoglobin A1c 02/19/2025 Next Appt Details Provider Name:Mitchell Justin , 08/29/2025 03:00:00 PM, [address] [place] [address] , [address], [place], [address], Insurance Providers Payer Name Payer Address Payer Phone Subscriber Number Group Number Insured Name Patient Relationship to Insured Coverage Start Date Coverage End Date MEDICARE NGS [address] [place] [phone] [id number] Kwan Talavera i Self - patient is the insured [email or web address] ([facility]) [address] [place] [address] [phone] [id number] Kwan Talavera i Self - patient is [...] ment 2023 Atrial fibrillation - treated in [facility] Diabetes - under control Surgical History Surgery Date(Month/Year) No history two bypass and heart valve replacement 0 2023 none Hospitalization History Reason Date(Month/Year) No history heart valve replacement and bypass 06/26 [facility] [place], afib with RVR 8
[2025-03-29 08:49] LABS: MANUAL DIFF FLAG NO
[2025-03-29 08:51] LABS: Hematocrit 43.4 % (42.0-52.0); Hemoglobin 14.8 g/dl (14.0-18.0); Imm Gran Abs Auto 0.03 X10*3/uL (0.00-0.03); Imm Gran Pct Auto 0.5 % (0.0-0.4); Lymphocytes Absolute Auto 0.4 X10*3/uL (1.2-4.9); Mean Corpuscular HGB Conc 34.1 g/dl (31.0-36.0); Mean Corpuscular Hemoglobin 30.7 pg (27.0-33.0); Mean Corpuscular Volume 90.0 fL (80.0-98.0); NRBC Abs Auto 0.000 X10*3/uL (0.0-0.012); NRBC Pct Auto 0.0 /100WBC (0.0-0.2); Platelet Count 175 X10*3/uL (160-400); Red Blood Count 4.82 X10*6/uL (4.60-5.80); White Blood Count 6.5 X10*3/uL (4.8-10.8)
[2025-03-29 09:03] LABS: INTERNATIONAL NORM RATIO 1.2 (0.9-1.1); Prothrombin Time 14.9 SEC (11.2-13.5)
[2025-03-29 09:04] LABS: Alanine Aminotransferase 26 U/L (0-40); Albumin Level 4.3 g/dL (3.5-5.0); Alkaline Phosphatase 81 U/L (39-117); Anion Gap 16 (12-20); Aspartate Amino Transferase 28 U/L (5-37); Blood Urea Nitrogen 14 mg/dL (9-16); Calcium 9.1 mg/dL (8.4-10.2); Carbon Dioxide 23 mmol/L (22-29); Chloride 106 mmol/L (96-108); Creatinine Clr Calc Pharmacy 66.0; Estimated Glomerular Filt Rate > 60; Magnesium 2.2 mg/dL (1.6-2.6); Potassium 4.8 mmol/L (3.3-5.1); Sodium 140 mmol/L (135-145); Total Protein 7.1 g/dL (6.5-8.0)
--- NOTE | 2025-03-29 09:07 | PC.NURSE ---
Patient returned to room from CT. Pt awake and alert. skin pink, warm, moist. resp even and non labored. speaking in full, clear sentences. reports increased dizziness and nausea after laying flat for CT, nausea persists but dizziness in resolved at this time. provider made aware and new orders received. colace to right ear per order for wax removal.
[2025-03-29 09:11] LABS: NT Pro B Type Natriuretic Pept 670.4 pg/mL (<300); Troponin-I High Sensitivity 3.2 ng/L (<3.5-35.0)
[2025-03-29 09:36] LABS: Resp Syncy Virus RNA Qual PCR NEGATIVE (Negative); SARS COV2 PCR INHOUSE NEGATIVE (Negative)
--- NOTE | 2025-03-29 09:51 | PC.NURSE ---
Patient reports nausea improved after zofran administration. swallow evaluation completed and patient medicated w/ meclizine per order.
[2025-03-29] MEDS: iohexoL 350 MG/ML 100 ML INFUS..BTL IV (10:41)
--- NOTE | 2025-03-29 10:45 | PC.NURSE ---
patient returned from CTA. reports some dizziness but that the dizziness is better after the meclizine. also again reports some nausea after laying flat for CT, nausea improved at this time.
--- NOTE | 2025-03-29 11:49 | PM.IMHP ---
History of Present Illness Date of Service: 03/29/25 Chief Complaint: Dizziness 84 Year old man with a history of coronary artery disease presented to the ER with complaints of dizziness that he describes as vertigo. He reports that he has had this for many years but suddenly started yesterday and did not let up. He reported that he tried to get up to go to the bathroom and he went to bed. He woke up again to use the bathroom and still continued to feel vertigo and ended up using his emergency alert button and was brought to the ER. Currently all imaging studies are negative for any acute abnormality. Patient reports that he has had issues with his ears including fluid buildup and wax buildup and at 1 time has been following with an ENT. His right ear does look like he has some fluid in there. At this time patient has no focal deficits noted. He denied any recent illness, fever, chills, nausea, vomiting, diarrhea, loss of consciousness, chest pain, shortness of breath. Plan will be to place patient on observation for TIA workup. Review of Systems Review of Systems: Denies any recent fever chills or decrease in appetite respiratory denies any shortness of breath or cough cardiovascular denies chest pain gastrointestinal denies any dysphagia abdominal pain nausea vomiting or diarrhea genitourinary denies any dysuria frequency or hematuria musculoskeletal denies any joint pain or swelling neuropsych see HPI all other systems reviewed are negative [facility] Medical History (Updated 03/29/25 @ 12:10 by Rinku Bajwa MD) Atherosclerotic cardiovascular disease Type 2 diabetes mellitus with unspecified complications Essential hypertension Non-rheumatic aortic stenosis Persistent atrial fibrillation Family History Father Lung cancer Heart attack Mother No problems noted. Surgical History Status post aortic valve replacement with bioprosthetic valve Hx of CABG Social History Household Members: None Housing: House Do you presently have visiting nurse or other home services: No Alcohol intake: never Patient Tobacco Use Status: Never used Tobacco Smoked in Last 30 Days: No Use of substances other than those prescribed or required for medical reasons: No Advance Directives: Yes Advance Directives on File: Yes Advance Directives Date on File: 03/29/25 service: No Meds Allergies Allergy/AdvReac Type Severity Reaction Status Date / Time Penicillins (PENICILLINS) AdvReac Unknown DIARRHEA Verified 03/29/25 07:54 Sulfa (Sulfonamide AdvReac Unknown DIARRHEA Verified 03/29/25 07:54 Antibiotics) (SULFA (SULFONAMIDE ANTIBIOTICS)) FOOD WITH ACID Allergy Intermediate RASH Uncoded 07/13/23 13:24 Home Medications ?Medication ?Instructions ?Recorded ?Confirmed ?Last Taken ?Type apixaban 5 mg tablet 5 mg PO BID 08/26/20 12/31/24 06/16/23 History Held on 06/17/23. Instructions: Resume on 06/27/23. hold until on heparin metformin 500 mg tablet 500 mg PO BID 08/26/20 12/31/24 06/16/23 History Held on 06/17/23. Instructions: Resume on 06/19/23. Physical Exam Vital Signs and Narrative: Vital Signs: Last Vital Signs Temp 97.8 F 03/29/25 09:04 Pulse 66 03/29/25 10:21 Resp 16 03/29/25 10:21 BP 147/66 H 03/29/25 10:21 Pulse Ox 99 03/29/25 10:21 O2 Del Method Room Air 03/29/25 10:21 BMI result Body Mass Index 25.8 Appearing in no acute distress head is normocephalic atraumatic eyes pupils are PERRLA sclera is anicteric mouth throat mucous membranes are intact and moist neck is supple no lymphadenopathy, no JVD noted lung sounds are clear to auscultation heart regular rate rhythm, clear S1, S2 positive bowel sounds, abdomen is soft, nontender neuro patient is alert x3, no focal deficits Results Labs 03/29/25 08:40 03/29/25 08:40 Labs: Laboratory Results - last 24 hr 03/29/25 08:40 MCV 90.0 MCH 30.7 MCHC 34.1 RDW 12.6 Plt Count 175 MPV 9.3 L Immature Gran % (Auto) 0.5 H Neut % (Auto) 86.7 H Lymph % (Auto) 5.7 L [place] % (Auto) 5.4 Eos % (Auto) 1.4 Baso % (Auto) 0.3 Lymph # (Auto) 0.4 L [place] # (Auto) 0.4 Eos # (Auto) 0.1 Baso # (Auto) 0.0 Abs Immat Gran (auto) 0.03 Absolute Neuts (auto) 5.6 Absolute Nucleated RBC 0.000 Nucleated RBC % (auto) 0.0 PT 14.9 H INR 1.2 H Anion Gap 16 Estim Creat Clear Calc 66.0 Estimated GFR > 60 Random Glucose 174 H Calcium 9.1 Magnesium 2.2 Total Bilirubin 0.9 AST 28 ALT 26 Alkaline Phosphatase 81 Troponin I High Sens 3.2 D NT-Pro-B Natriuret Pep 670.4 H Total Protein 7.1 Albumin 4.3 Influenza Type A (PCR) NEGATIVE Influenza Type B (PCR) NEGATIVE RSV RNA Qual (PCR) NEGATIVE SARS-CoV-2 RNA (RT-PCR) NEGATIVE Assessment and Plan (1) Vertigo: Status: Acute Plan 84 year old man presenting with dizziness Dizziness, rule out TIA History of this dizziness over the years with fluid blockages in his ears Head CTA negative for any acute stenosis or significant blockage We will monitor on [facility] Neurology consultation> likely vestibular, obtain MRI to rule out any other activity such as stroke or TIA, we will need outpatient ENT follow up MRI ordered Diabetes mellitus type 2 Sliding scale, ADA diet Continue metformin Persistent atrial fibrillation Continue atenolol, apixaban History of coronary artery disease Continue atenolol, statin DVT prophylaxis with Eliquis Full code Quality Stroke Does the patient have a stroke diagnosis?: No VTE Prior VTE?: No VTE Risk Level:: Medical - moderate - high VTE Device Contraindication: Treatment Not Indicated VTE Drug Contraindication: N/A - Med Ordered
--- NOTE | 2025-03-29 12:44 | PHA.MEDREC ---
Addendum entered by Jama Kelly PharmD 03/29/25 12:46: reviewed Original Note: Pharmacy Consult ? Medication Reconciliation Pharmacy has completed the medication reconciliation. Confirmed medication list with patient and against claims history.
[2025-03-29 13:22] LABS: Appearance Urine Clear; Glucose Urine UA 100 mg/dL (Negative); PH 6.5 (5.0-9.0); Specific Gravity - Urine >= 1.030 (1.005-1.025)
--- NOTE | 2025-03-29 14:11 | HO.NURTONUR ---
Pt coming from home w/ c/o dizziness/vertigo since last noc. Pt states he almost fell twice this am alone. Pt reprts pmhx of vertigo and cerumen impaction causing similar sx's, however, he describes this dizziness as vertical and not room spinning . Pts R ear was flushed in ED, and pt given meclizine with mild relief. Pt continues to c/o dizzines especially w/ standing. Pt lives alone and at baseline ambulates w/ cane and walker. Pt being admitted for MRI. MRI form complete and faxed.
--- NOTE | 2025-03-29 16:14 | PC.NURSE ---
Pt returned from MRI, was unable to be performed secondary to sternal plate post CABG. roof technician to reach out to cushion assembler to confirm, if so, will come back to get pt. Dr. Newton Coffman updated via tiger text.
[2025-03-29] MEDS: 0.9 % Sodium Chloride Flush 3 ML SYRINGE IVFLUSH (20:40)
--- NOTE | 2025-03-29 22:15 | PC.NURSE ---
Pt stated he normally takes metformin and eliquis twice a day. Pt's night time medication is on hold due to MRI tomorrow per Dr. Pearce.
[2025-03-30 03:57] VITALS: BP 139/70; PULSE 61; RESP 18; TEMP 37.1; O2SAT 96
[2025-03-30 07:42] LABS: MANUAL DIFF FLAG NO
[2025-03-30 07:44] LABS: Hematocrit 44.2 % (42.0-52.0); Hemoglobin 14.8 g/dl (14.0-18.0); Imm Gran Abs Auto 0.02 X10*3/uL (0.00-0.03); Imm Gran Pct Auto 0.3 % (0.0-0.4); Lymphocytes Absolute Auto 0.7 X10*3/uL (1.2-4.9); Mean Corpuscular HGB Conc 33.5 g/dl (31.0-36.0); Mean Corpuscular Hemoglobin 30.6 pg (27.0-33.0); Mean Corpuscular Volume 91.3 fL (80.0-98.0); NRBC Abs Auto 0.000 X10*3/uL (0.0-0.012); NRBC Pct Auto 0.0 /100WBC (0.0-0.2); Platelet Count 177 X10*3/uL (160-400); Red Blood Count 4.84 X10*6/uL (4.60-5.80); White Blood Count 7.3 X10*3/uL (4.8-10.8)
[2025-03-30 07:59] LABS: Alanine Aminotransferase 25 U/L (0-40); Albumin Level 4.2 g/dL (3.5-5.0); Alkaline Phosphatase 82 U/L (39-117); Anion Gap 13 (12-20); Aspartate Amino Transferase 35 U/L (5-37); Blood Urea Nitrogen 12 mg/dL (9-16); Calcium 9.1 mg/dL (8.4-10.2); Carbon Dioxide 26 mmol/L (22-29); Chloride 106 mmol/L (96-108); Cholesterol 113 mg/dL (<200); Creatinine Clr Calc Pharmacy 68.3; Estimated Glomerular Filt Rate > 60; HDL Cholesterol 53 mg/dL (>40); Potassium 4.1 mmol/L (3.3-5.1); Sodium 141 mmol/L (135-145); Total Protein 7.1 g/dL (6.5-8.0); Triglycerides 88 mg/dL (<150)
[2025-03-30 08:00] VITALS: BP 152/73; PULSE 88; RESP 16; TEMP 37.4; O2SAT 95
[2025-03-30] MEDS: 0.9 % Sodium Chloride Flush 3 ML SYRINGE IVFLUSH (09:09)
[2025-03-30 12:00] VITALS: BP 160/82; PULSE 78; RESP 18; TEMP 36.7; O2SAT 94
--- NOTE | 2025-03-30 13:34 | P.PNIM_ITS ---
Subjective Subjective Date of Service: 03/30/25 Interval History: Patient seen examined at bedside this morning, patient states that he is feeling well, awaiting MRI, recently got documentation have MRI done. Mentioned that vertigo symptoms have improved. Review of Systems Review of Systems: Yes all other systems are reviewed and are negative Physical Exam 2 Exam: Exam: General: AxOx3, No acute distress, hard of hearing Head: AT/NC ENT: Moist mucous membranes Neck: supple CVS: Irregularly Irregular, S1 S2 normal Lungs: Clear bilateral breath sounds, no wheezes or crackles Abd: Soft non tender, non distended Ext: No edema and no calf tenderness MSK: moving all 4 limbs Skin: No cyanosis or edema Psych: Cooperative with exam Neurology: no focal deficit Vital Signs: Vital Signs: Last Vital Signs Temp 98.0 F 03/30/25 12:00 Pulse 78 03/30/25 12:00 Resp 18 03/30/25 12:00 BP 160/82 H 03/30/25 12:00 Pulse Ox 94 03/30/25 12:00 O2 Del Method Room Air 03/30/25 12:00 BMI result Body Mass Index 26.8 Objective Data Active Medications Acetaminophen (Acetaminophen 325 Mg Tablet) 650 mg PO Q6H PRN PRN Reason: Pain, Mild 1-3,fever,headache Calcium Carbonate (Calcium Carbonate 750 Mg Tab.Chew) 750 mg PO Q4H PRN PRN Reason: Heartburn Magnesium Hydroxide (Milk Of Magnesia 30 Ml Oral.Susp) 30 ml PO DAILY PRN PRN Reason: Constipation Melatonin (Melatonin 3 Mg Tablet) 6 mg PO BEDTIME PRN PRN Reason: Insomnia Ondansetron HCl (Ondansetron Hcl 4 Mg/2 Ml Vial) 4 mg IVPUSH Q8H PRN PRN Reason: Nausea and Vomiting Sodium Chloride (0.9 % Sodium Chloride Flush 3 Ml Syringe) [facility] Last Admin: 03/30/25 09:09 Dose: 3 ml Documented By: GIANCARLO Labs 03/30/25 06:48 03/30/25 06:48 Labs: Laboratory Results - last 24 hr 03/30/25 06:48 MCV 91.3 MCH 30.6 MCHC 33.5 RDW 13.0 Plt Count 177 MPV 9.8 Immature Gran % (Auto) 0.3 Neut % (Auto) 77.1 H Lymph % (Auto) 9.2 L [place] % (Auto) 10.8 Eos % (Auto) 2.3 Baso % (Auto) 0.3 Lymph # (Auto) 0.7 L [place] # (Auto) 0.8 Eos # (Auto) 0.2 Baso # (Auto) 0.0 Abs Immat Gran (auto) 0.02 Absolute Neuts (auto) 5.6 Absolute Nucleated RBC 0.000 Nucleated RBC % (auto) 0.0 Anion Gap 13 Estim Creat Clear Calc 68.3 Estimated GFR > 60 Random Glucose 118 H Calcium 9.1 Total Bilirubin 1.1 H AST 35 ALT 25 Alkaline Phosphatase 82 Total Protein 7.1 Albumin 4.2 Triglycerides 88 Cholesterol 113 LDL Cholesterol, Calc 43 HDL Cholesterol 53 Assessment and Plan (1) Persistent atrial fibrillation: Status: Acute (2) Vertigo: Status: Acute Plan Assessment: 84 year old man presenting with vertigo Vertigo, likely vestibular in origin, to rule out TIA History of this dizziness over the years with fluid blockages in his ears Head CTA negative for any acute stenosis or significant blockage We will monitor on [facility] [place] Neurology consultation> likely vestibular, obtain MRI to rule out any other activity such as stroke or TIA, we will need outpatient ENT follow up MRI to be done today Diabetes mellitus type 2 Sliding scale, ADA diet Continue metformin Persistent atrial fibrillation Continue atenolol, apixaban History of coronary artery disease Continue atenolol, statin DVT prophylaxis with Eliquis Full code Total time managing care of this patient today: 35 minutes. Quality Stroke Does the patient have a stroke diagnosis?: No VTE Prior VTE?: No VTE Risk Level:: Medical - moderate - high VTE Device Contraindication: Treatment Not Indicated VTE Drug Contraindication: N/A - Med Ordered
[2025-03-30 15:40] VITALS: BP 143/84; PULSE 89; RESP 18; TEMP 37.8; O2SAT 95
--- NOTE | 2025-03-30 16:05 | MHC.CM.PN ---
PT REPORTS HE LIVES ALONE AND IS INDEPENDENT WITH ALL CARE HE SAYS HE DOES NOT USE DME USUALLY, BUT KEEPS A WALKER NEAR THE BED IN CASE HE NEEDS IT AND A CANE FOR TRIPS TO THE [place] HE HAS A HCP ON FILE AND VERIFIED PCP: SONNY LOMBARDO OBSERVATION NOTICE DELIVERED DCP: HOME VIA FAMILY TRANSPORT
[2025-03-30 20:00] VITALS: BP 129/72; PULSE 78; RESP 18; TEMP 37.2; O2SAT 95
[2025-03-31] VITALS: BP 117/69; PULSE 79; RESP 16; TEMP 37.4; O2SAT 95
[2025-03-31 04:00] VITALS: BP 136/68; PULSE 73; RESP 16; TEMP 36.9; O2SAT 97
[2025-03-31 08:00] VITALS: BP 140/77; PULSE 84; RESP 20; TEMP 36.6; O2SAT 95
[2025-03-31] MEDS: 0.9 % Sodium Chloride Flush 3 ML SYRINGE IVFLUSH (09:28)
[2025-03-31 11:54] VITALS: BP 151/83; PULSE 95; RESP 19; TEMP 36.9; O2SAT 95
--- NOTE | 2025-03-31 12:46 | MHC.CM.PN ---
Pt. has been medically cleared to [place], he will go home via private transport, plan is self care.
--- NOTE | 2025-03-31 14:05 | P.DS_ITS ---
DS: Providers Provider Date of Service: 03/31/25 Date of admission: 03/29/25 11:49 Date of discharge: 03/31/25 Primary care physician: Mitchell Justin MD Consults: 03/29/25 11:53 Consult to Neurology Routine Consulting Provider: [facility] Reason for consultation: ? TIA DS: Diagnosis Discharge Diagnosis (1) Persistent atrial fibrillation: Status: Acute (2) Vertigo: Status: Acute DS: Summary Hospital Course Hospital Course: 84 year old man presenting with vertigo, with initial suspicion for possible TIA, MRI done with no acute ischemia and mild chronic changes. Seen by Neurology, suspected peripheral vestibular type, and to follow up with ENT Vertigo, likely vestibular in origin, MRI with no signs of CVA History of this dizziness over the years with fluid blockages in his ears Head CTA negative for any acute stenosis or significant blockage -follow up with ENT as outpatient as right ear with material appearing fungal. -Audiogram Diabetes mellitus type 2 Sliding scale, ADA diet Continue metformin Persistent atrial fibrillation Continue atenolol, apixaban History of coronary artery disease Continue atenolol, statin Time Attestation Discharge Coordination Time (in mins): 35 minutes Quality: Safe Use of Opioids Does Pt have an Active Cancer Diagnosis on the Problem List?: No Quality: Stroke Does the patient have a stroke diagnosis?: No Physical Exam Exam: Exam: General: AxOx3, No acute distress, hard of hearing Head: AT/NC ENT: Moist mucous membranes Neck: supple CVS: Irregularly Irregular, S1 S2 normal Lungs: Clear bilateral breath sounds, no wheezes or crackles Abd: Soft non tender, non distended Ext: No edema and no calf tenderness MSK: moving all 4 limbs Skin: No cyanosis or edema Psych: Cooperative with exam Neurology: no focal deficit Vital Signs: Vital Signs: Last Vital Signs Temp 98.4 F 03/31/25 11:54 Pulse 95 03/31/25 11:54 Resp 19 03/31/25 11:54 BP 151/83 H 03/31/25 11:54 Pulse Ox 95 03/31/25 11:54 O2 Del Method Room Air 03/31/25 11:54 BMI result Body Mass Index 26.8 Discharge Plan Discharge Patient Disposition: Home, Self-Care Discharge Diagnosis: Vertigo Referrals: Mitchell Justin MD [Primary Care Provider, Internal Medicine] - 1 Week Discharge Medications: New meclizine 25 mg tablet 25 mg PO BID PRN (Reason: dizziness) Qty: 10 0RF Continued atorvastatin 80 mg tablet 80 mg PO QPM Qty: 90 3RF atenolol 50 mg tablet 50 mg PO DAILY Qty: 90 3RF apixaban 5 mg tablet 5 mg PO BID metformin 500 mg tablet 500 mg PO BID Discharge Orders: Discharge Order (Routine); Ordered 03/31/25 Ordered By: Terry Coffman Activity on Discharge: As tolerated Stand Alone Forms: Patient Portal Discharge page Print Language: Mongolian Care Plan Goals: follow up with Ear, Nose and Throat doctor for vesibular workup Health Concerns: Vertigo likely peripheral in origin Plan of Treatment: meclizine ordered follow up with ENT as outpatient, possible audiogram Assessment: 84 year old man presenting with vertigo, with initial suspicion for possible TIA, MRI done with no acute ischemia and mild chronic changes. Seen by Neurology, suspected peripheral vestibular type, and to follow up with ENT as well as Neurology in outpatient setting. Patient at this time states that he feels well, no longer having vertigo, agrees with being discharged on following up in outpatient setting.
== END 2025-03-31 15:18 | disposition home or self-care (01) ==
LOC: HO.ED 11:52 → HO.EDOVER 12:12 → HO.IMC 17:05
PROVIDERS: Registered Nurse Emergency; Admitting Provider Nurse Practitioner Acute Care; Emergency Provider Emergency Medicine Emergency Medical Services; PCP Internal Medicine Medical Oncology; Visit Provider Student in an Organized Health Care Education/Training Program
DX: I48.19 Other persistent atrial fibrillation (principal); R42 Dizziness and giddiness; R94.31 Abnormal electrocardiogram [ECG] [EKG]; E11.9 Type 2 diabetes mellitus without complications; I25.10 Atherosclerotic heart disease of native coronary artery without angina pectoris; Z95.2 Presence of prosthetic heart valve; Z79.01 Long term (current) use of anticoagulants; Z79.84 Long term (current) use of oral hypoglycemic drugs; Z79.899 Other long term (current) drug therapy; Z03.818 Encounter for observation for suspected exposure to other biological agents ruled out
CPT/HCPCS: 36415; 70450; 70496; 70498; 70551; 71046; 80053; 80061; 81003; 83735; 83880; 84484; 85025; 85610; 87637; 93005; 96374; 99222; 99285; J2405; Q9967

== ENCOUNTER → 2025-03-29 07:56 | Outpatient (BNV) | payer MEDICARE, OTHER, SELFPAY | PROVIDERS: Admitting Provider Nurse Practitioner Acute Care; Emergency Provider Emergency Medicine Emergency Medical Services; PCP Internal Medicine Medical Oncology; Visit Provider Internal Medicine | DX: I49.1 Atrial premature depolarization (principal); I45.4 Nonspecific intraventricular block | CPT/HCPCS: 93010 ==

== ENCOUNTER → 2025-03-29 08:01 | Outpatient (BNV) | payer MEDICARE, OTHER, SELFPAY | PROVIDERS: Emergency Provider Emergency Medicine Emergency Medical Services; PCP Internal Medicine Medical Oncology; Visit Provider Radiology Vascular & Interventional Radiology | DX: R42 Dizziness and giddiness (principal); I65.23 Occlusion and stenosis of bilateral carotid arteries; I67.2 Cerebral atherosclerosis | CPT/HCPCS: 70450; 70496; 70498 ==

== ENCOUNTER 2025-03-29 11:49 | Outpatient (BNV) | payer MEDICARE, OTHER, SELFPAY | END 2025-03-30 10:13 | PROVIDERS: Admitting Provider Nurse Practitioner Acute Care; Emergency Provider Emergency Medicine Emergency Medical Services; PCP Internal Medicine Medical Oncology; Visit Provider Radiology Vascular & Interventional Radiology | DX: Z03.89 Encounter for observation for other suspected diseases and conditions ruled out (principal) | CPT/HCPCS: 70551 ==

== ENCOUNTER → 2025-03-29 11:49 | Outpatient (BNV) | payer MEDICARE, OTHER, SELFPAY | PROVIDERS: Admitting Provider Nurse Practitioner Acute Care; Emergency Provider Emergency Medicine Emergency Medical Services; PCP Internal Medicine Medical Oncology; Visit Provider Nurse Practitioner Acute Care | DX: I48.19 Other persistent atrial fibrillation (principal); R42 Dizziness and giddiness | CPT/HCPCS: 99223; 99232 ==